=== PATIENT | male | born 1945 | race Hispanic/Latino ===

== ENCOUNTER 2017-10-30 14:45 | Inpatient (IN) | payer MEDICARE ==
[2017-10-30] MEDS ORDERED: MAGNESIUM SULFATE 2GM/50ML 2 GM/50 ML BAG IV ONE ×2 (14:48→14:51)
[2017-10-30] MEDS ORDERED: PROVENTIL IH ONE ×2 (14:48→14:53)
[2017-10-30] MEDS ORDERED: ADRENALIN SUB-Q ONE (14:48)
[2017-10-30] MEDS ORDERED: ATROVENT IH ONE ×2 (14:48→14:53)
--- NOTE | 2017-10-30 14:50 | Emergency Department Report ---
ED General Adult HPI - General Chief complaint: Dyspnea/Respdistress Stated complaint: DIFFICULTY BREATHING Time Seen by Provider: 10/30/17 14:47 Source: patient, EMS (ems notes not available at time of chart dictation) Limitations: Physical Limitation - History of Present Illness Initial comments: This is a 72-year-old male who was previously unknown to this provider, he endorses a past medical history of COPD, and his medical editor is Dr. Valdivia Patient presents to the ER with a complaint of sudden onset shortness of breath. Positive coughing, positive wheezing. He is given albuterol in the field by EMS, along with Solu-Medrol. Patient denies headache, neck pain, abdominal pain, nausea, vomiting, leg pain, leg swelling. Patient endorses this is somewhat to prior presentations of COPD. His symptoms are constant. They do not radiate anywhere. They worse with physical exertion. It decreased with rest. -: Sudden Consistency: constant Improves with: rest Worsens with: movement Associated Symptoms: cough, loss of appetite, shortness of breath, weakness. denies: confusion, chest pain - Related Data Home Medications Medication Instructions Recorded Confirmed Last Taken Hydrochlorothiazide [Hctz] 12.5 mg PO QDAY 10/30/17 10/30/17 10/30/17 Lisinopril [Zestril] 20 mg PO QDAY 10/30/17 10/30/17 10/30/17 Allergies Allergy/AdvReac Type Severity Reaction Status Date / Time No Known Allergies Allergy Unverified 10/30/17 14:52 ED Review of Systems ROS: Stated complaint: DIFFICULTY BREATHING Other details as noted in HPI Comment: Unobtainable due to pts medical conditions Constitutional: malaise Respiratory: shortness of breath, wheezing Cardiovascular: dyspnea on exertion Gastrointestinal: denies: vomiting Genitourinary: as per HPI Musculoskeletal: as per HPI Skin: as per HPI Neurological: as per HPI Psychiatric: as per HPI Hematological/Lymphatic: as per HPI ED Past Medical Hx - Medications Home Medications: Home Medications Medication Instructions Recorded Confirmed Last Taken Type Hydrochlorothiazide [Hctz] 12.5 mg PO QDAY 10/30/17 10/30/17 10/30/17 History Lisinopril [Zestril] 20 mg PO QDAY 12/22/17 12/22/17 12/22/17 History ED Physical Exam - General Limitations: Physical Limitation General appearance: alert, in distress, obese - Head Head exam: Present: atraumatic, normocephalic - Eye Eye exam: Present: normal appearance - ENT ENT exam: Present: normal exam, mucous membranes moist, normal external ear exam - Neck Neck exam: Present: normal inspection, full ROM - Respiratory Respiratory exam: Present: normal lung sounds bilaterally, respiratory distress , wheezes, rhonchi, accessory muscle use - Cardiovascular Cardiovascular Exam: Present: normal rhythm, tachycardia, normal heart sounds. Absent: systolic murmur, diastolic murmur, rubs, gallop - GI/Abdominal GI/Abdominal exam: Present: soft, normal bowel sounds. Absent: distended, tenderness, guarding, rebound, rigid, pulsatile mass - Rectal Rectal exam: Present: deferred - Extremities Exam Extremities exam: Present: normal inspection, full ROM, normal capillary refill. Absent: tenderness, calf tenderness - Back Exam Back exam: Present: normal inspection, full ROM. Absent: tenderness, CVA tenderness (R), paraspinal tenderness, vertebral tenderness - Neurological Exam Neurological exam: Present: alert, oriented X3, other (Extraocular movements intact. Tongue midline. No facial droop. Facial sensation intact to light touch in the V1, V2, V3 distribution bilaterally. 5 and 5 strength in 4 extremities.. Sensation is intact to light touch in 4 extremities.). Absent: motor sensory deficit - Psychiatric Psychiatric exam: Present: anxious - Skin Skin exam: Present: warm, dry, intact, normal color. Absent: rash ED Course Vital Signs 10/30/17 10/30/17 10/30/17 15:05 16:00 16:59 Temperature 97.5 F L Pulse Rate 126 H 123 H Respiratory 21 21 Rate Blood Pressure 144/77 Blood Pressure 118/74 [Right] O2 Sat by Pulse 100 97 Oximetry 10/30/17 17:00 Temperature Pulse Rate 120 H Respiratory 17 Rate Blood Pressure Blood Pressure 106/56 [Right] O2 Sat by Pulse 97 Oximetry - Reevaluation(s) Reevaluation #1: 10/30/17 15:09 Differential diagnosis, and clearly not limited to: COPD exacerbation, asthma exacerbation, pneumonia, pneumonitis Assessment and plan: 72-year-old male, appears to have a "pink puffer" phenotype , with wheezing, most likely with COPD exacerbation. He isn't markedly respiratory distress and speaking in partial sentences. He is awake and alert at this time, and is protecting his airway. He was ready given Solu-Medrol/ steroid by EMS in the field. He will be started on BiPAP therapy, he will be given albuterol, Atrovent, magnesium, and subcutaneous epinephrine. We will discuss with his primary medical editor, and he will be admitted to the hospital for COPD exacerbation. His initial EKG was uninterpretable secondary to motion artifact, we will repeat his EKG once his work of breathing has improved. Reevaluation #2: 10/30/17 15:46 Patient is feeling much improved. Arterial blood gases reviewed and appreciated. We will decrease the patient's FiO2 on BiPAP. Case presented to pulmonology, He indicates his colleague Dr. Carter can see the patient in consultation. Case presents to the Hospital physician, Dr. Zamorano who accepts the patient to the medical service. Chest x-ray reviewed, Levaquin ordered. Wheezing has much improved. Still tachycardic, I would expect that after the quantity of albuterol that the patient received. ED Medical Decision Making - Lab Data Result diagrams: 10/30/17 15:00 10/30/17 15:00 Vital Signs 10/30/17 15:05 Pulse Rate 126 H Respiratory 21 Rate Blood Pressure 144/77 O2 Sat by Pulse 100 Oximetry Lab Results 10/30/17 10/30/17 10/30/17 Range/Units 15:00 15:00 15:00 WBC 9.0 (4.5-11.0) K/mm3 RBC 4.68 (3.65-5.03) M/mm3 Hgb 14.4 (11.8-15.2) gm/dl Hct 43.3 (35.5-45.6) % MCV 93 (84-94) fl MCH 31 (28-32) pg MCHC 33 (32-34) % RDW 14.1 (13.2-15.2) % Plt Count 217 (140-440) K/mm3 Lymph % (Auto) 6.9 L (13.4-35.0) % [place] % (Auto) 7.9 H (0.0-7.3) % Eos % (Auto) 2.8 (0.0-4.3) % Baso % (Auto) 0.6 (0.0-1.8) % Lymph # 0.6 L (1.2-5.4) K/mm3 [place] # 0.7 (0.0-0.8) K/mm3 Eos # 0.3 (0.0-0.4) K/mm3 Baso # 0.1 (0.0-0.1) K/mm3 Seg Neutrophils % 81.8 H (40.0-70.0) % Seg Neutrophils # 7.4 (1.8-7.7) K/mm3 PT 13.3 (12.2-14.9) Sec. INR 0.96 (0.87-1.13) APTT 25.1 (24.2-36.6) Sec. POC ABG pH (7.35-7.45) POC ABG pCO2 (35-45) POC ABG pO2 (80-105) POC ABG HCO3 POC ABG Total CO2 POC ABG O2 Sat POC ABG Base Excess Sodium 141 (137-145) mmol/L Potassium 4.6 (3.6-5.0) mmol/L Chloride 100.8 (98-107) mmol/L Carbon Dioxide 25 (22-30) mmol/L Anion Gap 20 mmol/L BUN 18 (9-20) mg/dL Creatinine 1.3 (0.8-1.5) mg/dL Estimated GFR 54 ml/min BUN/Creatinine Ratio 14 % Glucose 178 H (75-100) mg/dL Lactic Acid (0.7-2.0) mmol/L Calcium 8.8 (8.4-10.2) mg/dL Magnesium 2.60 H (1.7-2.3) mg/dL Total Bilirubin 0.60 (0.1-1.2) mg/dL AST 19 (5-40) units/L ALT 23 (7-56) units/L Alkaline Phosphatase 59 (35-129) units/L Troponin T < 0.010 (0.00-0.029) ng/mL NT-Pro-B Natriuret Pep (0-900) pg/mL Total Protein 6.6 (6.3-8.2) g/dL Albumin 4.2 (3.9-5) g/dL Albumin/Globulin Ratio 1.8 % 10/30/17 10/30/1710/30/17 Range/Units 15:00 15:00 15:43 WBC (4.5-11.0) K/mm3 RBC (3.65-5.03) M/mm3 Hgb (11.8-15.2) gm/dl Hct (35.5-45.6) % MCV (84-94) fl MCH (28-32) pg MCHC (32-34) % RDW (13.2-15.2) % Plt Count (140-440) K/mm3 Lymph % (Auto) (13.4-35.0) % [place] % (Auto) (0.0-7.3) % Eos % (Auto) (0.0-4.3) % Baso % (Auto) (0.0-1.8) % Lymph # (1.2-5.4) K/mm3 [place] # (0.0-0.8) K/mm3 Eos # (0.0-0.4) K/mm3 Baso # (0.0-0.1) K/mm3 Seg Neutrophils % (40.0-70.0) % Seg Neutrophils # (1.8-7.7) K/mm3 PT (12.2-14.9) Sec. INR (0.87-1.13) APTT (24.2-36.6) Sec. POC ABG pH 7.395 (7.35-7.45) POC ABG pCO2 40.2 (35-45) POC ABG pO2 431 H (80-105) POC ABG HCO3 24.6 POC ABG Total CO2 26 POC ABG O2 Sat 100 POC ABG Base Excess 0 Sodium (137-145) mmol/L Potassium (3.6-5.0) mmol/L Chloride (98-107) mmol/L Carbon Dioxide (22-30) mmol/L Anion Gap mmol/L BUN (9-20) mg/dL Creatinine (0.8-1.5) mg/dL Estimated GFR ml/min BUN/Creatinine Ratio % Glucose (75-100) mg/dL Lactic Acid 2.70 H* (0.7-2.0) mmol/L Calcium (8.4-10.2) mg/dL Magnesium (1.7-2.3) mg/dL Total Bilirubin (0.1-1.2) mg/dL AST (5-40) units/L ALT (7-56) units/L Alkaline Phosphatase (35-129) units/L Troponin T (0.00-0.029) ng/mL NT-Pro-B Natriuret Pep 107.2 (0-900) pg/mL Total Protein (6.3-8.2) g/dL Albumin (3.9-5) g/dL Albumin/Globulin Ratio % - EKG Data -: EKG Interpreted by Or - EKG Data 10/30/17 16:48 Sinus tachycardia, 122 beats per minute, low voltage, right bundle branch block , abnormal EKG, not morphologically consistent C elevation myocardial infarction. - Radiology Data Radiology results: report reviewed, image reviewed Referring Physician: SURY HERBERT Patient Name: RAQUEL BACA Date of : 1945 Sex: Male Report Date: 2017-10-30 Report Status: Finalized Findings [facility] [address] [place] [address] XRay Report Signed Patient: RAQUEL BACA MR#: [id number] : 1945 Acct:[id number] Age/Sex: 72 / M ADM Date: 10/30/17 Loc: ED Attending Dr: Ordering Physician: SURY HERBERT MD Date of Service: 10/30/17 Procedure(s): XR chest 1V ap Accession Number(s): [id number] cc: SURY HERBERT MD Fluoro Time In Minutes: PORTABLE CHEST INDICATION: Dyspnea. COMPARISON: None similar at this institution. FINDINGS: Portable, frontal chest radiograph demonstrates normal cardiomediastinal silhouette. Aortic knob calcifications. Prominent/increased bronchovascular/interstitial markings centrally and more so in the left upper lobe/suprahilar. Subtle 3-4 mm reticulonodular densities in the lower lung zones may also be noted, more so on the right. No pleural effusions or CHF. EKG leads. Left AC joint degenerative changes. CONCLUSION: Prominent interstitial/bronchovascular markings with subtle reticulonodular prominence in the right lower lung zone, as described. Correlation with prior chest imaging would be helpful, if available or may be further assessed with nonemergent high resolution chest CT, if warranted. Thank you for the opportunity to participate in this patient's care. Transcribed By: RS Dictated By: ARMIDA REYNOSO MD Electronically Authenticated By: ARMIDA REYNOSO MD Signed Date/Time: 10/30/17 1525 DD/ 1519 Critical Care Time: Yes Critical care time in (mins) excluding proc time.: 35 Critical care attestation.: If time is entered above; I have spent that time in minutes in the direct care of this critically ill patient, excluding procedure time. ED Disposition Clinical Impression: Respiratory failure, COPD exacerbation Disposition: OP ADMIT IP TO THIS HOSP Is pt being admited?: Yes Condition: Critical
[2017-10-30 15:24] LABS: Basophils % (Auto) 0.6 % (0.0-1.8); Eosinophils % (Auto) 2.8 % (0.0-4.3); Hematocrit 43.3 % (35.5-45.6); Hemoglobin 14.4 gm/dl (11.8-15.2); Mean Corpuscular HGB Conc 33 % (32-34); Mean Corpuscular Hemoglobin 31 pg (28-32); Mean Corpuscular Volume 93 fl (84-94); Platelet Count 217 K/mm3 (140-440); Red Blood Count 4.68 M/mm3 (3.65-5.03); Red Cell Distribution Width 14.1 % (13.2-15.2)
--- NOTE | 2017-10-30 15:32 | XRay Report ---
PORTABLE CHEST INDICATION: Dyspnea. COMPARISON: None similar at this institution. FINDINGS: Portable, frontal chest radiograph demonstrates normal cardiomediastinal silhouette. Aortic knob calcifications. Prominent/increased bronchovascular/interstitial markings centrally and more so in the left upper lobe/suprahilar. Subtle 3-4 mm reticulonodular densities in the lower lung zones may also be noted, more so on the right. No pleural effusions or CHF. EKG leads. Left AC joint degenerative changes. CONCLUSION: Prominent interstitial/bronchovascular markings with subtle reticulonodular prominence in the right lower lung zone, as described. Correlation with prior chest imaging would be helpful, if available or may be further assessed with nonemergent high resolution chest CT, if warranted. Thank you for the opportunity to participate in this patient's care.
[2017-10-30 15:33] LABS: INR 0.96 (0.87-1.13)
[2017-10-30] MEDS ORDERED: NACL 0.9% 500 ML 500 ML ONE (15:33)
[2017-10-30] MEDS ORDERED: NACL 0.9% 500 ML 500 ML IV ONE (15:33)
[2017-10-30 15:34] LABS: Partial Thromboplastin Time 25.1 Sec. (24.2-36.6)
[2017-10-30 15:38] LABS: Alanine Aminotransferase 23 units/L (7-56); Albumin 4.2 g/dL (3.9-5); Albumin/Globulin Ratio 1.8 %; Alkaline Phosphatase 59 units/L (35-129); Anion Gap 20 mmol/L; BUN/Creatinine Ratio 14; Blood Urea Nitrogen 18 mg/dL (9-20); Calcium 8.8 mg/dL (8.4-10.2); Carbon Dioxide 25 mmol/L (22-30); Chloride 100.8 mmol/L (98-107); Glucose 178 mg/dL (75-100); Potassium 4.6 mmol/L (3.6-5.0); Sodium 141 mmol/L (137-145); Total Protein 6.6 g/dL (6.3-8.2)
[2017-10-30 15:45] LABS: ISTAT Base Excess 0; ISTAT HCO3 24.6; ISTAT PCO2 40.2 (35-45); ISTAT PH 7.395 (7.35-7.45); ISTAT PO2 431 (80-105); ISTAT SO2 100; ISTAT TCO2 26
[2017-10-30] MEDS ORDERED: LEVAQUIN 750MG/150ML 750 MG/150 ML BAG IV ONE (15:46)
--- NOTE | 2017-10-30 16:02 | History and Physical Report ---
History of Present Illness Chief complaint: I cant breathe, and i keep coughing History of present illness: 72 YO Male with COPD, Chronic Respiratory Failure on Home Oxygen presents to ED for evaluation. Pt unable to provide detailed history due to shortness of breath , but history taken from daughter, who is at bedside during exam and interview. Pt daughter states that pt has experienced shortness of breath for the past 5 days with worsening symptoms over the past 1 day. Pt daughter acknowledges increased coughing with increased sputum production, as well as wheezing. EMS notified, and upon arrival patient found to have hypoxemic respiratory failure. Pt was given albuterol in the field by EMS, along with Solu-Medrol and transported to [facility] for further care. Pt seen and evaluated in ED and found to be in respiratory failure and treated with NIPPV with mild improvement. Pt is able to protect his airway. Pt Patient denies fever, chills, CP, palpitataions , NVD, Syncope, headache, neck pain, abdominal pain, nausea, leg pain, leg swelling. Pulmonary consulted in ED. Past History Past Medical History: COPD, hypertension Past Surgical History: No surgical history, Other (reviewed) Social history: . denies: smoking, alcohol abuse, prescription drug abuse Family history: hypertension Medications and Allergies Allergies Allergy/AdvReac Type Severity Reaction Status Date / Time No Known Allergies Allergy Unverified 10/30/17 14:52 Home Medications Medication Instructions Recorded Confirmed Last Taken Type Hydrochlorothiazide [Hctz] 12.5 mg PO QDAY 10/30/17 10/30/17 10/30/17 History Lisinopril [Zestril] 20 mg PO QDAY 10/30/17 10/30/17 10/30/17 History Active Meds: Active Medications Levofloxacin/Dextrose (Levaquin 750mg/150ml) 750 mg in 150 mls @ 100 mls/hr IV ONCE ONE Stop: 10/30/17 17:15 Review of Systems Constitutional: no weight loss, no weight gain, no fever, no chills Ears, nose, mouth and throat: no ear pain, no ear discharge, no tinnitis, no decreased hearing Cardiovascular: no chest pain, no orthopnea, no palpitations, no rapid/ irregular heart beat Respiratory: cough with sputum, excessive sputum, shortness of breath, wheezing Gastrointestinal: no nausea, no vomiting, no diarrhea Genitourinary Male: no hematuria, no flank pain, no discharge, no urinary frequency, no urinary hesitancy Rectal: no pain, no incontinence, no bleeding Musculoskeletal: no neck stiffness, no neck pain, no shooting arm pain, no arm numbness/tingling, no low back pain Integumentary: no rash, no pruritis, no redness, no sores, no wounds Neurological: no transient paralysis, no paralysis, no weakness, no parathesias , no numbness, no tingling, no seizures Psychiatric: no anxiety, no memory loss, no change in sleep habits, no sleep disturbances, no insomnia, no hypersomnia, no change in appetite Endocrine: no cold intolerance, no heat intolerance, no polyphagia, no excessive thirst, no polydipsia Hematologic/Lymphatic: no easy bruising, no easy bleeding Allergic/Immunologic: no urticaria, no allergic rhinitis, no wheezing Exam - Constitutional Vitals: Temp Pulse Resp BP Pulse Ox 126 H 21 144/77 100 10/30/17 15:05 10/30/17 15:05 10/30/17 15:05 10/30/17 15:05 General appearance: Present: mild distress - EENT Eyes: Present: PERRL ENT: hearing intact, clear oral mucosa - Neck Neck: Present: supple, normal ROM - Respiratory Respiratory effort: labored Respiratory: bilateral: diminished, rhonchi - Cardiovascular Heart Sounds: Present: S1 & S2. Absent: rub, click - Extremities Extremities: pulses symmetrical, No edema Peripheral Pulses: within normal limits - Abdominal General gastrointestinal: Present: soft, non-tender, non-distended, normal bowel sounds Male genitourinary: Present: normal - Integumentary Integumentary: Present: clear, warm, dry - Musculoskeletal Musculoskeletal: gait normal, strength equal bilaterally - Psychiatric Psychiatric: appropriate mood/affect, intact judgment & insight - Neurologic Neurologic: CNII-XII intact, moves all extremities Results - Labs CBC & Chem 7: 10/30/17 15:00 10/30/17 15:00 Labs: Abnormal lab results 10/30/17 10/30/17 10/30/17 Range/Units 15:00 15:00 15:00 Lymph % (Auto) 6.9 L (13.4-35.0) % [place] % (Auto) 7.9 H (0.0-7.3) % Lymph # 0.6 L (1.2-5.4) K/mm3 Seg Neutrophils % 81.8 H (40.0-70.0) % POC ABG pO2 (80-105) Glucose 178 H (75-100) mg/dL Lactic Acid 2.70 H* (0.7-2.0) mmol/L Magnesium 2.60 H (1.7-2.3) mg/dL 10/30/ Range/Units 15:43 Lymph % (Auto) (13.4-35.0) % [place] % (Auto) (0.0-7.3) % Lymph # (1.2-5.4) K/mm3 Seg Neutrophils % (40.0-70.0) % POC ABG pO2 431 H (80-105) Glucose (75-100) mg/dL Lactic Acid (0.7-2.0) mmol/L Magnesium (1.7-2.3) mg/dL Assessment and Plan - Patient Problems (1) COPD exacerbation Current Visit: Yes Status: Acute Plan to address problem: Supplemental oxygen, nebs, aspiration precautions. NIPPV, IV steroid therapy, IV abx, aspiration precautions. pulmonary consulted, CTA chest (2) HTN (hypertension) Current Visit: Yes Status: Acute Plan to address problem: monitor bp q shift, continue medical management. (3) Respiratory failure Current Visit: Yes Status: Acute Plan to address problem: supplemental oxygen,nebs, NIPPV, pulmonary toilet, CTA chest, (4) DVT prophylaxis Current Visit: Yes Status: Acute
[2017-10-30] MEDS ORDERED: PROVENTIL IH PRN (16:08)
[2017-10-30] MEDS ORDERED: DULCOLAX PR PRN (16:08)
[2017-10-30] MEDS ORDERED: ZOFRAN IV PRN (16:08)
[2017-10-30] MEDS ORDERED: TYLENOL PO PRN (16:08)
[2017-10-30] MEDS ORDERED: MILK OF MAGNESIA PO PRN (16:08)
--- NOTE | 2017-10-30 18:10 | Cat Scan Report ---
FINAL REPORT EXAM: CT ANGIO CHEST HISTORY: Dyspnea TECHNIQUE: Enhanced CT of the chest at 1.25 mm axial intervals following a pulmonary embolism protocol. Coronal and sagittal imaging were also obtained. Coronal oblique MIP projections were obtained. Contrast: Intravenous contrast given. PRIORS: None. FINDINGS: There is no evidence for pulmonary embolism in the main pulmonary artery, right and left pulmonary arteries or their major distributions. However, CT does not exclude distal pulmonary emboli. There is a pleural-based uncalcified 5 mm nodule in the lateral left lower lobe (axial image 94). There is a stellate focus in the right apex medially measuring 3.0 x 1.0 cm (axial image 29, series 3). This extends from the hilum cranially. Linear atelectasis or scarring in the right base medially is present. Fissure lymph nodes are seen in the lateral right major fissure (axial image 78) and in the minor fissure (axial image 71). Diffuse interstitial changes are present throughout both lungs with small bulla in the upper lobe suggesting underlying emphysema. There is no evidence for mediastinal, hilar, or axillary adenopathy. Cardiovascular structures are within normal limits. No evidence for ventricular chamber enlargement is seen. Images through the lung bases include the upper abdomen which show no abnormalities of the visualized abdominal viscera. Bony structures demonstrate moderate compression deformity of T11. There also a subtle superior endplate compression of T3 and mild anterior wedging of T7. IMPRESSION: 1. no evidence for pulmonary embolism. 2. stellate focus in the right apex medially. Differential includes neoplasm versus fibrosis 3. Uncalcified 5 mm nodule in the left lateral lower lobe 4. Both changes and interstitial changes bilaterally suggesting underlying emphysema. 5. Compression deformities involving T3, T7, and T11.
[2017-10-30] MEDS: ZITHROMAX 500 MG in NACL 0.9% 250ML 250 ML IV SCH (18:34)
[2017-10-30] MEDS ORDERED: ATIVAN IV ONE (19:00)
[2017-10-30] MEDS: DUONEB *Not for PRN Use IH SCH (21:41)
[2017-10-30] MEDS: PEPCID PO SCH (23:00)
[2017-10-31] MEDS: DUONEB *Not for PRN Use IH SCH ×4 (02:23→19:33)
[2017-10-31] MEDS: PEPCID PO SCH ×2 (09:39→21:33)
[2017-10-31] MEDS: ZESTRIL PO SCH (10:00)
[2017-10-31] MEDS: HCTZ PO SCH (10:00)
[2017-10-31 14:22] LABS: ISTAT Base Excess -5; ISTAT HCO3 19.7; ISTAT PCO2 31.1 (35-45); ISTAT PH 7.409 (7.35-7.45); ISTAT PO2 112 (80-105); ISTAT SO2 98; ISTAT TCO2 21
--- NOTE | 2017-10-31 15:03 | Progress Note ---
Assessment and Plan Assessment and plan: 72 YO Male with COPD, Chronic Respiratory Failure on Home Oxygen presents with productive cough and sob COPD exacerbation Supplemental oxygen, nebs, aspiration precautions. NIPPV, IV steroid therapy, IV abx, aspiration precautions. pulmonary consulted, CTA chest continue BIPAP today HTN (hypertension) monitor bp q shift, continue medical management. Acute hypoxic Respiratory failure supplemental oxygen,nebs, NIPPV, pulmonary toilet, continue rescue BIPAP DVT prophylaxis Current Visit: Yes Status: Acute History Interval history: he is c.o sob, wheezing, sob and air hunger denies CP, nausea, dizzyness, focal weakness or fever Hospitalist Physical - Constitutional Vitals: Temp Pulse Resp BP Pulse Ox 98.0 F 102 H 22 132/82 98 10/31/17 14:29 10/31/17 14:29 10/31/17 14:29 10/31/17 14:29 10/31/17 14:29 General appearance: Present: mild distress - EENT Eyes: Present: PERRL, EOM intact ENT: hearing intact, clear oral mucosa - Neck Neck: Present: supple, normal ROM - Respiratory Respiratory effort: pursed lips Respiratory: bilateral: diminished, wheezing - Cardiovascular Rhythm: regular Heart Sounds: Present: S1 & S2 - Extremities Extremities: no ischemia Peripheral Pulses: within normal limits - Abdominal General gastrointestinal: soft, non-tender - Integumentary Integumentary: Present: clear, warm - Psychiatric Psychiatric: appropriate mood/affect, intact judgment & insight - Neurologic Neurologic: CNII-XII intact, moves all extremities Results - Labs CBC & Chem 7: 10/30/17 15:00 10/30/17 15:00 Labs: Laboratory Last Values WBC 9.0 K/mm3 (4.5-11.0) 10/30/17 15:00 RBC 4.68 M/mm3 (3.65-5.03) 10/30/17 15:00 Hgb 14.4 gm/dl (11.8-15.2) 10/30/17 15:00 Hct 43.3 % (35.5-45.6) 10/30/17 15:00 MCV 93 fl (84-94) 10/30/17 15:00 MCH 31 pg (28-32) 10/30/17 15:00 MCHC 33 % (32-34) 10/30/17 15:00 RDW 14.1 % (13.2-15.2) 10/30/17 15:00 Plt Count 217 K/mm3 (140-440) 10/30/17 15:00 Lymph % (Auto) 6.9 % (13.4-35.0) L 10/30/17 15:00 [place] % (Auto) 7.9 % (0.0-7.3) H 10/30/17 15:00 Eos % (Auto) 2.8 % (0.0-4.3) 10/30/17 15:00 Baso % (Auto) 0.6 % (0.0-1.8) 10/30/17 15:00 Lymph # 0.6 K/mm3 (1.2-5.4) L 10/30/17 15:00 [place] # 0.7 K/mm3 (0.0-0.8) 10/30/17 15:00 Eos # 0.3 K/mm3 (0.0-0.4) 10/30/17 15:00 Baso # 0.1 K/mm3 (0.0-0.1) 10/30/17 15:00 Seg Neutrophils % 81.8 % (40.0-70.0) H 10/30/17 15:00 Seg Neutrophils # 7.4 K/mm3 (1.8-7.7) 10/30/17 15:00 PT 13.3 Sec. (12.2-14.9) 10/30/17 15:00 INR 0.96 (0.87-1.13) 10/30/17 15:00 APTT 25.1 Sec. (24.2-36.6) 10/30/17 15:00 POC ABG pH 7.409 (7.35-7.45) 10/31/17 14:15 POC ABG pCO2 31.1 (35-45) L 10/31/17 14:15 POC ABG pO2 112 (80-105) H 10/31/17 14:15 POC ABG HCO3 19.7 10/31/17 14:15 POC ABG Total CO2 21 10/31/17 14:15 POC ABG O2 Sat 98 10/31/17 14:15 POC ABG Base Excess -5 10/31/17 14:15 FiO2 40 % 10/31/17 14:15 Sodium 141 mmol/L (137-145) 10/30/17 15:00 Potassium 4.6 mmol/L (3.6-5.0) 10/30/17 15:00 Chloride 100.8 mmol/L (98-107) 10/30/17 15:00 Carbon Dioxide 25 mmol/L (22-30) 10/30/17 15:00 Anion Gap 20 mmol/L 10/30/17 15:00 BUN 18 mg/dL (9-20) 10/30/17 15:00 Creatinine 1.3 mg/dL (0.8-1.5) 10/30/17 15:00 Estimated GFR 54 ml/min 10/30/17 15:00 BUN/Creatinine Ratio 14 % 10/30/17 15:00 Glucose 178 mg/dL (75-100) H 10/30/17 15:00 Lactic Acid 2.70 mmol/L (0.7-2.0) H* 10/30/17 15:00 Calcium 8.8 mg/dL (8.4-10.2) 10/30/17 15:00 Magnesium 2.60 mg/dL (1.7-2.3) H 10/30/17 15:00 Total Bilirubin 0.60 mg/dL (0.1-1.2) 10/30/17 15:00 AST 19 units/L (5-40) 10/30/17 15:00 ALT 23 units/L (7-56) 10/30/17 15:00 Alkaline Phosphatase 59 units/L (35-129) 10/30/17 15:00 Troponin T < 0.010 ng/mL (0.00-0.029) 10/30/17 15:00 NT-Pro-B Natriuret Pep 107.2 pg/mL (0-900) 10/30/17 15:00 Total Protein 6.6 g/dL (6.3-8.2) 10/30/17 15:00 Albumin 4.2 g/dL (3.9-5) 10/30/17 15:00 Albumin/Globulin Ratio 1.8 % 10/30/17 15:00
[2017-10-31] MEDS: ZITHROMAX 500 MG in NACL 0.9% 250ML 250 ML IV SCH (17:28)
--- NOTE | 2017-10-31 17:31 | Consultation ---
History of Present Illness Consult date: 10/31/17 Reason for consult: dyspnea, COPD History of present illness: 72 YO Male with COPD, Chronic Respiratory Failure on Home Oxygen presents to ED for evaluation. Pt unable to provide detailed history due to shortness of breath and being on BiPAP therapy, but history taken from daughter, who is at bedside during exam and interview. Pt daughter states that pt has experienced shortness of breath for the past 5 days with worsening symptoms over the past 1 day. Pt daughter acknowledges increased coughing with increased sputum production, as well as wheezing. EMS notified, and upon arrival patient found to have hypoxemic respiratory failure. Pt was given albuterol in the field by EMS, along with Solu-Medrol and transported to [facility] for further care. Pt seen and evaluated in ED and found to be in respiratory failure and treated with NIPPV with mild improvement. Pt is able to protect his airway. Pt Patient denies fever, chills, CP, palpitataions, NVD, Syncope, headache, neck pain, abdominal pain, nausea, leg pain, leg swelling. Pulmonary consulted in ED. In addition patient reports loud snoring. He has been on home oxygen therapy. He has not had a sleep study in the past. Patient was also found to have a spiculated lesion at right apex on recent CT scan. Past History Past Medical History: COPD, hypertension Past Surgical History: No surgical history, Other (reviewed) Social history: . denies: smoking, alcohol abuse, prescription drug abuse Family history: hypertension Medications and Allergies Allergies Allergy/AdvReac Type Severity Reaction Status Date / Time No Known Allergies Allergy Unverified 10/30/17 14:52 Home Medications Medication Instructions Recorded Confirmed Last Taken Type Hydrochlorothiazide [Hctz] 12.5 mg PO QDAY 10/30/17 10/30/17 10/30/17 History Lisinopril [Zestril] 20 mg PO QDAY 10/30/17 10/30/17 10/30/17 History Active Meds: Active Medications Acetaminophen (Tylenol) 650 mg PO Q4H PRN PRN Reason: Pain MILD(1-3)/Fever >100.5/TELLO Albuterol (Proventil) 2.5 mg IH Q4HRT PRN PRN Reason: Shortness Of Breath Albuterol/Ipratropium (Duoneb *Not For Prn Use*) 1 ampul IH Q6HRT [facility] Last Admin: 10/31/17 13:29 Dose: Not Given Bisacodyl (Dulcolax) 10 mg MT QDAY PRN PRN Reason: Constipation unrelieved by MOM Famotidine (Pepcid) 20 mg PO BID [facility] Last Admin: 10/31/17 09:39 Dose: 20 mg Hydrochlorothiazide (Hctz) 12.5 mg PO QDAY [facility] Last Admin: 10/31/17 10:00 Dose: Not Given Azithromycin 500 mg/ Sodium (Chloride) 250 mls @ 250 mls/hr IV Q24H [facility] Last Admin: 10/30/17 18:34 Dose: 250 mls/hr Lisinopril (Zestril) 20 mg PO QDAY [facility] Last Admin: 10/31/17 10:00 Dose: Not Given Magnesium Hydroxide (Milk Of Magnesia) 30 ml PO Q4H PRN PRN Reason: Constipation Methylprednisolone Sodium Succinate (Solu-Medrol) 40 mg IV Q12HR [facility] Last Admin: 10/31/17 09:39 Dose: 40 mg Methylprednisolone Sodium Succinate (Solu-Medrol) 40 mg IV Q8HR [facility] Ondansetron HCl (Zofran) 4 mg IV Q8H PRN PRN Reason: N/V unrelieved by Reglan Physical Examination Vital signs: Vital Signs Pulse Resp BP Pulse Ox 126 H 21 144/77 100 10/30/17 15:05 10/30/17 15:05 10/30/17 15:05 10/30/17 15:05 General appearance: no acute distress, alert, appears uncomfortable, other ( morbidly obese) Eyes: non-icteric ENT: oropharynx dry, other (on BiPAP mask examination was limited) Neck: supple, no JVD Effort: mildly labored Ascultation: Bilateral: diminished breath sounds, wheezes, rales Cardiovascular: regular rate and rhythm Gastrointestinal: normoactive bowel sounds, soft, non-tender, other (obese) Integumentary: rash (stasis dermatitis changes lower extremity.) Extremities: edema Results - Laboratory Findings CBC and BMP: 10/30/17 15:00 10/30/17 15:00 ABG POC ABG pH 7.409 (7.35-7.45) 10/31/17 14:15 POC ABG pCO2 31.1 (35-45) L 10/31/17 14:15 POC ABG pO2 112 (80-105) H 10/31/17 14:15 POC ABG HCO3 19.7 10/31/17 14:15 POC ABG Total CO2 21 10/31/17 14:15 POC ABG O2 Sat 98 10/31/17 14:15 PT/INR, D-dimer PT 13.3 Sec. (12.2-14.9) 10/30/17 15:00 INR 0.96 (0.87-1.13) 10/30/17 15:00 Abnormal lab findings: Abnormal Labs 10/30/17 10/30/17 10/30/17 15:00 15:00 15:00 Lymph % (Auto) 6.9 L [place] % (Auto) 7.9 H Lymph # 0.6 L Seg Neutrophils % 81.8 H POC ABG pCO2 POC ABG pO2 Glucose 178 H Lactic Acid 2.70 H* Magnesium 2.60 H 10/30/17 10/31/17 15:43 14:15 Lymph % (Auto) [place] % (Auto) Lymph # Seg Neutrophils % POC ABG pCO2 31.1 L POC ABG pO2 431 H 112 H Glucose Lactic Acid Magnesium - Diagnostic Findings Chest x-ray: report reviewed (COPD no acute finding) CT scan - chest: report reviewed (right upper lobe density scar versus neoplasm) Assessment and Plan Impression: COPD with acute exacerbation Acute respiratory failure Right upper lobe/apex lesion scar versus neoplasm Ordered obesity Suspect obstructive sleep apnea Overlap syndrome. Recommendation: Continue with nebulizer treatment and IV steroid. Will increase Solu-Medrol to 40 mg every 8 hour. Continue with BiPAP therapy as tolerated Consider PET scan as an outpatient Sleep study as outpatient
[2017-11-01] MEDS: DUONEB *Not for PRN Use IH SCH ×5 (01:35→20:06)
[2017-11-01] MEDS: ZESTRIL PO SCH (09:26)
[2017-11-01] MEDS: HCTZ PO SCH (09:27)
[2017-11-01] MEDS: PEPCID PO SCH ×2 (09:27→21:36)
--- NOTE | 2017-11-01 10:14 | Progress Note ---
Assessment and Plan Assessment and plan: 72 YO Male with COPD, Chronic Respiratory Failure on Home Oxygen presents with productive cough and sob COPD exacerbation Supplemental oxygen, nebs, aspiration precautions. NIPPV, IV steroid therapy, IV abx, aspiration precautions. pulmonary consulted, CTA chest switch from BIPAP to high flow oxygen today HTN (hypertension) monitor bp q shift, continue medical management. Acute hypoxic Respiratory failure supplemental oxygen,nebs, NIPPV, pulmonary toilet, now on high flow oxygen Anxiety disorder add oral ativan prn q8h DVT prophylaxis Current Visit: Yes Status: Acute History Interval history: he is c.o sob, wheezing, sob and air hunger denies CP, nausea, dizzyness, focal weakness or fever Hospitalist Physical - Physical exam Narrative exam: General appearance: Present: mild distress - EENT Eyes: Present: PERRL, EOM intact ENT: hearing intact, clear oral mucosa - Neck Neck: Present: supple, normal ROM - Respiratory Respiratory effort: pursed lips Respiratory: bilateral: diminished, wheezing - Cardiovascular Rhythm: regular Heart Sounds: Present: S1 & S2 - Extremities Extremities: no ischemia Peripheral Pulses: within normal limits - Abdominal General gastrointestinal: soft, non-tender - Integumentary Integumentary: Present: clear, warm - Psychiatric Psychiatric: appropriate mood/affect, intact judgment & insight - Neurologic Neurologic: CNII-XII intact, moves all extremities - Constitutional Vitals: Temp Pulse Resp BP Pulse Ox 98.3 F 91 H 23 142/86 96 11/01/17 07:38 11/01/17 09:26 11/01/17 08:24 11/01/17 09:26 11/01/17 09:14 General appearance: Present: mild distress Results - Labs CBC & Chem 7: 10/30/17 15:00 10/30/17 15:00 Labs: Laboratory Last Values WBC 9.0 K/mm3 (4.5-11.0) 10/30/17 15:00 RBC 4.68 M/mm3 (3.65-5.03) 10/30/17 15:00 Hgb 14.4 gm/dl (11.8-15.2) 10/30/17 15:00 Hct 43.3 % (35.5-45.6) 10/30/17 15:00 MCV 93 fl (84-94) 10/30/17 15:00 MCH 31 pg (28-32) 10/30/17 15:00 MCHC 33 % (32-34) 10/30/17 15:00 RDW 14.1 % (13.2-15.2) 10/30/17 15:00 Plt Count 217 K/mm3 (140-440) 10/30/17 15:00 Lymph % (Auto) 6.9 % (13.4-35.0) L 10/30/17 15:00 [place] % (Auto) 7.9 % (0.0-7.3) H 10/30/17 15:00 Eos % (Auto) 2.8 % (0.0-4.3) 10/30/17 15:00 Baso % (Auto) 0.6 % (0.0-1.8) 10/30/17 15:00 Lymph # 0.6 K/mm3 (1.2-5.4) L 10/30/17 15:00 [place] # 0.7 K/mm3 (0.0-0.8) 10/30/17 15:00 Eos # 0.3 K/mm3 (0.0-0.4) 10/30/17 15:00 Baso # 0.1 K/mm3 (0.0-0.1) 10/30/17 15:00 Seg Neutrophils % 81.8 % (40.0-70.0) H 10/30/17 15:00 Seg Neutrophils # 7.4 K/mm3 (1.8-7.7) 10/30/17 15:00 PT 13.3 Sec. (12.2-14.9) 10/30/17 15:00 INR 0.96 (0.87-1.13) 10/30/17 15:00 APTT 25.1 Sec. (24.2-36.6) 10/30/17 15:00 POC ABG pH 7.409 (7.35-7.45) 10/31/17 14:15 POC ABG pCO2 31.1 (35-45) L 10/31/17 14:15 POC ABG pO2 112 (80-105) H 10/31/17 14:15 POC ABG HCO3 19.7 10/31/17 14:15 POC ABG Total CO2 21 10/31/17 14:15 POC ABG O2 Sat 98 10/31/17 14:15 POC ABG Base Excess -5 10/31/17 14:15 FiO2 40 % 10/31/17 14:15 Sodium 141 mmol/L (137-145) 10/30/17 15:00 Potassium 4.6 mmol/L (3.6-5.0) 10/30/17 15:00 Chloride 100.8 mmol/L (98-107) 10/30/17 15:00 Carbon Dioxide 25 mmol/L (22-30) 10/30/17 15:00 Anion Gap 20 mmol/L 10/30/17 15:00 BUN 18 mg/dL (9-20) 10/30/17 15:00 Creatinine 1.3 mg/dL (0.8-1.5) 10/30/17 15:00 Estimated GFR 54 ml/min 10/30/17 15:00 BUN/Creatinine Ratio 14 % 10/30/17 15:00 Glucose 178 mg/dL (75-100) H 10/30/17 15:00 Lactic Acid 2.70 mmol/L (0.7-2.0) H* 10/30/17 15:00 Calcium 8.8 mg/dL (8.4-10.2) 10/30/17 15:00 Magnesium 2.60 mg/dL (1.7-2.3) H 10/30/17 15:00 Total Bilirubin 0.60 mg/dL (0.1-1.2) 10/30/17 15:00 AST 19 units/L (5-40) 10/30/17 15:00 ALT 23 units/L (7-56) 10/30/17 15:00 Alkaline Phosphatase 59 units/L (35-129) 10/30/17 15:00 Troponin T < 0.010 ng/mL (0.00-0.029) 10/30/17 15:00 NT-Pro-B Natriuret Pep 107.2 pg/mL (0-900) 10/30/17 15:00 Total Protein 6.6 g/dL (6.3-8.2) 10/30/17 15:00 Albumin 4.2 g/dL (3.9-5) 10/30/17 15:00 Albumin/Globulin Ratio 1.8 % 10/30/17 15:00
[2017-11-01] MEDS ORDERED: ATIVAN PO PRN (13:21)
--- NOTE | 2017-11-01 15:47 | Progress Note ---
Assessment and Plan Impression: COPD with acute exacerbation Acute respiratory failure Right upper lobe/apex lesion scar versus neoplasm Ordered obesity Suspect obstructive sleep apnea Overlap syndrome. Recommendation: Continue with nebulizer treatment and IV steroid. Will increase Solu-Medrol to 40 mg every 8 hour. Continue with BiPAP therapy as tolerated Consider PET scan as an outpatient Sleep study as outpatient Wean BIPAP as tolerated Subjective Date of service: 11/01/17 Interval history: pt still SOB, Minimally better. Still on BIPAP Objective Vital Signs - 12hr 11/01/17 11/01/17 11/01/17 04:24 04:30 04:46 Temperature 97.5 F L Pulse Rate Pulse Rate [ 92 H 95 H Anterior Bilateral Throughout] Respiratory 20 Rate Respiratory 18 18 Rate [Anterior Bilateral Throughout] Blood Pressure 139/89 O2 Sat by Pulse Oximetry 11/01/17 11/01/17 11/01/17 07:38 08:02 08:17 Temperature 98.3 F Pulse Rate 91 H Pulse Rate [ 96 H 94 H Anterior Bilateral Throughout] Respiratory 22 Rate Respiratory 21 20 Rate [Anterior Bilateral Throughout] Blood Pressure 142/86 O2 Sat by Pulse 97 Oximetry 11/01/17 11/01/17 11/01/17 08:24 09:14 09:26 Temperature Pulse Rate 94 H 91 H Pulse Rate [ Anterior Bilateral Throughout] Respiratory 23 Rate Respiratory Rate [Anterior Bilateral Throughout] Blood Pressure 142/86 O2 Sat by Pulse 98 96 Oximetry 11/01/17 11/01/17 11/01/17 10:00 13:00 13:10 Temperature Pulse Rate 81 Pulse Rate [ 95 H 98 H Anterior Bilateral Throughout] Respiratory 22 Rate Respiratory 18 18 Rate [Anterior Bilateral Throughout] Blood Pressure O2 Sat by Pulse 95 Oximetry 11/01/17 11/01/17 14:34 15:28 Temperature Pulse Rate Pulse Rate [ Anterior Bilateral Throughout] Respiratory Rate Respiratory Rate [Anterior Bilateral Throughout] Blood Pressure O2 Sat by Pulse 96 94 Oximetry Constitutional: no acute distress, alert, appears uncomfortable, other ( morbidly obese) Eyes: non-icteric ENT: oropharynx dry, other (on BiPAP mask examination was limited) Neck: supple, no JVD Effort: mildly labored Ascultation: Bilateral: diminished breath sounds, wheezes, rales Cardiovascular: regular rate and rhythm Gastrointestinal: normoactive bowel sounds, soft, non-tender, other (obese) Integumentary: rash (stasis dermatitis changes lower extremity.) Extremities: edema CBC and BMP: 10/30/17 15:00 10/30/17 15:00 ABG, PT/INR, D-dimer: ABG POC ABG pH 7.409 (7.35-7.45) 10/31/17 14:15 POC ABG pCO2 31.1 (35-45) L 10/31/17 14:15 POC ABG pO2 112 (80-105) H 10/31/17 14:15 POC ABG HCO3 19.7 10/31/17 14:15 POC ABG Total CO2 21 10/31/17 14:15 POC ABG O2 Sat 98 10/31/17 14:15 PT/INR, D-dimer PT 13.3 Sec. (12.2-14.9) 10/30/17 15:00 INR 0.96 (0.87-1.13) 10/30/17 15:00 Abnormal lab findings: Abnormal Labs 10/30/17 10/30/17 10/30/17 15:00 15:00 15:00 Lymph % (Auto) 6.9 L [place] % (Auto) 7.9 H Lymph # 0.6 L Seg Neutrophils % 81.8 H POC ABG pCO2 POC ABG pO2 Glucose 178 H Lactic Acid 2.70 H* Magnesium 2.60 H 10/30/17 10/31/17 15:43 14:15 Lymph % (Auto) [place] % (Auto) Lymph # Seg Neutrophils % POC ABG pCO2 31.1 L POC ABG pO2 431 H 112 H Glucose Lactic Acid Magnesium
[2017-11-01] MEDS: ZITHROMAX 500 MG in NACL 0.9% 250ML 250 ML IV SCH (18:45)
[2017-11-02] MEDS: DUONEB *Not for PRN Use IH SCH ×6 (00:41→19:24)
[2017-11-02] MEDS: HCTZ PO SCH (09:17)
[2017-11-02] MEDS: ZESTRIL PO SCH (09:17)
[2017-11-02] MEDS: ZITHROMAX PO SCH (09:18)
[2017-11-02] MEDS: PEPCID PO SCH ×2 (09:18→21:30)
--- NOTE | 2017-11-02 11:27 | Progress Note ---
Assessment and Plan 72 YO Male with COPD, Chronic Respiratory Failure on Home Oxygen presents with productive cough and sob /Acute COPD exacerbation Supplemental oxygen, nebs, aspiration precautions. NIPPV, IV steroid therapy, IV abx, aspiration precautions. pulmonary consulted, CTA chest switch from BIPAP to high flow oxygen today /HTN (hypertension) monitor bp q shift, continue medical management. /Acute on chronic hypoxic Respiratory failure supplemental oxygen,nebs, NIPPV, pulmonary toilet, now on high flow oxygen /Anxiety disorder added oral ativan prn q8h /DVT prophylaxis lovenox History Interval history: he is c.o sob and wheezing. but symptom improved since admission denies CP, nausea, dizzyness, focal weakness or fever Hospitalist Physical - Physical exam Narrative exam: General appearance: Present: no distress - EENT Eyes: Present: PERRL, EOM intact ENT: hearing intact, clear oral mucosa - Neck Neck: Present: supple, normal ROM - Respiratory Respiratory effort: pursed lips Respiratory: bilateral: diminished, few wheezing - Cardiovascular Rhythm: regular Heart Sounds: Present: S1 & S2 - Extremities Extremities: no ischemia Peripheral Pulses: within normal limits - Abdominal General gastrointestinal: soft, non-tender - Integumentary Integumentary: Present: clear, warm - Psychiatric Psychiatric: appropriate mood/affect, intact judgment & insight - Neurologic Neurologic: CNII-XII intact, moves all extremities Subjective Date of service: 11/02/17 Objective - Constitutional Vitals: Vital Signs - 12hr 11/02/17 11/02/17 11/02/17 00:41 00:56 01:34 Temperature Pulse Rate 96 H Pulse Rate [ 91 H 94 H Anterior Bilateral Throughout] Pulse Rate [ Posterior Bilateral] Respiratory Rate Respiratory 18 18 Rate [Anterior Bilateral Throughout] Respiratory Rate [Posterior Bilateral] Blood Pressure O2 Sat by Pulse Oximetry 11/02/17 11/02/17 11/02/17 02:00 04:00 04:20 Temperature Pulse Rate Pulse Rate [ Anterior Bilateral Throughout] Pulse Rate [ 89 89 Posterior Bilateral] Respiratory Rate Respiratory Rate [Anterior Bilateral Throughout] Respiratory 22 18 Rate [Posterior Bilateral] Blood Pressure O2 Sat by Pulse 94 Oximetry 11/02/17 11/02/17 11/02/17 07:52 08:15 08:20 Temperature 97.5 F L Pulse Rate 86 Pulse Rate [ 86 Anterior Bilateral Throughout] Pulse Rate [ Posterior Bilateral] Respiratory 20 Rate Respiratory 20 Rate [Anterior Bilateral Throughout] Respiratory Rate [Posterior Bilateral] Blood Pressure 119/73 O2 Sat by Pulse 95 96 Oximetry 11/02/17 11/02/17 11/02/17 08:23 09:17 11:00 Temperature Pulse Rate 86 Pulse Rate [ 86 Anterior Bilateral Throughout] Pulse Rate [ Posterior Bilateral] Respiratory Rate Respiratory 18 Rate [Anterior Bilateral Throughout] Respiratory Rate [Posterior Bilateral] Blood Pressure 119/73 O2 Sat by Pulse 95 Oximetry - Labs CBC & Chem 7: 10/30/17 15:00 10/30/17 15:00
--- NOTE | 2017-11-02 14:38 | Progress Note ---
Assessment and Plan Impression: COPD with acute exacerbation Acute respiratory failure Right upper lobe/apex lesion scar versus neoplasm Morbid obesity Suspect obstructive sleep apnea Overlap syndrome. Recommendation: Continue with nebulizer treatment and IV steroid. Will increase Solu-Medrol to 40 mg every 8 hour. Continue with BiPAP therapy as tolerated Consider PET scan as an outpatient Sleep study as outpatient Wean BIPAP as tolerated Possible discharge in the morning on prednisone taper starting at 60 mg and antibiotics Follow-up with Dr. Valdivia next week Subjective Date of service: 11/02/17 Interval history: pt is better, off BIPAP on NC Objective Vital Signs - 12hr 11/02/17 11/02/17 11/02/17 04:00 04:20 07:52 Temperature 97.5 F L Pulse Rate 86 Pulse Rate [ Anterior Bilateral Throughout] Pulse Rate [ 89 89 Posterior Bilateral] Respiratory 20 Rate Respiratory Rate [Anterior Bilateral Throughout] Respiratory 22 18 Rate [Posterior Bilateral] Blood Pressure 119/73 O2 Sat by Pulse 95 Oximetry 11/02/17 11/02/17 11/02/17 08:15 08:20 08:23 Temperature Pulse Rate Pulse Rate [ 86 86 Anterior Bilateral Throughout] Pulse Rate [ Posterior Bilateral] Respiratory Rate Respiratory 20 18 Rate [Anterior Bilateral Throughout] Respiratory Rate [Posterior Bilateral] Blood Pressure O2 Sat by Pulse 96 Oximetry 11/02/17 11/02/17 11/02/17 09:17 11:00 12:08 Temperature Pulse Rate 86 Pulse Rate [ 92 H Anterior Bilateral Throughout] Pulse Rate [ Posterior Bilateral] Respiratory Rate Respiratory 24 Rate [Anterior Bilateral Throughout] Respiratory Rate [Posterior Bilateral] Blood Pressure 119/73 O2 Sat by Pulse 95 Oximetry 11/02/17 11/02/17 12:17 13:22 Temperature 98.8 F Pulse Rate 104 H Pulse Rate [ 94 H Anterior Bilateral Throughout] Pulse Rate [ Posterior Bilateral] Respiratory 20 Rate Respiratory 24 Rate [Anterior Bilateral Throughout] Respiratory Rate [Posterior Bilateral] Blood Pressure 100/65 O2 Sat by Pulse 94 Oximetry Constitutional: no acute distress, alert, appears uncomfortable, other ( morbidly obese) Eyes: non-icteric ENT: oropharynx moist, oropharynx dry, other (on BiPAP mask examination was limited) Neck: supple, no JVD Effort: mildly labored Ascultation: Bilateral: clear, diminished breath sounds Cardiovascular: regular rate and rhythm Gastrointestinal: normoactive bowel sounds, soft, non-tender, other (obese) Integumentary: rash (stasis dermatitis changes lower extremity.) Extremities: edema CBC and BMP: 10/30/17 15:00 10/30/17 15:00 ABG, PT/INR, D-dimer: ABG POC ABG pH 7.409 (7.35-7.45) 10/31/17 14:15 POC ABG pCO2 31.1 (35-45) L 10/31/17 14:15 POC ABG pO2 112 (80-105) H 10/31/17 14:15 POC ABG HCO3 19.7 10/31/17 14:15 POC ABG Total CO2 21 10/31/17 14:15 POC ABG O2 Sat 98 10/31/17 14:15 PT/INR, D-dimer PT 13.3 Sec. (12.2-14.9) 10/30/17 15:00 INR 0.96 (0.87-1.13) 10/30/17 15:00 Abnormal lab findings: Abnormal Labs 10/30/17 10/30/17 10/30/17 15:00 15:00 15:00 Lymph % (Auto) 6.9 L [place] % (Auto) 7.9 H Lymph # 0.6 L Seg Neutrophils % 81.8 H POC ABG pCO2 POC ABG pO2 Glucose 178 H Lactic Acid 2.70 H* Magnesium 2.60 H 10/30/17 10/31/17 15:43 14:15 Lymph % (Auto) [place] % (Auto) Lymph # Seg Neutrophils % POC ABG pCO2 31.1 L POC ABG pO2 431 H 112 H Glucose Lactic Acid Magnesium
[2017-11-03] MEDS: DUONEB *Not for PRN Use IH SCH ×3 (00:41→08:22)
[2017-11-03 08:05] LABS: Hematocrit 45.7 % (35.5-45.6); Hemoglobin 14.8 gm/dl (11.8-15.2); Mean Corpuscular HGB Conc 33 % (32-34); Mean Corpuscular Hemoglobin 31 pg (28-32); Mean Corpuscular Volume 95 fl (84-94); Platelet Count 231 K/mm3 (140-440); Red Cell Distribution Width 14.4 % (13.2-15.2); White Blood Count 16.2 K/mm3 (4.5-11.0)
[2017-11-03 08:19] VITALS: BP 127/75
[2017-11-03 08:20] LABS: Calcium 8.8 mg/dL (8.4-10.2); Chloride 100.2 mmol/L (98-107); Potassium 4.2 mmol/L (3.6-5.0)
--- NOTE | 2017-11-03 09:04 | Discharge Summary ---
Providers - Providers Date of Admission: 10/30/17 16:09 Date of discharge: 11/03/17 Attending physician: ARACELIS CARRERA 10/30/17 15:06 Consult to Physician [CONS] Urgent Consulting Provider: VIKRAM DEAL Reason For Exam: copd exacerbation Notified:: awaiting call christiano Primary care physician: SURY ROLAND Hospitalization Condition: Stable Pertinent studies: Chest CTA Chest XRY Hospital course: 72 YO Male with COPD, Chronic Respiratory Failure on Home Oxygen presents with progressive worsening of productive cough and shortness of breath. Discharge diagnosis and management /Acute COPD exacerbation Managed with supplemental oxygen, scheduled nebs, NIPPV, IV steroid therapy, IV abx, aspiration precautions. pulmonary consulted, CTA chest ontained showed no pulmonary embolus. He was then switch from BIPAP to high flow oxygen and weaned off to 3L N/C which is his baseline He was discharged home with tapering dose of steroid, oral antibiotics to complete regimen and inhalers /HTN (hypertension) monitored bp q shift, continued medical management with home meds. /Acute on chronic hypoxic Respiratory failure Managed with supplemental oxygen,nebs, NIPPV, pulmonary toilet and aspiration precaution he was discharged home with 3L N/C /Anxiety disorder added oral ativan q8h as needed Disposition: DC-01 TO HOME OR SELFCARE Time spent for discharge: 32 minutes Core Measure Documentation - Palliative Care Palliative Care/ Comfort Measures: Not Applicable - Core Measures Any of the following diagnoses?: none Exam - Physical Exam Narrative exam: General appearance: Present: no distress - EENT Eyes: Present: PERRL, EOM intact ENT: hearing intact, clear oral mucosa - Neck Neck: Present: supple, normal ROM - Respiratory Respiratory effort: normal Respiratory: bilateral: diminished, no wheezing - Cardiovascular Rhythm: regular Heart Sounds: Present: S1 & S2 - Extremities Extremities: no ischemia Peripheral Pulses: within normal limits - Abdominal General gastrointestinal: soft, non-tender - Integumentary Integumentary: Present: clear, warm - Psychiatric Psychiatric: appropriate mood/affect, intact judgment & insight - Neurologic Neurologic: CNII-XII intact, moves all extremities - Constitutional Vitals: Temp Pulse Resp BP Pulse Ox 97.5 F L 103 H 18 127/75 96 11/03/17 07:35 11/03/17 08:22 11/03/17 08:22 11/03/17 07:35 11/03/17 08:24 Plan Activity: advance as tolerated Weight Bearing Status: Weight Bear as Tolerated Diet: low fat, low salt Follow up with: PRIMARY CARE, [Referring] - 3-5 Days Forms: Accompanied Note Prescriptions: ALBUTEROL Inhaler [ProAir HFA Inhaler] 2 puff IH QID PRN #1 inhalation PRN Reason: Shortness Of Breath Azithromycin [Zithromax TAB] 500 mg PO QDAY #4 tablet Budesoni/Formotero 160-4.5(Nf) [Symbicort 160-4.5 (Nf)] 2 puff IH BID #1 inha Prednisone 50 mg PO DAILY #5 tablet
[2017-11-03] MEDS: HCTZ PO SCH (09:40)
[2017-11-03] MEDS: ZESTRIL PO SCH (09:40)
[2017-11-03] MEDS: ZITHROMAX PO SCH (09:40)
[2017-11-03] MEDS: PEPCID PO SCH (10:29)
== END 2017-11-03 10:41 | disposition home or self-care (01) | DRG 189 ==
LOC: ED 14:45 → 2B-ACE 16:09
PROVIDERS: ADMIT Internal Medicine; ATTEND Internal Medicine
PROC: 4A033R1 Measurement of Arterial Saturation, Peripheral, Percutaneous Approach (ICD-10-PCS; principal; 2017-10-30)
PROC: 5A09457 Assistance with Respiratory Ventilation, 24-96 Consecutive Hours, Continuous Positive Airway Pressure (ICD-10-PCS; 2017-10-30)
DX: J96.21 Acute and chronic respiratory failure with hypoxia (principal); J44.1 Chronic obstructive pulmonary disease with (acute) exacerbation; M35.1 Other overlap syndromes; F41.9 Anxiety disorder, unspecified; E66.9 Obesity, unspecified; I10 Essential (primary) hypertension; Z99.81 Dependence on supplemental oxygen; Z79.899 Other long term (current) drug therapy; Z82.49 Family history of ischemic heart disease and other diseases of the circulatory system; Z68.30 Body mass index [BMI] 30.0-30.9, adult
CPT/HCPCS: 36415; 36600; 71010; 71275; 80048; 80053; 82140; 82803; 83735; 83880; 84484; 85025; 85027; 85610; 85730; 93005; 93010; 94640; 94660; 94760; 96361; 96365; 96372; 96375; J0171; J0456; J1956; J2060; J2920; J2930; J3475; J7040; J7050; Q9967

== ENCOUNTER 2018-04-26 11:02 | Inpatient (IN) | payer MEDICARE ==
[2018-04-26] MEDS ORDERED: NACL 0.9% 500 ML 500 ML IV ONE (11:20)
[2018-04-26 11:57] LABS: Hematocrit 45.8 % (35.5-45.6); Hemoglobin 14.9 gm/dl (11.8-15.2); Mean Corpuscular HGB Conc 33 % (32-34); Mean Corpuscular Hemoglobin 29 pg (28-32); Mean Corpuscular Volume 90 fl (84-94); Platelet Count 291 K/mm3 (140-440); Red Blood Count 5.07 M/mm3 (3.65-5.03); Red Cell Distribution Width 16.2 % (13.2-15.2)
[2018-04-26 12:23] LABS: INR 1.44 (0.87-1.13)
[2018-04-26 12:27] LABS: Albumin 3.2 g/dL (3.9-5); Calcium 10.2 mg/dL (8.4-10.2)
[2018-04-26] MEDS ORDERED: NACL 0.9% 1000 ML 1,000 ML IV ONE (12:28)
[2018-04-26 12:33] LABS: Band Neutrophils # (Manual) 0.4 K/mm3; Total Cells Counted 100
[2018-04-26 12:35] LABS: Platelet Estimate Cons; RBC Morphology Normal
[2018-04-26] MEDS ORDERED: VANCOMYCIN PHARMACY TO DOSE IV SCH (13:00)
[2018-04-26] MEDS ORDERED: VANCOMYCIN 2,000 MG in NACL 0.9% 500 ML 500 ML IV ONE (13:00)
[2018-04-26] MEDS ORDERED: ZOSYN/NS 3.375GM/50ML 3.375 GM/50 ML BAG IV SCH (13:00)
--- NOTE | 2018-04-26 13:31 | XRay Report ---
PORTABLE CHEST INDICATION: Possible sepsis, shortness of breath. COMPARISON: 10/30/2017 FINDINGS: Portable, frontal chest radiograph demonstrates stable cardiomediastinal silhouette. Diffuse bilateral interstitial prominence again noted, though overall less pronounced, possibly due to better inspiration. Slight left basilar scarring as well. Aortic knob calcifications. EKG leads. Stable demineralized bones. CONCLUSION: No acute chest process with chronic interstitial lung disease again suspected, as described. Thank you for the opportunity to participate in this patient's care.
[2018-04-26 13:33] LABS: Bilirubin,Urine NEG (Negative); Blood,Urine NEG (Negative); Color,Urine Amber (Yellow); Urobilinogen,Urine < 2.0 mg/dL (<2.0)
--- NOTE | 2018-04-26 13:57 | History and Physical Report ---
History of Present Illness Chief complaint: I feel sick History of present illness: 72 YO Male with COPD, Chronic Respiratory Failure on Home Oxygen, HTN presents to ED for evaluation. Pt unable to provide detailed history due to shortness of breath and confusion, but history taken from daughter, who is at bedside during exam and interview. Pt daughter states that pt has experienced confusion and blood in his urine over the past week. EMS notified, and upon arrival patient found to be confused, and weak. Pt transported to [facility] for further care and evaluation. Pt seen and evaluated in ED and found to have Encephalopathy, Sepsis, ARF, and Acidosis. Nephrology consulted in ED. No reports of fever, chills, CP, palpitataions, NVD, Syncope, headache, neck pain, abdominal pain, nausea, leg pain, leg swelling. Past History Past Medical History: COPD, hypertension Past Surgical History: No surgical history, Other (reviewed) Social history: . denies: smoking, alcohol abuse, prescription drug abuse Family history: hypertension Medications and Allergies Allergies Allergy/AdvReac Type Severity Reaction Status Date / Time No Known Allergies Allergy Unverified 10/30/17 14:52 Home Medications Medication Instructions Recorded Confirmed Last Taken Type Meloxicam [Mobic] 15 mg PO DAILY PRN 04/26/18 04/26/18 Unknown History predniSONE [Deltasone] 10 mg PO QDAY 04/26/18 04/26/18 Unknown History Active Meds: Active Medications Piperacillin Sod/Tazobactam Sod (Zosyn/Ns 3.375gm/50ml) 3.375 gm in 50 mls @ 100 mls/hr IV NOW JEREMY; Protocol Vancomycin HCl 2,000 mg/ (Sodium Chloride) 520 mls @ 250 mls/hr IV ONCE ONE Stop: 04/26/18 15:04 Vancomycin HCl (Vancomycin Pharmacy To Dose) 1 each IV PKCONSULT JEREMY; Protocol Review of Systems ROS unobtainable: due to mental status Exam - Constitutional Vitals: Temp Pulse Resp BP Pulse Ox 97.6 F 98 H 18 94/57 94 04/26/18 11:13 04/26/18 11:13 04/26/18 11:13 04/26/18 11:13 04/26/18 11:13 General appearance: Present: mild distress - EENT Eyes: Present: PERRL, miosis ENT: hearing intact, clear oral mucosa - Neck Neck: Present: supple, normal ROM - Respiratory Respiratory: bilateral: diminished, rhonchi - Cardiovascular Heart Sounds: Present: S1 & S2. Absent: rub, click - Extremities Extremities: pulses symmetrical, No edema Peripheral Pulses: within normal limits - Abdominal General gastrointestinal: Present: soft, non-tender, distended, normal bowel sounds, other Male genitourinary: Present: normal - Integumentary Integumentary: Present: clear, warm, dry - Musculoskeletal Musculoskeletal: generalized weakness - Psychiatric Psychiatric: no intact judgment & insight, no memory intact - Neurologic Neurologic: CNII-XII intact, moves all extremities, no gait normal Results - Labs CBC & Chem 7: 04/26/18 11:33 04/26/18 11:33 Labs: Abnormal lab results 04/26/18 04/26/18 04/26/18 Range/Units 11:33 11:33 11:33 WBC 14.7 H (4.5-11.0) K/mm3 RBC 5.07 H (3.65-5.03) M/mm3 Hct 45.8 H (35.5-45.6) % RDW 16.2 H (13.2-15.2) % Seg Neuts % (Manual) 75.0 H (40.0-70.0) % Lymphocytes % (Manual) 4.0 L (13.4-35.0) % Monocytes % (Manual) 8.0 H (0.0-7.3) % Eosinophils % (Manual) 8.0 H (0.0-4.3) % Seg Neutrophils # Man 11.0 H (1.8-7.7) K/mm3 Lymphocytes # (Manual) 0.6 L (1.2-5.4) K/mm3 Monocytes # (Manual) 1.2 H (0.0-0.8) K/mm3 Eosinophils # (Manual) 1.2 H (0.0-0.4) K/mm3 PT 18.4 H (12.2-14.9) Sec. INR 1.44 H (0.87-1.13) VBG pH (7.320-7.420) Sodium 135 L (137-145) mmol/L Potassium 5.3 H (3.6-5.0) mmol/L Chloride 97.7 L (98-107) mmol/L Carbon Dioxide 15 L (22-30) mmol/L BUN 76 H (9-20) mg/dL Creatinine 5.2 H (0.8-1.5) mg/dL Glucose 101 H (75-100) mg/dL Lactic Acid (0.7-2.0) mmol/L Total Bilirubin 1.60 H (0.1-1.2) mg/dL AST 285 H (5-40) units/L ALT 131 H (7-56) units/L Alkaline Phosphatase 856 H (35-129) units/L Albumin 3.2 L (3.9-5) g/dL 04/26/18 04/26/18 Range/Units 11:33 11:33 WBC (4.5-11.0) K/mm3 RBC (3.65-5.03) M/mm3 Hct (35.5-45.6) % RDW (13.2-15.2) % Seg Neuts % (Manual) (40.0-70.0) % Lymphocytes % (Manual) (13.4-35.0) % Monocytes % (Manual) (0.0-7.3) % Eosinophils % (Manual) (0.0-4.3) % Seg Neutrophils # Man (1.8-7.7) K/mm3 Lymphocytes # (Manual) (1.2-5.4) K/mm3 Monocytes # (Manual) (0.0-0.8) K/mm3 Eosinophils # (Manual) (0.0-0.4) K/mm3 PT (12.2-14.9) Sec. INR (0.87-1.13) VBG pH 7.268 L (7.320-7.420) Sodium (137-145) mmol/L Potassium (3.6-5.0) mmol/L Chloride (98-107) mmol/L Carbon Dioxide (22-30) mmol/L BUN (9-20) mg/dL Creatinine (0.8-1.5) mg/dL Glucose (75-100) mg/dL Lactic Acid 2.30 H* (0.7-2.0) mmol/L Total Bilirubin (0.1-1.2) mg/dL AST (5-40) units/L ALT (7-56) units/L Alkaline Phosphatase (35-129) units/L Albumin (3.9-5) g/dL Assessment and Plan - Patient Problems (1) Sepsis Current Visit: Yes Status: Acute Qualifiers: Sepsis type: sepsis due to unspecified organism Qualified Code(s): A41.9 - Sepsis, unspecified organism Plan to address problem: IV antibiotics, serial lactic acid, monitor uop q shift, blood cultures, urinalysis, chest x ray, IVF resuscitation therapy (2) Encephalopathy Current Visit: Yes Status: Acute Plan to address problem: CT Head, neuro checks, aspiration precautions, (3) Acidosis Current Visit: Yes Status: Acute Plan to address problem: Treat sepsis, monitor uop q shift, iv bicarbonate (4) Hepatitis Current Visit: Yes Status: Acute Plan to address problem: CT Abdomen and pelvis, LFT, Hepatitis panel, (5) Hematuria Current Visit: Yes Status: Acute Qualifiers: Hematuria type: unspecified type Qualified Code(s): R31.9 - Hematuria, unspecified Plan to address problem: resolved, outpatient urology F/U (6) DVT prophylaxis Current Visit: No Status: Acute Plan to address problem: SCD to BLE while in bed
[2018-04-26] MEDS ORDERED: TYLENOL PO PRN (14:00)
[2018-04-26] MEDS ORDERED: ZOSYN/NS 4.5GM/100ML 4.5 GM/100 ML VIAL IV SCH (14:00)
--- NOTE | 2018-04-26 14:35 | Cat Scan Report ---
CT HEAD WITHOUT CONTRAST INDICATION: Sepsis, altered mental status. COMPARISON: None similar. FINDINGS: Noncontrast head CT demonstrates symmetric, age-appropriate, mildly enlarged ventricles and sulci. Slight periventricular hypodensities. No acute infarct, hemorrhage, mass effect or midline shift. No abnormal extraaxial fluid collections. Normal posterior fossa with preserved basilar cisterns. Bilateral cataract surgery. Mild leftward nasal septal bowing. Mild right maxillary sinus mucosal thickening inferiorly. Slight left maxillary, left frontal and bilateral ethmoid sinusitis may also be noted. Clear remainder aerated paranasal sinuses and temporal bone air cells. Slight bilateral mastoid air cell opacification toward their tips, right more than left. Intact calvarium. Normal scalp. Edentulous jaw with possible maxillary denture. Cervical spondylosis. CONCLUSION: No acute intracranial CT abnormality with sinusitis and few other findings, as described. Thank you for the opportunity to participate in this patient's care.
--- NOTE | 2018-04-26 15:28 | Cat Scan Report ---
CT ABDOMEN AND PELVIS WITHOUT CONTRAST INDICATION: infection, [place], sepsis. COMPARISON: 11/04/2017 chest CTA images. FINDINGS: Noncontrast abdomen and pelvis CT performed. LUNG BASES: Motion artifact limits exam, though slight lower lobe bronchiectasis may again be present, right more than left. Few coronary and aortic atherosclerotic calcifications. Mild to moderate nonspecific distal esophageal wall prominence/thickening, not excluded for gastroesophageal reflux and/or hiatal hernia, amongst others. ABDOMEN: Please note that sensitivity to detect small visceral lesions is limited due to the absence of intravenous or oral contrast. New small perihepatic ascites with right hepatic heterogeneity/few hypodense lesions superiorly now suspected on axial series 2, images 22-50 with the largest approximately 3.4 cm on axial image 27, series 2 measuring 22HU. Slight hepatic surface waviness also not excluded. Right hepatic lobe approximately 21 cm in mid clavicular length. No definite biliary dilatation. Gall bladder suboptimally distended, though without definite gallstones. Subtle pericholecystic and peripancreatic fat stranding possible. Adrenals and IVC within normal limits. Nonaneurysmal abdominal aorta with atherosclerotic aortoiliac calcifications. No hydronephrosis or definite radiopaque renal calculi. Approximately 0.9 cm right renal cortical hypodensity posteriorly noted on axial image 63. Numerous small gastrohepatic, mesenteric and retroperitoneal lymph nodes noted, though predominantly subcentimeter. Largest nicolette hepatis/peripancreatic lymph node is approximately 2.6 x 0.9 cm on axial image 46, series 2. Nonopacified GI tract evaluation limited, though grossly nonobstructive. Normal appendix. Cecum/proximal ascending colon wall not well delineated secondary to surrounding density, possibly gravitated ascites rather than pathologic wall thickening. Descending colon decompressed. Small fat-containing umbilical hernia with a transverse neck of 1.9 cm. PELVIS: Enlarged prostate creating an impression at the bladder base may be correlated for clinically and with PSA. Small prostatic calcification. Grossly unremarkable seminal vesicles and rectosigmoid. Small pelvic free fluid measuring 17 HU as on axial image 156. No definite size significant adenopathy. Small, 1.4 cm fat-containing left inguinal hernia. Demineralized bones with moderate, approximately 70% compression deformity of T11 again noted. A 0.9 cm Schmorl's node along superior endplate of T10 is new while a smaller along its inferior endplate is unchanged. Mild, approximately 50% L2 compression deformity also noted with mild sclerosis along its inferior aspect. Bilateral SI joint degenerative spurring. CONCLUSION: 1. Peripheral right hepatic hypodense mass(es) now suspected with new small perihepatic ascites on this limited, unenhanced exam, as described. Subtle fat stranding may also be noted about the pancreas and the gallbladder. 2. Various other findings as distal esophageal thickening, hepatomegaly, cecum/proximal ascending colon CT appearance, enlarged prostate and small pelvic ascites, amongst others, as detailed above. Thank you for the opportunity to participate in this patient's care.
[2018-04-26] MEDS ORDERED: PROVENTIL IH ONE (15:35)
--- NOTE | 2018-04-26 15:36 | Consultation ---
History of Present Illness - Reason for Consult Consult date: 04/26/18 acute renal failure, hyperkalemia - History of Present Illness The patient is a 72 YO male with history significant for Obesity, HTN, COPD and Anxiety who was brought into the ER with complaints dark urine for past 1 week. Patient is a very poor historian and no family member at the bedside. He is not sure why he is in the hospital. He was found to have Acute kidney injury, Hyperkalemia, Metabolic acidosis and elevated liver enzymes. He was taking Meloxicam at home. Past History Past Medical History: COPD, hyperlipidemia, other (anxiety) Medications and Allergies Allergies Allergy/AdvReac Type Severity Reaction Status Date / Time No Known Allergies Allergy Unverified 10/30/17 14:52 Home Medications Medication Instructions Recorded Confirmed Last Taken Type Meloxicam [Mobic] 15 mg PO DAILY PRN 04/26/18 04/26/18 Unknown History predniSONE [Deltasone] 10 mg PO QDAY 04/26/18 04/26/18 Unknown History Active Meds: Active Medications Acetaminophen (Tylenol) 650 mg PO Q4H PRN PRN Reason: Pain MILD(1-3)/Fever >100.5/TELLO Albuterol (Proventil) 2.5 mg IH Q4HRT PRN PRN Reason: Shortness Of Breath Piperacillin Sod/Tazobactam Sod (Zosyn/Ns 3.375gm/50ml) 3.375 gm in 50 mls @ 100 mls/hr IV NOW JEREMY; Protocol Last Admin: 04/26/18 15:10 Dose: 100 mls/hr Piperacillin Sod/Tazobactam Sod (Zosyn/Ns 2.25 Gm/50ml) 2.25 gm in 50 mls @ 100 mls/hr IV Q8HR JEREMY Ondansetron HCl (Zofran) 4 mg IV Q8H PRN PRN Reason: Nausea And Vomiting Sodium Chloride (Sodium Chloride Flush Syringe 10 Ml) 10 ml IV BID JEREMY Sodium Chloride (Sodium Chloride Flush Syringe 10 Ml) 10 ml IV PRN PRN PRN Reason: LINE FLUSH Vancomycin HCl (Vancomycin Pharmacy To Dose) 1 each IV PKCONSULT JEREMY; Protocol Review of Systems ROS unobtainable: due to mental status Exam - Vital Signs Vital signs: Vital Signs Temp Pulse Resp BP Pulse Ox 97.6 F 98 H 18 94/57 94 06/18/18 11:13 04/26/18 11:13 04/26/18 11:13 04/26/18 11:13 04/26/18 11:13 - General Appearance General appearance: well-developed, well-nourished, appears stated age, obese, other (no distress) EENT: ATNC, PERRL, mucous membranes dry, vision intact, hearing diminished Neck: Present: neck supple, trachea midline Respiratory: Clear to Ascultation Heart: regular, S1S2, no murmurs Gastrointestinal: Present: normoactive bowel sounds, obese. Absent: tenderness Integumentary: no rash, warm and dry Neurologic: no focal deficit, no asterixis, confused, disoriented Musculoskeletal: Present: other (no edema) Psychiatric: cooperative Results - Lab Results 04/26/18 11:33 04/26/18 21:20 Most recent lab results Calcium 10.2 mg/dL (8.4-10.2) 04/26/18 11:33 Assessment and Plan 1. Acute kidney injury: RUFINA is likely Vasomotor / hemodynamically mediated in the setting of hypotension / sepsis. Continue IV fluids and monitor renal function. UA appears bland. CT abdomen was negative for urinary obstruction. 2. Hyperkalemia: Secondary to RUFINA. Kayexalate. Follow K level. 3. Metabolic acidosis: Lactic acidosis. Monitor. 4. Hypotension: Improving, monitor. 5. Abnormal LFTS.
[2018-04-26] MEDS ORDERED: KIONEX PO ONE ×2 (16:00→18:30)
[2018-04-26] MEDS ORDERED: SODIUM BICARBONATE IV ONE ×2 (17:38→18:00)
[2018-04-26] MEDS: SODIUM CHLORIDE FLUSH SYRINGE 10 ML IV PRN (18:11)
[2018-04-26] MEDS: ZOFRAN IV PRN (18:21)
--- NOTE | 2018-04-26 18:49 | Emergency Department Report ---
ED General Adult HPI - General Chief complaint: Altered Mental Status Stated complaint: CONFUSED/PEEING BLOOD Time Seen by Provider: 04/26/18 12:14 Source: patient, family Mode of arrival: Ambulatory Limitations: Altered Mental Status - History of Present Illness Initial comments: This is a 72-year-old man who is somewhat lethargic but can answer questions. He doesn't have any specific complaint. He is oriented by family members who state that he has not been taking by mouth well and becoming confused. They do not refer any specific complaint of abdominal pain nor nausea vomiting or diarrhea. They state that he has been having dark urine perhaps hematuria for the last 1 week. He has no prior history of renal failure but does have a history of kidney stones. Patient admits he has been having some sort of trouble urinating but does not refer edel dysuria. He is obviously volume depleted on arrival to the emergency department. According to the family he's never been hospitalized for any serious infection. Review of the patient's previous medical records here indicate that he was admitted for COPD exacerbation in 2017. He has CT angiogram of his chest which was negative for pulmonary embolism. -: week(s) Associated Symptoms: loss of appetite, other (poor by mouth intake) - Related Data Home Medications Medication Instructions Recorded Confirmed Last Taken Meloxicam [Mobic] 15 mg PO DAILY PRN 04/26/18 04/26/18 Unknown predniSONE [Deltasone] 10 mg PO QDAY 04/26/18 04/26/18 Unknown Allergies Allergy/AdvReac Type Severity Reaction Status Date / Time No Known Allergies Allergy Unverified 10/30/17 14:52 ED Review of Systems ROS: Stated complaint: CONFUSED/PEEING BLOOD Other details as noted in HPI Comment: Unobtainable due to pts medical conditions (patient reports no specific complaints but is somewhat lethargic) ED Past Medical Hx - Past Medical History Previous Medical History?: Yes Hx Hypertension: Yes Hx Arthritis: Yes (BACK) Hx COPD: Yes Hx Tuberculosis: No - Social History Smoking Status: Former Smoker - Medications Home Medications: Home Medications Medication Instructions Recorded Confirmed Last Taken Type Meloxicam [Mobic] 15 mg PO DAILY PRN 04/26/18 04/26/18 Unknown History predniSONE [Deltasone] 10 mg PO QDAY 04/26/18 04/26/18 Unknown History ED Physical Exam - General Limitations: Physical Limitation General appearance: lethargic - Head Head exam: Present: atraumatic, normocephalic - Eye Eye exam: Present: normal appearance, PERRL, EOMI. Absent: scleral icterus - ENT ENT exam: Present: mucous membranes dry - Neck Neck exam: Present: normal inspection. Absent: tenderness, meningismus - Respiratory Respiratory exam: Present: normal lung sounds bilaterally. Absent: respiratory distress - Cardiovascular Cardiovascular Exam: Present: regular rate, normal rhythm. Absent: systolic murmur, diastolic murmur, rubs, gallop - GI/Abdominal GI/Abdominal exam: Present: soft, normal bowel sounds. Absent: distended, tenderness, guarding, rebound, rigid - Rectal Rectal exam: Present: deferred - Extremities Exam Extremities exam: Present: normal inspection, normal capillary refill. Absent: tenderness, pedal edema, joint swelling, calf tenderness - Back Exam Back exam: Present: normal inspection - Neurological Exam Neurological exam: Present: alert, oriented X3, CN II-XII intact (as testable). Absent: motor sensory deficit - Psychiatric Psychiatric exam: Present: normal mood, flat affect - Skin Skin exam: Present: warm, dry, intact, normal color. Absent: rash ED Course Vital Signs 04/26/18 04/26/18 04/26/18 11:13 12:00 15:38 Temperature 97.6 F Pulse Rate 98 H 95 H Pulse Rate [ 102 H Anterior Bilateral Throughout] Respiratory 18 23 Rate Respiratory 20 Rate [Anterior Bilateral Throughout] Blood Pressure 94/57 111/72 O2 Sat by Pulse 94 94 Oximetry 04/26/18 04/26/18 04/26/18 15:39 15:41 15:51 Temperature Pulse Rate Pulse Rate [ 105 H Anterior Bilateral Throughout] Respiratory Rate Respiratory 20 Rate [Anterior Bilateral Throughout] Blood Pressure 141/96 141/96 O2 Sat by Pulse 93 93 Oximetry - Reevaluation(s) Reevaluation #1: The patient was seen by nephrology , took some time to get the patient' s CT of his abdomen interpretation. There are a number of abnormalities which are evident in the noncontrasted exam which was necessary due to the patient's acute renal failure. He has right hepatic hypodense masses with small perihepatic ascites and some stranding about the pancreas and the gallbladder. There is distal esophageal thickening and referred to the CT for other findings. A chest x-ray showed no acute process. The patient has been admitted by Dr. Zamorano for further care and evaluation. He was treated with antibiotics for possible sepsis. An ultrasound of the patient' s right upper quadrant was ordered. It appears to me that cholecystitis could be a possibility. Thus a consult to the surgeon was placed. 04/26/18 18:54 ED Medical Decision Making - Lab Data Result diagrams: 04/26/18 11:33 04/26/18 11:33 Laboratory Results - last 24 hr 04/26/18 04/26/18 04/26/18 11:33 11:33 11:33 WBC 14.7 H RBC 5.07 H Hgb 14.9 Hct 45.8 H MCV 90 MCH 29 MCHC 33 RDW 16.2 H Plt Count 291 Add Manual Diff Complete Total Counted 100 Seg Neuts % (Manual) 75.0 H Band Neutrophils % 3.0 Lymphocytes % (Manual) 4.0 L Reactive Lymphs % (Man) 0 Monocytes % (Manual) 8.0 H Eosinophils % (Manual) 8.0 H Basophils % (Manual) 1.0 Metamyelocytes % 1.0 Myelocytes % 0 Promyelocytes % 0 Blast Cells % 0 Nucleated RBC % Not Reportable Seg Neutrophils # Man 11.0 H Band Neutrophils # 0.4 Lymphocytes # (Manual) 0.6 L Abs React Lymphs (Man) 0.0 Monocytes # (Manual) 1.2 H Eosinophils # (Manual) 1.2 H Basophils # (Manual) 0.1 Metamyelocytes # 0.1 Myelocytes # 0.0 Promyelocytes # 0.0 Blast Cells # 0.0 WBC Morphology Not Reportable Hypersegmented Neuts Not Reportable Hyposegmented Neuts Not Reportable Hypogranular Neuts Not Reportable Smudge Cells Not Reportable Toxic Granulation Not Reportable Toxic Vacuolation Not Reportable Dohle Bodies Not Reportable Pelger-Huet Anomaly Not Reportable Aidan Rods Not Reportable Platelet Estimate Cons Clumped Platelets Not Reportable Plt Clumps, EDTA Not Reportable Large Platelets Not Reportable Giant Platelets Not Reportable Platelet Satelliting Not Reportable Plt Morphology Comment Not Reportable RBC Morphology Normal Dimorphic RBCs Not Reportable Polychromasia Not Reportable Hypochromasia Not Reportable Poikilocytosis Not Reportable Anisocytosis Not Reportable Microcytosis Not Reportable Macrocytosis Not Reportable Spherocytes Not Reportable Pappenheimer Bodies Not Reportable Sickle Cells Not Reportable Target Cells Not Reportable Tear Drop Cells Not Reportable Ovalocytes Not Reportable Helmet Cells Not Reportable [place] Bodies Not Reportable [place] Rings Not Reportable [place] Cells Not Reportable Bite Cells Not Reportable Crenated Cell Not Reportable Elliptocytes Not Reportable Acanthocytes (Spur) Not Reportable Rouleaux Not Reportable Hemoglobin C Crystals Not Reportable Schistocytes Not Reportable Malaria parasites Not Reportable Donaldo Bodies Not Reportable Hem Pathologist Commnt No PT 18.4 H INR 1.44 H VBG pH Sodium 135 L Potassium 5.3 H Chloride 97.7 L Carbon Dioxide 15 L Anion Gap 28 BUN 76 H Creatinine 5.2 H Estimated GFR 11 BUN/Creatinine Ratio 15 Glucose 101 H Lactic Acid Calcium 10.2 Total Bilirubin 1.60 H AST 285 H ALT 131 H Alkaline Phosphatase 856 H Total Protein 6.7 Albumin 3.2 L Albumin/Globulin Ratio 0.9 Urine Color Urine Turbidity Urine pH Ur Specific [place] Urine Protein Urine Glucose (UA) Urine Ketones Urine Blood Urine Nitrite Urine Bilirubin Urine Urobilinogen Ur Leukocyte Esterase Urine WBC (Auto) Urine RBC (Auto) U Epithel Cells (Auto) 04/26/18 04/26/18 04/26/18 11:33 11:33 12:58 WBC RBC Hgb Hct MCV MCH MCHC RDW Plt Count Add Manual Diff Total Counted Seg Neuts % (Manual) Band Neutrophils % Lymphocytes % (Manual) Reactive Lymphs % (Man) Monocytes % (Manual) Eosinophils % (Manual) Basophils % (Manual) Metamyelocytes % Myelocytes % Promyelocytes % Blast Cells % Nucleated RBC % Seg Neutrophils # Man Band Neutrophils # Lymphocytes # (Manual) Abs React Lymphs (Man) Monocytes # (Manual) Eosinophils # (Manual) Basophils # (Manual) Metamyelocytes # Myelocytes # Promyelocytes # Blast Cells # WBC Morphology Hypersegmented Neuts Hyposegmented Neuts Hypogranular Neuts Smudge Cells Toxic Granulation Toxic Vacuolation Dohle Bodies Pelger-Huet Anomaly Aidan Rods Platelet Estimate Clumped Platelets Plt Clumps, EDTA Large Platelets Giant Platelets Platelet Satelliting Plt Morphology Comment RBC Morphology Dimorphic RBCs Polychromasia Hypochromasia Poikilocytosis Anisocytosis Microcytosis Macrocytosis Spherocytes Pappenheimer Bodies Sickle Cells Target Cells Tear Drop Cells Ovalocytes Helmet Cells [place] Bodies [place] Rings [place] Cells Bite Cells Crenated Cell Elliptocytes Acanthocytes (Spur) Rouleaux Hemoglobin C Crystals Schistocytes Malaria parasites Donaldo Bodies Hem Pathologist Commnt PT INR VBG pH 7.268 L Sodium Potassium Chloride Carbon Dioxide Anion Gap BUN Creatinine Estimated GFR BUN/Creatinine Ratio Glucose Lactic Acid 2.30 H* Calcium Total Bilirubin AST ALT Alkaline Phosphatase Total Protein Albumin Albumin/Globulin Ratio Urine Color [place] Urine Turbidity Clear Urine pH 5.0 Ur Specific [place] 1.017 Urine Protein 30 mg/dl Urine Glucose (UA) Neg Urine Ketones Neg Urine Blood Neg Urine Nitrite Neg Urine Bilirubin Neg Urine Urobilinogen < 2.0 Ur Leukocyte Esterase Neg Urine WBC (Auto) 2.0 Urine RBC (Auto) 1.0 U Epithel Cells (Auto) < 1.0 - EKG Data -: EKG Interpreted by Me Rate: tachycardia - EKG Data Interpretation: other (right bundle-branch block sinus tachycardia. No acute ischemic changes) - Radiology Data Radiology results: report reviewed Critical Care Time: Yes Critical care time in (mins) excluding proc time.: 90 Critical care attestation.: If time is entered above; I have spent that time in minutes in the direct care of this critically ill patient, excluding procedure time. ED Disposition Clinical Impression: Hyperkalemia, Liver masses, Hepatic dysfunction, Coagulopathy, Right bundle branch block Acute renal failure Qualifiers: Acute renal failure type: unspecified Qualified Code(s): N17.9 - Acute kidney failure, unspecified Sepsis Qualifiers: Sepsis type: sepsis due to unspecified organism Qualified Code(s): A41.9 - Sepsis, unspecified organism Disposition: OP ADMIT IP TO THIS HOSP Is pt being admited?: Yes Does the pt Need Aspirin: No Condition: Stable Time of Disposition: 18:59
[2018-04-26] MEDS: NACL 0.9% 1000 ML IV ONE (18:50)
[2018-04-26] MEDS ORDERED: NACL 0.9% 1000 ML 1,000 ML IV SCH (19:00)
[2018-04-26 22:02] LABS: Calcium 9.4 mg/dL (8.4-10.2)
[2018-04-26 22:12] LABS: Hepatitis A Antibody IgM Non-Reactive (NonReactive); Hepatitis B Core IgM Non-Reactive (NonReactive); Hepatitis B Surface Antigen Non-Reactive (Negative); Hepatitis C Virus Antibody Non-Reactive (NonReactive)
[2018-04-27] MEDS: ZOSYN/NS 2.25 GM/50ML 2.25 GM/50 ML BAG IV SCH ×4 (00:51→23:59)
[2018-04-27] MEDS: SODIUM CHLORIDE FLUSH SYRINGE 10 ML IV SCH ×3 (00:51→23:59)
[2018-04-27] MEDS: ZOFRAN IV PRN (00:51)
[2018-04-27 06:33] LABS: Hematocrit 43.1 % (35.5-45.6); Hemoglobin 13.8 gm/dl (11.8-15.2); Mean Corpuscular HGB Conc 32 % (32-34); Mean Corpuscular Hemoglobin 28 pg (28-32); Mean Corpuscular Volume 89 fl (84-94); Platelet Count 305 K/mm3 (140-440); Red Blood Count 4.86 M/mm3 (3.65-5.03); Red Cell Distribution Width 15.7 % (13.2-15.2)
[2018-04-27] MEDS: PROTONIX IV SCH ×2 (06:34→21:11)
[2018-04-27 06:53] LABS: Albumin 3.4 g/dL (3.9-5)
[2018-04-27 07:30] LABS: Band Neutrophils # (Manual) 0.7 K/mm3; Basophils % (Manual) 0 % (0.0-1.8); Total Cells Counted 100
[2018-04-27 07:31] LABS: Anisocytosis 1+
--- NOTE | 2018-04-27 08:30 | Progress Note ---
Assessment and Plan 1. Acute kidney injury: RUFINA is likely Vasomotor / hemodynamically mediated in the setting of hypotension / sepsis. Continue IV fluids and monitor renal function. UA appears bland. CT abdomen was negative for urinary obstruction. 2. Hyperkalemia: Improved. Follow K level. 3. Metabolic acidosis: Lactic acidosis. Monitor. 4. Sepsis with hypotension: Continue IV fluids. 5. Abnormal LFTS. 6. ?Alcohol withdrawal: Banana bag IV. Librium PO JEREMY. Ativan PRN. D/w her daughter at the bedside. Subjective Date of service: 04/27/18 Interval history: Patient was seen and examined at the bedside. Objective - Vital Signs Vital signs: Vital Signs - 12hr 04/26/18 04/26/18 04/27/18 22:00 23:00 00:59 Temperature Pulse Rate 104 H 104 H Pulse Rate [ 103 H Apical] Respiratory 22 Rate Blood Pressure O2 Sat by Pulse Oximetry 04/27/18 04/27/18 04:20 07:30 Temperature 98.6 F 98.6 F Pulse Rate 98 H 100 H Pulse Rate [ Apical] Respiratory 18 18 Rate Blood Pressure 119/77 107/75 O2 Sat by Pulse 94 94 Oximetry - General Appearance General appearance: well-developed, appears stated age, obese, other (no distress) EENT: ATNC, PERRL, mucous membranes dry, hearing intact Neck: supple Respiratory: Present: Clear to Ascultation Cardiology: regular, S1S2, no murmurs Gastrointestinal: normoactive bowel sounds, no tenderness, obese Integumentary: no rash, warm and dry Neurologic: other (spontaneously moves all 4 extremities, stuporous) Musculoskeletal: other (no edema) - Lab 04/27/18 14:13 04/27/18 05:52 Most recent lab results Calcium 9.0 mg/dL (8.4-10.2) 04/27/18 05:52
--- NOTE | 2018-04-27 10:50 | Progress Note ---
Assessment and Plan Assessment and plan: Patient is a 72 yo man with a history of chronic hypoxic Respiratory Failure on Home Oxygen due to End Stage COPD and HTN who presented to ED shortness of breath, hematuria and confusion/drowsiness, * CT ABDOMEN AND PELVIS WITHOUT CONTRAST CONCLUSION: 1. Peripheral right hepatic hypodense mass(es) now suspected with new small perihepatic ascites on this limited, unenhanced exam, as described. Subtle fat stranding may also be noted about the pancreas and the gallbladder. 2. Various other findings as distal esophageal thickening, hepatomegaly, cecum/proximal ascending colon CT appearance, enlarged prostate and small pelvic ascites, amongst others, as detailed above. * CT HEAD WITHOUT CONTRAST CONCLUSION: No acute intracranial CT abnormality with sinusitis and few other findings, as described. * pCXR CONCLUSION: No acute chest process with chronic interstitial lung disease again suspected, as described. -SIRS with suspected early Sepsis without clear source, poa: consult ID: IV antibiotics, serial lactic acid, monitor uop q shift, blood cultures, urinalysis , chest x ray, IVF resuscitation therapy -Acute Encephalopathy: CT Head, neuro checks, aspiration precautions, -Acute renal failure, suspect ATN with hypotension + vasomotor nephropathy, poa: treat with ivf, consult Nephrology -Lactic Acidosis: Treat sepsis, monitor uop q shift, iv bicarbonate prn -Hepatitis: CT Abdomen and pelvis noted, LFT, Hepatitis panel, consulted GI -Hematuria: resolved, outpatient urology F/U recommended -DVT prophylaxis: SCD to BLE while in bed History Interval history: Patient was seen and examined. Follow-up on current diagnosis of AMS/ drowsiness. Overnight uneventful. Patient denies any chest pain, nausea/ vomiting or severe headaches. Imaging, nursing note, chart, labs and old chart reviewed. Discussed with patient with daughter Annemarie at bedside. He c/o sob and right sided abd pains. Hospitalist Physical - Physical exam Narrative exam: GEN: WDWN, ill appearing, NAD, lethargic but easily aroused HEENT: NCAT, EOMI, PERRL, OP Clear NECK: supple, no adenopathy, no thyromegaly, no JVD CVS/HEART: Regular tachycardia, normal S1S2, pulses present bilaterally CHEST/LUNGS: bilateral rhonchi and diminished bs bilateral, Symmetrical chest expansion, good air entry bilaterally GI/Abdomen: soft, protuberant, ruq tender with good bowel sounds, no guarding or rebound /Bladder: no suprapubic tenderness, no CVA or paraspinal tenderness EXT/Skin: no c/c/e, no obvious rash MSK: spontaneous ROM x 4 Neuro: CN 2-12 grossly intact, no new focal deficits Psych: calm - Constitutional Vitals: Temp Pulse Resp BP Pulse Ox 98.6 F 100 H 18 107/75 95 04/27/18 07:30 04/27/18 07:30 04/27/18 07:30 04/27/18 07:30 04/27/18 10:00 Results - Labs CBC & Chem 7: 04/27/18 05:52 04/27/18 05:52 Labs: Laboratory Last Values WBC 17.0 K/mm3 (4.5-11.0) H 04/27/18 05:52 RBC 4.86 M/mm3 (3.65-5.03) 04/27/18 05:52 Hgb 13.8 gm/dl (11.8-15.2) 04/27/18 05:52 Hct 43.1 % (35.5-45.6) 04/27/18 05:52 MCV 89 fl (84-94) 04/27/18 05:52 MCH 28 pg (28-32) 04/27/18 05:52 MCHC 32 % (32-34) 04/27/18 05:52 RDW 15.7 % (13.2-15.2) H 04/27/18 05:52 Plt Count 305 K/mm3 (140-440) 04/27/18 05:52 Add Manual Diff Complete 04/27/18 05:52 Total Counted 100 04/27/18 05:52 Seg Neuts % (Manual) 79.0 % (40.0-70.0) H 04/27/18 05:52 Band Neutrophils % 4.0 % 04/27/18 05:52 Lymphocytes % (Manual) 8.0 % (13.4-35.0) L 04/27/18 05:52 Reactive Lymphs % (Man) 0 % 04/27/18 05:52 Monocytes % (Manual) 5.0 % (0.0-7.3) 04/27/18 05:52 Eosinophils % (Manual) 1.0 % (0.0-4.3) 04/27/18 05:52 Basophils % (Manual) 0 % (0.0-1.8) 04/27/18 05:52 Metamyelocytes % 3.0 % 04/27/18 05:52 Myelocytes % 0 % 04/27/18 05:52 Promyelocytes % 0 % 04/27/18 05:52 Blast Cells % 0 % 04/27/18 05:52 Nucleated RBC % Not Reportable 04/27/18 05:52 Seg Neutrophils # Man 13.4 K/mm3 (1.8-7.7) H 04/27/18 05:52 Band Neutrophils # 0.7 K/mm3 04/27/18 05:52 Lymphocytes # (Manual) 1.4 K/mm3 (1.2-5.4) 04/27/18 05:52 Abs React Lymphs (Man) 0.0 K/mm3 04/27/18 05:52 Monocytes # (Manual) 0.9 K/mm3 (0.0-0.8) H 04/27/18 05:52 Eosinophils # (Manual) 0.2 K/mm3 (0.0-0.4) 04/27/18 05:52 Basophils # (Manual) 0.0 K/mm3 (0.0-0.1) 04/27/18 05:52 Metamyelocytes # 0.5 K/mm3 04/27/18 05:52 Myelocytes # 0.0 K/mm3 04/27/18 05:52 Promyelocytes # 0.0 K/mm3 04/27/18 05:52 Blast Cells # 0.0 K/mm3 04/27/18 05:52 WBC Morphology Not Reportable 04/27/18 05:52 Hypersegmented Neuts Not Reportable 04/27/18 05:52 Hyposegmented Neuts Not Reportable 04/27/18 05:52 Hypogranular Neuts Not Reportable 04/27/18 05:52 Smudge Cells Not Reportable 04/27/18 05:52 Toxic Granulation Not Reportable 04/27/18 05:52 Toxic Vacuolation Not Reportable 04/27/18 05:52 Dohle Bodies Not Reportable 04/27/18 05:52 Pelger-Huet Anomaly Not Reportable 04/27/18 05:52 Aidan Rods Not Reportable 04/27/18 05:52 Platelet Estimate Appears normal 04/27/18 05:52 Clumped Platelets Not Reportable 04/27/18 05:52 Plt Clumps, EDTA Not Reportable 04/27/18 05:52 Large Platelets Not Reportable 04/27/18 05:52 Giant Platelets Not Reportable 04/27/18 05:52 Platelet Satelliting Not Reportable 04/27/18 05:52 Plt Morphology Comment Not Reportable 04/27/18 05:52 RBC Morphology Not Reportable 04/27/18 05:52 Dimorphic RBCs Not Reportable 04/27/18 05:52 Polychromasia 1+ 04/27/18 05:52 Hypochromasia Not Reportable 04/27/18 05:52 Poikilocytosis Not Reportable 04/27/18 05:52 Anisocytosis 1+ 04/27/18 05:52 Microcytosis Not Reportable 04/27/18 05:52 Macrocytosis Not Reportable 04/27/18 05:52 Spherocytes Not Reportable 04/27/18 05:52 Pappenheimer Bodies Not Reportable 04/27/18 05:52 Sickle Cells Not Reportable 04/27/18 05:52 Target Cells Not Reportable 04/27/18 05:52 Tear Drop Cells Not Reportable 04/27/18 05:52 Ovalocytes Not Reportable 04/27/18 05:52 Helmet Cells Not Reportable 04/27/18 05:52 [place] Bodies Not Reportable 04/27/18 05:52 [place] Rings Not Reportable 04/27/18 05:52 [place] Cells Not Reportable 04/27/18 05:52 Bite Cells Not Reportable 04/27/18 05:52 Crenated Cell Not Reportable 04/27/18 05:52 Elliptocytes Not Reportable 04/27/18 05:52 Acanthocytes (Spur) Not Reportable 04/27/18 05:52 Rouleaux Not Reportable 04/27/18 05:52 Hemoglobin C Crystals Not Reportable 04/27/18 05:52 Schistocytes Not Reportable 04/27/18 05:52 Malaria parasites Not Reportable 04/27/18 05:52 Donaldo Bodies Not Reportable 04/27/18 05:52 Hem Pathologist Commnt No 04/27/18 05:52 PT 18.4 Sec. (12.2-14.9) H 04/26/18 11:33 INR 1.44 (0.87-1.13) H 04/26/18 11:33 VBG pH 7.268 (7.320-7.420) L 04/26/18 11:33 Sodium 143 mmol/L (137-145) 04/27/18 05:52 Potassium 4.7 mmol/L (3.6-5.0) 04/27/18 05:52 Chloride 103.0 mmol/L (98-107) 04/27/18 05:52 Carbon Dioxide 19 mmol/L (22-30) L 04/27/18 05:52 Anion Gap 26 mmol/L 04/27/18 05:52 BUN 75 mg/dL (9-20) H 04/27/18 05:52 Creatinine 4.2 mg/dL (0.8-1.5) H 04/27/18 05:52 Estimated GFR 14 ml/min 04/27/18 05:52 BUN/Creatinine Ratio 18 % 04/27/18 05:52 Glucose 110 mg/dL (75-100) H 04/27/18 05:52 Lactic Acid 1.90 mmol/L (0.7-2.0) 04/27/18 05:52 Calcium 9.0 mg/dL (8.4-10.2) 04/27/18 05:52 Total Bilirubin 1.90 mg/dL (0.1-1.2) H 04/27/18 05:52 AST 244 units/L (5-40) H 04/27/18 05:52 ALT 120 units/L (7-56) H 04/27/18 05:52 Alkaline Phosphatase 777 units/L (35-129) H 04/27/18 05:52 Ammonia 123.0 umol/L (25-60) H 04/26/18 21:20 Total Creatine Kinase 373 units/L (55-170) H 04/27/18 05:52 Total Protein 5.9 g/dL (6.3-8.2) L 04/27/18 05:52 Albumin 3.4 g/dL (3.9-5) L 04/27/18 05:52 Albumin/Globulin Ratio 1.4 % 04/27/18 05:52 Lipase 68 units/L (13-60) H 04/26/18 21:20 Urine Color Rosalia (Yellow) 04/26/18 12:58 Urine Turbidity Clear (Clear) 04/26/18 12:58 Urine pH 5.0 (5.0-7.0) 04/26/18 12:58 Ur Specific Branch 1.017 (1.003-1.030) 04/26/18 12:58 Urine Protein 30 mg/dl mg/dL (Negative) 04/26/18 12:58 Urine Glucose (UA) Neg mg/dL (Negative) 04/26/18 12:58 Urine Ketones Neg mg/dL (Negative) 04/26/18 12:58 Urine Blood Neg (Negative) 04/26/18 12:58 Urine Nitrite Neg (Negative) 04/26/18 12:58 Urine Bilirubin Neg (Negative) 04/26/18 12:58 Urine Urobilinogen < 2.0 mg/dL (<2.0) 04/26/18 12:58 Ur Leukocyte Esterase Neg (Negative) 04/26/18 12:58 Urine WBC (Auto) 2.0 /HPF (0.0-6.0) 04/26/18 12:58 Urine RBC (Auto) 1.0 /HPF (0.0-6.0) 04/26/18 12:58 U Epithel Cells (Auto) < 1.0 /HPF (0-13.0) 04/26/18 12:58 Hepatitis A IgM Ab Non-reactive (NonReactive) 04/26/18 21:20 Hep Bs Antigen Non-reactive (Negative) 04/26/18 21:20 Hep B Core IgM Ab Non-reactive (NonReactive) 04/26/18 21:20 Hepatitis C Antibody Non-reactive (NonReactive) 04/26/18 21:20
[2018-04-27] MEDS ORDERED: VITAMIN B-1 100 MG, FOLVITE 1 MG, INFUVITE 10 ML in NACL 0.9% 1000 ML 1,000 ML IV ONE (11:00)
[2018-04-27] MEDS: LIBRIUM PO SCH ×3 (11:00→20:33)
--- NOTE | 2018-04-27 11:11 | Consultation ---
History of Present Illness - Reason for Consult Consult date: 04/27/18 SIRS Requesting physician: COLE ROBLES - History of Present Illness 72 y/o male with history significant for Obesity, HTN, COPD and Anxiety; admitted on 04/26/18 due to a week history of heamturiaand progressive AMS/ confusion/sleepiness. Patient is a poor historian. Unable to provide a history. Sister at bedside unable to provide a history. In the ED, temp 97.6, HR 98, R 18, BP 94/57, WBC 14.7. hg 14.9, Plat 291. Sodium 135. K 5.3. Creat 5.2. Lactate 2.3. AST 285. ALT 131. Alkphos 856. UA neg. Viral hepatitis panel neg. Microbiology: Blood cultures: 04/26 ngtd Urine cultures: 04/26 neg Current Antimicrobials: Zosyn Vancomycin Previous Antimicrobials: Past History Past Medical History: COPD, hyperlipidemia, other (anxiety) Past Surgical History: No surgical history, Other (reviewed) Social history: . denies: smoking, alcohol abuse, prescription drug abuse Family history: hypertension Medications and Allergies Allergies Allergy/AdvReac Type Severity Reaction Status Date / Time No Known Allergies Allergy Unverified 10/30/17 14:52 Home Medications Medication Instructions Recorded Confirmed Last Taken Type Meloxicam [Mobic] 15 mg PO DAILY PRN 04/26/18 04/26/18 Unknown History predniSONE [Deltasone] 10 mg PO QDAY 04/26/18 04/26/18 Unknown History Hydrochlorothiazide 12.5 mg PO QDAY 04/27/18 04/27/18 2 Days Ago History ~04/25/18 Lisinopril [Zestril] 20 mg PO 04/27/18 2 Days Ago History ~04/25/18 Nitrofurantoin 100 mg PO 04/27/18 2 Days Ago History ~04/25/18 Active Meds: Active Medications Acetaminophen (Tylenol) 650 mg PO Q4H PRN PRN Reason: Pain MILD(1-3)/Fever >100.5/TELLO Albuterol (Proventil) 2.5 mg IH Q4HRT PRN PRN Reason: Shortness Of Breath Chlordiazepoxide HCl (Librium) 25 mg PO TID JEREMY Piperacillin Sod/Tazobactam Sod (Zosyn/Ns 2.25 Gm/50ml) 2.25 gm in 50 mls @ 100 mls/hr IV Q8HR JEREMY Last Admin: 04/27/18 06:34 Dose: 100 mls/hr Sodium Chloride (Nacl 0.9% 1000 Ml) 1,000 mls @ 125 mls/hr IV DIRECT JEREMY Last Admin: 04/26/18 18:52 Dose: 100 mls/hr Thiamine HCl 100 mg/ Folic Acid 1 mg/ Multivitamins/Minerals 10 ml/ Sodium Chloride 1,011.2 mls @ 200 mls/hr IV ONCE ONE Stop: 04/27/18 16:03 Lorazepam (Ativan) 1 mg PO Q4H PRN PRN Reason: Agitation Ondansetron HCl (Zofran) 4 mg IV Q8H PRN PRN Reason: Nausea And Vomiting Last Admin: 04/27/18 00:51 Dose: 4 mg Pantoprazole Sodium (Protonix) 40 mg PO DAILY [facility] Sodium Chloride (Sodium Chloride Flush Syringe 10 Ml) 10 ml IV BID [facility] Last Admin: 04/27/18 00:51 Dose: 10 ml Sodium Chloride (Sodium Chloride Flush Syringe 10 Ml) 10 ml IV PRN PRN PRN Reason: LINE FLUSH Last Admin: 04/26/18 18:11 Dose: 10 ml Vancomycin HCl (Vancomycin Pharmacy To Dose) 1 each IV PKCONSULT JEREMY; Protocol Review of Systems ROS unobtainable: due to mental status Physical Examination - Physical Exam Narrative exam: General appearance: somnolent n NAD, non-conversant on NC O2 Eyes: anicteric sclerae, moist conjunctivae; no lid-lag; PERRLA HENT: Atraumatic; oropharynx limited Neck: Trachea midline; supple, no thyromegaly or lymphadenopathy Lungs: CTA CV: RRR Abdomen: Soft, non-tender Extremities: No peripheral edema or extremity lymphadenopathy Skin: Normal temperature, turgor and texture; no rash, ulcers or subcutaneous nodules Psych: somnolent Neuro: somnolent non verbal Lines: No CVL / PICC - Constitutional Vitals: Vital Signs Temp Pulse Resp BP Pulse Ox 98.6 F 100 H 18 107/75 95 04/27/18 07:30 04/27/18 07:30 04/27/18 07:30 04/27/18 07:30 04/27/18 10:00 Temperature -Last 24 Hours Temperature 98.6 F Temperature 98.6 F Temperature 98.3 F Temperature 98.5 F Temperature 97.6 F Results - Labs CBC & Chem 7: 04/27/18 05:52 04/27/18 05:52 Labs: Abnormal lab results 04/26/18 04/26/18 04/26/18 Range/Units 11:33 11:33 11:33 WBC 14.7 H (4.5-11.0) K/mm3 RBC 5.07 H (3.65-5.03) M/mm3 Hct 45.8 H (35.5-45.6) % RDW 16.2 H (13.2-15.2) % Seg Neuts % (Manual) 75.0 H (40.0-70.0) % Lymphocytes % (Manual) 4.0 L (13.4-35.0) % Monocytes % (Manual) 8.0 H (0.0-7.3) % Eosinophils % (Manual) 8.0 H (0.0-4.3) % Seg Neutrophils # Man 11.0 H (1.8-7.7) K/mm3 Lymphocytes # (Manual) 0.6 L (1.2-5.4) K/mm3 Monocytes # (Manual) 1.2 H (0.0-0.8) K/mm3 Eosinophils # (Manual) 1.2 H (0.0-0.4) K/mm3 PT 18.4 H (12.2-14.9) Sec. INR 1.44 H (0.87-1.13) VBG pH (7.320-7.420) Sodium 135 L (137-145) mmol/L Potassium 5.3 H (3.6-5.0) mmol/L Chloride 97.7 L (98-107) mmol/L Carbon Dioxide 15 L (22-30) mmol/L BUN 76 H (9-20) mg/dL Creatinine 5.2 H (0.8-1.5) mg/dL Glucose 101 H (75-100) mg/dL Lactic Acid (0.7-2.0) mmol/L Total Bilirubin 1.60 H (0.1-1.2) mg/dL AST 285 H (5-40) units/L ALT 131 H (7-56) units/L Alkaline Phosphatase 856 H (35-129) units/L Ammonia (25-60) umol/L Total Creatine Kinase (55-170) units/L Total Protein (6.3-8.2) g/dL Albumin 3.2 L (3.9-5) g/dL Lipase (13-60) units/L 04/26/18 04/26/18 04/26/18 Range/Units 11:33 11:33 21:20 WBC (4.5-11.0) K/mm3 RBC (3.65-5.03) M/mm3 Hct (35.5-45.6) % RDW (13.2-15.2) % Seg Neuts % (Manual) (40.0-70.0) % Lymphocytes % (Manual) (13.4-35.0) % Monocytes % (Manual) (0.0-7.3) % Eosinophils % (Manual) (0.0-4.3) % Seg Neutrophils # Man (1.8-7.7) K/mm3 Lymphocytes # (Manual) (1.2-5.4) K/mm3 Monocytes # (Manual) (0.0-0.8) K/mm3 Eosinophils # (Manual) (0.0-0.4) K/mm3 PT (12.2-14.9) Sec. INR (0.87-1.13) VBG pH 7.268 L (7.320-7.420) Sodium (137-145) mmol/L Potassium (3.6-5.0) mmol/L Chloride (98-107) mmol/L Carbon Dioxide (22-30) mmol/L BUN (9-20) mg/dL Creatinine (0.8-1.5) mg/dL Glucose (75-100) mg/dL Lactic Acid 2.30 H* 3.00 H* (0.7-2.0) mmol/L Total Bilirubin (0.1-1.2) mg/dL AST (5-40) units/L ALT (7-56) units/L Alkaline Phosphatase (35-129) units/L Ammonia (25-60) umol/L Total Creatine Kinase (55-170) units/L Total Protein (6.3-8.2) g/dL Albumin (3.9-5) g/dL Lipase (13-60) units/L 04/26/18 04/26/18 04/27/18 Range/Units 21:20 21:20 05:52 WBC 17.0 H (4.5-11.0) K/mm3 RBC (3.65-5.03) M/mm3 Hct (35.5-45.6) % RDW 15.7 H (13.2-15.2) % Seg Neuts % (Manual) 79.0 H (40.0-70.0) % Lymphocytes % (Manual) 8.0 L (13.4-35.0) % Monocytes % (Manual) (0.0-7.3) % Eosinophils % (Manual) (0.0-4.3) % Seg Neutrophils # Man 13.4 H (1.8-7.7) K/mm3 Lymphocytes # (Manual) (1.2-5.4) K/mm3 Monocytes # (Manual) 0.9 H (0.0-0.8) K/mm3 Eosinophils # (Manual) (0.0-0.4) K/mm3 PT (12.2-14.9) Sec. INR (0.87-1.13) VBG pH (7.320-7.420) Sodium (137-145) mmol/L Potassium (3.6-5.0) mmol/L Chloride (98-107) mmol/L Carbon Dioxide 16 L (22-30) mmol/L BUN 75 H (9-20) mg/dL Creatinine 4.7 H (0.8-1.5) mg/dL Glucose 128 H (75-100) mg/dL Lactic Acid (0.7-2.0) mmol/L Total Bilirubin (0.1-1.2) mg/dL AST (5-40) units/L ALT (7-56) units/L Alkaline Phosphatase (35-129) units/L Ammonia 123.0 H (25-60) umol/L Total Creatine Kinase (55-170) units/L Total Protein (6.3-8.2) g/dL Albumin (3.9-5) g/dL Lipase 68 H (13-60) units/L 04/27/18 Range/Units 05:52 WBC (4.5-11.0) K/mm3 RBC (3.65-5.03) M/mm3 Hct (35.5-45.6) % RDW (13.2-15.2) % Seg Neuts % (Manual) (40.0-70.0) % Lymphocytes % (Manual) (13.4-35.0) % Monocytes % (Manual) (0.0-7.3) % Eosinophils % (Manual) (0.0-4.3) % Seg Neutrophils # Man (1.8-7.7) K/mm3 Lymphocytes # (Manual) (1.2-5.4) K/mm3 Monocytes # (Manual) (0.0-0.8) K/mm3 Eosinophils # (Manual) (0.0-0.4) K/mm3 PT (12.2-14.9) Sec. INR (0.87-1.13) VBG pH (7.320-7.420) Sodium (137-145) mmol/L Potassium (3.6-5.0) mmol/L Chloride (98-107) mmol/L Carbon Dioxide 19 L (22-30) mmol/L BUN 75 H (9-20) mg/dL Creatinine 4.2 H (0.8-1.5) mg/dL Glucose 110 H (75-100) mg/dL Lactic Acid (0.7-2.0) mmol/L Total Bilirubin 1.90 H (0.1-1.2) mg/dL AST 244 H (5-40) units/L ALT 120 H (7-56) units/L Alkaline Phosphatase 777 H (35-129) units/L Ammonia (25-60) umol/L Total Creatine Kinase 373 H (55-170) units/L Total Protein 5.9 L (6.3-8.2) g/dL Albumin 3.4 L (3.9-5) g/dL Lipase (13-60) units/L Assessment and Plan Assessment: 1) SIRS: Present on admission, manifested by tachycardia, hypotension, leukocytosis, increased lactate. Etiology unclear ? liver abscesses Vs. cholecystitis Vs. liver malignancy 2) Liver lesions -CT showed few lesions largest right hepatic hypodense mass 3.4 cm with hepatomegaly. -US abd showed cholelithiasis, choledocholithiasis ? CBP 8.2. mm -viral hepatitis panel neg 3) Elevated LFTs: from liver lesions 4) Acute enephalopathy: CT head neg. Etio. sepsis 5) RUFINA 6) Acute hypoxemic resp failure ? CXR neg Plan: -follow-up blood cx -check CRP, AFP -Abd MRI -IR eval for biopsy / drainage -obtain HIDA -monitor mentation Thank you for your consultation, will follow up with you. Deanna Lindquist MD Infectious Diseases Specialist [facility] ([facility] M [phone] O [phone]
--- NOTE | 2018-04-27 11:33 | Ultrasound Report ---
ULTRASOUND ABDOMEN COMPLETE: TECHNIQUE: Transabdominal ultrasound with color Doppler interrogation. HISTORY: Right upper quadrant pain, rule out acute cholecystitis. COMPARISON: CT abdomen pelvis without contrast performed 04/26/18. FINDINGS: LIVER: Within normal limits. BILIARY SYSTEM: The gallbladder is partially contracted and contains a mild degree of sludge and a few tiny gallstones. The CBD is mildly dilated measuring 8.2 mm. PANCREAS: Obscured by bowel gas. SPLEEN: 11.8 cm. Within normal limits. KIDNEYS: Both kidneys are mildly echogenic consistent with nonspecific renal parenchymal disease. No focal renal lesion or hydronephrosis. AORTA/IVC: Within normal limits. ASCITES: Trace perihepatic ascites. IMPRESSION: Cholelithiasis. No evidence for acute cholecystitis. The common bile duct is mildly dilated at 8.2 mm which could represent choledocholithiasis. Nonspecific renal parenchymal disease.
--- NOTE | 2018-04-27 13:45 | Consultation ---
History of Present Illness Consult date: 04/27/18 Chief complaint: confusion, AMS - History of present illness History of present illness: 72 yo M with hx of HTN presents to hospital with c/o weakness, inability to eat , and confusion. The patient is a poor historian and all of the history is obtained from family at the bedside. Apparently the patient is functional at baseline and works at a bank. Over the last several weeks the patient has began to decline. He has become increasingly confused and falls asleep at work. He started seeing an orthopedic surgeon for chronic back pain around the time these symptoms started and attributed the intermittent confusion to pain medications. However, now he has had a very poor appetite. He c/o abdominal pain near the umbilical region that radiates to the right side of the abdomen. He cannot describe the pain. He has not had nausea/emesis at home but does c/o burning in his chest when he tries to eat or drink anything. No f/c, cp, sob. He does have severe COPD, on home O2. Family members relay a history of etoh use daily consisting of hard liquor drinks. Past History Past Medical History: COPD, hypertension, hyperlipidemia, other (anxiety) Past Surgical History: cataract removal Social history: , alcohol abuse (1-2 drinks with hard liquor daily). denies: smoking, prescription drug abuse Family history: hypertension Medications and Allergies Allergies Allergy/AdvReac Type Severity Reaction Status Date / Time No Known Allergies Allergy Unverified 10/30/17 14:52 Home Medications Medication Instructions Recorded Confirmed Last Taken Type Meloxicam [Mobic] 15 mg PO DAILY PRN 04/26/18 04/26/18 Unknown History predniSONE [Deltasone] 10 mg PO QDAY 04/26/18 04/26/18 Unknown History Hydrochlorothiazide 12.5 mg PO QDAY 04/27/18 04/27/18 2 Days Ago History ~04/25/18 Lisinopril [Zestril] 20 mg PO 04/27/18 2 Days Ago History ~04/25/18 Nitrofurantoin 100 mg PO 04/27/18 2 Days Ago History ~04/25/18 Active Meds: Active Medications Acetaminophen (Tylenol) 650 mg PO Q4H PRN PRN Reason: Pain MILD(1-3)/Fever >100.5/TELLO Albuterol (Proventil) 2.5 mg IH Q4HRT PRN PRN Reason: Shortness Of Breath Chlordiazepoxide HCl (Librium) 25 mg PO TID [facility] Piperacillin Sod/Tazobactam Sod (Zosyn/Ns 2.25 Gm/50ml) 2.25 gm in 50 mls @ 100 mls/hr IV Q8HR JEREMY Last Admin: 04/27/18 06:34 Dose: 100 mls/hr Sodium Chloride (Nacl 0.9% 1000 Ml) 1,000 mls @ 125 mls/hr IV DIRECT JEREMY Last Admin: 04/26/18 18:52 Dose: 100 mls/hr Thiamine HCl 100 mg/ Folic Acid 1 mg/ Multivitamins/Minerals 10 ml/ Sodium Chloride 1,011.2 mls @ 200 mls/hr IV ONCE ONE Stop: 04/27/18 16:03 Lorazepam (Ativan) 1 mg PO Q4H PRN PRN Reason: Agitation Ondansetron HCl (Zofran) 4 mg IV Q8H PRN PRN Reason: Nausea And Vomiting Last Admin: 04/27/18 00:51 Dose: 4 mg Pantoprazole Sodium (Protonix) 40 mg PO DAILY [facility] Sodium Chloride (Sodium Chloride Flush Syringe 10 Ml) 10 ml IV BID [facility] Last Admin: 04/27/18 00:51 Dose: 10 ml Sodium Chloride (Sodium Chloride Flush Syringe 10 Ml) 10 ml IV PRN PRN PRN Reason: LINE FLUSH Last Admin: 04/26/18 18:11 Dose: 10 ml Vancomycin HCl (Vancomycin Pharmacy To Dose) 1 each IV PKCONSULT [facility]; Protocol Review of Systems ROS unobtainable: due to mental status Exam Vital Signs Temp Pulse Resp BP Pulse Ox 97.6 F 98 H 18 94/57 94 04/26/18 11:13 04/26/18 11:13 04/26/18 11:13 04/26/18 11:13 04/26/18 11:13 Narrative exam: Gen: awake and alert. Answers some questions. Seems confused. ENT; no scleral icterus CV: S1, S2+ Resp: even and unlabored Abd: soft, protuberant, ND. + TTP in RUQ and LUQ. no r/r/g Ext: no c/c/e Results - Labs 04/27/18 14:13 04/27/18 05:52 Abnormal lab results 04/26/18 04/26/18 04/26/18 Range/Units 21:20 21:20 21:20 WBC (4.5-11.0) K/mm3 RDW (13.2-15.2) % Seg Neuts % (Manual) (40.0-70.0) % Lymphocytes % (Manual) (13.4-35.0) % Seg Neutrophils # Man (1.8-7.7) K/mm3 Monocytes # (Manual) (0.0-0.8) K/mm3 Carbon Dioxide 16 L (22-30) mmol/L BUN 75 H (9-20) mg/dL Creatinine 4.7 H (0.8-1.5) mg/dL Glucose 128 H (75-100) mg/dL Lactic Acid 3.00 H* (0.7-2.0) mmol/L Total Bilirubin (0.1-1.2) mg/dL AST (5-40) units/L ALT (7-56) units/L Alkaline Phosphatase (35-129) units/L Ammonia 123.0 H (25-60) umol/L Total Creatine Kinase (55-170) units/L Total Protein (6.3-8.2) g/dL Albumin (3.9-5) g/dL Lipase 68 H (13-60) units/L 04/27/18 04/27/18 Range/Units 05:52 05:52 WBC 17.0 H (4.5-11.0) K/mm3 RDW 15.7 H (13.2-15.2) % Seg Neuts % (Manual) 79.0 H (40.0-70.0) % Lymphocytes % (Manual) 8.0 L (13.4-35.0) % Seg Neutrophils # Man 13.4 H (1.8-7.7) K/mm3 Monocytes # (Manual) 0.9 H (0.0-0.8) K/mm3 Carbon Dioxide 19 L (22-30) mmol/L BUN 75 H (9-20) mg/dL Creatinine 4.2 H (0.8-1.5) mg/dL Glucose 110 H (75-100) mg/dL Lactic Acid (0.7-2.0) mmol/L Total Bilirubin 1.90 H (0.1-1.2) mg/dL AST 244 H (5-40) units/L ALT 120 H (7-56) units/L Alkaline Phosphatase 777 H (35-129) units/L Ammonia (25-60) umol/L Total Creatine Kinase 373 H (55-170) units/L Total Protein 5.9 L (6.3-8.2) g/dL Albumin 3.4 L (3.9-5) g/dL Lipase (13-60) units/L Diabetes panel 04/26/18 04/27/18 Range/Units 21:20 05:52 Sodium 140 143 (137-145) mmol/L Potassium 5.0 4.7 (3.6-5.0) mmol/L Chloride 101.8 103.0 (98-107) mmol/L Carbon Dioxide 16 L 19 L (22-30) mmol/L BUN 75 H 75 H (9-20) mg/dL Creatinine 4.7 H 4.2 H (0.8-1.5) mg/dL Glucose 128 H 110 H (75-100) mg/dL Calcium 9.4 9.0 (8.4-10.2) mg/dL AST 244 H (5-40) units/L ALT 120 H (7-56) units/L Alkaline Phosphatase 777 H (35-129) units/L Total Protein 5.9 L (6.3-8.2) g/dL Albumin 3.4 L (3.9-5) g/dL Calcium panel 04/26/18 04/27/18 Range/Units 21:20 05:52 Calcium 9.4 9.0 (8.4-10.2) mg/dL Albumin 3.4 L (3.9-5) g/dL Pituitary panel 04/26/18 04/27/18 Range/Units 21:20 05:52 Sodium 140 143 (137-145) mmol/L Potassium 5.0 4.7 (3.6-5.0) mmol/L Chloride 101.8 103.0 (98-107) mmol/L Carbon Dioxide 16 L 19 L (22-30) mmol/L BUN 75 H 75 H (9-20) mg/dL Creatinine 4.7 H 4.2 H (0.8-1.5) mg/dL Glucose 128 H 110 H (75-100) mg/dL Calcium 9.4 9.0 (8.4-10.2) mg/dL Adrenal panel 04/26/18 04/27/18 Range/Units 21:20 05:52 Sodium 140 143 (137-145) mmol/L Potassium 5.0 4.7 (3.6-5.0) mmol/L Chloride 101.8 103.0 (98-107) mmol/L Carbon Dioxide 16 L 19 L (22-30) mmol/L BUN 75 H 75 H (9-20) mg/dL Creatinine 4.7 H 4.2 H (0.8-1.5) mg/dL Glucose 128 H 110 H (75-100) mg/dL Calcium 9.4 9.0 (8.4-10.2) mg/dL Total Bilirubin 1.90 H (0.1-1.2) mg/dL AST 244 H (5-40) units/L ALT 120 H (7-56) units/L Alkaline Phosphatase 777 H (35-129) units/L Total Protein 5.9 L (6.3-8.2) g/dL Albumin 3.4 L (3.9-5) g/dL - Imaging CT scan - abdomen: report reviewed, image reviewed CT scan - pelvis: report reviewed, image reviewed US - abdomen: report reviewed, image reviewed Assessment and Plan 72 yo M with 1. abdominal pain 2. sepsis, ?etiology 3. severe COPD on home O2 4. elevated LFTs r/o cholecystitis 5. dehydration Plan: 1. no evidence of cholecystitis on RUQ u/s. 2. trend LFTs, WBC. 3. clear liquid diet -> adv as tolerated, add protein supplements 4. IV abx 5. ID on board, HIDA ordered 6. OOB/ambulate 7. PPI 8. Patient will need pulm consult for preop risk assessment if he requires surgical intervention Will follow with you. Thank you for this consultation, please call with questions or concerns.
[2018-04-27] MEDS: PROVENTIL IH PRN ×2 (14:19→23:43)
[2018-04-27 14:31] LABS: Hemoglobin 13.1 gm/dl (11.8-15.2); Mean Corpuscular HGB Conc 32 % (32-34); Mean Corpuscular Hemoglobin 29 pg (28-32); Mean Corpuscular Volume 90 fl (84-94); Platelet Count 255 K/mm3 (140-440); Red Blood Count 4.58 M/mm3 (3.65-5.03); Red Cell Distribution Width 16.1 % (13.2-15.2)
[2018-04-27 14:58] LABS: Band Neutrophils # (Manual) 0.5 K/mm3; Basophils % (Manual) 0 % (0.0-1.8); Total Cells Counted 100
[2018-04-27 14:59] LABS: Helmet Cells Few; Large Platelets Few
[2018-04-27] MEDS: ATIVAN PO PRN ×2 (19:01→23:33)
[2018-04-27] MEDS: NACL 0.9% 1000 ML IV ONE (21:09)
[2018-04-28] MEDS: ZOSYN/NS 2.25 GM/50ML 2.25 GM/50 ML BAG IV SCH ×3 (06:20→23:31)
--- NOTE | 2018-04-28 07:19 | Progress Note ---
Assessment and Plan 1. Acute kidney injury: RUFINA is likely Vasomotor / hemodynamically mediated in the setting of hypotension / sepsis. Continue IV fluids. Renal function is improving. 2. Hyperkalemia: Improved. Follow K level. 3. Metabolic acidosis: Lactic acidosis. Monitor. 4. Sepsis with hypotension: Continue IV fluids. 5. Abnormal LFTS. 6. ?Alcohol withdrawal. D/w her daughter at the bedside. Subjective Date of service: 04/28/18 Interval history: Patient was seen and examined at the bedside. Objective - Vital Signs Vital signs: Vital Signs - 12hr 04/27/18 04/27/18 04/27/18 19:49 20:49 22:00 Temperature 99.4 F Pulse Rate 97 H 97 H Pulse Rate [ Anterior Bilateral Throughout] Pulse Rate [ 97 H Apical] Respiratory 22 24 Rate Respiratory Rate [Anterior Bilateral Throughout] Blood Pressure 95/60 O2 Sat by Pulse 85 96 Oximetry 04/27/18 04/28/18 23:45 02:34 Temperature 98.7 F Pulse Rate 100 H Pulse Rate [ 102 H Anterior Bilateral Throughout] Pulse Rate [ Apical] Respiratory 24 Rate Respiratory 20 Rate [Anterior Bilateral Throughout] Blood Pressure 94/59 O2 Sat by Pulse 91 Oximetry - General Appearance General appearance: well-developed, appears stated age, obese, other (on restrains) EENT: ATNC Neck: supple Respiratory: Present: Clear to Ascultation Cardiology: regular, S1S2, no murmurs Gastrointestinal: normoactive bowel sounds, no tenderness, obese Integumentary: no rash Neurologic: other (stuporous) Musculoskeletal: other (no edema) - Lab 04/27/18 14:13 04/28/18 15:41 Most recent lab results Calcium 9.0 mg/dL (8.4-10.2) 04/27/18 05:52
[2018-04-28] MEDS ORDERED: WATER FOR INJ (PF) IV ONE (09:31)
[2018-04-28] MEDS ORDERED: KINEVAC IV ONE (10:00)
[2018-04-28] MEDS ORDERED: ATIVAN IV PRN ×3 (10:45)
--- NOTE | 2018-04-28 10:49 | Progress Note ---
Assessment and Plan Assessment and plan: Patient is a 72 yo man with a history of chronic hypoxic Respiratory Failure on Home Oxygen due to End Stage COPD and HTN who presented to ED shortness of breath, hematuria and confusion/drowsiness, * CT ABDOMEN AND PELVIS WITHOUT CONTRAST CONCLUSION: 1. Peripheral right hepatic hypodense mass(es) now suspected with new small perihepatic ascites on this limited, unenhanced exam, as described. Subtle fat stranding may also be noted about the pancreas and the gallbladder. 2. Various other findings as distal esophageal thickening, hepatomegaly, cecum/proximal ascending colon CT appearance, enlarged prostate and small pelvic ascites, amongst others, as detailed above. * CT HEAD WITHOUT CONTRAST CONCLUSION: No acute intracranial CT abnormality with sinusitis and few other findings, as described. * pCXR CONCLUSION: No acute chest process with chronic interstitial lung disease again suspected, as described. -SIRS with suspected early Sepsis without clear source, poa: consult ID: IV antibiotics, serial lactic acid, monitor uop q shift, blood cultures, urinalysis , chest x ray, IVF resuscitation therapy -Acute Hepatic Encephalopathy: treat with Lactulose -Acute renal failure, suspect ATN with hypotension + vasomotor nephropathy, poa: treat with ivf, consult Nephrology -Lactic Acidosis: Treat sepsis, monitor uop q shift, iv bicarbonate prn -Hepatitis: CT Abdomen and pelvis noted, LFT, Hepatitis panel, consulted GI -Hematuria: resolved, outpatient urology F/U recommended -DVT prophylaxis: SCD to BLE while in bed -Evidence of Livedo Reticularis legs guarded prognosis full code ?ETOH withdrawal, history obtain by Human Relations Teacher, Dr. Masters after speaking with one of his daughters, Started librium, CIWA protocol, this was confirmed in speaking with Apryl at bedside. Found to have elevated ammonia levels, started lactulose and ordered serial ammonia levels daily, consulted GI HIDA scan pending, ID is investigating the Sepsis CCT 36 minutes History Interval history: Patient was seen and examined. Follow-up on current diagnosis of AMS/ drowsiness. Overnight uneventful. Patient denies any chest pain, nausea/ vomiting or severe headaches. Imaging, nursing note, chart, labs and old chart reviewed. Hospitalist Physical - Physical exam Narrative exam: GEN: WDWN, ill appearing, NAD, lethargic but easily aroused HEENT: NCAT, EOMI, PERRL, OP Clear NECK: supple, no adenopathy, no thyromegaly, no JVD CVS/HEART: Regular tachycardia, normal S1S2, pulses present bilaterally CHEST/LUNGS: bilateral rhonchi and diminished bs bilateral, Symmetrical chest expansion, good air entry bilaterally GI/Abdomen: soft, protuberant, ruq tender with good bowel sounds, no guarding or rebound /Bladder: no suprapubic tenderness, no CVA or paraspinal tenderness EXT/Skin: no c/c/e, no obvious rash MSK: spontaneous ROM x 4 Neuro: CN 2-12 grossly intact, no new focal deficits Psych: calm - Constitutional Vitals: Temp Pulse Resp BP Pulse Ox 98.7 F 100 H 24 94/59 91 04/28/18 02:34 04/28/18 02:34 04/28/18 02:34 04/28/18 02:34 04/28/18 02:34 General appearance: Absent: mild distress Results - Labs CBC & Chem 7: 04/27/18 14:13 04/27/18 05:52 Labs: Laboratory Last Values WBC 18.2 K/mm3 (4.5-11.0) H 04/27/18 14:13 RBC 4.58 M/mm3 (3.65-5.03) 04/27/18 14:13 Hgb 13.1 gm/dl (11.8-15.2) 04/27/18 14:13 Hct 41.0 % (35.5-45.6) 04/27/18 14:13 MCV 90 fl (84-94) 04/27/18 14:13 MCH 29 pg (28-32) 04/27/18 14:13 MCHC 32 % (32-34) 04/27/18 14:13 RDW 16.1 % (13.2-15.2) H 04/27/18 14:13 Plt Count 255 K/mm3 (140-440) 04/27/18 14:13 Add Manual Diff Complete 04/27/18 14:13 Total Counted 100 04/27/18 14:13 Seg Neuts % (Manual) 84.0 % (40.0-70.0) H 04/27/18 14:13 Band Neutrophils % 3.0 % 04/27/18 14:13 Lymphocytes % (Manual) 8.0 % (13.4-35.0) L 04/27/18 14:13 Reactive Lymphs % (Man) 0 % 04/27/18 14:13 Monocytes % (Manual) 1.0 % (0.0-7.3) 04/27/18 14:13 Eosinophils % (Manual) 3.0 % (0.0-4.3) 04/27/18 14:13 Basophils % (Manual) 0 % (0.0-1.8) 04/27/18 14:13 Metamyelocytes % 1.0 % 04/27/18 14:13 Myelocytes % 0 % 04/27/18 14:13 Promyelocytes % 0 % 04/27/18 14:13 Blast Cells % 0 % 04/27/18 14:13 Nucleated RBC % Not Reportable 04/27/18 14:13 Seg Neutrophils # Man 15.3 K/mm3 (1.8-7.7) H 04/27/18 14:13 Band Neutrophils # 0.5 K/mm3 04/27/18 14:13 Lymphocytes # (Manual) 1.5 K/mm3 (1.2-5.4) 04/27/18 14:13 Abs React Lymphs (Man) 0.0 K/mm3 04/27/18 14:13 Monocytes # (Manual) 0.2 K/mm3 (0.0-0.8) 04/27/18 14:13 Eosinophils # (Manual) 0.5 K/mm3 (0.0-0.4) H 04/27/18 14:13 Basophils # (Manual) 0.0 K/mm3 (0.0-0.1) 04/27/18 14:13 Metamyelocytes # 0.2 K/mm3 04/27/18 14:13 Myelocytes # 0.0 K/mm3 04/27/18 14:13 Promyelocytes # 0.0 K/mm3 04/27/18 14:13 Blast Cells # 0.0 K/mm3 04/27/18 14:13 WBC Morphology Not Reportable 04/27/18 14:13 Hypersegmented Neuts Not Reportable 04/27/18 14:13 Hyposegmented Neuts Not Reportable 04/27/18 14:13 Hypogranular Neuts Not Reportable 04/27/18 14:13 Smudge Cells Not Reportable 04/27/18 14:13 Toxic Granulation Not Reportable 04/27/18 14:13 Toxic Vacuolation Not Reportable 04/27/18 14:13 Dohle Bodies Not Reportable 04/27/18 14:13 Pelger-Huet Anomaly Not Reportable 04/27/18 14:13 Aidan Rods Not Reportable 04/27/18 14:13 Platelet Estimate Appears normal 04/27/18 14:13 Clumped Platelets Not Reportable 04/27/18 14:13 Plt Clumps, EDTA Not Reportable 04/27/18 14:13 Large Platelets Few 04/27/18 14:13 Giant Platelets Not Reportable 04/27/18 14:13 Platelet Satelliting Not Reportable 04/27/18 14:13 Plt Morphology Comment Not Reportable 04/27/18 14:13 RBC Morphology Not Reportable 04/27/18 14:13 Dimorphic RBCs Not Reportable 04/27/18 14:13 Polychromasia Not Reportable 04/27/18 14:13 Hypochromasia Not Reportable 04/27/18 14:13 Poikilocytosis Not Reportable 04/27/18 14:13 Anisocytosis Not Reportable 04/27/18 14:13 Microcytosis Not Reportable 04/27/18 14:13 Macrocytosis Not Reportable 04/27/18 14:13 Spherocytes Not Reportable 04/27/18 14:13 Pappenheimer Bodies Not Reportable 04/27/18 14:13 Sickle Cells Not Reportable 04/27/18 14:13 Target Cells Not Reportable 04/27/18 14:13 Tear Drop Cells Not Reportable 04/27/18 14:13 Ovalocytes Not Reportable 04/27/18 14:13 Helmet Cells Few 04/27/18 14:13 Gabriel-Sheffield Bodies Not Reportable 04/27/18 14:13 Quincy Rings Not Reportable 04/27/18 14:13 Glenroy Cells Not Reportable 04/27/18 14:13 Bite Cells Not Reportable 04/27/18 14:13 Crenated Cell Not Reportable 04/27/18 14:13 Elliptocytes Not Reportable 04/27/18 14:13 Acanthocytes (Spur) Not Reportable 04/27/18 14:13 Rouleaux Not Reportable 04/27/18 14:13 Hemoglobin C Crystals Not Reportable 04/27/18 14:13 Schistocytes Not Reportable 04/27/18 14:13 Malaria parasites Not Reportable 04/27/18 14:13 Donaldo Bodies Not Reportable 04/27/18 14:13 Hem Pathologist Commnt No 04/27/18 14:13 PT 18.4 Sec. (12.2-14.9) H 04/26/18 11:33 INR 1.44 (0.87-1.13) H 04/26/18 11:33 VBG pH 7.268 (7.320-7.420) L 04/26/18 11:33 Sodium 143 mmol/L (137-145) 04/27/18 05:52 Potassium 4.7 mmol/L (3.6-5.0) 04/27/18 05:52 Chloride 103.0 mmol/L (98-107) 04/27/18 05:52 Carbon Dioxide 19 mmol/L (22-30) L 04/27/18 05:52 Anion Gap 26 mmol/L 04/27/18 05:52 BUN 75 mg/dL (9-20) H 04/27/18 05:52 Creatinine 4.2 mg/dL (0.8-1.5) H 04/27/18 05:52 Estimated GFR 14 ml/min 04/27/18 05:52 BUN/Creatinine Ratio 18 % 04/27/18 05:52 Glucose 110 mg/dL (75-100) H 04/27/18 05:52 Lactic Acid 1.90 mmol/L (0.7-2.0) 04/27/18 05:52 Calcium 9.0 mg/dL (8.4-10.2) 04/27/18 05:52 Total Bilirubin 1.90 mg/dL (0.1-1.2) H 04/27/18 05:52 AST 244 units/L (5-40) H 04/27/18 05:52 ALT 120 units/L (7-56) H 04/27/18 05:52 Alkaline Phosphatase 777 units/L (35-129) H 04/27/18 05:52 Ammonia 123.0 umol/L (25-60) H 04/26/18 21:20 Total Creatine Kinase 373 units/L (55-170) H 04/27/18 05:52 C-Reactive Protein 16.50 mg/dL (0.00-1.30) H 04/27/18 16:28 Total Protein 5.9 g/dL (6.3-8.2) L 04/27/18 05:52 Albumin 3.4 g/dL (3.9-5) L 04/27/18 05:52 Albumin/Globulin Ratio 1.4 % 04/27/18 05:52 Lipase 68 units/L (13-60) H 04/26/18 21:20 Urine Color Rosalia (Yellow) 04/26/18 12:58 Urine Turbidity Clear (Clear) 04/26/18 12:58 Urine pH 5.0 (5.0-7.0) 04/26/18 12:58 Ur Specific [place] 1.017 (1.003-1.030) 04/26/18 12:58 Urine Protein 30 mg/dl mg/dL (Negative) 04/26/18 12:58 Urine Glucose (UA) Neg mg/dL (Negative) 04/26/18 12:58 Urine Ketones Neg mg/dL (Negative) 04/26/18 12:58 Urine Blood Neg (Negative) 04/26/18 12:58 Urine Nitrite Neg (Negative) 04/26/18 12:58 Urine Bilirubin Neg (Negative) 04/26/18 12:58 Urine Urobilinogen < 2.0 mg/dL (<2.0) 04/26/18 12:58 Ur Leukocyte Esterase Neg (Negative) 04/26/18 12:58 Urine WBC (Auto) 2.0 /HPF (0.0-6.0) 04/26/18 12:58 Urine RBC (Auto) 1.0 /HPF (0.0-6.0) 04/26/18 12:58 U Epithel Cells (Auto) < 1.0 /HPF (0-13.0) 04/26/18 12:58 Hepatitis A IgM Ab Non-reactive (NonReactive) 04/26/18 21:20 Hep Bs Antigen Non-reactive (Negative) 04/26/18 21:20 Hep B Core IgM Ab Non-reactive (NonReactive) 04/26/18 21:20 Hepatitis C Antibody Non-reactive (NonReactive) 04/26/18 21:20 HIV 1&2 Antibody Rapid Non react (Non React) 04/27/18 16:28 HIV P24 Antigen Non react (Non React) 04/27/18 16:28
--- NOTE | 2018-04-28 11:59 | Nuclear Medicine Report ---
HEPATOBILIARY SCAN: History: Sepsis with elevated LFTs. Findings: Following the injection of the radionuclide, serial scanning was obtained over the right upper quadrant. Initial imaging of the liver demonstrates a relatively normal activity pattern. Progressive concentration of the radionuclide in the bile ducts, with filling of both the gallbladder and small bowel, is identified within a normal time period. IMPRESSION: No cystic or common bile duct obstruction. Post Kinevac ejection fraction 35%.
[2018-04-28] MEDS: PROTONIX PO SCH (13:06)
[2018-04-28] MEDS: LIBRIUM PO SCH ×2 (13:06→15:19)
[2018-04-28] MEDS: CEPHULAC PO SCH ×2 (13:07→18:12)
[2018-04-28] MEDS: SODIUM CHLORIDE FLUSH SYRINGE 10 ML IV SCH (13:07)
[2018-04-28] MEDS ORDERED: CEPHULAC PR STA (13:21)
[2018-04-28 16:33] LABS: Calcium 8.1 mg/dL (8.4-10.2)
[2018-04-28] MEDS ORDERED: D50W (25GM) Vial IV PRN (16:57)
--- NOTE | 2018-04-28 17:17 | Progress Note ---
Assessment and Plan Assessment: 1) SIRS: still tachycardia, leukocytosis. Etiology unclear ? liver abscesses Vs. cholecystitis Vs. liver malignancy 2) Liver lesions -CT showed few lesions largest right hepatic hypodense mass 3.4 cm with hepatomegaly. -US abd showed cholelithiasis, choledocholithiasis ? CBP 8.2. mm -viral hepatitis panel neg -CRP 16 3) Elevated LFTs: from liver lesions +/- ETOH - worsening 4) Acute enephalopathy: CT head neg. Etio. sepsis +/- hepatic encephalopahy +/- ETOH withdrawal 5) RUFINA - better 6) Acute hypoxemic resp failure ? CXR neg Plan: -follow-up blood cx -repeat blood cx -HIDA was canceled? -check AFP -Abd MRI when stable -IR eval for biopsy / drainage -monitor mentation Thank you for your consultation, will follow up with you. Deanna Lindquist MD Infectious Diseases Specialist [facility] ([facility]) M [phone] O [phone] Subjective Date of service: 04/28/18 Principal diagnosis: SIRS Interval history: Remains somnolent but slightly more alert. No fever. Still tachy on monitor. Microbiology: Blood cultures: 04/26 RELIEF CAPTAIN 1 of 4 bottles Urine cultures: 04/26 neg Current Antimicrobials: Zosyn Vancomycin Objective - Exam Narrative Exam: General appearance: somnolent but agitated at time NAD, non-conversant on NC O2 Eyes: anicteric sclerae, moist conjunctivae; no lid-lag; PERRLA HENT: Atraumatic; oropharynx limited Neck: Trachea midline; supple, no thyromegaly or lymphadenopathy Lungs: CTA CV: RRR Abdomen: Soft, non-tender Extremities: No peripheral edema or extremity lymphadenopathy Skin: Normal temperature, turgor and texture; no rash, ulcers or subcutaneous nodules Psych: somnolent Neuro: somnolent non verbal Lines: No CVL / PICC - Constitutional Vitals: Vital Signs Temp Pulse Resp BP Pulse Ox 99.1 F 102 H 20 120/72 90 04/28/18 13:52 04/28/18 13:52 04/28/18 13:52 04/28/18 13:52 04/28/18 13:52 Temperature -Last 24 Hours Temperature 99.1 F Temperature 98.7 F Temperature 98.7 F Temperature 99.4 F - Labs CBC & Chem 7: 04/27/18 14:13 04/28/18 15:41 Labs: Abnormal lab results 04/27/18 04/28/18 04/28/18 Range/Units 16:28 15:41 15:41 Chloride 108.6 H (98-107) mmol/L Carbon Dioxide 14 L (22-30) mmol/L BUN 76 H (9-20) mg/dL Creatinine 3.0 H (0.8-1.5) mg/dL Glucose 60 L (75-100) mg/dL Calcium 8.1 L (8.4-10.2) mg/dL Total Bilirubin 2.20 H (0.1-1.2) mg/dL AST 416 H (5-40) units/L ALT 136 H (7-56) units/L Alkaline Phosphatase 674 H (35-129) units/L Ammonia 76.0 H (25-60) umol/L Total Creatine Kinase 497 H (55-170) units/L C-Reactive Protein 16.50 H (0.00-1.30) mg/dL Total Protein 5.2 L (6.3-8.2) g/dL Albumin 3.0 L (3.9-5) g/dL
--- NOTE | 2018-04-28 18:03 | Progress Note ---
Assessment and Plan 72 yo M with 1. abdominal pain 2. sepsis, ?etiology 3. severe COPD on home O2 4. elevated LFTs, liver disease? 5. dehydration 6. hepatic encephalopathy Plan: 1. no evidence of cholecystitis on RUQ u/s and HIDA scan negative 2. trend LFTs, WBC. 3. monitor mentation, start diet when more alert 4. IV abx per ID 5. PPI 6. treatment of encephalopathy per 1' 7. GI c/s requested No acute surgical intervention at this time, will s/o. Thank you for this consultation, please call with questions or concerns. Subjective Date of service: 04/28/18 Narrative: Pt seen and examined. He is confused requiring mitts for restraints. No f/c, n/ v. Per daughter at bedside, patient frequently takes 2-3 times the recommended dose of OTC tylenol and tylenol PM at one time. Objective Vital Signs - 12hr 04/28/18 04/28/18 10:37 13:52 Temperature 98.7 F 99.1 F Pulse Rate 101 H 102 H Respiratory 20 20 Rate Blood Pressure 114/74 120/72 O2 Sat by Pulse 90 90 Oximetry - General physical appearance Narrative Exam: Gen: Eyes closed, confused. Not talkative. CV: S1, S2+ resp: even and unlabored Abd: soft, ND, NT, +palpable liver at least 5-6 cm below costal margin. Reducible umbilical hernia, NT. Ext: no c/c/e - Labs 04/27/18 14:13 04/28/18 15:41 Diabetes panel 04/28/18 Range/Units 15:41 Sodium 144 (137-145) mmol/L Potassium 5.0 (3.6-5.0) mmol/L Chloride 108.6 H (98-107) mmol/L Carbon Dioxide 14 L (22-30) mmol/L BUN 76 H (9-20) mg/dL Creatinine 3.0 H (0.8-1.5) mg/dL Glucose 60 L (75-100) mg/dL Calcium 8.1 L (8.4-10.2) mg/dL AST 416 H (5-40) units/L ALT 136 H (7-56) units/L Alkaline Phosphatase 674 H (35-129) units/L Total Protein 5.2 L (6.3-8.2) g/dL Albumin 3.0 L (3.9-5) g/dL Calcium panel 04/28/18 Range/Units 15:41 Calcium 8.1 L (8.4-10.2) mg/dL Albumin 3.0 L (3.9-5) g/dL Pituitary panel 04/28/18 Range/Units 15:41 Sodium 144 (137-145) mmol/L Potassium 5.0 (3.6-5.0) mmol/L Chloride 108.6 H (98-107) mmol/L Carbon Dioxide 14 L (22-30) mmol/L BUN 76 H (9-20) mg/dL Creatinine 3.0 H (0.8-1.5) mg/dL Glucose 60 L (75-100) mg/dL Calcium 8.1 L (8.4-10.2) mg/dL Adrenal panel 04/28/18 Range/Units 15:41 Sodium 144 (137-145) mmol/L Potassium 5.0 (3.6-5.0) mmol/L Chloride 108.6 H (98-107) mmol/L Carbon Dioxide 14 L (22-30) mmol/L BUN 76 H (9-20) mg/dL Creatinine 3.0 H (0.8-1.5) mg/dL Glucose 60 L (75-100) mg/dL Calcium 8.1 L (8.4-10.2) mg/dL Total Bilirubin 2.20 H (0.1-1.2) mg/dL AST 416 H (5-40) units/L ALT 136 H (7-56) units/L Alkaline Phosphatase 674 H (35-129) units/L Total Protein 5.2 L (6.3-8.2) g/dL Albumin 3.0 L (3.9-5) g/dL
[2018-04-28] MEDS: SERAX FEEDTUBE SCH (20:28)
--- NOTE | 2018-04-28 23:09 | XRay Report ---
FINAL REPORT PROCEDURE: XR ABDOMEN 1V AP TECHNIQUE: Abdominal radiograph, single supine AP view. HISTORY: ngt placement COMPARISON: No prior studies are available for comparison. FINDINGS: Bowel gas pattern:Nonobstructive. Masses or calcifications:None. Bony structures:No significant abnormality. Other:Nasogastric tube is terminating in the stomach. IMPRESSION: Nasogastric tube is terminating in the stomach.
[2018-04-29] MEDS: PROVENTIL IH PRN ×2 (00:20→11:17)
[2018-04-29] MEDS: HALDOL IV PRN (00:29)
[2018-04-29] MEDS: CEPHULAC PO SCH ×5 (00:31→18:47)
[2018-04-29] MEDS: SODIUM CHLORIDE FLUSH SYRINGE 10 ML IV SCH ×2 (00:31→12:42)
[2018-04-29] MEDS ORDERED: TYLENOL PR PRN (02:46)
[2018-04-29] MEDS ORDERED: TYLENOL PO PRN (02:46)
[2018-04-29] MEDS: ZOSYN/NS 2.25 GM/50ML 2.25 GM/50 ML BAG IV SCH ×3 (06:28→22:23)
[2018-04-29 08:37] LABS: Hematocrit 41.4 % (35.5-45.6); Hemoglobin 13.1 gm/dl (11.8-15.2); Mean Corpuscular HGB Conc 32 % (32-34); Mean Corpuscular Hemoglobin 29 pg (28-32); Mean Corpuscular Volume 91 fl (84-94); Platelet Count 241 K/mm3 (140-440); Red Blood Count 4.57 M/mm3 (3.65-5.03); Red Cell Distribution Width 16.2 % (13.2-15.2)
[2018-04-29 08:50] LABS: Albumin 2.6 g/dL (3.9-5); Calcium 8.6 mg/dL (8.4-10.2)
--- NOTE | 2018-04-29 09:13 | Progress Note ---
Assessment and Plan 1. Acute kidney injury: RUFINA is likely Vasomotor / hemodynamically mediated in the setting of hypotension / sepsis. Restarted IV fluids. Renal function is improving. 2. Electrolytes: Hyperkalemia, improved. Hypernatremia, start on water flushes through NG tube. Metabolic acidosis, continue IV fluids. Lactic acidosis has improved. Monitor. 3. Sepsis with hypotension: Continue IV fluids. 4. Abnormal LFTS. 5. Encephalopathy. D/w his daughter at the bedside. Subjective Date of service: 04/29/18 Principal diagnosis: SIRS Interval history: Patient was seen and examined at the bedside. Objective - Vital Signs Vital signs: Vital Signs - 12hr 04/29/18 04/29/18 04/29/18 00:12 00:23 00:46 Temperature Pulse Rate Pulse Rate [ 99 H 103 H Anterior Bilateral Throughout] Respiratory Rate Respiratory 18 20 Rate [Anterior Bilateral Throughout] Blood Pressure Blood Pressure [Right] O2 Sat by Pulse 90 Oximetry 04/29/18 04/29/18 04/29/18 02:00 02:15 04:05 Temperature 101.2 F H Pulse Rate 113 H 111 H Pulse Rate [ Anterior Bilateral Throughout] Respiratory 18 Rate Respiratory Rate [Anterior Bilateral Throughout] Blood Pressure 113/71 Blood Pressure [Right] O2 Sat by Pulse Oximetry 04/29/18 04/29/18 04/29/18 06:34 08:00 08:02 Temperature 102.3 F H 99.6 F Pulse Rate 109 H 110 H Pulse Rate [ Anterior Bilateral Throughout] Respiratory 18 Rate Respiratory Rate [Anterior Bilateral Throughout] Blood Pressure 99/65 Blood Pressure 118/74 [Right] O2 Sat by Pulse 89 90 Oximetry - General Appearance General appearance: well-developed, appears stated age, obese, other (stuporous , on restrains) EENT: ATNC, PERRL, mucous membranes dry, other (mouth breathing) Respiratory: Present: Clear to Ascultation Cardiology: regular, S1S2, no murmurs Gastrointestinal: normoactive bowel sounds, no tenderness, obese Integumentary: no rash Neurologic: other (not following any command, spontaneously moving the extremities) Musculoskeletal: other (no edema) - Lab 04/29/18 08:12 04/29/18 08:12 Most recent lab results Calcium 8.6 mg/dL (8.4-10.2) 04/29/18 08:12
--- NOTE | 2018-04-29 09:38 | Gastroenterology Consultation ---
History of Present Illness - Reason for Consult Consult date: 04/29/18 hepatic encephalopathy Requesting physician: COLE ROBLES - History of Present Illness Patient is a 72 y/o male with PMH of HTN, chronic back pain, and severe COPD ( on home O2) who was presented to ED with c/o weakness, inability to eat, and confusion. GI has been consulted for hepatic encephalopathy. This morning patient was resting in bed, noted to be lethargic in restraints, and unable to provide history. History was obtained via chart review and from daughter at bedside. She reports patient having chronic intermittent right sided abdominal pain that would radiate to his back and left side of the abdomen since last year. She states his health has progressively declined over the past few weeks with him becoming increasingly confused along with a decrease in appetite but no significant wt loss. No evidence of N/V or signs of bleeding. No known previous liver disease or Fhx of liver disease but admits to patient having a hx of ETOH abuse. No IV drug use. Past History Past Medical History: COPD, hypertension, hyperlipidemia, other (anxiety) Past Surgical History: cataract removal Social history: , alcohol abuse (1-2 drinks with hard liquor daily). denies: smoking, prescription drug abuse Family history: hypertension Medications and Allergies Allergies Allergy/AdvReac Type Severity Reaction Status Date / Time No Known Allergies Allergy Unverified 10/30/17 14:52 Home Medications Medication Instructions Recorded Confirmed Last Taken Type Meloxicam [Mobic] 15 mg PO DAILY PRN 04/26/18 04/26/18 Unknown History predniSONE [Deltasone] 10 mg PO QDAY 04/26/18 04/26/18 Unknown History Hydrochlorothiazide 12.5 mg PO QDAY 04/27/18 04/27/18 2 Days Ago History ~04/25/18 Lisinopril [Zestril] 20 mg PO 04/27/18 2 Days Ago History ~04/25/18 Nitrofurantoin 100 mg PO 04/27/18 2 Days Ago History ~04/25/18 Active Meds: Active Medications Acetaminophen (Tylenol) 650 mg PO Q4H PRN PRN Reason: Non Cardiac Pain or Temp>100.5 Last Admin: 04/29/18 06:38 Dose: 650 mg Acetaminophen (Tylenol) 650 mg MS Q4H PRN PRN Reason: Pain, Mild (1-3) Last Admin: 04/29/18 03:15 Dose: 650 mg Albuterol (Proventil) 2.5 mg IH Q4HRT PRN PRN Reason: Shortness Of Breath Last Admin: 04/29/18 00:20 Dose: 2.5 mg Dextrose (D50w (25gm) Vial) 25 gm IV PRN PRN PRN Reason: Hypoglycemia Haloperidol Lactate (Haldol) 5 mg IV Q1H PRN PRN Reason: Unrespon. to mult. doses BZD's Last Admin: 04/29/18 00:29 Dose: 5 mg Piperacillin Sod/Tazobactam Sod (Zosyn/Ns 2.25 Gm/50ml) 2.25 gm in 50 mls @ 100 mls/hr IV Q8HR [facility] Last Admin: 04/29/18 06:28 Dose: 100 mls/hr Vancomycin HCl 1,250 mg/ (Sodium Chloride) 262.5 mls @ 166.667 mls/hr IV ONCE ONE Stop: 04/29/18 11:34 Dextrose (D5w) 1,000 mls @ 75 mls/hr IV DIRECT JEREMY Sodium Chloride (Nacl 0.45% 1000 Ml) 1,000 mls @ 100 mls/hr IV DIRECT JEREMY Lactulose (Cephulac) 20 gm PO Q6HR [facility] Last Admin: 04/29/18 06:28 Dose: 20 gm Ondansetron HCl (Zofran) 4 mg IV Q8H PRN PRN Reason: Nausea And Vomiting Last Admin: 04/27/18 00:51 Dose: 4 mg Oxazepam (Serax) 15 mg FEEDTUBE TID [facility] Last Admin: 04/28/18 20:28 Dose: Not Given Pantoprazole Sodium (Protonix) 40 mg PO DAILY [facility] Last Admin: 04/28/18 13:06 Dose: Not Given Sodium Chloride (Sodium Chloride Flush Syringe 10 Ml) 10 ml IV BID [facility] Last Admin: 04/29/18 00:31 Dose: 10 ml Sodium Chloride (Sodium Chloride Flush Syringe 10 Ml) 10 ml IV PRN PRN PRN Reason: LINE FLUSH Last Admin: 04/26/18 18:11 Dose: 10 ml Vancomycin HCl (Vancomycin Pharmacy To Dose) 1 each IV PKCONSULT JEREMY; Protocol Review of Systems - Review of Systems ROS unobtainable: due to mental status Exam - Constitutional Vital Signs: Temp Pulse Resp BP Pulse Ox 99.6 F 110 H 18 99/65 90 04/29/18 08:00 04/29/18 08:02 04/29/18 06:34 04/29/18 08:02 04/29/18 08:02 General appearance: mild distress, other (lethargic) - Respiratory Respiratory effort: other (slightly labored) Respiratory: bilateral: diminished (anterior) - Cardiovascular Rhythm: other (tachycardia) Heart Sounds: Present: S1 & S2 - Gastrointestinal General gastrointestinal: Present: soft, distended (slightly), normal bowel sounds - Neurologic Neurological: other (unable to assess) - Labs CBC & Chem 7: 04/29/18 08:12 04/29/18 08:12 Lab Results: Laboratory Results - last 24 hr 04/28/18 04/28/18 04/28/18 15:41 15:41 15:41 WBC RBC Hgb Hct MCV MCH MCHC RDW Plt Count Sodium 144 Potassium 5.0 Chloride 108.6 H Carbon Dioxide 14 L Anion Gap 26 BUN 76 H Creatinine 3.0 H Estimated GFR 21 BUN/Creatinine Ratio 25 Glucose 60 L Calcium 8.1 L Total Bilirubin 2.20 H AST 416 H ALT 136 H Alkaline Phosphatase 674 H Ammonia 76.0 H Total Creatine Kinase 497 H Total Protein 5.2 L Albumin 3.0 L Albumin/Globulin Ratio 1.4 Random Vancomycin 9.6 04/29/18 04/29/18 04/29/18 08:12 08:12 08:12 WBC 13.8 H RBC 4.57 Hgb 13.1 Hct 41.4 MCV 91 MCH 29 MCHC 32 RDW 16.2 H Plt Count 241 Sodium 149 H Potassium 4.3 Chloride 113.3 H Carbon Dioxide 16 L Anion Gap 24 BUN 79 H Creatinine 2.8 H Estimated GFR 22 BUN/Creatinine Ratio 28 Glucose 69 L Calcium 8.6 Total Bilirubin 2.40 H AST 423 H ALT 128 H Alkaline Phosphatase 657 H Ammonia 134.0 H Total Creatine Kinase 435 H Total Protein 5.4 L Albumin 2.6 L Albumin/Globulin Ratio 0.9 Random Vancomycin Assessment and Plan 1.hepatic encephalopathy 2.elevated LFTs 3.COPD 4.acute renal failure 5.SIRS 5.h/o ETOH abuse -Temp 99.6 -WBC 13.8-trending down -INR 1.44, Plt 241 -ammonia-134 -T.iraida 2.40, AST 423, ALT 128, alk phos 657 -hepatic panel negative -Abd CT w/o contrast- showed peripheral right hepatic hypodense mass(es) now suspected with new small perihepatic ascites and subtle fat stranding may also be noted about the pancreas and gallbladder -Abd U/S- showed gallstones, CBD mildly dilated (8.2mm) but no acute cholecystitis and liver normal -HIDA- no CBD obstruction and EF 35% -etiology unclear -will order MRI with MRCP for further evaluation -continue lactulose -start on Xifaxan -continue to trend labs and supportive care -further recommendations to follow
[2018-04-29] MEDS ORDERED: NACL 0.45% 1000 ML 1,000 ML IV SCH (10:00)
[2018-04-29] MEDS ORDERED: VANCOMYCIN 1,250 MG in NACL 0.9% 250ML 250 ML IV ONE (10:00)
[2018-04-29] MEDS ORDERED: D5W 1,000 ML IV SCH (10:00)
[2018-04-29] MEDS: SERAX FEEDTUBE SCH ×2 (12:40→14:47)
[2018-04-29] MEDS: PROTONIX PO SCH ×2 (12:41→12:58)
[2018-04-29] MEDS ORDERED: CEPHULAC PR STA (12:54)
[2018-04-29] MEDS ORDERED: ATIVAN IV ONE (15:44)
--- NOTE | 2018-04-29 15:54 | Progress Note ---
Assessment and Plan Assessment and plan: Patient is a 72 yo man with a history of chronic hypoxic Respiratory Failure on Home Oxygen due to End Stage COPD and HTN who presented to ED shortness of breath, hematuria and confusion/drowsiness, * CT ABDOMEN AND PELVIS WITHOUT CONTRAST CONCLUSION: 1. Peripheral right hepatic hypodense mass(es) now suspected with new small perihepatic ascites on this limited, unenhanced exam, as described. Subtle fat stranding may also be noted about the pancreas and the gallbladder. 2. Various other findings as distal esophageal thickening, hepatomegaly, cecum/proximal ascending colon CT appearance, enlarged prostate and small pelvic ascites, amongst others, as detailed above. * CT HEAD WITHOUT CONTRAST CONCLUSION: No acute intracranial CT abnormality with sinusitis and few other findings, as described. * pCXR CONCLUSION: No acute chest process with chronic interstitial lung disease again suspected. * * HIDA IMPRESSION: No cystic or common bile duct obstruction. Post Kinevac ejection fraction 35%. * * Abd U/S IMPRESSION: Cholelithiasis. No evidence for acute cholecystitis. The common bile duct is mildly dilated at 8.2 mm which could represent choledocholithiasis. Nonspecific renal parenchymal disease and liver normal -SIRS with suspected early Sepsis without clear source, poa: consult ID: IV antibiotics, serial lactic acid, monitor uop q shift, blood cultures, urinalysis , chest x ray, IVF resuscitation therapy -Acute Hepatic Encephalopathy: treat with Lactulose -Acute renal failure, suspect ATN with hypotension + vasomotor nephropathy, poa: treat with ivf, consult Nephrology -Lactic Acidosis: Treat sepsis, monitor uop q shift, iv bicarbonate prn -Alcohol withdrawal syndrome: limit iv ativan due to liver dysfunction, Serax/ Oxazepam not available, possible tomorrow per Pharmacist. Restart IV Ativan -Hypoglycemia: started D5W but IVF changed by insulation manager, Dr. Masters -Hepatitis with ascities: CT Abdomen and pelvis noted, LFT, Hepatitis panel, consulted GI -Hematuria: resolved, outpatient urology F/U recommended -DVT prophylaxis: SCD to BLE while in bed -Evidence of Livedo Reticularis legs guarded prognosis full code MRCP/MRI pending Patient pulled out ngt, will re-insert dobhuff for tube feedings. CCT 38 minutes History Interval history: Patient was seen and examined. Follow-up on current diagnosis of AMS/ drowsiness. He is still confused in restraints, eyes closed but moving and groaning. Imaging, nursing note, chart, labs and old chart reviewed. Daughter Apryl and ex Jenifer at bedside. Long sit down discussion, reviewed code status, hospice wishes and entire medical update. Hospitalist Physical - Physical exam Narrative exam: GEN: WDWN, ill appearing, NAD, lethargic but easily aroused HEENT: NCAT, EOMI, PERRL, OP mm dry NECK: supple, no adenopathy, no thyromegaly, no JVD CVS/HEART: Regular tachycardia, normal S1S2, pulses present bilaterally CHEST/LUNGS: bilateral rhonchi and diminished bs bilateral, Symmetrical chest expansion, good air entry bilaterally GI/Abdomen: soft, protuberant, ruq tender with good bowel sounds, no guarding or rebound /Bladder: no suprapubic tenderness, no CVA or paraspinal tenderness EXT/Skin: no c/c/e, no obvious rash MSK: spontaneous ROM x 4 Neuro: CN 2-12 grossly intact, no new focal deficits . Psych: confused - Constitutional Vitals: Temp Pulse Resp BP Pulse Ox 98.2 F 108 H 20 123/70 92 04/29/18 14:18 04/29/18 14:18 04/29/18 14:18 04/29/18 14:18 04/29/18 14:18 General appearance: Absent: mild distress Results - Labs CBC & Chem 7: 04/29/18 08:12 04/29/18 08:12 Labs: Laboratory Last Values WBC 13.8 K/mm3 (4.5-11.0) H 04/29/18 08:12 RBC 4.57 M/mm3 (3.65-5.03) 04/29/18 08:12 Hgb 13.1 gm/dl (11.8-15.2) 04/29/18 08:12 Hct 41.4 % (35.5-45.6) 04/29/18 08:12 MCV 91 fl (84-94) 04/29/18 08:12 MCH 29 pg (28-32) 04/29/18 08:12 MCHC 32 % (32-34) 04/29/18 08:12 RDW 16.2 % (13.2-15.2) H 04/29/18 08:12 Plt Count 241 K/mm3 (140-440) 04/29/18 08:12 Add Manual Diff Complete 04/27/18 14:13 Total Counted 100 04/27/18 14:13 Seg Neuts % (Manual) 84.0 % (40.0-70.0) H 04/27/18 14:13 Band Neutrophils % 3.0 % 04/27/18 14:13 Lymphocytes % (Manual) 8.0 % (13.4-35.0) L 04/27/18 14:13 Reactive Lymphs % (Man) 0 % 04/27/18 14:13 Monocytes % (Manual) 1.0 % (0.0-7.3) 04/27/18 14:13 Eosinophils % (Manual) 3.0 % (0.0-4.3) 04/27/18 14:13 Basophils % (Manual) 0 % (0.0-1.8) 04/27/18 14:13 Metamyelocytes % 1.0 % 04/27/18 14:13 Myelocytes % 0 % 04/27/18 14:13 Promyelocytes % 0 % 04/27/18 14:13 Blast Cells % 0 % 04/27/18 14:13 Nucleated RBC % Not Reportable 04/27/18 14:13 Seg Neutrophils # Man 15.3 K/mm3 (1.8-7.7) H 04/27/18 14:13 Band Neutrophils # 0.5 K/mm3 04/27/18 14:13 Lymphocytes # (Manual) 1.5 K/mm3 (1.2-5.4) 04/27/18 14:13 Abs React Lymphs (Man) 0.0 K/mm3 04/27/18 14:13 Monocytes # (Manual) 0.2 K/mm3 (0.0-0.8) 04/27/18 14:13 Eosinophils # (Manual) 0.5 K/mm3 (0.0-0.4) H 04/27/18 14:13 Basophils # (Manual) 0.0 K/mm3 (0.0-0.1) 04/27/18 14:13 Metamyelocytes # 0.2 K/mm3 04/27/18 14:13 Myelocytes # 0.0 K/mm3 04/27/18 14:13 Promyelocytes # 0.0 K/mm3 04/27/18 14:13 Blast Cells # 0.0 K/mm3 04/27/18 14:13 WBC Morphology Not Reportable 04/27/18 14:13 Hypersegmented Neuts Not Reportable 04/27/18 14:13 Hyposegmented Neuts Not Reportable 04/27/18 14:13 Hypogranular Neuts Not Reportable 04/27/18 14:13 Smudge Cells Not Reportable 04/27/18 14:13 Toxic Granulation Not Reportable 04/27/18 14:13 Toxic Vacuolation Not Reportable 04/27/18 14:13 Dohle Bodies Not Reportable 04/27/18 14:13 Pelger-Huet Anomaly Not Reportable 04/27/18 14:13 Aidan Rods Not Reportable 04/27/18 14:13 Platelet Estimate Appears normal 04/27/18 14:13 Clumped Platelets Not Reportable 04/27/18 14:13 Plt Clumps, EDTA Not Reportable 04/27/18 14:13 Large Platelets Few 04/27/18 14:13 Giant Platelets Not Reportable 04/27/18 14:13 Platelet Satelliting Not Reportable 04/27/18 14:13 Plt Morphology Comment Not Reportable 04/27/18 14:13 RBC Morphology Not Reportable 04/27/18 14:13 Dimorphic RBCs Not Reportable 04/27/18 14:13 Polychromasia Not Reportable 04/27/18 14:13 Hypochromasia Not Reportable 04/27/18 14:13 Poikilocytosis Not Reportable 04/27/18 14:13 Anisocytosis Not Reportable 04/27/18 14:13 Microcytosis Not Reportable 04/27/18 14:13 Macrocytosis Not Reportable 04/27/18 14:13 Spherocytes Not Reportable 04/27/18 14:13 Pappenheimer Bodies Not Reportable 04/27/18 14:13 Sickle Cells Not Reportable 04/27/18 14:13 Target Cells Not Reportable 04/27/18 14:13 Tear Drop Cells Not Reportable 04/27/18 14:13 Ovalocytes Not Reportable 04/27/18 14:13 Helmet Cells Few 04/27/18 14:13 Gabriel-Newman Bodies Not Reportable 04/27/18 14:13 [place] Rings Not Reportable 04/27/18 14:13 Glenroy Cells Not Reportable 04/27/18 14:13 Bite Cells Not Reportable 04/27/18 14:13 Crenated Cell Not Reportable 04/27/18 14:13 Elliptocytes Not Reportable 04/27/18 14:13 Acanthocytes (Spur) Not Reportable 04/27/18 14:13 Rouleaux Not Reportable 04/27/18 14:13 Hemoglobin C Crystals Not Reportable 04/27/18 14:13 Schistocytes Not Reportable 04/27/18 14:13 Malaria parasites Not Reportable 04/27/18 14:13 Donaldo Bodies Not Reportable 04/27/18 14:13 Hem Pathologist Commnt No 04/27/18 14:13 PT 18.4 Sec. (12.2-14.9) H 04/26/18 11:33 INR 1.44 (0.87-1.13) H 04/26/18 11:33 VBG pH 7.268 (7.320-7.420) L 04/26/18 11:33 Sodium 149 mmol/L (137-145) H 04/29/18 08:12 Potassium 4.3 mmol/L (3.6-5.0) 04/29/18 08:12 Chloride 113.3 mmol/L (98-107) H 04/29/18 08:12 Carbon Dioxide 16 mmol/L (22-30) L 04/29/18 08:12 Anion Gap 24 mmol/L 04/29/18 08:12 BUN 79 mg/dL (9-20) H 04/29/18 08:12 Creatinine 2.8 mg/dL (0.8-1.5) H 04/29/18 08:12 Estimated GFR 22 ml/min 04/29/18 08:12 BUN/Creatinine Ratio 28 % 04/29/18 08:12 Glucose 69 mg/dL (75-100) L 04/29/18 08:12 Lactic Acid 1.90 mmol/L (0.7-2.0) 04/27/18 05:52 Calcium 8.6 mg/dL (8.4-10.2) 04/29/18 08:12 Total Bilirubin 2.40 mg/dL (0.1-1.2) H 04/29/18 08:12 AST 423 units/L (5-40) H 04/29/18 08:12 ALT 128 units/L (7-56) H 04/29/18 08:12 Alkaline Phosphatase 657 units/L (35-129) H 04/29/18 08:12 Ammonia 134.0 umol/L (25-60) H 04/29/18 08:12 Total Creatine Kinase 435 units/L (55-170) H 04/29/18 08:12 C-Reactive Protein 16.50 mg/dL (0.00-1.30) H 04/27/18 16:28 Total Protein 5.4 g/dL (6.3-8.2) L 04/29/18 08:12 Albumin 2.6 g/dL (3.9-5) L 04/29/18 08:12 Albumin/Globulin Ratio 0.9 % 04/29/18 08:12 Lipase 68 units/L (13-60) H 04/26/18 21:20 Urine Color Rosalia (Yellow) 04/26/18 12:58 Urine Turbidity Clear (Clear) 04/26/18 12:58 Urine pH 5.0 (5.0-7.0) 04/26/18 12:58 Ur Specific Epes 1.017 (1.003-1.030) 04/26/18 12:58 Urine Protein 30 mg/dl mg/dL (Negative) 04/26/18 12:58 Urine Glucose (UA) Neg mg/dL (Negative) 04/26/18 12:58 Urine Ketones Neg mg/dL (Negative) 04/26/18 12:58 Urine Blood Neg (Negative) 04/26/18 12:58 Urine Nitrite Neg (Negative) 04/26/18 12:58 Urine Bilirubin Neg (Negative) 04/26/18 12:58 Urine Urobilinogen < 2.0 mg/dL (<2.0) 04/26/18 12:58 Ur Leukocyte Esterase Neg (Negative) 04/26/18 12:58 Urine WBC (Auto) 2.0 /HPF (0.0-6.0) 04/26/18 12:58 Urine RBC (Auto) 1.0 /HPF (0.0-6.0) 04/26/18 12:58 U Epithel Cells (Auto) < 1.0 /HPF (0-13.0) 04/26/18 12:58 Random Vancomycin 9.6 ug/mL (0-40.0) 04/28/18 15:41 Hepatitis A IgM Ab Non-reactive (NonReactive) 04/26/18 21:20 Hep Bs Antigen Non-reactive (Negative) 04/26/18 21:20 Hep B Core IgM Ab Non-reactive (NonReactive) 04/26/18 21:20 Hepatitis C Antibody Non-reactive (NonReactive) 04/26/18 21:20 HIV 1&2 Antibody Rapid Non react (Non React) 04/27/18 16:28 HIV P24 Antigen Non react (Non React) 04/27/18 16:28
[2018-04-29] MEDS ORDERED: ATIVAN IV PRN ×3 (16:02)
[2018-04-29] MEDS ORDERED: MORPHINE IV PRN (16:03)
[2018-04-29] MEDS ORDERED: LASIX IV NR (19:11)
[2018-04-29] MEDS: D5/0.45NS 1,000 ML IV SCH (19:40)
[2018-04-29] MEDS ORDERED: ROMAZICON IV ONE (20:01)
--- NOTE | 2018-04-29 20:32 | XRay Report ---
FINAL REPORT PROCEDURE: XR CHEST 1V AP TECHNIQUE: Chest radiograph anteroposterior view. CPT 13809 HISTORY: elevated hr.... resp distress COMPARISON: No prior studies are available for comparison. FINDINGS: This study is limited due to suboptimal positioning. There is mild degree right pleural effusion obscuring the underlying right lower lung. Left lung and left pleural space are clear. Cardiac outlines are not well visualized due to suboptimal positioning. There is mild degree diffuse prominence of interstitial markings.. IMPRESSION: Limited study Mild degree right pleural effusion. Any underlying right lower lung infiltrates cannot be excluded. A two view chest study is recommended whenever the patient's condition permits. Mild degree diffuse prominence of interstitial markings most likely represent interstitial fibrosis versus interstitial edema..
--- NOTE | 2018-04-29 20:55 | Magnetic Resonance Report ---
FINAL REPORT PROCEDURE: MR ABDOMEN MRCP TECHNIQUE: Magnetic resonance cholangiopancreatography of the biliary system was performed without paramagnetic contrast. The original data was reconstructed in 3-dimensions. HISTORY: elevated LFTs COMPARISON: No prior studies are available for comparison. FINDINGS: Grossly limited study due to motion artifacts. Liver demonstrates diffusely inhomogeneous signal. There is mild degree ascites. Also mild degree bilateral pleural effusions are noted. Spleen and pancreas are unremarkable. Right kidney demonstrates an exophytic well-defined cystic lesion measuring about 11 millimeters in the midpole. 10 millimeter x 8 millimeter cystic lesion is noted in the lower pole of right kidney. Gallbladder is minimally distended and the clayton appear mildly thickened. There are no pericholecystic fluid collections.. There is no intrahepatic or extrahepatic biliary dilatation. However the biliary tree cannot be evaluated for any filling defects due to the motion artifacts. Small hiatal hernia is noted. IMPRESSION: Grossly limited study due to motion artifacts and the MRCP is nondiagnostic. Inhomogeneous signal is noted in the liver. Any underlying mass lesions cannot be excluded. Mild degree bilateral pleural effusions and mild degree ascites. Gallbladder is minimally distended with mild degree wall thickening. This may be secondary to chronic cholecystitis versus postprandial status. Other etiologies of gallbladder wall thickening include hepatitis, ascites etc. Small hiatal hernia Small cystic lesions of right kidney are most likely of simple nature.
[2018-04-30] MEDS: CEPHULAC PR SCH ×4 (00:18→20:00)
[2018-04-30] MEDS ORDERED: VERSED IV ONE (00:24)
[2018-04-30] MEDS ORDERED: AMIDATE IV ONE ×2 (00:24→11:36)
[2018-04-30 05:07] LABS: INR 2.19 (0.87-1.13)
[2018-04-30 05:11] LABS: Albumin 2.7 g/dL (3.9-5); Calcium 8.1 mg/dL (8.4-10.2)
--- NOTE | 2018-04-30 07:32 | Progress Note ---
Assessment and Plan Assessment and plan: Patient is a 72 yo man with a history of chronic hypoxic Respiratory Failure on Home Oxygen due to End Stage COPD and HTN who presented to ED shortness of breath, hematuria and confusion/drowsiness, * CT ABDOMEN AND PELVIS WITHOUT CONTRAST CONCLUSION: 1. Peripheral right hepatic hypodense mass(es) now suspected with new small perihepatic ascites on this limited, unenhanced exam, as described. Subtle fat stranding may also be noted about the pancreas and the gallbladder. 2. Various other findings as distal esophageal thickening, hepatomegaly, cecum/proximal ascending colon CT appearance, enlarged prostate and small pelvic ascites, amongst others, as detailed above. * CT HEAD WITHOUT CONTRAST CONCLUSION: No acute intracranial CT abnormality with sinusitis and few other findings, as described. * pCXR CONCLUSION: No acute chest process with chronic interstitial lung disease again suspected. * * HIDA IMPRESSION: No cystic or common bile duct obstruction. Post Kinevac ejection fraction 35%. * * Abd U/S IMPRESSION: Cholelithiasis. No evidence for acute cholecystitis. The common bile duct is mildly dilated at 8.2 mm which could represent choledocholithiasis. Nonspecific renal parenchymal disease and liver normal -SIRS with suspected early Sepsis without clear source, poa: consult ID: IV antibiotics, serial lactic acid, monitor uop q shift, blood cultures, urinalysis , chest x ray, IVF resuscitation therapy -Acute Hepatic Encephalopathy: treat with Lactulose -Acute renal failure, suspect ATN with hypotension + vasomotor nephropathy, poa: treat with ivf, consult Nephrology -Lactic Acidosis: Treat sepsis, monitor uop q shift, iv bicarbonate prn -Alcohol withdrawal syndrome: limit iv ativan due to liver dysfunction, Serax/ Oxazepam was not available, Restarted IV Ativan -Hypoglycemia: started D5W but IVF changed by truck bracer, Dr. Masters -Hepatitis with ascities: CT Abdomen and pelvis noted, LFT, Hepatitis panel, consulted GI -Hematuria: resolved, outpatient urology F/U recommended -DVT prophylaxis: SCD to BLE while in bed -Evidence of [place] Reticularis legs guarded prognosis full code MRCP==>IMPRESSION: Grossly limited study due to motion artifacts and the MRCP is nondiagnostic. Inhomogeneous signal is noted in the liver. Any underlying mass lesions cannot be excluded. Mild degree bilateral pleural effusions and mild degree ascites. Gallbladder is minimally distended with mild degree wall thickening. This may be secondary to chronic cholecystitis versus postprandial status. Other etiologies of gallbladder wall thickening include hepatitis, ascites etc. Small hiatal hernia Small cystic lesions of right kidney are most likely of simple nature. MRI unable to be done. Last evening, patient's breathing became labored and was given IV lasix by Dr. Harrington (covering Hospitalist) who also gave Flumazenil x 2. Patient also became hypotensive. He was transferred to the to ICU. Added Iv solu-cortef for sepsis shock and on prednisone at home On Bipap 50% with 100% fio2, I actually believe his mental is the same. Consult Intensvist. CCT 34 minutes History Interval history: Patient was seen and examined. Follow-up on current diagnosis of AMS/ drowsiness. He is still confused in restraints, eyes closed but moving and groaning, now on Bipap 50%. Imaging, nursing note, chart, labs and old chart reviewed. Moved ICU to [facility]. D/w daughters, Apryl and Annemarie at bedside. Also spoke with ID, Dr. Castle at nursing station. Hospitalist Physical - Physical exam Narrative exam: GEN: WDWN, ill appearing, NAD, lethargic but will groan with stimuli HEENT: NCAT, EOMI, PERRL, OP mm dry NECK: supple, no adenopathy, CVS/HEART: Regular tachycardia, normal S1S2, pulses present bilaterally CHEST/LUNGS: bilateral rhonchi and diminished bs bilateral, Symmetrical chest expansion, good air entry bilaterally GI/Abdomen: soft, protuberant, ruq tender with good bowel sounds, no guarding or rebound /Bladder: no suprapubic tenderness, no CVA or paraspinal tenderness EXT/Skin: no c/c/e, no obvious rash MSK: spontaneous ROM x 4 Neuro: CN 2-12 grossly intact, no new focal deficits . Psych: confused - Constitutional Vitals: Temp Pulse Resp BP Pulse Ox 98.4 F 104 H 22 78/60 98 04/30/18 02:55 04/30/18 04:05 04/30/18 04:05 04/29/18 22:44 04/29/18 22:44 General appearance: Absent: mild distress Results - Labs CBC & Chem 7: 04/29/18 08:12 04/30/18 04:01 Labs: Laboratory Last Values WBC 13.8 K/mm3 (4.5-11.0) H 04/29/18 08:12 RBC 4.57 M/mm3 (3.65-5.03) 04/29/18 08:12 Hgb 13.1 gm/dl (11.8-15.2) 04/29/18 08:12 Hct 41.4 % (35.5-45.6) 04/29/18 08:12 MCV 91 fl (84-94) 04/29/18 08:12 MCH 29 pg (28-32) 04/29/18 08:12 MCHC 32 % (32-34) 04/29/18 08:12 RDW 16.2 % (13.2-15.2) H 04/29/18 08:12 Plt Count 241 K/mm3 (140-440) 04/29/18 08:12 Add Manual Diff Complete 04/27/18 14:13 Total Counted 100 04/27/18 14:13 Seg Neuts % (Manual) 84.0 % (40.0-70.0) H 04/27/18 14:13 Band Neutrophils % 3.0 % 04/27/18 14:13 Lymphocytes % (Manual) 8.0 % (13.4-35.0) L 04/27/18 14:13 Reactive Lymphs % (Man) 0 % 04/27/18 14:13 Monocytes % (Manual) 1.0 % (0.0-7.3) 04/27/18 14:13 Eosinophils % (Manual) 3.0 % (0.0-4.3) 04/27/18 14:13 Basophils % (Manual) 0 % (0.0-1.8) 04/27/18 14:13 Metamyelocytes % 1.0 % 04/27/18 14:13 Myelocytes % 0 % 04/27/18 14:13 Promyelocytes % 0 % 04/27/18 14:13 Blast Cells % 0 % 04/27/18 14:13 Nucleated RBC % Not Reportable 04/27/18 14:13 Seg Neutrophils # Man 15.3 K/mm3 (1.8-7.7) H 04/27/18 14:13 Band Neutrophils # 0.5 K/mm3 04/27/18 14:13 Lymphocytes # (Manual) 1.5 K/mm3 (1.2-5.4) 04/27/18 14:13 Abs React Lymphs (Man) 0.0 K/mm3 04/27/18 14:13 Monocytes # (Manual) 0.2 K/mm3 (0.0-0.8) 04/27/18 14:13 Eosinophils # (Manual) 0.5 K/mm3 (0.0-0.4) H 04/27/18 14:13 Basophils # (Manual) 0.0 K/mm3 (0.0-0.1) 04/27/18 14:13 Metamyelocytes # 0.2 K/mm3 04/27/18 14:13 Myelocytes # 0.0 K/mm3 04/27/18 14:13 Promyelocytes # 0.0 K/mm3 04/27/18 14:13 Blast Cells # 0.0 K/mm3 04/27/18 14:13 WBC Morphology Not Reportable 04/27/18 14:13 Hypersegmented Neuts Not Reportable 04/27/18 14:13 Hyposegmented Neuts Not Reportable 04/27/18 14:13 Hypogranular Neuts Not Reportable 04/27/18 14:13 Smudge Cells Not Reportable 04/27/18 14:13 Toxic Granulation Not Reportable 04/27/18 14:13 Toxic Vacuolation Not Reportable 04/27/18 14:13 Dohle Bodies Not Reportable 04/27/18 14:13 Pelger-Huet Anomaly Not Reportable 04/27/18 14:13 Aidan Rods Not Reportable 04/27/18 14:13 Platelet Estimate Appears normal 04/27/18 14:13 Clumped Platelets Not Reportable 04/27/18 14:13 Plt Clumps, EDTA Not Reportable 04/27/18 14:13 Large Platelets Few 04/27/18 14:13 Giant Platelets Not Reportable 04/27/18 14:13 Platelet Satelliting Not Reportable 04/27/18 14:13 Plt Morphology Comment Not Reportable 04/27/18 14:13 RBC Morphology Not Reportable 04/27/18 14:13 Dimorphic RBCs Not Reportable 04/27/18 14:13 Polychromasia Not Reportable 04/27/18 14:13 Hypochromasia Not Reportable 04/27/18 14:13 Poikilocytosis Not Reportable 04/27/18 14:13 Anisocytosis Not Reportable 04/27/18 14:13 Microcytosis Not Reportable 04/27/18 14:13 Macrocytosis Not Reportable 04/27/18 14:13 Spherocytes Not Reportable 04/27/18 14:13 Pappenheimer Bodies Not Reportable 04/27/18 14:13 Sickle Cells Not Reportable 04/27/18 14:13 Target Cells Not Reportable 04/27/18 14:13 Tear Drop Cells Not Reportable 04/27/18 14:13 Ovalocytes Not Reportable 04/27/18 14:13 Helmet Cells Few 04/27/18 14:13 [place] Bodies Not Reportable 04/27/18 14:13 [place] Rings Not Reportable 04/27/18 14:13 [place] Cells Not Reportable 04/27/18 14:13 Bite Cells Not Reportable 04/27/18 14:13 Crenated Cell Not Reportable 04/27/18 14:13 Elliptocytes Not Reportable 04/27/18 14:13 Acanthocytes (Spur) Not Reportable 04/27/18 14:13 Rouleaux Not Reportable 04/27/18 14:13 Hemoglobin C Crystals Not Reportable 04/27/18 14:13 Schistocytes Not Reportable 04/27/18 14:13 Malaria parasites Not Reportable 04/27/18 14:13 Donaldo Bodies Not Reportable 04/27/18 14:13 Hem Pathologist Commnt No 04/27/18 14:13 PT 25.8 Sec. (12.2-14.9) H 04/30/18 04:11 INR 2.19 (0.87-1.13) H 04/30/18 04:11 POC ABG pH 7.244 (7.35-7.45) L 04/29/18 19:24 POC ABG pCO2 43.7 (35-45) 04/29/18 19:24 POC ABG pO2 172 (80-105) H 04/29/18 19:24 POC ABG HCO3 18.9 04/29/18 19:24 POC ABG Total CO2 20 04/29/18 19:24 POC ABG O2 Sat 99 04/29/18 19:24 POC ABG Base Excess -8 04/29/18 19:24 VBG pH 7.268 (7.320-7.420) L 04/26/18 11:33 FiO2 100 % 04/29/18 19:24 Sodium 146 mmol/L (137-145) H 04/30/18 04:01 Potassium 4.4 mmol/L (3.6-5.0) 04/30/18 04:01 Chloride 111.9 mmol/L (98-107) H 04/30/18 04:01 Carbon Dioxide 19 mmol/L (22-30) L 04/30/18 04:01 Anion Gap 20 mmol/L 04/30/18 04:01 BUN 85 mg/dL (9-20) H 04/30/18 04:01 Creatinine 3.5 mg/dL (0.8-1.5) H 04/30/18 04:01 Estimated GFR 17 ml/min 04/30/18 04:01 BUN/Creatinine Ratio 24 % 04/30/18 04:01 Glucose 261 mg/dL (75-100) H 04/30/18 04:01 POC Glucose 71 (70-105) 04/29/18 19:45 Lactic Acid 1.90 mmol/L (0.7-2.0) 04/27/18 05:52 Calcium 8.1 mg/dL (8.4-10.2) L 04/30/18 04:01 Phosphorus 3.90 mg/dL (2.5-4.5) 04/30/18 04:01 Magnesium 2.40 mg/dL (1.7-2.3) H 04/30/18 04:01 Total Bilirubin 2.60 mg/dL (0.1-1.2) H 04/30/18 04:01 AST 1008 units/L (5-40) H 04/30/18 04:01 ALT 217 units/L (7-56) H 04/30/18 04:01 Alkaline Phosphatase 620 units/L (35-129) H 04/30/18 04:01 Ammonia 80.0 umol/L (25-60) H 04/30/18 04:01 Total Creatine Kinase 435 units/L (55-170) H 04/29/18 08:12 C-Reactive Protein 16.50 mg/dL (0.00-1.30) H 04/27/18 16:28 Total Protein 4.9 g/dL (6.3-8.2) L 04/30/18 04:01 Albumin 2.7 g/dL (3.9-5) L 04/30/18 04:01 Albumin/Globulin Ratio 1.2 % 04/30/18 04:01 Lipase 68 units/L (13-60) H 04/26/18 21:20 Urine Color Rosalia (Yellow) 04/26/18 12:58 Urine Turbidity Clear (Clear) 04/26/18 12:58 Urine pH 5.0 (5.0-7.0) 04/26/18 12:58 Ur Specific [place] 1.017 (1.003-1.030) 04/26/18 12:58 Urine Protein 30 mg/dl mg/dL (Negative) 04/26/18 12:58 Urine Glucose (UA) Neg mg/dL (Negative) 04/26/18 12:58 Urine Ketones Neg mg/dL (Negative) 04/26/18 12:58 Urine Blood Neg (Negative) 04/26/18 12:58 Urine Nitrite Neg (Negative) 04/26/18 12:58 Urine Bilirubin Neg (Negative) 04/26/18 12:58 Urine Urobilinogen < 2.0 mg/dL (<2.0) 04/26/18 12:58 Ur Leukocyte Esterase Neg (Negative) 04/26/18 12:58 Urine WBC (Auto) 2.0 /HPF (0.0-6.0) 04/26/18 12:58 Urine RBC (Auto) 1.0 /HPF (0.0-6.0) 04/26/18 12:58 U Epithel Cells (Auto) < 1.0 /HPF (0-13.0) 04/26/18 12:58 Random Vancomycin 9.6 ug/mL (0-40.0) 04/28/18 15:41 Hepatitis A IgM Ab Non-reactive (NonReactive) 04/26/18 21:20 Hep Bs Antigen Non-reactive (Negative) 04/26/18 21:20 Hep B Core IgM Ab Non-reactive (NonReactive) 04/26/18 21:20 Hepatitis C Antibody Non-reactive (NonReactive) 04/26/18 21:20 HIV 1&2 Antibody Rapid Non react (Non React) 04/27/18 16:28 HIV P24 Antigen Non react (Non React) 04/27/18 16:28
[2018-04-30] MEDS ORDERED: NACL 0.9% 500 ML 500 ML ONE ×2 (08:15→12:52)
[2018-04-30] MEDS ORDERED: TYLENOL PR PRN (08:38)
--- NOTE | 2018-04-30 08:43 | Progress Note ---
Assessment and Plan 1. Acute kidney injury: Multifactroial RUFINA is in the setting of hypotension / sepsis, volume depletion and Hepatitis. Continue IV fluids. Start on Midodrine. Renal prognosis is guarded to slim. 2. Electrolytes: Hyperkalemia, improved. Hypernatremia, continue water flushes. Metabolic acidosis, continue IV fluids. Lactic acidosis has improved. Monitor. 3. Sepsis with hypotension: Continue IV fluids. 4. Abnormal LFTs. 5. Hepatic Encephalopathy. 6. Respiratory failure. D/w his daughters at the bedside. Subjective Date of service: 04/30/18 Principal diagnosis: SIRS Interval history: Patient was seen and examined at the bedside. Objective - Vital Signs Vital signs: Vital Signs - 12hr 04/29/18 04/29/18 04/29/18 21:38 22:00 22:44 Temperature Pulse Rate 115 H 106 H 110 H Pulse Rate [ Apical] Respiratory 22 Rate Blood Pressure Blood Pressure 87/54 91/57 78/60 [Right] O2 Sat by Pulse 95 97 98 Oximetry 04/30/18 04/30/18 04/30/18 00:00 00:05 00:10 Temperature 98.9 F Pulse Rate 106 H Pulse Rate [ 104 H Apical] Respiratory 22 Rate Blood Pressure Blood Pressure [Right] O2 Sat by Pulse Oximetry 04/30/18 04/30/18 04/30/18 02:00 02:55 04:05 Temperature 98.4 F Pulse Rate Pulse Rate [ 106 H 104 H Apical] Respiratory 22 22 Rate Blood Pressure Blood Pressure [Right] O2 Sat by Pulse Oximetry 04/30/18 04/30/18 07:43 08:00 Temperature 102.0 F H Pulse Rate 101 H Pulse Rate [ Apical] Respiratory 30 H Rate Blood Pressure 90/58 Blood Pressure [Right] O2 Sat by Pulse 100 Oximetry - General Appearance General appearance: well-developed, appears stated age, obese, other (on BIPAP) EENT: ATNC Neck: supple Respiratory: Present: Other (coarse breath sounds) Cardiology: regular, S1S2, no murmurs Gastrointestinal: normoactive bowel sounds, no tenderness, obese Neurologic: obtunded Musculoskeletal: other (no edema) - Lab 04/29/18 08:12 04/30/18 04:01 Most recent lab results Calcium 8.1 mg/dL (8.4-10.2) L 04/30/18 04:01 Phosphorus 3.90 mg/dL (2.5-4.5) 04/30/18 04:01 Magnesium 2.40 mg/dL (1.7-2.3) H 04/30/18 04:01
[2018-04-30] MEDS ORDERED: SERAX FEEDTUBE SCH (09:00)
[2018-04-30] MEDS ORDERED: PANCREAZE DR 10,500 UNIT FEEDTUBE PRN (09:05)
[2018-04-30] MEDS ORDERED: SODIUM BICARBONATE FEEDTUBE PRN (09:05)
[2018-04-30] MEDS ORDERED: SIMPLE SYRUP FEEDTUBE PRN ×2 (09:05)
[2018-04-30] MEDS: ZOSYN/NS 2.25 GM/50ML 2.25 GM/50 ML BAG IV SCH ×3 (09:47→22:57)
--- NOTE | 2018-04-30 10:01 | Progress Note ---
Assessment and Plan Assessment: 1) Sepsis: still high fever 102, tachycardia, leukocytosis better. Etiology Strep anginosus bactermeia +/- liver abscesses Vs. SBP Vs. liver malignancy 2) Strep anginosus bacteremia: ? source ? liver lesions. REEXAMINER in same blood cx likely a contaminant 3) Liver lesions -CT showed few lesions largest right hepatic hypodense mass 3.4 cm with hepatomegaly. -US abd showed cholelithiasis, choledocholithiasis ? CBP 8.2. mm -viral hepatitis panel neg -CRP 16 -HIV neg -HIDA neg -MRCP is nondiagnostic. Any underlying mass lesions cannot be excluded. Mild degree bilateral pleural effusions and mild degree ascites. Gallbladder is minimally distended with mild degree wall thickening. This may be secondary to chronic cholecystitis versus postprandial status. 3) Elevated LFTs: from liver lesions +/- ETOH - worsening 4) Acute enephalopathy: worsening. CT head neg. Etio. sepsis +/- hepatic encephalopahy +/- ETOH withdrawal 5) RUFINA - better 6) Acute on chronic hypoxemic resp failure ? CXR neg. worsening on BIPAP 7) ? SBP Plan: -continue zosyn -stop vanco -f/u repeat blood cx -f/u AFP -consider IR eval for biopsy / drainage - will discuss with surgery -consider paracenthesis to r/o SBP -monitor mentation I am rounding tomorrow Overall prognosis poor Thank you for your consultation, will follow up with you. Deanna Lindquist MD Infectious Diseases Specialist [facility] [phone] O [phone] Subjective Date of service: 04/30/18 Principal diagnosis: SIRS Interval history: Remains somnolent transferred to the ICU due to hypoxemia and hypotensive now on BIPAP. Per IMS note-Last evening, patient's breathing became labored and was given IV lasix by Dr. Harrington (covering Hospitalist) who also gave Flumazenil x 2. Patient also became hypotensive. He was transferred to the to ICU. Microbiology: Blood cultures: 04/26 REEXAMINER 1 of 4 bottles and Strep anginosus 1 of 4 bottles 04/29 ngtd Urine cultures: 04/26 neg Current Antimicrobials: Zosyn Vancomycin Objective - Exam Narrative Exam: General appearance: somnolent on BIPAP Eyes: anicteric sclerae, moist conjunctivae; no lid-lag; PERRLA HENT: Atraumatic; oropharynx +BIPAP mask Neck: Trachea midline; supple, no thyromegaly or lymphadenopathy Lungs: decreased BS iraida CV: tachy Abdomen: Soft, distended Extremities: mild iraida leg edema Skin: Normal temperature, turgor and texture; no rash, ulcers or subcutaneous nodules Psych: somnolent Neuro: somnolent non verbal Lines: - Constitutional Vitals: Vital Signs Temp Pulse Resp BP Pulse Ox 102.0 F H 101 H 30 H 90/58 100 04/30/18 08:00 04/30/18 07:43 04/30/18 07:43 04/30/18 07:43 04/30/18 07:43 Temperature -Last 24 Hours Temperature 102.0 F Temperature 98.4 F Temperature 98.9 F Temperature 99.2 F Temperature 100.2 F Temperature 98.2 F - Labs CBC & Chem 7: 04/29/18 08:12 04/30/18 04:01 Labs: Abnormal lab results 04/29/18 04/30/18 04/30/18 Range/Units 19:24 04:01 04:01 PT (12.2-14.9) Sec. INR (0.87-1.13) POC ABG pH 7.244 L (7.35-7.45) POC ABG pO2 172 H (80-105) Sodium 146 H (137-145) mmol/L Chloride 111.9 H (98-107) mmol/L Carbon Dioxide 19 L (22-30) mmol/L BUN 85 H (9-20) mg/dL Creatinine 3.5 H (0.8-1.5) mg/dL Glucose 261 H (75-100) mg/dL Calcium 8.1 L (8.4-10.2) mg/dL Magnesium 2.40 H (1.7-2.3) mg/dL Total Bilirubin 2.60 H (0.1-1.2) mg/dL AST 1008 H (5-40) units/L ALT 217 H (7-56) units/L Alkaline Phosphatase 620 H (35-129) units/L Ammonia 80.0 H (25-60) umol/L Total Protein 4.9 L (6.3-8.2) g/dL Albumin 2.7 L (3.9-5) g/dL 04/30/18 Range/Units 04:11 PT 25.8 H (12.2-14.9) Sec. INR 2.19 H (0.87-1.13) POC ABG pH (7.35-7.45) POC ABG pO2 (80-105) Sodium (137-145) mmol/L Chloride (98-107) mmol/L Carbon Dioxide (22-30) mmol/L BUN (9-20) mg/dL Creatinine (0.8-1.5) mg/dL Glucose (75-100) mg/dL Calcium (8.4-10.2) mg/dL Magnesium (1.7-2.3) mg/dL Total Bilirubin (0.1-1.2) mg/dL AST (5-40) units/L ALT (7-56) units/L Alkaline Phosphatase (35-129) units/L Ammonia (25-60) umol/L Total Protein (6.3-8.2) g/dL Albumin (3.9-5) g/dL
[2018-04-30] MEDS: SODIUM CHLORIDE FLUSH SYRINGE 10 ML IV SCH ×2 (10:15→22:58)
[2018-04-30] MEDS ORDERED: SUBLIMAZE ONE (11:35)
[2018-04-30] MEDS ORDERED: VERSED IV NR (12:00)
[2018-04-30] MEDS ORDERED: SUBLIMAZE IV ONE (12:00)
[2018-04-30] MEDS ORDERED: NACL 0.9% 1000 ML 1,000 ML ONE (12:30)
--- NOTE | 2018-04-30 12:42 | Procedure Note ---
Date of procedure: 04/30/18 Pre-op diagnosis: Encephalopathy with hypoxemia Post-op diagnosis: same Procedure: Intubation using Fiberoptic scope After speaking with family about severity of situation and patient's like of ability to protect airway on bipap, decision made for elective intubation. Patient premedicated with Fentanyl 50, Etomidate 18mg (weight based dosing), and versed 2. Achieved adequate sedation. Airway visualized with fiberoptic scope. 8.0 Anesthesia: other (RSI) Surgeon: ROLANDA POWELL Estimated blood loss: none Condition: critical Disposition: ICU
--- NOTE | 2018-04-30 12:48 | Consultation ---
History of Present Illness Consult date: 04/30/18 Requesting physician: COLE ROBLES Reason for consult: hypoxemia, other History of present illness: 72 y/o male, admitted several days ago with confusion and urinating blood. Patient has been on the floor and was being evaluated by GI and ID. Transferred to ICU last night secondary to worsening shortness of breath, and hypotension. Patient found this am on bipap, only responsive to pain. No family currently at bedside. Sat's 100%. Dried material within airway and nares. Past History Past Medical History: COPD, hypertension, hyperlipidemia, other (anxiety) Past Surgical History: cataract removal Social history: , alcohol abuse (1-2 drinks with hard liquor daily). denies: smoking, prescription drug abuse Family history: hypertension Medications and Allergies Allergies Allergy/AdvReac Type Severity Reaction Status Date / Time No Known Allergies Allergy Unverified 10/30/17 14:52 Home Medications Medication Instructions Recorded Confirmed Last Taken Type Meloxicam [Mobic] 15 mg PO DAILY PRN 04/26/18 04/26/18 Unknown History predniSONE [Deltasone] 10 mg PO QDAY 04/26/18 04/26/18 Unknown History Hydrochlorothiazide 12.5 mg PO QDAY 04/27/18 04/27/18 2 Days Ago History ~04/25/18 Lisinopril [Zestril] 20 mg PO 04/27/18 2 Days Ago History ~04/25/18 Nitrofurantoin 100 mg PO 04/27/18 2 Days Ago History ~04/25/18 Active Meds: Active Medications Acetaminophen (Tylenol) 650 mg GA Q4H PRN PRN Reason: Fever >101 Last Admin: 04/30/18 10:09 Dose: 650 mg Albuterol (Proventil) 2.5 mg IH Q4HRT PRN PRN Reason: Shortness Of Breath Last Admin: 04/29/18 11:17 Dose: 2.5 mg Lipase/Protease/Amylase (Pancreaze Dr 10,500 Unit) 1 each FEEDTUBE PRN PRN PRN Reason: For Clogged Feeding Tube Dextrose (D50w (25gm) Vial) 25 gm IV PRN PRN PRN Reason: Hypoglycemia Haloperidol Lactate (Haldol) 5 mg IV Q1H PRN PRN Reason: Unrespon. to mult. doses BZD's Last Admin: 04/29/18 00:29 Dose: 5 mg Hydrocortisone Sodium Succinate (Solu-Cortef) 100 mg IV Q8H [facility] Last Admin: 04/30/18 08:29 Dose: 100 mg Piperacillin Sod/Tazobactam Sod (Zosyn/Ns 2.25 Gm/50ml) 2.25 gm in 50 mls @ 100 mls/hr IV Q8HR [facility] Last Admin: 04/30/18 09:47 Dose: Not Given Dextrose/Sodium Chloride (D5/0.45ns) 1,000 mls @ 75 mls/hr IV DIRECT JEREMY Last Admin: 04/29/18 19:40 Dose: 75 mls/hr Lactulose (Cephulac) 200 gm GA TID [facility] Last Admin: 04/30/18 00:18 Dose: 200 gm Lorazepam (Ativan) 1 mg IV Q1H PRN PRN Reason: CIWA-Ar 8-15 Lorazepam (Ativan) 4 mg IV Q15MIN PRN PRN Reason: CIWA-Ar >25 Lorazepam (Ativan) 4 mg IV Q1H PRN PRN Reason: CIWA-Ar 16-25 Morphine Sulfate (Morphine) 0.5 mg IV Q6H PRN PRN Reason: Pain , Severe (7-10) Ondansetron HCl (Zofran) 4 mg IV Q8H PRN PRN Reason: Nausea And Vomiting Last Admin: 04/27/18 00:51 Dose: 4 mg Simple Syrup (Simple Syrup) 15 ml FEEDTUBE PRN PRN PRN Reason: Hypoglycemia Simple Syrup (Simple Syrup) 30 ml FEEDTUBE PRN PRN PRN Reason: Hypoglycemia Sodium Bicarbonate (Sodium Bicarbonate) 325 mg FEEDTUBE PRN PRN PRN Reason: For Clogged Feeding Tube Sodium Chloride (Sodium Chloride Flush Syringe 10 Ml) 10 ml IV BID [facility] Last Admin: 04/29/18 12:42 Dose: 10 ml Sodium Chloride (Sodium Chloride Flush Syringe 10 Ml) 10 ml IV PRN PRN PRN Reason: LINE FLUSH Last Admin: 04/26/18 18:11 Dose: 10 ml Vancomycin HCl (Vancomycin Pharmacy To Dose) 1 each IV PKCONSULT [facility]; Protocol Review of Systems ROS unobtainable: due to mental status Physical Examination Vital signs: Vital Signs Temp Pulse Resp BP Pulse Ox 97.6 F 98 H 18 94/57 94 04/26/18 11:13 04/26/18 11:13 04/26/18 11:13 04/26/18 11:13 04/26/18 11:13 General appearance: no acute distress, other (Stuporous) Eyes: other (will not open on request, but once open clear) ENT: other (full face mask bipap on) Neck: supple, other (large in circumference) Effort: normal Ascultation: Bilateral: diminished breath sounds Percussion: Bilateral: not dull Cardiovascular: regular rate and rhythm Gastrointestinal: soft, other (obese) Extremities: no edema unable to assess Results - Laboratory Findings CBC and BMP: 04/29/18 08:12 04/30/18 04:01 ABG POC ABG pH 7.244 (7.35-7.45) L 04/29/18 19:24 POC ABG pCO2 43.7 (35-45) 04/29/18 19:24 POC ABG pO2 172 (80-105) H 04/29/18 19:24 POC ABG HCO3 18.9 04/29/18 19:24 POC ABG Total CO2 20 04/29/18 19:24 POC ABG O2 Sat 99 04/29/18 19:24 PT/INR, D-dimer PT 25.8 Sec. (12.2-14.9) H 04/30/18 04:11 INR 2.19 (0.87-1.13) H 04/30/18 04:11 Abnormal lab findings: Abnormal Labs 04/26/18 04/26/18 04/26/18 11:33 11:33 11:33 WBC 14.7 H RBC 5.07 H Hct 45.8 H RDW 16.2 H Seg Neuts % (Manual) 75.0 H Lymphocytes % (Manual) 4.0 L Monocytes % (Manual) 8.0 H Eosinophils % (Manual) 8.0 H Seg Neutrophils # Man 11.0 H Lymphocytes # (Manual) 0.6 L Monocytes # (Manual) 1.2 H Eosinophils # (Manual) 1.2 H PT 18.4 H INR 1.44 H POC ABG pH POC ABG pO2 VBG pH Sodium 135 L Potassium 5.3 H Chloride 97.7 L Carbon Dioxide 15 L BUN 76 H Creatinine 5.2 H Glucose 101 H Lactic Acid Calcium Magnesium Total Bilirubin 1.60 H AST 285 H ALT 131 H Alkaline Phosphatase 856 H Ammonia Total Creatine Kinase C-Reactive Protein Total Protein Albumin 3.2 L Lipase 04/26/18 04/26/18 04/26/18 11:33 11:33 21:20 WBC RBC Hct RDW Seg Neuts % (Manual) Lymphocytes % (Manual) Monocytes % (Manual) Eosinophils % (Manual) Seg Neutrophils # Man Lymphocytes # (Manual) Monocytes # (Manual) Eosinophils # (Manual) PT INR POC ABG pH POC ABG pO2 VBG pH 7.268 L Sodium Potassium Chloride Carbon Dioxide BUN Creatinine Glucose Lactic Acid 2.30 H* 3.00 H* Calcium Magnesium Total Bilirubin AST ALT Alkaline Phosphatase Ammonia Total Creatine Kinase C-Reactive Protein Total Protein Albumin Lipase 04/26/18 04/26/18 04/27/18 21:20 21:20 05:52 WBC 17.0 H RBC Hct RDW 15.7 H Seg Neuts % (Manual) 79.0 H Lymphocytes % (Manual) 8.0 L Monocytes % (Manual) Eosinophils % (Manual) Seg Neutrophils # Man 13.4 H Lymphocytes # (Manual) Monocytes # (Manual) 0.9 H Eosinophils # (Manual) PT INR POC ABG pH POC ABG pO2 VBG pH Sodium Potassium Chloride Carbon Dioxide 16 L BUN 75 H Creatinine 4.7 H Glucose 128 H Lactic Acid Calcium Magnesium Total Bilirubin AST ALT Alkaline Phosphatase Ammonia 123.0 H Total Creatine Kinase C-Reactive Protein Total Protein Albumin Lipase 68 H 04/27/18 04/27/18 04/27/18 05:52 14:13 16:28 WBC 18.2 H RBC Hct RDW 16.1 H Seg Neuts % (Manual) 84.0 H Lymphocytes % (Manual) 8.0 L Monocytes % (Manual) Eosinophils % (Manual) Seg Neutrophils # Man 15.3 H Lymphocytes # (Manual) Monocytes # (Manual) Eosinophils # (Manual) 0.5 H PT INR POC ABG pH POC ABG pO2 VBG pH Sodium Potassium Chloride Carbon Dioxide 19 L BUN 75 H Creatinine 4.2 H Glucose 110 H Lactic Acid Calcium Magnesium Total Bilirubin 1.90 H AST 244 H ALT 120 H Alkaline Phosphatase 777 H Ammonia Total Creatine Kinase 373 H C-Reactive Protein 16.50 H Total Protein 5.9 L Albumin 3.4 L Lipase 06/04/28/18 04/29/18 15:41 15:41 08:12 WBC RBC Hct RDW Seg Neuts % (Manual) Lymphocytes % (Manual) Monocytes % (Manual) Eosinophils % (Manual) Seg Neutrophils # Man Lymphocytes # (Manual) Monocytes # (Manual) Eosinophils # (Manual) PT INR POC ABG pH POC ABG pO2 VBG pH Sodium Potassium Chloride 108.6 H Carbon Dioxide 14 L BUN 76 H Creatinine 3.0 H Glucose 60 L Lactic Acid Calcium 8.1 L Magnesium Total Bilirubin 2.20 H AST 416 H ALT 136 H Alkaline Phosphatase 674 H Ammonia 76.0 H 134.0 H Total Creatine Kinase 497 H C-Reactive Protein Total Protein 5.2 L Albumin 3.0 L Lipase 04/29/18 04/29/18 04/29/18 08:12 08:12 19:24 WBC 13.8 H RBC Hct RDW 16.2 H Seg Neuts % (Manual) Lymphocytes % (Manual) Monocytes % (Manual) Eosinophils % (Manual) Seg Neutrophils # Man Lymphocytes # (Manual) Monocytes # (Manual) Eosinophils # (Manual) PT INR POC ABG pH 7.244 L POC ABG pO2 172 H VBG pH Sodium 149 H Potassium Chloride 113.3 H Carbon Dioxide 16 L BUN 79 H Creatinine 2.8 H Glucose 69 L Lactic Acid Calcium Magnesium Total Bilirubin 2.40 H AST 423 H ALT 128 H Alkaline Phosphatase 657 H Ammonia Total Creatine Kinase 435 H C-Reactive Protein Total Protein 5.4 L Albumin 2.6 L Lipase 04/30/18 04/30/18 04/30/18 04:01 04:01 04:11 WBC RBC Hct RDW Seg Neuts % (Manual) Lymphocytes % (Manual) Monocytes % (Manual) Eosinophils % (Manual) Seg Neutrophils # Man Lymphocytes # (Manual) Monocytes # (Manual) Eosinophils # (Manual) PT 25.8 H INR 2.19 H POC ABG pH POC ABG pO2 VBG pH Sodium 146 H Potassium Chloride 111.9 H Carbon Dioxide 19 L BUN 85 H Creatinine 3.5 H Glucose 261 H Lactic Acid Calcium 8.1 L Magnesium 2.40 H Total Bilirubin 2.60 H AST 1008 H ALT 217 H Alkaline Phosphatase 620 H Ammonia 80.0 H Total Creatine Kinase C-Reactive Protein Total Protein 4.9 L Albumin 2.7 L Lipase - Diagnostic Findings Chest x-ray: image reviewed Assessment and Plan 72 y/o male with encephalopathy, elevated LFT's of unknown origin and acute respiratory failure on bipap not awake enough to protect airway. 1. On my evaluation, patient fails criteria for bipap and should be electively intubated. Spoke with 2 daughters and brother and explained that this would be better if done electively as opposed to waiting for an emergent situation. The family voices understanding and agrees. I explained to them that his bp could or could not be related to this and that his bp may even get worse with intubation. They, also voiced understanding with this. We will intubate. 2. ABG 30 minutes post intubation 3. Will need Arterial line 4. Follow up any GI recs for today, all LFT's are worse today. Unsure if this is related to blood pressure or worsening underlying undiagnosed disease 5. Need free water and if OK to use the gut will give through the dobb-matt tube 6. Overall prognosis is guarded to poor. CCT 31 minutes.
--- NOTE | 2018-04-30 15:12 | XRay Report ---
Portable chest: The nasogastric tube tip is below the hemidiaphragm with the tip itself was not visualized. An endotracheal tube is well positioned with the tip approximately 4 cm above the zander. The patient is rotated to the right. The lung visualization is compromised but no significant infiltrate identified. There is some question concerning the small right effusion. The heart is normal in size. No vascular congestion. Impressions: 1. Well-positioned life support tubes. 2. Right effusion.
--- NOTE | 2018-04-30 15:55 | XRay Report ---
KUB: Line placement. A Dobbhoff catheter tip is located in the mid stomach region. Unremarkable bowel gas pattern. No free air. Impression: Adequate Dobbhoff catheter placement.
[2018-04-30] MEDS: HALDOL IV PRN ×2 (18:03→19:46)
--- NOTE | 2018-04-30 19:11 | Gastroenterology Progress Note ---
Assessment and Plan Liver: pt h/o etoh use now with initial decrease mental status and increase ammonia - pt became increasingly agitated and intubated - possible liver related encephalopathy given noted increase ammonia now improving - continue lactulose enema, follow ammonia level - follow labs ETOH: probable withdrawal - management per team - will follow closely Subjective Date of service: 04/30/18 Principal diagnosis: SIRS Interval history: - event today noted, pt intubated. Per staff no other GI symptoms Objective - Exam Narrative Exam: intubated, sedated - Constitutional Vitals: Temp Pulse Resp BP Pulse Ox 98.4 F 91 H 24 65/37 94 04/30/18 16:00 04/30/18 18:45 04/30/18 18:45 04/30/18 18:45 04/30/18 18:45 General appearance: no acute distress - EENT Eyes: PERRL - Respiratory Respiratory: bilateral: rhonchi - Cardiovascular Rhythm: regular Heart Sounds: Present: S1 & S2 - Gastrointestinal General gastrointestinal: Present: soft, distended - Labs CBC & Chem 7: 04/29/18 08:12 04/30/18 04:01 Labs: Laboratory Results - last 24 hr 04/29/18 04/29/18 04/30/18 19:24 19:45 04:01 PT INR POC ABG pH 7.244 L POC ABG pCO2 43.7 POC ABG pO2 172 H POC ABG HCO3 18.9 POC ABG Total CO2 20 POC ABG O2 Sat 99 POC ABG Base Excess -8 FiO2 100 Sodium Potassium Chloride Carbon Dioxide Anion Gap BUN Creatinine Estimated GFR BUN/Creatinine Ratio Glucose POC Glucose 71 Calcium Phosphorus Magnesium Total Bilirubin AST ALT Alkaline Phosphatase Ammonia 80.0 H Total Protein Albumin Albumin/Globulin Ratio 04/30/18 04/30/18 04/30/18 04:01 04:11 11:59 PT 25.8 H INR 2.19 H POC ABG pH 7.252 L POC ABG pCO2 41.2 POC ABG pO2 115 H POC ABG HCO3 18.1 POC ABG Total CO2 19 POC ABG O2 Sat 98 POC ABG Base Excess -9 FiO2 50 Sodium 146 H Potassium 4.4 Chloride 111.9 H Carbon Dioxide 19 L Anion Gap 20 BUN 85 H Creatinine 3.5 H Estimated GFR 17 BUN/Creatinine Ratio 24 Glucose 261 H POC Glucose Calcium 8.1 L Phosphorus 3.90 Magnesium 2.40 H Total Bilirubin 2.60 H AST 1008 H ALT 217 H Alkaline Phosphatase 620 H Ammonia Total Protein 4.9 L Albumin 2.7 L Albumin/Globulin Ratio 1.2
[2018-04-30] MEDS ORDERED: NACL 0.9% 500 ML 500 ML IV ONE (19:38)
[2018-04-30] MEDS: D5/0.45NS 1,000 ML IV SCH (19:46)
[2018-04-30] MEDS ORDERED: HALDOL IM PRN (20:21)
--- NOTE | 2018-05-01 02:50 | XRay Report ---
FINAL REPORT EXAM: XR CHEST 1V AP HISTORY: follow up respiratory failure TECHNIQUE: A portable semi-erect view the chest was obtained and compared to the study of 04/29/2018. FINDINGS: The patient is now intubated with the tip of the ET tube 1.5 cm above the zander. There is an NG tube coursing into the stomach. The heart size is normal. The lungs reveal interstitial changes bilaterally. A small right-sided effusion cannot be excluded. The skeletal structures reveal generalized osteoporosis. IMPRESSION: Interstitial prominence of both lungs. How much of this is on a chronic basis versus secondary to interstitial edema is uncertain. Small right-sided effusion. Satisfactory intubation and placement of NG tube.
[2018-05-01 05:50] LABS: Hematocrit 38.8 % (35.5-45.6); Hemoglobin 12.3 gm/dl (11.8-15.2); Mean Corpuscular HGB Conc 32 % (32-34); Mean Corpuscular Hemoglobin 29 pg (28-32); Mean Corpuscular Volume 92 fl (84-94); Platelet Count 173 K/mm3 (140-440); Red Blood Count 4.22 M/mm3 (3.65-5.03); Red Cell Distribution Width 17.1 % (13.2-15.2)
[2018-05-01 06:04] LABS: INR 2.47 (0.87-1.13)
[2018-05-01 06:05] LABS: Partial Thromboplastin Time 37.7 Sec. (24.2-36.6)
[2018-05-01 06:19] LABS: Albumin 2.3 g/dL (3.9-5); Calcium 7.9 mg/dL (8.4-10.2)
[2018-05-01] MEDS: ZOSYN/NS 2.25 GM/50ML 2.25 GM/50 ML BAG IV SCH ×3 (07:00→21:48)
--- NOTE | 2018-05-01 07:09 | Progress Note ---
Assessment and Plan 1. Acute kidney injury: Multifactroial RUFINA is in the setting of hypotension / sepsis, volume depletion and Hepatitis. Continue IV fluids. Midodrine. Renal prognosis is guarded to slim. 2. Electrolytes: Hyperkalemia, improved. Hypernatremia, continue water flushes. Metabolic acidosis, continue IV fluids. Monitor. 3. Sepsis with hypotension: Continue IV fluids. 4. Abnormal LFTs. 5. Hepatic Encephalopathy. 6. Respiratory failure: On vent. D/w his daughters at the bedside. Subjective Date of service: 05/01/18 Principal diagnosis: SIRS Interval history: Patient was seen and examined at the bedside. Objective - Vital Signs Vital signs: Vital Signs - 12hr 04/30/18 04/30/18 04/30/18 19:15 19:30 19:45 Temperature Pulse Rate 89 90 90 Pulse Rate [ Apical] Respiratory 23 22 22 Rate Blood Pressure 71/45 80/53 80/53 O2 Sat by Pulse 96 94 96 Oximetry 04/30/18 04/30/18 04/30/18 20:00 20:07 20:15 Temperature 98.7 F Pulse Rate 90 89 90 Pulse Rate [ Apical] Respiratory 21 20 Rate Blood Pressure 79/49 79/49 79/49 O2 Sat by Pulse 94 96 96 Oximetry 04/30/18 04/30/18 04/30/18 20:30 20:45 21:00 Temperature Pulse Rate 87 87 87 Pulse Rate [ Apical] Respiratory 20 20 19 Rate Blood Pressure 87/51 87/51 84/51 O2 Sat by Pulse 96 96 95 Oximetry 04/30/18 04/30/18 04/30/18 21:15 21:30 21:45 Temperature Pulse Rate 87 86 86 Pulse Rate [ Apical] Respiratory 18 18 18 Rate Blood Pressure 84/51 91/52 91/52 O2 Sat by Pulse 97 95 96 Oximetry 04/30/18 04/30/18 04/30/18 22:00 22:03 22:15 Temperature Pulse Rate 89 87 86 Pulse Rate [ 88 Apical] Respiratory 18 16 15 Rate Blood Pressure 93/57 93/57 93/57 O2 Sat by Pulse 95 98 98 Oximetry 04/30/18 04/30/18 04/30/18 22:30 22:45 23:00 Temperature Pulse Rate 88 87 86 Pulse Rate [ Apical] Respiratory 17 17 16 Rate Blood Pressure 92/51 92/51 87/57 O2 Sat by Pulse 97 96 98 Oximetry 04/30/18 04/30/18 04/30/18 23:15 23:30 23:45 Temperature Pulse Rate 86 85 86 Pulse Rate [ Apical] Respiratory 16 16 23 Rate Blood Pressure 87/57 83/54 83/54 O2 Sat by Pulse 98 96 98 Oximetry 05/01/18 05/01/18 05/01/18 00:00 00:01 00:15 Temperature 98.6 F Pulse Rate 92 H 95 H Pulse Rate [ Apical] Respiratory 15 20 Rate Blood Pressure 83/54 107/56 O2 Sat by Pulse 97 98 Oximetry 05/01/18 05/01/18 05/01/18 00:22 00:30 00:45 Temperature Pulse Rate 90 92 H 92 H Pulse Rate [ Apical] Respiratory 17 21 Rate Blood Pressure 107/56 91/49 91/49 O2 Sat by Pulse 96 95 96 Oximetry 05/01/18 05/01/18 05/01/18 01:00 01:15 01:31 Temperature Pulse Rate 91 H 88 95 H Pulse Rate [ Apical] Respiratory 15 17 18 Rate Blood Pressure 91/49 91/49 96/62 O2 Sat by Pulse 95 95 96 Oximetry 05/01/18 05/01/18 05/01/18 01:45 02:00 02:16 Temperature Pulse Rate 97 H 95 H 97 H Pulse Rate [ Apical] Respiratory 18 20 17 Rate Blood Pressure 96/62 107/62 107/62 O2 Sat by Pulse 96 94 97 Oximetry 05/01/18 05/01/18 05/01/18 02:31 02:45 03:00 Temperature Pulse Rate 89 87 85 Pulse Rate [ Apical] Respiratory 28 H 16 15 Rate Blood Pressure 77/17 73/48 81/48 O2 Sat by Pulse 97 95 95 Oximetry 05/01/18 05/01/18 05/01/18 03:07 03:15 03:30 Temperature 97.6 F Pulse Rate 83 82 Pulse Rate [ Apical] Respiratory 16 16 Rate Blood Pressure 84/48 88/49 O2 Sat by Pulse 94 96 Oximetry 05/01/18 05/01/18 05/01/18 03:45 04:01 04:15 Temperature Pulse Rate 81 85 88 Pulse Rate [ Apical] Respiratory 18 19 19 Rate Blood Pressure 88/49 100/60 76/56 O2 Sat by Pulse 97 97 Oximetry 05/01/18 05/01/18 05/01/18 04:30 04:45 05:01 Temperature Pulse Rate 86 82 81 Pulse Rate [ Apical] Respiratory 16 16 15 Rate Blood Pressure 71/50 74/48 74/48 O2 Sat by Pulse 96 96 95 Oximetry 05/01/18 05/01/18 05/01/18 05:05 05:15 05:31 Temperature Pulse Rate 79 82 Pulse Rate [ Apical] Respiratory 16 16 Rate Blood Pressure 74/48 106/60 O2 Sat by Pulse 96 96 95 Oximetry 05/01/18 05/01/18 05:45 06:01 Temperature Pulse Rate 82 79 Pulse Rate [ Apical] Respiratory 16 16 Rate Blood Pressure 106/60 106/60 O2 Sat by Pulse 96 Oximetry - General Appearance General appearance: well-developed, appears stated age, obese, intubated, other (on vent, FiO2 50%) EENT: ATNC, PERRL Neck: supple Respiratory: Present: Other (coarse breath sounds) Cardiology: regular, S1S2 Gastrointestinal: normoactive bowel sounds, no tenderness, obese Integumentary: no rash Neurologic: obtunded Musculoskeletal: other (no edema) - Lab 05/01/18 05:04 05/01/18 05:04 Most recent lab results Calcium 7.9 mg/dL (8.4-10.2) L 05/01/18 05:04 Phosphorus 3.90 mg/dL (2.5-4.5) 04/30/18 04:01 Magnesium 2.40 mg/dL (1.7-2.3) H 04/30/18 04:01
[2018-05-01] MEDS ORDERED: NACL 0.9% 1000 ML 2,000 ML IV ONE ×2 (09:41→17:51)
--- NOTE | 2018-05-01 09:45 | Progress Note ---
Assessment and Plan 72 y/o male with encephalopathy, elevated LFT's of unknown origin and acute respiratory failure on bipap not awake enough to protect airway. 1. continue supportive care with vent 2. Will bolus 2 more liters of normal saline given poor urine output and worsening renal failure 3. Patient is not behaving like withdrawal (BP no elevated, no fever). I have stopped benzo therapy and would like to only do scheduled haldol. 4. follow up any new GI recs 5. Feed patient if ok with gI and give free water through [facility] 6. Overall prognosis is guarded to poor. CCT 31 minutes. Subjective Date of service: 05/01/18 Principal diagnosis: SIRS Interval history: No acute events. overnight. elective intubation on yesterday. PaO2 adequate. still with metabolic acidosis and worsening renal failure. LFT's improved. still hypotensive but MAP is above 60. remainder is negative. Objective Vital Signs - 12hr 04/30/18 04/30/18 04/30/18 21:45 22:00 22:03 Temperature Pulse Rate 86 89 87 Pulse Rate [ 88 Apical] Respiratory 18 18 16 Rate Blood Pressure 91/52 93/57 93/57 O2 Sat by Pulse 96 95 98 Oximetry 04/30/18 04/30/18 04/30/18 22:15 22:30 22:45 Temperature Pulse Rate 86 88 87 Pulse Rate [ Apical] Respiratory 15 17 17 Rate Blood Pressure 93/57 92/51 92/51 O2 Sat by Pulse 98 97 96 Oximetry 04/30/18 04/30/18 04/30/18 23:00 23:15 23:30 Temperature Pulse Rate 86 86 85 Pulse Rate [ Apical] Respiratory 16 16 16 Rate Blood Pressure 87/57 87/57 83/54 O2 Sat by Pulse 98 98 96 Oximetry 04/30/18 05/01/18 05/01/18 23:45 00:00 00:01 Temperature 98.6 F Pulse Rate 86 92 H Pulse Rate [ Apical] Respiratory 23 15 Rate Blood Pressure 83/54 83/54 O2 Sat by Pulse 98 97 Oximetry 05/01/1818 05/01/18 00:15 00:22 00:30 Temperature Pulse Rate 95 H 90 92 H Pulse Rate [ Apical] Respiratory 20 17 Rate Blood Pressure 107/56 107/56 91/49 O2 Sat by Pulse 98 96 95 Oximetry 05/01/18 05/01/18 05/01/18 00:45 01:00 01:15 Temperature Pulse Rate 92 H 91 H 88 Pulse Rate [ Apical] Respiratory 21 15 17 Rate Blood Pressure 91/49 91/49 91/49 O2 Sat by Pulse 96 95 95 Oximetry 05/01/18 05/01/18 05/01/18 01:31 01:45 02:00 Temperature Pulse Rate 95 H 97 H 95 H Pulse Rate [ Apical] Respiratory 18 18 20 Rate Blood Pressure 96/62 96/62 107/62 O2 Sat by Pulse 96 96 94 Oximetry 05/01/18 05/01/18 05/01/18 02:16 02:31 02:45 Temperature Pulse Rate 97 H 89 87 Pulse Rate [ Apical] Respiratory 17 28 H 16 Rate Blood Pressure 107/62 77/17 73/48 O2 Sat by Pulse 97 97 95 Oximetry 05/01/18 05/01/18 05/01/18 03:00 03:07 03:15 Temperature 97.6 F Pulse Rate 85 83 Pulse Rate [ Apical] Respiratory 15 16 Rate Blood Pressure 81/48 84/48 O2 Sat by Pulse 95 94 Oximetry 05/01/18 05/01/18 05/01/18 03:30 03:45 04:01 Temperature Pulse Rate 82 81 85 Pulse Rate [ Apical] Respiratory 16 18 19 Rate Blood Pressure 88/49 88/49 100/60 O2 Sat by Pulse 96 97 Oximetry 05/01/18 05/01/18 05/01/18 04:15 04:30 04:45 Temperature Pulse Rate 88 86 82 Pulse Rate [ Apical] Respiratory 19 16 16 Rate Blood Pressure 76/56 71/50 74/48 O2 Sat by Pulse 97 96 96 Oximetry 05/01/18 05/01/18 05/01/18 05:01 05:05 05:15 Temperature Pulse Rate 81 79 Pulse Rate [ Apical] Respiratory 15 16 Rate Blood Pressure 74/48 74/48 O2 Sat by Pulse 95 96 96 Oximetry 05/01/18 05/01/18 05/01/18 05:31 05:45 06:01 Temperature Pulse Rate 82 82 79 Pulse Rate [ Apical] Respiratory 16 16 16 Rate Blood Pressure 106/60 106/60 106/60 O2 Sat by Pulse 95 96 Oximetry 05/01/18 08:56 Temperature Pulse Rate 79 Pulse Rate [ Apical] Respiratory Rate Blood Pressure 76/43 O2 Sat by Pulse 98 Oximetry Constitutional: no acute distress, other (Stuporous) Eyes: other (will not open on request, but once open clear) ENT: other (full face mask bipap on) Neck: supple, other (large in circumference) Effort: normal Ascultation: Bilateral: diminished breath sounds Percussion: Bilateral: not dull Cardiovascular: regular rate and rhythm Gastrointestinal: soft, other (obese) Extremities: no edema Neurologic: unable to assess CBC and BMP: 05/01/18 05:04 05/01/18 05:04 ABG, PT/INR, D-dimer: ABG POC ABG pH 7.194 (7.35-7.45) L 05/01/18 05:08 POC ABG pCO2 44.2 (35-45) 05/01/18 05:08 POC ABG pO2 99 (80-105) 05/01/18 05:08 POC ABG HCO3 17.1 05/01/18 05:08 POC ABG Total CO2 18 05/01/18 05:08 POC ABG O2 Sat 96 05/01/18 05:08 PT/INR, D-dimer PT 28.4 Sec. (12.2-14.9) H 05/01/18 05:04 INR 2.47 (0.87-1.13) H 05/01/18 05:04 Abnormal lab findings: Abnormal Labs 04/26/18 04/26/18 04/26/18 11:33 11:33 11:33 WBC 14.7 H RBC 5.07 H Hct 45.8 H RDW 16.2 H Seg Neuts % (Manual) 75.0 H Lymphocytes % (Manual) 4.0 L Monocytes % (Manual) 8.0 H Eosinophils % (Manual) 8.0 H Seg Neutrophils # Man 11.0 H Lymphocytes # (Manual) 0.6 L Monocytes # (Manual) 1.2 H Eosinophils # (Manual) 1.2 H PT 18.4 H INR 1.44 H APTT POC ABG pH POC ABG pCO2 POC ABG pO2 VBG pH Sodium 135 L Potassium 5.3 H Chloride 97.7 L Carbon Dioxide 15 L BUN 76 H Creatinine 5.2 H Glucose 101 H Lactic Acid Calcium Magnesium Total Bilirubin 1.60 H AST 285 H ALT 131 H Alkaline Phosphatase 856 H Ammonia Total Creatine Kinase C-Reactive Protein Total Protein Albumin 3.2 L Lipase 04/26/18 04/26/18 04/26/18 11:33 11:33 21:20 WBC RBC Hct RDW Seg Neuts % (Manual) Lymphocytes % (Manual) Monocytes % (Manual) Eosinophils % (Manual) Seg Neutrophils # Man Lymphocytes # (Manual) Monocytes # (Manual) Eosinophils # (Manual) PT INR APTT POC ABG pH POC ABG pCO2 POC ABG pO2 VBG pH 7.268 L Sodium Potassium Chloride Carbon Dioxide BUN Creatinine Glucose Lactic Acid 2.30 H* 3.00 H* Calcium Magnesium Total Bilirubin AST ALT Alkaline Phosphatase Ammonia Total Creatine Kinase C-Reactive Protein Total Protein Albumin Lipase 04/26/18 04/26/18 04/27/18 21:20 21:20 05:52 WBC 17.0 H RBC Hct RDW 15.7 H Seg Neuts % (Manual) 79.0 H Lymphocytes % (Manual) 8.0 L Monocytes % (Manual) Eosinophils % (Manual) Seg Neutrophils # Man 13.4 H Lymphocytes # (Manual) Monocytes # (Manual) 0.9 H Eosinophils # (Manual) PT INR APTT POC ABG pH POC ABG pCO2 POC ABG pO2 VBG pH Sodium Potassium Chloride Carbon Dioxide 16 L BUN 75 H Creatinine 4.7 H Glucose 128 H Lactic Acid Calcium Magnesium Total Bilirubin AST ALT Alkaline Phosphatase Ammonia 123.0 H Total Creatine Kinase C-Reactive Protein Total Protein Albumin Lipase 68 H 04/27/18 04/27/18 04/27/18 05:52 14:13 16:28 WBC 18.2 H RBC Hct RDW 16.1 H Seg Neuts % (Manual) 84.0 H Lymphocytes % (Manual) 8.0 L Monocytes % (Manual) Eosinophils % (Manual) Seg Neutrophils # Man 15.3 H Lymphocytes # (Manual) Monocytes # (Manual) Eosinophils # (Manual) 0.5 H PT INR APTT POC ABG pH POC ABG pCO2 POC ABG pO2 VBG pH Sodium Potassium Chloride Carbon Dioxide 19 L BUN 75 H Creatinine 4.2 H Glucose 110 H Lactic Acid Calcium Magnesium Total Bilirubin 1.90 H AST 244 H ALT 120 H Alkaline Phosphatase 777 H Ammonia Total Creatine Kinase 373 H C-Reactive Protein 16.50 H Total Protein 5.9 L Albumin 3.4 L Lipase 04/28/18 04/28/18 04/29/18 15:41 15:41 08:12 WBC RBC Hct RDW Seg Neuts % (Manual) Lymphocytes % (Manual) Monocytes % (Manual) Eosinophils % (Manual) Seg Neutrophils # Man Lymphocytes # (Manual) Monocytes # (Manual) Eosinophils # (Manual) PT INR APTT POC ABG pH POC ABG pCO2 POC ABG pO2 VBG pH Sodium Potassium Chloride 108.6 H Carbon Dioxide 14 L BUN 76 H Creatinine 3.0 H Glucose 60 L Lactic Acid Calcium 8.1 L Magnesium Total Bilirubin 2.20 H AST 416 H ALT 136 H Alkaline Phosphatase 674 H Ammonia 76.0 H 134.0 H Total Creatine Kinase 497 H C-Reactive Protein Total Protein 5.2 L Albumin 3.0 L Lipase 04/29/18 04/29/18 04/29/18 08:12 08:12 19:24 WBC 13.8 H RBC Hct RDW 16.2 H Seg Neuts % (Manual) Lymphocytes % (Manual) Monocytes % (Manual) Eosinophils % (Manual) Seg Neutrophils # Man Lymphocytes # (Manual) Monocytes # (Manual) Eosinophils # (Manual) PT INR APTT POC ABG pH 7.244 L POC ABG pCO2 POC ABG pO2 172 H VBG pH Sodium 149 H Potassium Chloride 113.3 H Carbon Dioxide 16 L BUN 79 H Creatinine 2.8 H Glucose 69 L Lactic Acid Calcium Magnesium Total Bilirubin 2.40 H AST 423 H ALT 128 H Alkaline Phosphatase 657 H Ammonia Total Creatine Kinase 435 H C-Reactive Protein Total Protein 5.4 L Albumin 2.6 L Lipase 04/30/18 04/30/18 04/30/18 04:01 04:01 04:11 WBC RBC Hct RDW Seg Neuts % (Manual) Lymphocytes % (Manual) Monocytes % (Manual) Eosinophils % (Manual) Seg Neutrophils # Man Lymphocytes # (Manual) Monocytes # (Manual) Eosinophils # (Manual) PT 25.8 H INR 2.19 H APTT POC ABG pH POC ABG pCO2 POC ABG pO2 VBG pH Sodium 146 H Potassium Chloride 111.9 H Carbon Dioxide 19 L BUN 85 H Creatinine 3.5 H Glucose 261 H Lactic Acid Calcium 8.1 L Magnesium 2.40 H Total Bilirubin 2.60 H AST 1008 H ALT 217 H Alkaline Phosphatase 620 H Ammonia 80.0 H Total Creatine Kinase C-Reactive Protein Total Protein 4.9 L Albumin 2.7 L Lipase 04/30/18 04/30/18 05/01/18 11:59 16:23 05:04 WBC RBC Hct RDW Seg Neuts % (Manual) Lymphocytes % (Manual) Monocytes % (Manual) Eosinophils % (Manual) Seg Neutrophils # Man Lymphocytes # (Manual) Monocytes # (Manual) Eosinophils # (Manual) PT INR APTT POC ABG pH 7.252 L 7.179 L POC ABG pCO2 49.1 H POC ABG pO2 115 H VBG pH Sodium Potassium Chloride Carbon Dioxide BUN Creatinine Glucose Lactic Acid Calcium Magnesium Total Bilirubin AST ALT Alkaline Phosphatase Ammonia 81.0 H Total Creatine Kinase C-Reactive Protein Total Protein Albumin Lipase 05/01/18 05/01/18 05/01/18 05:04 05:04 05:04 WBC 11.2 H RBC Hct RDW 17.1 H Seg Neuts % (Manual) Lymphocytes % (Manual) Monocytes % (Manual) Eosinophils % (Manual) Seg Neutrophils # Man Lymphocytes # (Manual) Monocytes # (Manual) Eosinophils # (Manual) PT 28.4 H INR 2.47 H APTT 37.7 H POC ABG pH POC ABG pCO2 POC ABG pO2 VBG pH Sodium 150 H Potassium Chloride 115.5 H Carbon Dioxide 18 L BUN 106 H Creatinine 4.2 H Glucose 233 H Lactic Acid Calcium 7.9 L Magnesium Total Bilirubin 2.00 H AST 565 H ALT 200 H Alkaline Phosphatase 546 H Ammonia Total Creatine Kinase C-Reactive Protein Total Protein 4.9 L Albumin 2.3 L Lipase 05/01/18 05:08 WBC RBC Hct RDW Seg Neuts % (Manual) Lymphocytes % (Manual) Monocytes % (Manual) Eosinophils % (Manual) Seg Neutrophils # Man Lymphocytes # (Manual) Monocytes # (Manual) Eosinophils # (Manual) PT INR APTT POC ABG pH 7.194 L POC ABG pCO2 POC ABG pO2 VBG pH Sodium Potassium Chloride Carbon Dioxide BUN Creatinine Glucose Lactic Acid Calcium Magnesium Total Bilirubin AST ALT Alkaline Phosphatase Ammonia Total Creatine Kinase C-Reactive Protein Total Protein Albumin Lipase
[2018-05-01] MEDS: CEPHULAC PR SCH ×3 (10:00→21:48)
[2018-05-01] MEDS: HALDOL IM SCH ×2 (10:05→16:45)
[2018-05-01] MEDS: SODIUM CHLORIDE FLUSH SYRINGE 10 ML IV SCH ×2 (10:06→21:49)
--- NOTE | 2018-05-01 12:24 | Gastroenterology Progress Note ---
Assessment and Plan Liver: pt h/o etoh use now with initial decrease mental status and increase ammonia - pt became increasingly agitated and intubated - possible liver related encephalopathy given noted increase ammonia now improving - continue lactulose enema, follow ammonia level - follow labs ETOH: probable withdrawal - management per team - will follow closely Subjective Date of service: 05/01/18 Principal diagnosis: SIRS Interval history: - changes overnight per staff Objective - Exam Narrative Exam: intubated, sedated - Constitutional Vitals: Temp Pulse Resp BP Pulse Ox 97.6 F 85 17 101/62 100 05/01/18 03:07 05/01/18 11:15 05/01/18 11:15 05/01/18 11:15 05/01/18 11:15 General appearance: no acute distress - EENT Eyes: PERRL - Neck Neck: supple - Respiratory Respiratory: bilateral: rhonchi - Cardiovascular Rhythm: regular Heart Sounds: Present: S1 & S2 - Gastrointestinal General gastrointestinal: Present: soft, non-tender, distended - Labs CBC & Chem 7: 05/01/18 05:04 05/01/18 05:04 Labs: Laboratory Results - last 24 hr 04/30/18 04/30/18 05/01/18 11:59 16:23 05:04 WBC RBC Hgb Hct MCV MCH MCHC RDW Plt Count PT INR APTT POC ABG pH 7.252 L 7.179 L POC ABG pCO2 41.2 49.1 H POC ABG pO2 115 H 100 POC ABG HCO3 18.1 18.3 POC ABG Total CO2 19 20 POC ABG O2 Sat 98 96 POC ABG Base Excess -9 -10 FiO2 50 50 Sodium Potassium Chloride Carbon Dioxide Anion Gap BUN Creatinine Estimated GFR BUN/Creatinine Ratio Glucose Calcium Total Bilirubin AST ALT Alkaline Phosphatase Ammonia 81.0 H Total Protein Albumin Albumin/Globulin Ratio 05/01/18 05/01/18 05/01/18 05:04 05:04 05:04 WBC 11.2 H RBC 4.22 Hgb 12.3 Hct 38.8 MCV 92 MCH 29 MCHC 32 RDW 17.1 H Plt Count 173 PT 28.4 H INR 2.47 H APTT 37.7 H POC ABG pH POC ABG pCO2 POC ABG pO2 POC ABG HCO3 POC ABG Total CO2 POC ABG O2 Sat POC ABG Base Excess FiO2 Sodium 150 H Potassium 4.6 Chloride 115.5 H Carbon Dioxide 18 L Anion Gap 21 BUN 106 H Creatinine 4.2 H Estimated GFR 14 BUN/Creatinine Ratio 25 Glucose 233 H Calcium 7.9 L Total Bilirubin 2.00 H AST 565 H ALT 200 H Alkaline Phosphatase 546 H Ammonia Total Protein 4.9 L Albumin 2.3 L Albumin/Globulin Ratio 0.9 05/01/18 05:08 WBC RBC Hgb Hct MCV MCH MCHC RDW Plt Count PT INR APTT POC ABG pH 7.194 L POC ABG pCO2 44.2 POC ABG pO2 99 POC ABG HCO3 17.1 POC ABG Total CO2 18 POC ABG O2 Sat 96 POC ABG Base Excess -11 FiO2 50 Sodium Potassium Chloride Carbon Dioxide Anion Gap BUN Creatinine Estimated GFR BUN/Creatinine Ratio Glucose Calcium Total Bilirubin AST ALT Alkaline Phosphatase Ammonia Total Protein Albumin Albumin/Globulin Ratio
--- NOTE | 2018-05-01 13:18 | XRay Report ---
AP ABDOMEN: HISTORY: Confirm feeding tube. The GI tube terminates in the fundus of the stomach. The abdominal gas pattern is unremarkable. No masses or organomegaly is identified and there is no gross evidence of free air or fluid. No significant soft tissue calcifications are noted. IMPRESSION: Unremarkable abdomen.
[2018-05-01] MEDS: PROAMATINE FEEDTUBE SCH ×2 (14:11→21:47)
[2018-05-01] MEDS: D5/0.45NS 1,000 ML IV SCH (15:56)
--- NOTE | 2018-05-01 16:05 | Progress Note ---
Assessment and Plan Assessment and plan: Patient is a 72 yo man with a history of chronic hypoxic Respiratory Failure on Home Oxygen due to End Stage COPD and HTN who presented to ED shortness of breath, hematuria and confusion/drowsiness, * CT ABDOMEN AND PELVIS WITHOUT CONTRAST CONCLUSION: 1. Peripheral right hepatic hypodense mass(es) now suspected with new small perihepatic ascites on this limited, unenhanced exam, as described. Subtle fat stranding may also be noted about the pancreas and the gallbladder. 2. Various other findings as distal esophageal thickening, hepatomegaly, cecum/proximal ascending colon CT appearance, enlarged prostate and small pelvic ascites, amongst others, as detailed above. * CT HEAD WITHOUT CONTRAST CONCLUSION: No acute intracranial CT abnormality with sinusitis and few other findings, as described. * pCXR CONCLUSION: No acute chest process with chronic interstitial lung disease again suspected. * * HIDA IMPRESSION: No cystic or common bile duct obstruction. Post Kinevac ejection fraction 35%. * * Abd U/S IMPRESSION: Cholelithiasis. No evidence for acute cholecystitis. The common bile duct is mildly dilated at 8.2 mm which could represent choledocholithiasis. Nonspecific renal parenchymal disease and liver normal -SIRS with suspected early Sepsis without clear source, poa: consult ID: IV antibiotics, serial lactic acid, monitor uop q shift, blood cultures, urinalysis , chest x ray, IVF resuscitation therapy -Acute Hepatic Encephalopathy: treat with Lactulose -Acute renal failure, suspect ATN with hypotension + vasomotor nephropathy, poa: treat with ivf, consult Nephrology -Lactic Acidosis: Treat sepsis, monitor uop q shift, iv bicarbonate prn -Alcohol withdrawal syndrome (patient did have a fever and you can be either hypertensive or hypotensive with Etoh withdrawal): limit iv ativan due to liver dysfunction, Serax/Oxazepam was not available, Restarted IV Ativan -Hypoglycemia: started D5W but IVF changed by rehab director, Dr. Masters -Hepatitis with ascities: CT Abdomen and pelvis noted, LFT, Hepatitis panel, consulted GI -Hematuria: resolved, outpatient urology F/U recommended -DVT prophylaxis: SCD to BLE while in bed -Evidence of Livedo Reticularis legs guarded prognosis full code MRCP==>IMPRESSION: Grossly limited study due to motion artifacts and the MRCP is nondiagnostic. Inhomogeneous signal is noted in the liver. Any underlying mass lesions cannot be excluded. Mild degree bilateral pleural effusions and mild degree ascites. Gallbladder is minimally distended with mild degree wall thickening. This may be secondary to chronic cholecystitis versus postprandial status. Other etiologies of gallbladder wall thickening include hepatitis, ascites etc. Small hiatal hernia Small cystic lesions of right kidney are most likely of simple nature. MRI unable to be done. He was transferred to the to ICU 04/29/18 and Intubated 04/30/18 Added Iv solu-cortef on 04/30/18 for sepsis shock and on prednisone at home, Bp slightly improved on re-check Intubated, Day 2 Consult Intensvist===> Intubated yesterday for airway protection. +Streptococcus bacteremia, ID is following. Get 2D Echo CCT 31 minutes History Interval history: Patient was seen and examined. Follow-up on current diagnosis of AMS, now intubated, day 2. Imaging, nursing note, chart, labs and old chart reviewed. Moved ICU to . D/w gianfrancoApryl at bedside Hospitalist Physical - Physical exam Narrative exam: GEN: ill appearing, intubated HEENT: NCAT, EOMI, PERRL, OP mm dry, ETT and Ngt in place NECK: supple, no adenopathy, CVS/HEART: Regular tachycardia, normal S1S2, pulses present bilaterally CHEST/LUNGS: bilateral rhonchi and diminished bs bilateral, Symmetrical chest expansion, good air entry bilaterally GI/Abdomen: soft, protuberant, ruq tender with good bowel sounds, no guarding or rebound /Bladder: no suprapubic tenderness, no CVA or paraspinal tenderness EXT/Skin: no c/c/e, no obvious rash MSK: spontaneous ROM x 4 Neuro: CN 2-12 grossly intact, no new focal deficits . Psych: confused - Constitutional Vitals: Temp Pulse Resp BP Pulse Ox 97.6 F 88 15 80/47 97 05/01/18 03:07 05/01/18 13:30 05/01/18 13:30 05/01/18 13:30 05/01/18 13:30 General appearance: Absent: mild distress Results - Labs CBC & Chem 7: 05/01/18 05:04 05/01/18 05:04 Labs: Laboratory Last Values WBC 11.2 K/mm3 (4.5-11.0) H 05/01/18 05:04 RBC 4.22 M/mm3 (3.65-5.03) 05/01/18 05:04 Hgb 12.3 gm/dl (11.8-15.2) 05/01/18 05:04 Hct 38.8 % (35.5-45.6) 05/01/18 05:04 MCV 92 fl (84-94) 05/01/18 05:04 MCH 29 pg (28-32) 05/01/18 05:04 MCHC 32 % (32-34) 05/01/18 05:04 RDW 17.1 % (13.2-15.2) H 05/01/18 05:04 Plt Count 173 K/mm3 (140-440) 05/01/18 05:04 Add Manual Diff Complete 04/27/18 14:13 Total Counted 100 04/27/18 14:13 Seg Neuts % (Manual) 84.0 % (40.0-70.0) H 04/27/18 14:13 Band Neutrophils % 3.0 % 04/27/18 14:13 Lymphocytes % (Manual) 8.0 % (13.4-35.0) L 04/27/18 14:13 Reactive Lymphs % (Man) 0 % 04/27/18 14:13 Monocytes % (Manual) 1.0 % (0.0-7.3) 04/27/18 14:13 Eosinophils % (Manual) 3.0 % (0.0-4.3) 04/27/18 14:13 Basophils % (Manual) 0 % (0.0-1.8) 04/27/18 14:13 Metamyelocytes % 1.0 % 04/27/18 14:13 Myelocytes % 0 % 04/27/18 14:13 Promyelocytes % 0 % 04/27/18 14:13 Blast Cells % 0 % 04/27/18 14:13 Nucleated RBC % Not Reportable 04/27/18 14:13 Seg Neutrophils # Man 15.3 K/mm3 (1.8-7.7) H 04/27/18 14:13 Band Neutrophils # 0.5 K/mm3 04/27/18 14:13 Lymphocytes # (Manual) 1.5 K/mm3 (1.2-5.4) 04/27/18 14:13 Abs React Lymphs (Man) 0.0 K/mm3 04/27/18 14:13 Monocytes # (Manual) 0.2 K/mm3 (0.0-0.8) 04/27/18 14:13 Eosinophils # (Manual) 0.5 K/mm3 (0.0-0.4) H 04/27/18 14:13 Basophils # (Manual) 0.0 K/mm3 (0.0-0.1) 04/27/18 14:13 Metamyelocytes # 0.2 K/mm3 04/27/18 14:13 Myelocytes # 0.0 K/mm3 04/27/18 14:13 Promyelocytes # 0.0 K/mm3 04/27/18 14:13 Blast Cells # 0.0 K/mm3 04/27/18 14:13 WBC Morphology Not Reportable 04/27/18 14:13 Hypersegmented Neuts Not Reportable 04/27/18 14:13 Hyposegmented Neuts Not Reportable 04/27/18 14:13 Hypogranular Neuts Not Reportable 04/27/18 14:13 Smudge Cells Not Reportable 04/27/18 14:13 Toxic Granulation Not Reportable 04/27/18 14:13 Toxic Vacuolation Not Reportable 04/27/18 14:13 Dohle Bodies Not Reportable 04/27/18 14:13 Pelger-Huet Anomaly Not Reportable 04/27/18 14:13 Aidan Rods Not Reportable 04/27/18 14:13 Platelet Estimate Appears normal 04/27/18 14:13 Clumped Platelets Not Reportable 04/27/18 14:13 Plt Clumps, EDTA Not Reportable 04/27/18 14:13 Large Platelets Few 04/27/18 14:13 Giant Platelets Not Reportable 04/27/18 14:13 Platelet Satelliting Not Reportable 04/27/18 14:13 Plt Morphology Comment Not Reportable 04/27/18 14:13 RBC Morphology Not Reportable 04/27/18 14:13 Dimorphic RBCs Not Reportable 04/27/18 14:13 Polychromasia Not Reportable 04/27/18 14:13 Hypochromasia Not Reportable 04/27/18 14:13 Poikilocytosis Not Reportable 04/27/18 14:13 Anisocytosis Not Reportable 04/27/18 14:13 Microcytosis Not Reportable 04/27/18 14:13 Macrocytosis Not Reportable 04/27/18 14:13 Spherocytes Not Reportable 04/27/18 14:13 Pappenheimer Bodies Not Reportable 04/27/18 14:13 Sickle Cells Not Reportable 04/27/18 14:13 Target Cells Not Reportable 04/27/18 14:13 Tear Drop Cells Not Reportable 04/27/18 14:13 Ovalocytes Not Reportable 04/27/18 14:13 Helmet Cells Few 04/27/18 14:13 Gabriel-Clarion Bodies Not Reportable 04/27/18 14:13 Palmer Rings Not Reportable 04/27/18 14:13 [place]roy Cells Not Reportable 04/27/18 14:13 Bite Cells Not Reportable 04/27/18 14:13 Crenated Cell Not Reportable 04/27/18 14:13 Elliptocytes Not Reportable 04/27/18 14:13 Acanthocytes (Spur) Not Reportable 04/27/18 14:13 Rouleaux Not Reportable 04/27/18 14:13 Hemoglobin C Crystals Not Reportable 04/27/18 14:13 Schistocytes Not Reportable 04/27/18 14:13 Malaria parasites Not Reportable 04/27/18 14:13 Donaldo Bodies Not Reportable 04/27/18 14:13 Hem Pathologist Commnt No 04/27/18 14:13 PT 28.4 Sec. (12.2-14.9) H 05/01/18 05:04 INR 2.47 (0.87-1.13) H 05/01/18 05:04 APTT 37.7 Sec. (24.2-36.6) H 05/01/18 05:04 POC ABG pH 7.194 (7.35-7.45) L 05/01/18 05:08 POC ABG pCO2 44.2 (35-45) 05/01/18 05:08 POC ABG pO2 99 (80-105) 05/01/18 05:08 POC ABG HCO3 17.1 05/01/18 05:08 POC ABG Total CO2 18 05/01/18 05:08 POC ABG O2 Sat 96 05/01/18 05:08 POC ABG Base Excess -11 05/01/18 05:08 VBG pH 7.268 (7.320-7.420) L 04/26/18 11:33 FiO2 50 % 05/01/18 05:08 Sodium 150 mmol/L (137-145) H 05/01/18 05:04 Potassium 4.6 mmol/L (3.6-5.0) 05/01/18 05:04 Chloride 115.5 mmol/L (98-107) H 05/01/18 05:04 Carbon Dioxide 18 mmol/L (22-30) L 05/01/18 05:04 Anion Gap 21 mmol/L 05/01/18 05:04 BUN 106 mg/dL (9-20) H 05/01/18 05:04 Creatinine 4.2 mg/dL (0.8-1.5) H 05/01/18 05:04 Estimated GFR 14 ml/min 05/01/18 05:04 BUN/Creatinine Ratio 25 % 05/01/18 05:04 Glucose 233 mg/dL (75-100) H 05/01/18 05:04 POC Glucose 224 (70-105) H 05/01/18 12:57 Lactic Acid 1.90 mmol/L (0.7-2.0) 04/27/18 05:52 Calcium 7.9 mg/dL (8.4-10.2) L 05/01/18 05:04 Phosphorus 3.90 mg/dL (2.5-4.5) 04/30/18 04:01 Magnesium 2.40 mg/dL (1.7-2.3) H 04/30/18 04:01 Total Bilirubin 2.00 mg/dL (0.1-1.2) H 05/01/18 05:04 AST 565 units/L (5-40) H 05/01/18 05:04 ALT 200 units/L (7-56) H 05/01/18 05:04 Alkaline Phosphatase 546 units/L (35-129) H 05/01/18 05:04 Ammonia 81.0 umol/L (25-60) H 05/01/18 05:04 Total Creatine Kinase 435 units/L (55-170) H 04/29/18 08:12 C-Reactive Protein 16.50 mg/dL (0.00-1.30) H 04/27/18 16:28 Total Protein 4.9 g/dL (6.3-8.2) L 05/01/18 05:04 Albumin 2.3 g/dL (3.9-5) L 05/01/18 05:04 Albumin/Globulin Ratio 0.9 % 05/01/18 05:04 Lipase 68 units/L (13-60) H 04/26/18 21:20 Urine Color Rosalia (Yellow) 04/26/18 12:58 Urine Turbidity Clear (Clear) 04/26/18 12:58 Urine pH 5.0 (5.0-7.0) 04/26/18 12:58 Ur Specific [place] 1.017 (1.003-1.030) 04/26/18 12:58 Urine Protein 30 mg/dl mg/dL (Negative) 04/26/18 12:58 Urine Glucose (UA) Neg mg/dL (Negative) 04/26/18 12:58 Urine Ketones Neg mg/dL (Negative) 04/26/18 12:58 Urine Blood Neg (Negative) 04/26/18 12:58 Urine Nitrite Neg (Negative) 04/26/18 12:58 Urine Bilirubin Neg (Negative) 04/26/18 12:58 Urine Urobilinogen < 2.0 mg/dL (<2.0) 04/26/18 12:58 Ur Leukocyte Esterase Neg (Negative) 04/26/18 12:58 Urine WBC (Auto) 2.0 /HPF (0.0-6.0) 04/26/18 12:58 Urine RBC (Auto) 1.0 /HPF (0.0-6.0) 04/26/18 12:58 U Epithel Cells (Auto) < 1.0 /HPF (0-13.0) 04/26/18 12:58 Random Vancomycin 9.6 ug/mL (0-40.0) 04/28/18 15:41 Hepatitis A IgM Ab Non-reactive (NonReactive) 04/26/18 21:20 Hep Bs Antigen Non-reactive (Negative) 04/26/18 21:20 Hep B Core IgM Ab Non-reactive (NonReactive) 04/26/18 21:20 Hepatitis C Antibody Non-reactive (NonReactive) 04/26/18 21:20 HIV 1&2 Antibody Rapid Non react (Non React) 04/27/18 16:28 HIV P24 Antigen Non react (Non React) 04/27/18 16:28
--- NOTE | 2018-05-01 17:11 | Progress Note ---
Assessment and Plan Assessment: 1) Sepsis: better. Etiology Strep anginosus bacteremia +/- liver abscesses Vs. SBP Vs. liver malignancy 2) Strep anginosus bacteremia: ? source ? liver lesions. WINDER HAND in same blood cx likely a contaminant 3) Liver lesions -CT showed few lesions largest right hepatic hypodense mass 3.4 cm with hepatomegaly. -US abd showed cholelithiasis, choledocholithiasis ? CBP 8.2. mm -viral hepatitis panel neg -CRP 16 -HIV neg -HIDA neg -MRCP is nondiagnostic. Any underlying mass lesions cannot be excluded. Mild degree bilateral pleural effusions and mild degree ascites. Gallbladder is minimally distended with mild degree wall thickening. This may be secondary to chronic cholecystitis versus postprandial status. 3) Elevated LFTs: from liver lesions +/- ETOH - better 4) Acute encephalopathy: worsening. CT head neg. Etio. sepsis +/- hepatic encephalopahy +/- ETOH withdrawal 5) RUFINA - better 6) Acute on chronic hypoxemic resp failure ? CXR neg. worsening intubated 7) ? SBP Plan: -continue zosyn -f/u repeat blood cx -f/u AFP -IR eval for biopsy / drainage - pending -consider paracenthesis to r/o SBP Overall prognosis poor Thank you for your consultation, will follow up with you. Deanna Lindquist MD Infectious Diseases Specialist [facility] ([facility] M [phone] O [phone] Subjective Date of service: 05/01/18 Principal diagnosis: SIRS Interval history: Now intubated sedated on the vent AC FiO2 50% p10. Afebrile for 24h. Had urinary retention and montgomery was placed overnight. Microbiology: Blood cultures: 04/26 WINDER HAND 1 of 4 bottles and Strep anginosus 1 of 4 bottles 04/29 ngtd Urine cultures: 04/26 neg Sputum: 04/30 ngtd Current Antimicrobials: Zosyn Vancomycin Objective - Constitutional Vitals: Vital Signs Temp Pulse Resp BP Pulse Ox 97.3 F L 73 18 83/54 98 05/01/18 16:00 05/01/18 16:45 05/01/18 16:45 05/01/18 16:45 05/01/18 16:45 Temperature -Last 24 Hours Temperature 97.3 F Temperature 97.6 F Temperature 97.6 F Temperature 97.6 F Temperature 98.6 F Temperature 98.7 F - Labs CBC & Chem 7: 05/01/18 05:04 05/01/18 05:04 Labs: Abnormal lab results 04/30/18 05/01/18 05/01/18 Range/Units 16:23 05:04 05:04 WBC 11.2 H (4.5-11.0) K/mm3 RDW 17.1 H (13.2-15.2) % PT (12.2-14.9) Sec. INR (0.87-1.13) APTT (24.2-36.6) Sec. POC ABG pH 7.179 L (7.35-7.45) POC ABG pCO2 49.1 H (35-45) Sodium (137-145) mmol/L Chloride (98-107) mmol/L Carbon Dioxide (22-30) mmol/L BUN (9-20) mg/dL Creatinine (0.8-1.5) mg/dL Glucose (75-100) mg/dL POC Glucose (70-105) Calcium (8.4-10.2) mg/dL Total Bilirubin (0.1-1.2) mg/dL AST (5-40) units/L ALT (7-56) units/L Alkaline Phosphatase (35-129) units/L Ammonia 81.0 H (25-60) umol/L Total Protein (6.3-8.2) g/dL Albumin (3.9-5) g/dL 05/01/18 05/01/18 05/01/18 Range/Units 05:04 05:04 05:08 WBC (4.5-11.0) K/mm3 RDW (13.2-15.2) % PT 28.4 H (12.2-14.9) Sec. INR 2.47 H (0.87-1.13) APTT 37.7 H (24.2-36.6) Sec. POC ABG pH 7.194 L (7.35-7.45) POC ABG pCO2 (35-45) Sodium 150 H (137-145) mmol/L Chloride 115.5 H (98-107) mmol/L Carbon Dioxide 18 L (22-30) mmol/L BUN 106 H (9-20) mg/dL Creatinine 4.2 H (0.8-1.5) mg/dL Glucose 233 H (75-100) mg/dL POC Glucose (70-105) Calcium 7.9 L (8.4-10.2) mg/dL Total Bilirubin 2.00 H (0.1-1.2) mg/dL AST 565 H (5-40) units/L ALT 200 H (7-56) units/L Alkaline Phosphatase 546 H (35-129) units/L Ammonia (25-60) umol/L Total Protein 4.9 L (6.3-8.2) g/dL Albumin 2.3 L (3.9-5) g/dL 05/01/18 Range/Units 12:57 WBC (4.5-11.0) K/mm3 RDW (13.2-15.2) % PT (12.2-14.9) Sec. INR (0.87-1.13) APTT (24.2-36.6) Sec. POC ABG pH (7.35-7.45) POC ABG pCO2 (35-45) Sodium (137-145) mmol/L Chloride (98-107) mmol/L Carbon Dioxide (22-30) mmol/L BUN (9-20) mg/dL Creatinine (0.8-1.5) mg/dL Glucose (75-100) mg/dL POC Glucose 224 H (70-105) Calcium (8.4-10.2) mg/dL Total Bilirubin (0.1-1.2) mg/dL AST (5-40) units/L ALT (7-56) units/L Alkaline Phosphatase (35-129) units/L Ammonia (25-60) umol/L Total Protein (6.3-8.2) g/dL Albumin (3.9-5) g/dL
[2018-05-01] MEDS: PROVENTIL IH PRN (21:28)
[2018-05-01] MEDS: SODIUM CHLORIDE FLUSH SYRINGE 10 ML IV PRN (21:49)
--- NOTE | 2018-05-02 02:48 | XRay Report ---
FINAL REPORT EXAM: XR CHEST 1V AP HISTORY: follow up respiratory failure TECHNIQUE: A portable semi-upright view the chest was obtained and compared to the study of 05/01/2018. FINDINGS: The tip of the ET tube is 2 cm above the zander. The NG tube is directed well into the stomach. The heart size is normal. The lungs remain diffusely congested with bilateral effusions. There are EKG leads overlying the chest wall. The skeletal structures reveal generalized osteoporosis. IMPRESSION: Stable pulmonary vascular congestion with bilateral effusions.
[2018-05-02 05:30] LABS: Hematocrit 41.3 % (35.5-45.6); Hemoglobin 12.9 gm/dl (11.8-15.2); Mean Corpuscular HGB Conc 31 % (32-34); Mean Corpuscular Hemoglobin 29 pg (28-32); Mean Corpuscular Volume 91 fl (84-94); Platelet Count 174 K/mm3 (140-440); Red Blood Count 4.52 M/mm3 (3.65-5.03); Red Cell Distribution Width 17.1 % (13.2-15.2)
[2018-05-02 05:32] LABS: Albumin 2.5 g/dL (3.9-5); Calcium 7.7 mg/dL (8.4-10.2)
[2018-05-02] MEDS: ZOSYN/NS 2.25 GM/50ML 2.25 GM/50 ML BAG IV SCH ×3 (06:00→22:39)
[2018-05-02] MEDS: HALDOL IM SCH ×4 (06:10→22:38)
--- NOTE | 2018-05-02 08:21 | Progress Note ---
Assessment and Plan 1. Acute kidney injury: Multifactroial RUFINA is in the setting of hypotension / sepsis, volume depletion and Abnormal Liver function. Continue IV fluids and Midodrine. Will also order order LETA, ANCA and Anti GBM Ab. Very low value in checking Complements in this situation. Explained to both daughters at the bedside that the Renal prognosis is guarded to slim. Patient would require hemodialysis if the renal function decline. 2. Electrolytes: Hyperkalemia, improved. Hypernatremia, continue water flushes. Metabolic acidosis, continue IV fluids. Monitor. 3. Sepsis with hypotension: Continue IV fluids. 4. Abnormal LFTs. 5. ?Hepatic Encephalopathy. 6. Respiratory failure: On vent. Subjective Date of service: 05/02/18 Principal diagnosis: SIRS Interval history: Patient was seen and examined at the bedside. Remain on the vent. Objective - Vital Signs Vital signs: Vital Signs - 12hr 05/01/18 05/01/18 05/01/18 20:30 20:45 21:01 Temperature Pulse Rate 78 81 79 Pulse Rate [ Anterior Bilateral Throughout] Pulse Rate [ Apical] Respiratory 14 16 14 Rate Respiratory Rate [Anterior Bilateral Throughout] Blood Pressure 102/68 102/68 101/66 O2 Sat by Pulse 99 99 98 Oximetry 05/01/18 05/01/18 05/01/18 21:15 21:18 21:30 Temperature Pulse Rate 82 81 Pulse Rate [ 80 Anterior Bilateral Throughout] Pulse Rate [ Apical] Respiratory 17 Rate Respiratory 15 Rate [Anterior Bilateral Throughout] Blood Pressure 108/72 108/72 O2 Sat by Pulse 97 95 Oximetry 05/01/18 05/01/18 05/01/18 21:31 21:35 21:45 Temperature Pulse Rate 82 81 Pulse Rate [ 82 Anterior Bilateral Throughout] Pulse Rate [ Apical] Respiratory 16 16 Rate Respiratory 16 Rate [Anterior Bilateral Throughout] Blood Pressure 105/66 89/71 O2 Sat by Pulse 99 Oximetry 05/01/18 05/01/18 05/01/18 22:00 22:01 22:15 Temperature Pulse Rate 78 84 84 Pulse Rate [ Anterior Bilateral Throughout] Pulse Rate [ Apical] Respiratory 18 18 Rate Respiratory Rate [Anterior Bilateral Throughout] Blood Pressure 114/76 114/76 O2 Sat by Pulse 97 98 Oximetry 05/01/18 05/01/18 05/01/18 22:31 22:45 23:00 Temperature Pulse Rate 91 H 91 H 95 H Pulse Rate [ Anterior Bilateral Throughout] Pulse Rate [ Apical] Respiratory 20 19 22 Rate Respiratory Rate [Anterior Bilateral Throughout] Blood Pressure 111/79 113/69 120/69 O2 Sat by Pulse 94 93 95 Oximetry 05/01/18 05/01/18 05/01/18 23:15 23:30 23:46 Temperature Pulse Rate 91 H 92 H 95 H Pulse Rate [ Anterior Bilateral Throughout] Pulse Rate [ Apical] Respiratory 17 20 21 Rate Respiratory Rate [Anterior Bilateral Throughout] Blood Pressure 109/77 112/67 112/67 O2 Sat by Pulse 94 93 97 Oximetry 05/02/18 05/02/18 05/02/18 00:00 00:01 00:15 Temperature 98.8 F Pulse Rate 95 H 95 H 98 H Pulse Rate [ Anterior Bilateral Throughout] Pulse Rate [ 98 H Apical] Respiratory 20 19 24 Rate Respiratory Rate [Anterior Bilateral Throughout] Blood Pressure 118/72 117/72 118/72 O2 Sat by Pulse 94 95 93 Oximetry 05/02/18 05/02/18 05/02/18 00:30 00:45 01:01 Temperature Pulse Rate 94 H 96 H 94 H Pulse Rate [ Anterior Bilateral Throughout] Pulse Rate [ Apical] Respiratory 17 20 20 Rate Respiratory Rate [Anterior Bilateral Throughout] Blood Pressure 108/63 117/63 103/67 O2 Sat by Pulse 96 96 96 Oximetry 05/02/18 05/02/18 05/02/18 01:15 01:30 01:45 Temperature Pulse Rate 94 H 93 H 97 H Pulse Rate [ Anterior Bilateral Throughout] Pulse Rate [ Apical] Respiratory 20 22 25 H Rate Respiratory Rate [Anterior Bilateral Throughout] Blood Pressure 102/69 90/72 117/63 O2 Sat by Pulse 95 94 95 Oximetry 05/02/18 05/02/18 05/02/18 02:01 02:15 02:30 Temperature Pulse Rate 95 H 93 H 93 H Pulse Rate [ Anterior Bilateral Throughout] Pulse Rate [ Apical] Respiratory 22 23 24 Rate Respiratory Rate [Anterior Bilateral Throughout] Blood Pressure 98/65 98/65 117/68 O2 Sat by Pulse 96 94 Oximetry 05/02/18 05/02/18 05/02/18 02:45 03:01 03:15 Temperature Pulse Rate 97 H 98 H 99 H Pulse Rate [ Anterior Bilateral Throughout] Pulse Rate [ Apical] Respiratory 20 34 H 18 Rate Respiratory Rate [Anterior Bilateral Throughout] Blood Pressure 117/68 112/71 117/68 O2 Sat by Pulse 97 97 97 Oximetry 05/02/18 05/02/18 05/02/18 03:30 03:45 03:47 Temperature 98.7 F Pulse Rate 95 H 97 H Pulse Rate [ Anterior Bilateral Throughout] Pulse Rate [ Apical] Respiratory 22 15 Rate Respiratory Rate [Anterior Bilateral Throughout] Blood Pressure 112/67 104/66 O2 Sat by Pulse 97 Oximetry 05/02/18 05/02/18 05/02/18 04:00 04:15 04:31 Temperature Pulse Rate 97 H 93 H 96 H Pulse Rate [ Anterior Bilateral Throughout] Pulse Rate [ 95 H Apical] Respiratory 17 17 21 Rate Respiratory Rate [Anterior Bilateral Throughout] Blood Pressure 134/89 104/66 104/66 O2 Sat by Pulse 96 97 97 Oximetry 05/02/18 05/02/18 05/02/18 04:45 05:01 05:15 Temperature Pulse Rate 93 H 95 H 95 H Pulse Rate [ Anterior Bilateral Throughout] Pulse Rate [ Apical] Respiratory 16 20 21 Rate Respiratory Rate [Anterior Bilateral Throughout] Blood Pressure 100/51 108/60 114/64 O2 Sat by Pulse 95 96 98 Oximetry 05/02/18 05/02/18 05/02/18 05:31 05:45 06:01 Temperature Pulse Rate 96 H 95 H 98 H Pulse Rate [ Anterior Bilateral Throughout] Pulse Rate [ Apical] Respiratory 23 17 25 H Rate Respiratory Rate [Anterior Bilateral Throughout] Blood Pressure 124/68 124/68 134/89 O2 Sat by Pulse 95 96 97 Oximetry 05/02/18 06:15 Temperature Pulse Rate 97 H Pulse Rate [ Anterior Bilateral Throughout] Pulse Rate [ Apical] Respiratory 22 Rate Respiratory Rate [Anterior Bilateral Throughout] Blood Pressure 116/60 O2 Sat by Pulse 97 Oximetry - General Appearance General appearance: well-developed, appears stated age, obese, intubated, other (on vent, FiO2 45%) EENT: ATNC Neck: supple Respiratory: Present: Other (coarse breath sounds) Cardiology: S1S2, no murmurs Gastrointestinal: normoactive bowel sounds, no tenderness, obese Integumentary: no rash Neurologic: obtunded Musculoskeletal: other (trace UE edema) - Lab 05/02/18 04:45 05/02/18 04:45 Most recent lab results Calcium 7.7 mg/dL (8.4-10.2) L 05/02/18 04:45 Phosphorus 3.90 mg/dL (2.5-4.5) 04/30/18 04:01 Magnesium 2.40 mg/dL (1.7-2.3) H 04/30/18 04:01
[2018-05-02] MEDS: PROVENTIL IH PRN ×2 (08:58→16:44)
[2018-05-02] MEDS: PROAMATINE FEEDTUBE SCH ×3 (09:30→19:51)
[2018-05-02] MEDS: CEPHULAC PR SCH ×3 (09:30→19:51)
[2018-05-02] MEDS: D5/0.45NS 1,000 ML IV SCH ×2 (09:31→21:11)
[2018-05-02] MEDS: SODIUM CHLORIDE FLUSH SYRINGE 10 ML IV SCH (10:00)
--- NOTE | 2018-05-02 11:54 | Progress Note ---
Assessment and Plan 72 y/o male with encephalopathy, elevated LFT's of unknown origin and acute respiratory failure on bipap not awake enough to protect airway. 1. continue supportive care with vent. Dropped FiO2 down to 45% today. 2. hypernatremia, likely from insensible losses and saline boluses for resuscitation. Needs more free water. Renal following but would suggest changing D51/2 to just plain D5 3. Family told that patient's mental status is secondary to haldol. I explained throughly to them that the pt's mental state was like this prior to intubation, which was why we electively intubated the patient in the first place. he was a contraindication to bipap. I explained that the haldol helps with agiation so that he doesn't pull at the tube but the lack of responsiveness is secondary to underlying metabolic disorders, (liver failure, renal failure). The family also states that he will make a full recovery or that they have been told he will make a full recovery. when they said this to me 3 days ago I said to them that I cannot guarantee something like that. I explained that to them again today. 4. ID requesting biopsy, abx therapy per them 5. continue free water per dobb-matt tube 6. Overall prognosis is guarded to poor. CCT 31 minutes. Subjective Date of service: 05/02/18 Principal diagnosis: SIRS Interval history: remains intubated. Not on sedation. has been getting scheduled haldol but really no improvement in mental state. LFT's improving with better BP but BUN and CR remain elevated. Did not get free water flushes last night secondary to emesis but restarted this am. Family (Daughters) at bedside. Objective Vital Signs - 12hr 05/02/18 05/02/18 05/02/18 00:00 00:01 00:15 Temperature 98.8 F Pulse Rate 95 H 95 H 98 H Pulse Rate [ Anterior Bilateral Throughout] Pulse Rate [ 98 H Apical] Respiratory 20 19 24 Rate Respiratory Rate [Anterior Bilateral Throughout] Blood Pressure 118/72 117/72 118/72 O2 Sat by Pulse 94 95 93 Oximetry 05/02/18 05/02/18 05/02/18 00:30 00:45 01:01 Temperature Pulse Rate 94 H 96 H 94 H Pulse Rate [ Anterior Bilateral Throughout] Pulse Rate [ Apical] Respiratory 17 20 20 Rate Respiratory Rate [Anterior Bilateral Throughout] Blood Pressure 108/63 117/63 103/67 O2 Sat by Pulse 96 96 96 Oximetry 05/02/18 05/02/18 05/02/18 01:15 01:30 01:45 Temperature Pulse Rate 94 H 93 H 97 H Pulse Rate [ Anterior Bilateral Throughout] Pulse Rate [ Apical] Respiratory 20 22 25 H Rate Respiratory Rate [Anterior Bilateral Throughout] Blood Pressure 102/69 90/72 117/63 O2 Sat by Pulse 95 94 95 Oximetry 05/02/18 05/02/18 05/02/18 02:01 02:15 02:30 Temperature Pulse Rate 95 H 93 H 93 H Pulse Rate [ Anterior Bilateral Throughout] Pulse Rate [ Apical] Respiratory 22 23 24 Rate Respiratory Rate [Anterior Bilateral Throughout] Blood Pressure 98/65 98/65 117/68 O2 Sat by Pulse 96 94 Oximetry 05/02/18 05/02/18 05/02/18 02:45 03:01 03:15 Temperature Pulse Rate 97 H 98 H 99 H Pulse Rate [ Anterior Bilateral Throughout] Pulse Rate [ Apical] Respiratory 20 34 H 18 Rate Respiratory Rate [Anterior Bilateral Throughout] Blood Pressure 117/68 112/71 117/68 O2 Sat by Pulse 97 97 97 Oximetry 05/02/18 05/02/18 05/02/18 03:30 03:45 03:47 Temperature 98.7 F Pulse Rate 95 H 97 H Pulse Rate [ Anterior Bilateral Throughout] Pulse Rate [ Apical] Respiratory 22 15 Rate Respiratory Rate [Anterior Bilateral Throughout] Blood Pressure 112/67 104/66 O2 Sat by Pulse 97 Oximetry 05/02/18 05/02/18 05/02/18 04:00 04:15 04:31 Temperature Pulse Rate 97 H 93 H 96 H Pulse Rate [ Anterior Bilateral Throughout] Pulse Rate [ 95 H Apical] Respiratory 17 17 21 Rate Respiratory Rate [Anterior Bilateral Throughout] Blood Pressure 134/89 104/66 104/66 O2 Sat by Pulse 96 97 97 Oximetry 05/02/18 05/02/18 05/02/18 04:45 05:01 05:15 Temperature Pulse Rate 93 H 95 H 95 H Pulse Rate [ Anterior Bilateral Throughout] Pulse Rate [ Apical] Respiratory 16 20 21 Rate Respiratory Rate [Anterior Bilateral Throughout] Blood Pressure 100/51 108/60 114/64 O2 Sat by Pulse 95 96 98 Oximetry 05/02/18 05/02/18 05/02/18 05:31 05:45 06:01 Temperature Pulse Rate 96 H 95 H 98 H Pulse Rate [ Anterior Bilateral Throughout] Pulse Rate [ Apical] Respiratory 23 17 25 H Rate Respiratory Rate [Anterior Bilateral Throughout] Blood Pressure 124/68 124/68 134/89 O2 Sat by Pulse 95 96 97 Oximetry 05/02/18 05/02/18 05/02/18 06:15 06:31 06:45 Temperature Pulse Rate 97 H 92 H 99 H Pulse Rate [ Anterior Bilateral Throughout] Pulse Rate [ Apical] Respiratory 22 19 25 H Rate Respiratory Rate [Anterior Bilateral Throughout] Blood Pressure 116/60 116/60 116/60 O2 Sat by Pulse 97 98 99 Oximetry 05/02/18 05/02/18 05/02/18 07:01 07:15 07:30 Temperature Pulse Rate 101 H 100 H 101 H Pulse Rate [ Anterior Bilateral Throughout] Pulse Rate [ Apical] Respiratory 27 H 27 H 26 H Rate Respiratory Rate [Anterior Bilateral Throughout] Blood Pressure 108/56 122/44 104/66 O2 Sat by Pulse 98 99 Oximetry 05/02/18 05/02/18 05/02/18 07:45 08:01 08:10 Temperature Pulse Rate 100 H 100 H Pulse Rate [ Anterior Bilateral Throughout] Pulse Rate [ Apical] Respiratory 22 24 Rate Respiratory Rate [Anterior Bilateral Throughout] Blood Pressure 122/69 115/65 O2 Sat by Pulse 96 Oximetry 05/02/18 05/02/18 05/02/18 08:15 08:31 08:45 Temperature Pulse Rate 97 H 101 H 100 H Pulse Rate [ Anterior Bilateral Throughout] Pulse Rate [ Apical] Respiratory 21 21 27 H Rate Respiratory Rate [Anterior Bilateral Throughout] Blood Pressure 115/65 119/62 119/62 O2 Sat by Pulse Oximetry 05/02/18 05/02/18 05/02/18 08:58 08:59 09:01 Temperature Pulse Rate 99 H 98 H Pulse Rate [ 93 H Anterior Bilateral Throughout] Pulse Rate [ Apical] Respiratory 22 Rate Respiratory 20 Rate [Anterior Bilateral Throughout] Blood Pressure 119/56 119/56 O2 Sat by Pulse 95 Oximetry 05/02/18 05/02/18 05/02/18 09:15 09:31 09:45 Temperature Pulse Rate 96 H 92 H 95 H Pulse Rate [ Anterior Bilateral Throughout] Pulse Rate [ Apical] Respiratory 21 18 12 Rate Respiratory Rate [Anterior Bilateral Throughout] Blood Pressure 119/62 102/70 102/70 O2 Sat by Pulse Oximetry 05/02/18 05/02/18 05/02/18 10:01 10:15 10:30 Temperature Pulse Rate 95 H 96 H 92 H Pulse Rate [ Anterior Bilateral Throughout] Pulse Rate [ Apical] Respiratory 21 22 18 Rate Respiratory Rate [Anterior Bilateral Throughout] Blood Pressure 119/56 101/62 101/62 O2 Sat by Pulse Oximetry 05/02/18 05/02/18 10:45 11:01 Temperature Pulse Rate 94 H 96 H Pulse Rate [ Anterior Bilateral Throughout] Pulse Rate [ Apical] Respiratory 23 23 Rate Respiratory Rate [Anterior Bilateral Throughout] Blood Pressure 102/70 122/71 O2 Sat by Pulse 95 Oximetry Constitutional: no acute distress, other (Stuporous) Eyes: other (will not open on request, but once open clear) ENT: other (full face mask bipap on) Neck: supple, other (large in circumference) Effort: normal Ascultation: Bilateral: diminished breath sounds Percussion: Bilateral: not dull Cardiovascular: regular rate and rhythm Gastrointestinal: soft, other (obese) Extremities: no edema Neurologic: unable to assess CBC and BMP: 05/02/18 04:45 05/02/18 04:45 ABG, PT/INR, D-dimer: ABG POC ABG pH 7.194 (7.35-7.45) L 05/02/18 03:27 POC ABG pCO2 41.4 (35-45) 05/02/18 03:27 POC ABG pO2 60 (80-105) L 05/02/18 03:27 POC ABG HCO3 15.9 05/02/18 03:27 POC ABG Total CO2 17 05/02/18 03:27 POC ABG O2 Sat 84 05/02/18 03:27 PT/INR, D-dimer PT 28.4 Sec. (12.2-14.9) H 05/01/18 05:04 INR 2.47 (0.87-1.13) H 05/01/18 05:04 Abnormal lab findings: Abnormal Labs 04/26/18 04/26/18 04/26/18 11:33 11:33 11:33 WBC 14.7 H RBC 5.07 H Hct 45.8 H MCHC RDW 16.2 H Seg Neuts % (Manual) 75.0 H Lymphocytes % (Manual) 4.0 L Monocytes % (Manual) 8.0 H Eosinophils % (Manual) 8.0 H Seg Neutrophils # Man 11.0 H Lymphocytes # (Manual) 0.6 L Monocytes # (Manual) 1.2 H Eosinophils # (Manual) 1.2 H PT 18.4 H INR 1.44 H APTT POC ABG pH POC ABG pCO2 POC ABG pO2 VBG pH Sodium 135 L Potassium 5.3 H Chloride 97.7 L Carbon Dioxide 15 L BUN 76 H Creatinine 5.2 H Glucose 101 H POC Glucose Lactic Acid Calcium Magnesium Total Bilirubin 1.60 H AST 285 H ALT 131 H Alkaline Phosphatase 856 H Ammonia Total Creatine Kinase C-Reactive Protein Total Protein Albumin 3.2 L Lipase 04/26/18 04/26/18 04/26/18 11:33 11:33 21:20 WBC RBC Hct MCHC RDW Seg Neuts % (Manual) Lymphocytes % (Manual) Monocytes % (Manual) Eosinophils % (Manual) Seg Neutrophils # Man Lymphocytes # (Manual) Monocytes # (Manual) Eosinophils # (Manual) PT INR APTT POC ABG pH POC ABG pCO2 POC ABG pO2 VBG pH 7.268 L Sodium Potassium Chloride Carbon Dioxide BUN Creatinine Glucose POC Glucose Lactic Acid 2.30 H* 3.00 H* Calcium Magnesium Total Bilirubin AST ALT Alkaline Phosphatase Ammonia Total Creatine Kinase C-Reactive Protein Total Protein Albumin Lipase 04/26/18 04/26/18 04/27/18 21:20 21:20 05:52 WBC 17.0 H RBC Hct MCHC RDW 15.7 H Seg Neuts % (Manual) 79.0 H Lymphocytes % (Manual) 8.0 L Monocytes % (Manual) Eosinophils % (Manual) Seg Neutrophils # Man 13.4 H Lymphocytes # (Manual) Monocytes # (Manual) 0.9 H Eosinophils # (Manual) PT INR APTT POC ABG pH POC ABG pCO2 POC ABG pO2 VBG pH Sodium Potassium Chloride Carbon Dioxide 16 L BUN 75 H Creatinine 4.7 H Glucose 128 H POC Glucose Lactic Acid Calcium Magnesium Total Bilirubin AST ALT Alkaline Phosphatase Ammonia 123.0 H Total Creatine Kinase C-Reactive Protein Total Protein Albumin Lipase 68 H 04/27/18 04/27/18 04/27/18 05:52 14:13 16:28 WBC 18.2 H RBC Hct MCHC RDW 16.1 H Seg Neuts % (Manual) 84.0 H Lymphocytes % (Manual) 8.0 L Monocytes % (Manual) Eosinophils % (Manual) Seg Neutrophils # Man 15.3 H Lymphocytes # (Manual) Monocytes # (Manual) Eosinophils # (Manual) 0.5 H PT INR APTT POC ABG pH POC ABG pCO2 POC ABG pO2 VBG pH Sodium Potassium Chloride Carbon Dioxide 19 L BUN 75 H Creatinine 4.2 H Glucose 110 H POC Glucose Lactic Acid Calcium Magnesium Total Bilirubin 1.90 H AST 244 H ALT 120 H Alkaline Phosphatase 777 H Ammonia Total Creatine Kinase 373 H C-Reactive Protein 16.50 H Total Protein 5.9 L Albumin 3.4 L Lipase 04/28/18 04/28/18 04/29/18 15:41 15:41 08:12 WBC RBC Hct MCHC RDW Seg Neuts % (Manual) Lymphocytes % (Manual) Monocytes % (Manual) Eosinophils % (Manual) Seg Neutrophils # Man Lymphocytes # (Manual) Monocytes # (Manual) Eosinophils # (Manual) PT INR APTT POC ABG pH POC ABG pCO2 POC ABG pO2 VBG pH Sodium Potassium Chloride 108.6 H Carbon Dioxide 14 L BUN 76 H Creatinine 3.0 H Glucose 60 L POC Glucose Lactic Acid Calcium 8.1 L Magnesium Total Bilirubin 2.20 H AST 416 H ALT 136 H Alkaline Phosphatase 674 H Ammonia 76.0 H 134.0 H Total Creatine Kinase 497 H C-Reactive Protein Total Protein 5.2 L Albumin 3.0 L Lipase 04/29/18 04/29/18 04/29/18 08:12 08:12 19:24 WBC 13.8 H RBC Hct MCHC RDW 16.2 H Seg Neuts % (Manual) Lymphocytes % (Manual) Monocytes % (Manual) Eosinophils % (Manual) Seg Neutrophils # Man Lymphocytes # (Manual) Monocytes # (Manual) Eosinophils # (Manual) PT INR APTT POC ABG pH 7.244 L POC ABG pCO2 POC ABG pO2 172 H VBG pH Sodium 149 H Potassium Chloride 113.3 H Carbon Dioxide 16 L BUN 79 H Creatinine 2.8 H Glucose 69 L POC Glucose Lactic Acid Calcium Magnesium Total Bilirubin 2.40 H AST 423 H ALT 128 H Alkaline Phosphatase 657 H Ammonia Total Creatine Kinase 435 H C-Reactive Protein Total Protein 5.4 L Albumin 2.6 L Lipase 04/30/18 04/30/18 04/30/18 04:01 04:01 04:11 WBC RBC Hct MCHC RDW Seg Neuts % (Manual) Lymphocytes % (Manual) Monocytes % (Manual) Eosinophils % (Manual) Seg Neutrophils # Man Lymphocytes # (Manual) Monocytes # (Manual) Eosinophils # (Manual) PT 25.8 H INR 2.19 H APTT POC ABG pH POC ABG pCO2 POC ABG pO2 VBG pH Sodium 146 H Potassium Chloride 111.9 H Carbon Dioxide 19 L BUN 85 H Creatinine 3.5 H Glucose 261 H POC Glucose Lactic Acid Calcium 8.1 L Magnesium 2.40 H Total Bilirubin 2.60 H AST 1008 H ALT 217 H Alkaline Phosphatase 620 H Ammonia 80.0 H Total Creatine Kinase C-Reactive Protein Total Protein 4.9 L Albumin 2.7 L Lipase 04/30/18 04/30/18 05/01/18 11:59 16:23 05:04 WBC RBC Hct MCHC RDW Seg Neuts % (Manual) Lymphocytes % (Manual) Monocytes % (Manual) Eosinophils % (Manual) Seg Neutrophils # Man Lymphocytes # (Manual) Monocytes # (Manual) Eosinophils # (Manual) PT INR APTT POC ABG pH 7.252 L 7.179 L POC ABG pCO2 49.1 H POC ABG pO2 115 H VBG pH Sodium Potassium Chloride Carbon Dioxide BUN Creatinine Glucose POC Glucose Lactic Acid Calcium Magnesium Total Bilirubin AST ALT Alkaline Phosphatase Ammonia 81.0 H Total Creatine Kinase C-Reactive Protein Total Protein Albumin Lipase 05/01/18 05/01/18 05/01/18 05:04 05:04 05:04 WBC 11.2 H RBC Hct MCHC RDW 17.1 H Seg Neuts % (Manual) Lymphocytes % (Manual) Monocytes % (Manual) Eosinophils % (Manual) Seg Neutrophils # Man Lymphocytes # (Manual) Monocytes # (Manual) Eosinophils # (Manual) PT 28.4 H INR 2.47 H APTT 37.7 H POC ABG pH POC ABG pCO2 POC ABG pO2 VBG pH Sodium 150 H Potassium Chloride 115.5 H Carbon Dioxide 18 L BUN 106 H Creatinine 4.2 H Glucose 233 H POC Glucose Lactic Acid Calcium 7.9 L Magnesium Total Bilirubin 2.00 H AST 565 H ALT 200 H Alkaline Phosphatase 546 H Ammonia Total Creatine Kinase C-Reactive Protein Total Protein 4.9 L Albumin 2.3 L Lipase 05/01/18 05/01/18 05/01/18 05:08 12:57 18:31 WBC RBC Hct MCHC RDW Seg Neuts % (Manual) Lymphocytes % (Manual) Monocytes % (Manual) Eosinophils % (Manual) Seg Neutrophils # Man Lymphocytes # (Manual) Monocytes # (Manual) Eosinophils # (Manual) PT INR APTT POC ABG pH 7.194 L POC ABG pCO2 POC ABG pO2 VBG pH Sodium Potassium Chloride Carbon Dioxide BUN Creatinine Glucose POC Glucose 224 H 250 H Lactic Acid Calcium Magnesium Total Bilirubin AST ALT Alkaline Phosphatase Ammonia Total Creatine Kinase C-Reactive Protein Total Protein Albumin Lipase 05/02/18 05/02/18 05/02/18 03:27 04:45 04:45 WBC 19.9 H RBC Hct MCHC 31 L RDW 17.1 H Seg Neuts % (Manual) Lymphocytes % (Manual) Monocytes % (Manual) Eosinophils % (Manual) Seg Neutrophils # Man Lymphocytes # (Manual) Monocytes # (Manual) Eosinophils # (Manual) PT INR APTT POC ABG pH 7.194 L POC ABG pCO2 POC ABG pO2 60 L VBG pH Sodium 150 H Potassium Chloride 117.6 H Carbon Dioxide 15 L BUN 104 H Creatinine 3.7 H Glucose 190 H POC Glucose Lactic Acid Calcium 7.7 L Magnesium Total Bilirubin 2.00 H AST 349 H ALT 185 H Alkaline Phosphatase 561 H Ammonia Total Creatine Kinase C-Reactive Protein Total Protein 4.8 L Albumin 2.5 L Lipase 05/02/18 05:18 WBC RBC Hct MCHC RDW Seg Neuts % (Manual) Lymphocytes % (Manual) Monocytes % (Manual) Eosinophils % (Manual) Seg Neutrophils # Man Lymphocytes # (Manual) Monocytes # (Manual) Eosinophils # (Manual) PT INR APTT POC ABG pH POC ABG pCO2 POC ABG pO2 VBG pH Sodium Potassium Chloride Carbon Dioxide BUN Creatinine Glucose POC Glucose 186 H Lactic Acid Calcium Magnesium Total Bilirubin AST ALT Alkaline Phosphatase Ammonia Total Creatine Kinase C-Reactive Protein Total Protein Albumin Lipase
--- NOTE | 2018-05-02 13:26 | Gastroenterology Progress Note ---
Assessment and Plan Liver: pt h/o etoh use now with initial decrease mental status and increase ammonia - pt became increasingly agitated and intubated - possible liver related encephalopathy given noted increase ammonia now improving - continue lactulose enema, follow ammonia level - follow labs ETOH: probable withdrawal - management per team - other issues per primary tea, - will follow closely Subjective Date of service: 05/02/18 Principal diagnosis: SIRS Interval history: - no changes overnight per staff Objective - Exam Narrative Exam: intubated, NAD - Constitutional Vitals: Temp Pulse Resp BP Pulse Ox 98.7 F 99 H 26 H 122/74 95 05/02/18 03:47 05/02/18 12:45 05/02/18 12:45 05/02/18 12:45 05/02/18 12:45 General appearance: no acute distress - EENT Eyes: PERRL - Respiratory Respiratory: bilateral: rhonchi - Cardiovascular Rhythm: regular Heart Sounds: Present: S1 & S2 - Gastrointestinal General gastrointestinal: Present: soft, non-tender, distended - Labs CBC & Chem 7: 05/02/18 04:45 05/02/18 04:45 Labs: Laboratory Results - last 24 hr 05/01/18 05/02/18 05/02/18 18:31 03:27 04:45 WBC 19.9 H RBC 4.52 Hgb 12.9 Hct 41.3 MCV 91 MCH 29 MCHC 31 L RDW 17.1 H Plt Count 174 POC ABG pH 7.194 L POC ABG pCO2 41.4 POC ABG pO2 60 L POC ABG HCO3 15.9 POC ABG Total CO2 17 POC ABG O2 Sat 84 POC ABG Base Excess -12 FiO2 50 Sodium Potassium Chloride Carbon Dioxide Anion Gap BUN Creatinine Estimated GFR BUN/Creatinine Ratio Glucose POC Glucose 250 H Calcium Total Bilirubin AST ALT Alkaline Phosphatase Ammonia Total Protein Albumin Albumin/Globulin Ratio 05/02/18 05/02/18 05/02/18 04:45 05:18 11:19 WBC RBC Hgb Hct MCV MCH MCHC RDW Plt Count POC ABG pH POC ABG pCO2 POC ABG pO2 POC ABG HCO3 POC ABG Total CO2 POC ABG O2 Sat POC ABG Base Excess FiO2 Sodium 150 H Potassium 4.6 Chloride 117.6 H Carbon Dioxide 15 L Anion Gap 22 BUN 104 H Creatinine 3.7 H Estimated GFR 16 BUN/Creatinine Ratio 28 Glucose 190 H POC Glucose 186 H Calcium 7.7 L Total Bilirubin 2.00 H AST 349 H ALT 185 H Alkaline Phosphatase 561 H Ammonia 83.0 H Total Protein 4.8 L Albumin 2.5 L Albumin/Globulin Ratio 1.1 05/02/18 12:11 WBC RBC Hgb Hct MCV MCH MCHC RDW Plt Count POC ABG pH POC ABG pCO2 POC ABG pO2 POC ABG HCO3 POC ABG Total CO2 POC ABG O2 Sat POC ABG Base Excess FiO2 Sodium Potassium Chloride Carbon Dioxide Anion Gap BUN Creatinine Estimated GFR BUN/Creatinine Ratio Glucose POC Glucose 175 H Calcium Total Bilirubin AST ALT Alkaline Phosphatase Ammonia Total Protein Albumin Albumin/Globulin Ratio
--- NOTE | 2018-05-02 13:38 | Progress Note ---
Assessment and Plan Assessment and plan: Patient is a 72 yo man with a history of chronic hypoxic Respiratory Failure on Home Oxygen due to End Stage COPD and HTN who presented to ED shortness of breath, hematuria and confusion/drowsiness, * CT ABDOMEN AND PELVIS WITHOUT CONTRAST CONCLUSION: 1. Peripheral right hepatic hypodense mass(es) now suspected with new small perihepatic ascites on this limited, unenhanced exam, as described. Subtle fat stranding may also be noted about the pancreas and the gallbladder. 2. Various other findings as distal esophageal thickening, hepatomegaly, cecum/proximal ascending colon CT appearance, enlarged prostate and small pelvic ascites, amongst others, as detailed above. * CT HEAD WITHOUT CONTRAST CONCLUSION: No acute intracranial CT abnormality with sinusitis and few other findings, as described. * pCXR CONCLUSION: No acute chest process with chronic interstitial lung disease again suspected. * * HIDA IMPRESSION: No cystic or common bile duct obstruction. Post Kinevac ejection fraction 35%. * * Abd U/S IMPRESSION: Cholelithiasis. No evidence for acute cholecystitis. The common bile duct is mildly dilated at 8.2 mm which could represent choledocholithiasis. Nonspecific renal parenchymal disease and liver normal -SIRS with suspected early Sepsis without clear source, poa: consult ID: IV antibiotics, serial lactic acid, monitor uop q shift, blood cultures, urinalysis , chest x ray, IVF resuscitation therapy -Acute Hepatic Encephalopathy: treat with Lactulose -Acute renal failure, suspect ATN with hypotension + vasomotor nephropathy, poa: treat with ivf, consult Nephrology -Lactic Acidosis: Treat sepsis, monitor uop q shift, iv bicarbonate prn -Alcohol withdrawal syndrome (patient did have a fever and you can be either hypertensive or hypotensive with Etoh withdrawal): limit iv ativan due to liver dysfunction, Serax/Oxazepam was not available, Restarted IV Ativan -Hypoglycemia: started D5W but IVF changed by rn research, Dr. Masters -Hepatitis with ascities: CT Abdomen and pelvis noted, LFT, Hepatitis panel, consulted GI -Hematuria: resolved, outpatient urology F/U recommended -DVT prophylaxis: SCD to BLE while in bed -Evidence of L[place]o Reticularis legs guarded prognosis full code MRCP==>IMPRESSION: Grossly limited study due to motion artifacts and the MRCP is nondiagnostic. Inhomogeneous signal is noted in the liver. Any underlying mass lesions cannot be excluded. Mild degree bilateral pleural effusions and mild degree ascites. Gallbladder is minimally distended with mild degree wall thickening. This may be secondary to chronic cholecystitis versus postprandial status. Other etiologies of gallbladder wall thickening include hepatitis, ascites etc. Small hiatal hernia Small cystic lesions of right kidney are most likely of simple nature. MRI unable to be done. He was transferred to the to ICU 04/29/18 and Intubated 04/30/18 Added Iv solu-cortef on 04/30/18 for sepsis shock and on prednisone at home, Bp slightly improved on re-check Intubated, Day 3 Consult Intensvist===> Intubated yesterday for airway protection. +Streptococcus bacteremia, ID is following. Get 2D Echo pending History Interval history: Patient was seen and examined. Follow-up on current diagnosis of AMS, now intubated, day 2. Imaging, nursing note, chart, labs and old chart reviewed. Moved ICU to . D/w gianfranco Apryl at bedside Hospitalist Physical - Physical exam Narrative exam: GEN: ill appearing, intubated HEENT: NCAT, EOMI, PERRL, OP mm dry, ETT and Ngt in place NECK: supple, no adenopathy, CVS/HEART: Regular tachycardia, normal S1S2, pulses present bilaterally CHEST/LUNGS: bilateral rhonchi and diminished bs bilateral, Symmetrical chest expansion, good air entry bilaterally GI/Abdomen: soft, protuberant, ruq tender with good bowel sounds, no guarding or rebound /Bladder: no suprapubic tenderness, no CVA or paraspinal tenderness EXT/Skin: no c/c/e, no obvious rash MSK: spontaneous ROM x 4 Neuro: CN 2-12 grossly intact, no new focal deficits . Psych: confused - Constitutional Vitals: Temp Pulse Resp BP Pulse Ox 98.7 F 99 H 26 H 122/74 95 05/02/18 03:47 05/02/18 12:45 05/02/18 12:45 05/02/18 12:45 05/02/18 12:45 General appearance: Absent: mild distress Results - Labs CBC & Chem 7: 05/02/18 04:45 05/02/18 04:45 Labs: Laboratory Last Values WBC 19.9 K/mm3 (4.5-11.0) H 05/02/18 04:45 RBC 4.52 M/mm3 (3.65-5.03) 05/02/18 04:45 Hgb 12.9 gm/dl (11.8-15.2) 05/02/18 04:45 Hct 41.3 % (35.5-45.6) 05/02/18 04:45 MCV 91 fl (84-94) 05/02/18 04:45 MCH 29 pg (28-32) 05/02/18 04:45 MCHC 31 % (32-34) L 05/02/18 04:45 RDW 17.1 % (13.2-15.2) H 05/02/18 04:45 Plt Count 174 K/mm3 (140-440) 05/02/18 04:45 Add Manual Diff Complete 04/27/18 14:13 Total Counted 100 04/27/18 14:13 Seg Neuts % (Manual) 84.0 % (40.0-70.0) H 04/27/18 14:13 Band Neutrophils % 3.0 % 04/27/18 14:13 Lymphocytes % (Manual) 8.0 % (13.4-35.0) L 04/27/18 14:13 Reactive Lymphs % (Man) 0 % 04/27/18 14:13 Monocytes % (Manual) 1.0 % (0.0-7.3) 04/27/18 14:13 Eosinophils % (Manual) 3.0 % (0.0-4.3) 04/27/18 14:13 Basophils % (Manual) 0 % (0.0-1.8) 04/27/18 14:13 Metamyelocytes % 1.0 % 04/27/18 14:13 Myelocytes % 0 % 04/27/18 14:13 Promyelocytes % 0 % 04/27/18 14:13 Blast Cells % 0 % 04/27/18 14:13 Nucleated RBC % Not Reportable 04/27/18 14:13 Seg Neutrophils # Man 15.3 K/mm3 (1.8-7.7) H 04/27/18 14:13 Band Neutrophils # 0.5 K/mm3 04/27/18 14:13 Lymphocytes # (Manual) 1.5 K/mm3 (1.2-5.4) 04/27/18 14:13 Abs React Lymphs (Man) 0.0 K/mm3 04/27/18 14:13 Monocytes # (Manual) 0.2 K/mm3 (0.0-0.8) 04/27/18 14:13 Eosinophils # (Manual) 0.5 K/mm3 (0.0-0.4) H 04/27/18 14:13 Basophils # (Manual) 0.0 K/mm3 (0.0-0.1) 04/27/18 14:13 Metamyelocytes # 0.2 K/mm3 04/27/18 14:13 Myelocytes # 0.0 K/mm3 04/27/18 14:13 Promyelocytes # 0.0 K/mm3 04/27/18 14:13 Blast Cells # 0.0 K/mm3 04/27/18 14:13 WBC Morphology Not Reportable 04/27/18 14:13 Hypersegmented Neuts Not Reportable 04/27/18 14:13 Hyposegmented Neuts Not Reportable 04/27/18 14:13 Hypogranular Neuts Not Reportable 04/27/18 14:13 Smudge Cells Not Reportable 04/27/18 14:13 Toxic Granulation Not Reportable 04/27/18 14:13 Toxic Vacuolation Not Reportable 04/27/18 14:13 Dohle Bodies Not Reportable 04/27/18 14:13 Pelger-Huet Anomaly Not Reportable 04/27/18 14:13 Aidan Rods Not Reportable 04/27/18 14:13 Platelet Estimate Appears normal 04/27/18 14:13 Clumped Platelets Not Reportable 04/27/18 14:13 Plt Clumps, EDTA Not Reportable 04/27/18 14:13 Large Platelets Few 04/27/18 14:13 Giant Platelets Not Reportable 04/27/18 14:13 Platelet Satelliting Not Reportable 04/27/18 14:13 Plt Morphology Comment Not Reportable 04/27/18 14:13 RBC Morphology Not Reportable 04/27/18 14:13 Dimorphic RBCs Not Reportable 04/27/18 14:13 Polychromasia Not Reportable 04/27/18 14:13 Hypochromasia Not Reportable 04/27/18 14:13 Poikilocytosis Not Reportable 04/27/18 14:13 Anisocytosis Not Reportable 04/27/18 14:13 Microcytosis Not Reportable 04/27/18 14:13 Macrocytosis Not Reportable 04/27/18 14:13 Spherocytes Not Reportable 04/27/18 14:13 Pappenheimer Bodies Not Reportable 04/27/18 14:13 Sickle Cells Not Reportable 04/27/18 14:13 Target Cells Not Reportable 04/27/18 14:13 Tear Drop Cells Not Reportable 04/27/18 14:13 Ovalocytes Not Reportable 04/27/18 14:13 Helmet Cells Few 04/27/18 14:13 Gabriel-Shelby Bodies Not Reportable 04/27/18 14:13 [place] Rings Not Reportable 04/27/18 14:13 [place] Cells Not Reportable 04/27/18 14:13 Bite Cells Not Reportable 04/27/18 14:13 Crenated Cell Not Reportable 04/27/18 14:13 Elliptocytes Not Reportable 04/27/18 14:13 Acanthocytes (Spur) Not Reportable 04/27/18 14:13 Rouleaux Not Reportable 04/27/18 14:13 Hemoglobin C Crystals Not Reportable 04/27/18 14:13 Schistocytes Not Reportable 04/27/18 14:13 Malaria parasites Not Reportable 04/27/18 14:13 Donaldo Bodies Not Reportable 04/27/18 14:13 Hem Pathologist Commnt No 04/27/18 14:13 PT 28.4 Sec. (12.2-14.9) H 05/01/18 05:04 INR 2.47 (0.87-1.13) H 05/01/18 05:04 APTT 37.7 Sec. (24.2-36.6) H 05/01/18 05:04 POC ABG pH 7.194 (7.35-7.45) L 05/02/18 03:27 POC ABG pCO2 41.4 (35-45) 05/02/18 03:27 POC ABG pO2 60 (80-105) L 05/02/18 03:27 POC ABG HCO3 15.9 05/02/18 03:27 POC ABG Total CO2 17 05/02/18 03:27 POC ABG O2 Sat 84 05/02/18 03:27 POC ABG Base Excess -12 05/02/18 03:27 VBG pH 7.268 (7.320-7.420) L 04/26/18 11:33 FiO2 50 % 05/02/18 03:27 Sodium 150 mmol/L (137-145) H 05/02/18 04:45 Potassium 4.6 mmol/L (3.6-5.0) 05/02/18 04:45 Chloride 117.6 mmol/L (98-107) H 05/02/18 04:45 Carbon Dioxide 15 mmol/L (22-30) L 05/02/18 04:45 Anion Gap 22 mmol/L 05/02/18 04:45 BUN 104 mg/dL (9-20) H 05/02/18 04:45 Creatinine 3.7 mg/dL (0.8-1.5) H 05/02/18 04:45 Estimated GFR 16 ml/min 05/02/18 04:45 BUN/Creatinine Ratio 28 % 05/02/18 04:45 Glucose 190 mg/dL (75-100) H 05/02/18 04:45 POC Glucose 175 (70-105) H 05/02/18 12:11 Lactic Acid 1.90 mmol/L (0.7-2.0) 04/27/18 05:52 Calcium 7.7 mg/dL (8.4-10.2) L 05/02/18 04:45 Phosphorus 3.90 mg/dL (2.5-4.5) 04/30/18 04:01 Magnesium 2.40 mg/dL (1.7-2.3) H 04/30/18 04:01 Total Bilirubin 2.00 mg/dL (0.1-1.2) H 05/02/18 04:45 AST 349 units/L (5-40) H 05/02/18 04:45 ALT 185 units/L (7-56) H 05/02/18 04:45 Alkaline Phosphatase 561 units/L (35-129) H 05/02/18 04:45 Ammonia 83.0 umol/L (25-60) H 05/02/18 11:19 Total Creatine Kinase 435 units/L (55-170) H 04/29/18 08:12 C-Reactive Protein 16.50 mg/dL (0.00-1.30) H 06/19/18 16:28 Total Protein 4.8 g/dL (6.3-8.2) L 05/02/18 04:45 Albumin 2.5 g/dL (3.9-5) L 05/02/18 04:45 Albumin/Globulin Ratio 1.1 % 05/02/18 04:45 Lipase 68 units/L (13-60) H 04/26/18 21:20 Urine Color Rosalia (Yellow) 04/26/18 12:58 Urine Turbidity Clear (Clear) 04/26/18 12:58 Urine pH 5.0 (5.0-7.0) 04/26/18 12:58 Ur Specific [place] 1.017 (1.003-1.030) 04/26/18 12:58 Urine Protein 30 mg/dl mg/dL (Negative) 04/26/18 12:58 Urine Glucose (UA) Neg mg/dL (Negative) 04/26/18 12:58 Urine Ketones Neg mg/dL (Negative) 04/26/18 12:58 Urine Blood Neg (Negative) 04/26/18 12:58 Urine Nitrite Neg (Negative) 04/26/18 12:58 Urine Bilirubin Neg (Negative) 04/26/18 12:58 Urine Urobilinogen < 2.0 mg/dL (<2.0) 04/26/18 12:58 Ur Leukocyte Esterase Neg (Negative) 04/26/18 12:58 Urine WBC (Auto) 2.0 /HPF (0.0-6.0) 04/26/18 12:58 Urine RBC (Auto) 1.0 /HPF (0.0-6.0) 04/26/18 12:58 U Epithel Cells (Auto) < 1.0 /HPF (0-13.0) 04/26/18 12:58 Random Vancomycin 9.6 ug/mL (0-40.0) 04/28/18 15:41 Hepatitis A IgM Ab Non-reactive (NonReactive) 04/26/18 21:20 Hep Bs Antigen Non-reactive (Negative) 04/26/18 21:20 Hep B Core IgM Ab Non-reactive (NonReactive) 04/26/18 21:20 Hepatitis C Antibody Non-reactive (NonReactive) 04/26/18 21:20 HIV 1&2 Antibody Rapid Non react (Non React) 04/27/18 16:28 HIV P24 Antigen Non react (Non React) 04/27/18 16:28
[2018-05-02 15:43] LABS: Creatinine,Urine 141.6 mg/dL (0.1-20.0)
[2018-05-03] MEDS: HALDOL IM SCH ×5 (02:50→22:11)
--- NOTE | 2018-05-03 03:29 | XRay Report ---
FINAL REPORT EXAM: XR CHEST 1V AP HISTORY: follow up respiratory failure TECHNIQUE: A portable semi-upright view the chest was obtained and compared to the study 05/02/2018. FINDINGS: The lungs remain diffusely congested with bilateral effusions. There is patchy airspace disease in the right lung base unchanged. The heart is mildly enlarged. The tip of the ET tube remains 1 cm above the zander. There is an NG tube coursing into the stomach. The skeletal structures otherwise are unchanged. IMPRESSION: Stable pulmonary vascular congestion with bilateral effusions. Stable airspace disease in the right lung base.
[2018-05-03 04:47] LABS: Hemoglobin 12.8 gm/dl (11.8-15.2); Mean Corpuscular HGB Conc 31 % (32-34); Mean Corpuscular Hemoglobin 28 pg (28-32); Mean Corpuscular Volume 90 fl (84-94); Platelet Count 175 K/mm3 (140-440); Red Blood Count 4.57 M/mm3 (3.65-5.03); Red Cell Distribution Width 17.2 % (13.2-15.2)
[2018-05-03] MEDS: SODIUM CHLORIDE FLUSH SYRINGE 10 ML IV SCH ×3 (05:09→22:13)
[2018-05-03] MEDS: ZOSYN/NS 2.25 GM/50ML 2.25 GM/50 ML BAG IV SCH ×3 (05:11→21:40)
[2018-05-03 05:14] LABS: Albumin 2.5 g/dL (3.9-5); Calcium 7.9 mg/dL (8.4-10.2)
--- NOTE | 2018-05-03 08:51 | Progress Note ---
Assessment and Plan ARF/MV support. Adequate ABGs on oxygen but still with mixed acidosis pattern Hepatic failure. See GI comments. Supportive care CLD Sepsis. Completing antibiotics. Hepatic encephalopathy. On lactulose Acdosis,metabolic/respiratory ETOH abuse. Hypoalbuminemia Recommendations Increase respiratory rate to 22 Updated arterial blood gases in 1 hour and evaluate for additional changes Continue lactulose Continue antibiotics Follow-up on GI and ID recommendations Albumin replacement if and her 2.5 g Asked nephrology for additional diuretic interventions, right pleural effusion. Patient's status discussed with his daughter at the bedside in detail. All questions answered Critical care time was 31 minutes of [id number] evaluation and coordination of care Subjective Date of service: 05/03/18 Principal diagnosis: SIRS,Hepatic encephalopathy,ARF/MV support Interval history: Intubated, nonresponsive Objective Vital Signs - 12hr 05/02/18 05/02/18 05/02/18 21:01 21:15 21:30 Temperature Pulse Rate 108 H 125 H 109 H Respiratory 31 H 32 H 34 H Rate Blood Pressure 131/74 131/74 O2 Sat by Pulse 94 93 Oximetry 05/02/18 05/02/18 05/02/18 21:46 22:00 22:16 Temperature Pulse Rate 108 H 106 H 105 H Respiratory 31 H 29 H 32 H Rate Blood Pressure 131/80 131/80 O2 Sat by Pulse 93 93 93 Oximetry 05/02/18 05/02/18 05/02/18 22:30 22:46 23:00 Temperature Pulse Rate 107 H 108 H 105 H Respiratory 29 H 30 H 29 H Rate Blood Pressure 122/69 122/69 127/73 O2 Sat by Pulse 94 94 92 Oximetry 05/02/18 05/02/18 05/02/18 23:16 23:30 23:38 Temperature Pulse Rate 108 H 109 H 109 H Respiratory 25 H 31 H 29 H Rate Blood Pressure 127/73 127/73 135/83 O2 Sat by Pulse 94 93 94 Oximetry 05/02/18 05/03/18 05/03/18 23:46 00:00 00:16 Temperature 98.6 F Pulse Rate 105 H 109 H 109 H Respiratory 30 H 22 32 H Rate Blood Pressure 135/83 148/82 148/82 O2 Sat by Pulse 94 93 94 Oximetry 05/03/18 05/03/18 05/03/18 00:30 00:46 01:00 Temperature Pulse Rate 108 H 109 H 112 H Respiratory 29 H 33 H 35 H Rate Blood Pressure 148/82 148/82 148/82 O2 Sat by Pulse 94 94 94 Oximetry 05/03/18 05/03/18 05/03/18 01:16 01:30 01:46 Temperature Pulse Rate 113 H 114 H 111 H Respiratory 35 H 35 H 32 H Rate Blood Pressure 125/77 125/77 114/78 O2 Sat by Pulse 94 92 92 Oximetry 05/03/18 05/03/18 05/03/18 02:00 02:16 02:30 Temperature Pulse Rate 113 H 113 H 112 H Respiratory 34 H 33 H 36 H Rate Blood Pressure 133/82 133/82 121/79 O2 Sat by Pulse 92 93 94 Oximetry 05/03/18 05/03/18 05/03/18 02:46 03:00 03:16 Temperature Pulse Rate 110 H 109 H 109 H Respiratory 33 H 34 H 32 H Rate Blood Pressure 121/79 121/75 121/79 O2 Sat by Pulse 95 94 94 Oximetry 05/03/18 05/03/18 05/03/18 03:30 03:46 04:00 Temperature 98.8 F Pulse Rate 107 H 107 H 108 H Respiratory 28 H 32 H 33 H Rate Blood Pressure 131/76 131/76 119/73 O2 Sat by Pulse 92 93 93 Oximetry 05/03/18 05/03/18 05/03/18 04:16 04:22 04:30 Temperature Pulse Rate 105 H 104 H 103 H Respiratory 30 H 30 H Rate Blood Pressure 119/73 119/74 119/73 O2 Sat by Pulse 94 95 94 Oximetry 05/03/18 05/03/18 05/03/18 04:46 05:00 05:16 Temperature Pulse Rate 102 H 106 H 108 H Respiratory 29 H 34 H 31 H Rate Blood Pressure 96/61 96/61 116/73 O2 Sat by Pulse 95 95 96 Oximetry 05/03/18 05/03/18 05/03/18 05:30 05:46 06:00 Temperature Pulse Rate 103 H 102 H 104 H Respiratory 34 H 30 H 21 Rate Blood Pressure 119/71 119/71 113/58 O2 Sat by Pulse 93 95 Oximetry 05/03/18 05/03/18 05/03/18 06:16 06:30 06:46 Temperature Pulse Rate 110 H 102 H 101 H Respiratory 34 H 30 H 29 H Rate Blood Pressure 113/58 107/62 107/62 O2 Sat by Pulse 95 93 95 Oximetry 05/03/18 05/03/18 05/03/18 07:00 07:16 07:30 Temperature Pulse Rate 98 H 99 H 96 H Respiratory 29 H 29 H 29 H Rate Blood Pressure 102/54 102/54 98/56 O2 Sat by Pulse 96 93 Oximetry 05/03/18 05/03/18 05/03/18 07:46 08:00 08:10 Temperature 98.7 F Pulse Rate 95 H Respiratory 29 H Rate Blood Pressure 98/56 O2 Sat by Pulse 95 97 Oximetry Constitutional: no acute distress, other (Stuporous and intubated) Eyes: other (tries to open only on stimulation) Neck: supple, other (large in circumference) Effort: normal Ascultation: Bilateral: diminished breath sounds Cardiovascular: regular rate and rhythm Gastrointestinal: soft, other (obese) Integumentary: normal Extremities: no edema Neurologic: unable to assess (~RASS scale -2 but not sedated at this time) CBC and BMP: 05/03/18 04:04 05/03/18 04:04 ABG, PT/INR, D-dimer: ABG POC ABG pH 7.254 (7.35-7.45) L 05/03/18 04:35 POC ABG pCO2 36.5 (35-45) 05/03/18 04:35 POC ABG pO2 78 (80-105) L 05/03/18 04:35 POC ABG HCO3 16.2 05/03/18 04:35 POC ABG Total CO2 17 05/03/18 04:35 POC ABG O2 Sat 93 05/03/18 04:35 PT/INR, D-dimer PT 28.4 Sec. (12.2-14.9) H 05/01/18 05:04 INR 2.47 (0.87-1.13) H 05/01/18 05:04 Abnormal lab findings: Abnormal Labs 04/26/18 04/26/18 04/26/18 11:33 11:33 11:33 WBC 14.7 H RBC 5.07 H Hct 45.8 H MCHC RDW 16.2 H Seg Neuts % (Manual) 75.0 H Lymphocytes % (Manual) 4.0 L Monocytes % (Manual) 8.0 H Eosinophils % (Manual) 8.0 H Seg Neutrophils # Man 11.0 H Lymphocytes # (Manual) 0.6 L Monocytes # (Manual) 1.2 H Eosinophils # (Manual) 1.2 H PT 18.4 H INR 1.44 H APTT POC ABG pH POC ABG pCO2 POC ABG pO2 VBG pH Sodium 135 L Potassium 5.3 H Chloride 97.7 L Carbon Dioxide 15 L BUN 76 H Creatinine 5.2 H Glucose 101 H POC Glucose Lactic Acid Calcium Magnesium Total Bilirubin 1.60 H AST 285 H ALT 131 H Alkaline Phosphatase 856 H Ammonia Total Creatine Kinase C-Reactive Protein Total Protein Albumin 3.2 L Lipase Urine Creatinine 04/26/18 04/26/18 04/26/18 11:33 11:33 21:20 WBC RBC Hct MCHC RDW Seg Neuts % (Manual) Lymphocytes % (Manual) Monocytes % (Manual) Eosinophils % (Manual) Seg Neutrophils # Man Lymphocytes # (Manual) Monocytes # (Manual) Eosinophils # (Manual) PT INR APTT POC ABG pH POC ABG pCO2 POC ABG pO2 VBG pH 7.268 L Sodium Potassium Chloride Carbon Dioxide BUN Creatinine Glucose POC Glucose Lactic Acid 2.30 H* 3.00 H* Calcium Magnesium Total Bilirubin AST ALT Alkaline Phosphatase Ammonia Total Creatine Kinase C-Reactive Protein Total Protein Albumin Lipase Urine Creatinine 04/26/18 04/26/18 04/27/18 21:20 21:20 05:52 WBC 17.0 H RBC Hct MCHC RDW 15.7 H Seg Neuts % (Manual) 79.0 H Lymphocytes % (Manual) 8.0 L Monocytes % (Manual) Eosinophils % (Manual) Seg Neutrophils # Man 13.4 H Lymphocytes # (Manual) Monocytes # (Manual) 0.9 H Eosinophils # (Manual) PT INR APTT POC ABG pH POC ABG pCO2 POC ABG pO2 VBG pH Sodium Potassium Chloride Carbon Dioxide 16 L BUN 75 H Creatinine 4.7 H Glucose 128 H POC Glucose Lactic Acid Calcium Magnesium Total Bilirubin AST ALT Alkaline Phosphatase Ammonia 123.0 H Total Creatine Kinase C-Reactive Protein Total Protein Albumin Lipase 68 H Urine Creatinine 04/27/18 04/27/18 04/27/18 05:52 14:13 16:28 WBC 18.2 H RBC Hct MCHC RDW 16.1 H Seg Neuts % (Manual) 84.0 H Lymphocytes % (Manual) 8.0 L Monocytes % (Manual) Eosinophils % (Manual) Seg Neutrophils # Man 15.3 H Lymphocytes # (Manual) Monocytes # (Manual) Eosinophils # (Manual) 0.5 H PT INR APTT POC ABG pH POC ABG pCO2 POC ABG pO2 VBG pH Sodium Potassium Chloride Carbon Dioxide 19 L BUN 75 H Creatinine 4.2 H Glucose 110 H POC Glucose Lactic Acid Calcium Magnesium Total Bilirubin 1.90 H AST 244 H ALT 120 H Alkaline Phosphatase 777 H Ammonia Total Creatine Kinase 373 H C-Reactive Protein 16.50 H Total Protein 5.9 L Albumin 3.4 L Lipase Urine Creatinine 04/28/18 04/28/18 04/29/18 15:41 15:41 08:12 WBC RBC Hct MCHC RDW Seg Neuts % (Manual) Lymphocytes % (Manual) Monocytes % (Manual) Eosinophils % (Manual) Seg Neutrophils # Man Lymphocytes # (Manual) Monocytes # (Manual) Eosinophils # (Manual) PT INR APTT POC ABG pH POC ABG pCO2 POC ABG pO2 VBG pH Sodium Potassium Chloride 108.6 H Carbon Dioxide 14 L BUN 76 H Creatinine 3.0 H Glucose 60 L POC Glucose Lactic Acid Calcium 8.1 L Magnesium Total Bilirubin 2.20 H AST 416 H ALT 136 H Alkaline Phosphatase 674 H Ammonia 76.0 H 134.0 H Total Creatine Kinase 497 H C-Reactive Protein Total Protein 5.2 L Albumin 3.0 L Lipase Urine Creatinine 04/29/18 04/29/18 04/29/18 08:12 08:12 19:24 WBC 13.8 H RBC Hct MCHC RDW 16.2 H Seg Neuts % (Manual) Lymphocytes % (Manual) Monocytes % (Manual) Eosinophils % (Manual) Seg Neutrophils # Man Lymphocytes # (Manual) Monocytes # (Manual) Eosinophils # (Manual) PT INR APTT POC ABG pH 7.244 L POC ABG pCO2 POC ABG pO2 172 H VBG pH Sodium 149 H Potassium Chloride 113.3 H Carbon Dioxide 16 L BUN 79 H Creatinine 2.8 H Glucose 69 L POC Glucose Lactic Acid Calcium Magnesium Total Bilirubin 2.40 H AST 423 H ALT 128 H Alkaline Phosphatase 657 H Ammonia Total Creatine Kinase 435 H C-Reactive Protein Total Protein 5.4 L Albumin 2.6 L Lipase Urine Creatinine 04/30/18 04/30/18 04/30/18 04:01 04:01 04:11 WBC RBC Hct MCHC RDW Seg Neuts % (Manual) Lymphocytes % (Manual) Monocytes % (Manual) Eosinophils % (Manual) Seg Neutrophils # Man Lymphocytes # (Manual) Monocytes # (Manual) Eosinophils # (Manual) PT 25.8 H INR 2.19 H APTT POC ABG pH POC ABG pCO2 POC ABG pO2 VBG pH Sodium 146 H Potassium Chloride 111.9 H Carbon Dioxide 19 L BUN 85 H Creatinine 3.5 H Glucose 261 H POC Glucose Lactic Acid Calcium 8.1 L Magnesium 2.40 H Total Bilirubin 2.60 H AST 1008 H ALT 217 H Alkaline Phosphatase 620 H Ammonia 80.0 H Total Creatine Kinase C-Reactive Protein Total Protein 4.9 L Albumin 2.7 L Lipase Urine Creatinine 04/30/18 04/30/18 05/01/18 11:59 16:23 05:04 WBC RBC Hct MCHC RDW Seg Neuts % (Manual) Lymphocytes % (Manual) Monocytes % (Manual) Eosinophils % (Manual) Seg Neutrophils # Man Lymphocytes # (Manual) Monocytes # (Manual) Eosinophils # (Manual) PT INR APTT POC ABG pH 7.252 L 7.179 L POC ABG pCO2 49.1 H POC ABG pO2 115 H VBG pH Sodium Potassium Chloride Carbon Dioxide BUN Creatinine Glucose POC Glucose Lactic Acid Calcium Magnesium Total Bilirubin AST ALT Alkaline Phosphatase Ammonia 81.0 H Total Creatine Kinase C-Reactive Protein Total Protein Albumin Lipase Urine Creatinine 05/01/18 05/01/18 05/01/18 05:04 05:04 05:04 WBC 11.2 H RBC Hct MCHC RDW 17.1 H Seg Neuts % (Manual) Lymphocytes % (Manual) Monocytes % (Manual) Eosinophils % (Manual) Seg Neutrophils # Man Lymphocytes # (Manual) Monocytes # (Manual) Eosinophils # (Manual) PT 28.4 H INR 2.47 H APTT 37.7 H POC ABG pH POC ABG pCO2 POC ABG pO2 VBG pH Sodium 150 H Potassium Chloride 115.5 H Carbon Dioxide 18 L BUN 106 H Creatinine 4.2 H Glucose 233 H POC Glucose Lactic Acid Calcium 7.9 L Magnesium Total Bilirubin 2.00 H AST 565 H ALT 200 H Alkaline Phosphatase 546 H Ammonia Total Creatine Kinase C-Reactive Protein Total Protein 4.9 L Albumin 2.3 L Lipase Urine Creatinine 05/01/18 05/01/18 05/01/18 05:08 12:57 18:31 WBC RBC Hct MCHC RDW Seg Neuts % (Manual) Lymphocytes % (Manual) Monocytes % (Manual) Eosinophils % (Manual) Seg Neutrophils # Man Lymphocytes # (Manual) Monocytes # (Manual) Eosinophils # (Manual) PT INR APTT POC ABG pH 7.194 L POC ABG pCO2 POC ABG pO2 VBG pH Sodium Potassium Chloride Carbon Dioxide BUN Creatinine Glucose POC Glucose 224 H 250 H Lactic Acid Calcium Magnesium Total Bilirubin AST ALT Alkaline Phosphatase Ammonia Total Creatine Kinase C-Reactive Protein Total Protein Albumin Lipase Urine Creatinine 05/02/18 05/02/18 05/02/18 03:00 03:27 04:45 WBC 19.9 H RBC Hct MCHC 31 L RDW 17.1 H Seg Neuts % (Manual) Lymphocytes % (Manual) Monocytes % (Manual) Eosinophils % (Manual) Seg Neutrophils # Man Lymphocytes # (Manual) Monocytes # (Manual) Eosinophils # (Manual) PT INR APTT POC ABG pH 7.194 L POC ABG pCO2 POC ABG pO2 60 L VBG pH Sodium Potassium Chloride Carbon Dioxide BUN Creatinine Glucose POC Glucose Lactic Acid Calcium Magnesium Total Bilirubin AST ALT Alkaline Phosphatase Ammonia Total Creatine Kinase C-Reactive Protein Total Protein Albumin Lipase Urine Creatinine 141.6 H 05/02/18 05/02/18 05/02/18 04:45 05:18 11:19 WBC RBC Hct MCHC RDW Seg Neuts % (Manual) Lymphocytes % (Manual) Monocytes % (Manual) Eosinophils % (Manual) Seg Neutrophils # Man Lymphocytes # (Manual) Monocytes # (Manual) Eosinophils # (Manual) PT INR APTT POC ABG pH POC ABG pCO2 POC ABG pO2 VBG pH Sodium 150 H Potassium Chloride 117.6 H Carbon Dioxide 15 L BUN 104 H Creatinine 3.7 H Glucose 190 H POC Glucose 186 H Lactic Acid Calcium 7.7 L Magnesium Total Bilirubin 2.00 H AST 349 H ALT 185 H Alkaline Phosphatase 561 H Ammonia 83.0 H Total Creatine Kinase C-Reactive Protein Total Protein 4.8 L Albumin 2.5 L Lipase Urine Creatinine 05/02/18 05/02/18 05/03/18 12:11 16:17 04:04 WBC 22.4 H RBC Hct MCHC 31 L RDW 17.2 H Seg Neuts % (Manual) Lymphocytes % (Manual) Monocytes % (Manual) Eosinophils % (Manual) Seg Neutrophils # Man Lymphocytes # (Manual) Monocytes # (Manual) Eosinophils # (Manual) PT INR APTT POC ABG pH POC ABG pCO2 POC ABG pO2 VBG pH Sodium Potassium Chloride Carbon Dioxide BUN Creatinine Glucose POC Glucose 175 H 192 H Lactic Acid Calcium Magnesium Total Bilirubin AST ALT Alkaline Phosphatase Ammonia Total Creatine Kinase C-Reactive Protein Total Protein Albumin Lipase Urine Creatinine 05/03/18 05/03/18 04:04 04:35 WBC RBC Hct MCHC RDW Seg Neuts % (Manual) Lymphocytes % (Manual) Monocytes % (Manual) Eosinophils % (Manual) Seg Neutrophils # Man Lymphocytes # (Manual) Monocytes # (Manual) Eosinophils # (Manual) PT INR APTT POC ABG pH 7.254 L POC ABG pCO2 POC ABG pO2 78 L VBG pH Sodium 150 H Potassium Chloride 117.2 H Carbon Dioxide 16 L BUN 112 H Creatinine 3.7 H Glucose 181 H POC Glucose Lactic Acid Calcium 7.9 L Magnesium Total Bilirubin 2.50 H AST 239 H ALT 162 H Alkaline Phosphatase 609 H Ammonia Total Creatine Kinase C-Reactive Protein Total Protein 5.0 L Albumin 2.5 L Lipase Urine Creatinine
--- NOTE | 2018-05-03 11:03 | Progress Note ---
Assessment and Plan 1. Acute kidney injury: Multifactroial RUFINA is in the setting of hypotension / sepsis, volume depletion and Abnormal Liver function. Continue IV fluids and Midodrine. LETA, ANCA and Anti GBM Ab are pending. Renal prognosis is guarded to poor. 2. Electrolytes: Hyperkalemia, improved. Hypernatremia, continue water flushes. Metabolic acidosis, continue IV fluids. Monitor. 3. Sepsis with hypotension: Continue IV fluids. 4. Urinary retention: Crane catheter. 5. Abnormal LFTs. 6. ?Hepatic Encephalopathy. 7. Respiratory failure: On vent. Subjective Date of service: 05/03/18 Principal diagnosis: SIRS,Hepatic encephalopathy,ARF/MV support Interval history: Patient was seen and examined at the bedside. Remain on the vent. Objective - Vital Signs Vital signs: Vital Signs - 12hr 05/02/18 05/02/18 05/02/18 23:16 23:30 23:38 Temperature Pulse Rate 108 H 109 H 109 H Respiratory 25 H 31 H 29 H Rate Blood Pressure 127/73 127/73 135/83 O2 Sat by Pulse 94 93 94 Oximetry 05/02/18 05/03/18 05/03/18 23:46 00:00 00:16 Temperature 98.6 F Pulse Rate 105 H 109 H 109 H Respiratory 30 H 22 32 H Rate Blood Pressure 135/83 148/82 148/82 O2 Sat by Pulse 94 93 94 Oximetry 05/03/18 05/03/18 05/03/18 00:30 00:46 01:00 Temperature Pulse Rate 108 H 109 H 112 H Respiratory 29 H 33 H 35 H Rate Blood Pressure 148/82 148/82 148/82 O2 Sat by Pulse 94 94 94 Oximetry 05/03/18 05/03/18 05/03/18 01:16 01:30 01:46 Temperature Pulse Rate 113 H 114 H 111 H Respiratory 35 H 35 H 32 H Rate Blood Pressure 125/77 125/77 114/78 O2 Sat by Pulse 94 92 92 Oximetry 05/03/18 05/03/18 05/03/18 02:00 02:16 02:30 Temperature Pulse Rate 113 H 113 H 112 H Respiratory 34 H 33 H 36 H Rate Blood Pressure 133/82 133/82 121/79 O2 Sat by Pulse 92 93 94 Oximetry 06/25/18 06/25/18 06/25/18 02:46 03:00 03:16 Temperature Pulse Rate 110 H 109 H 109 H Respiratory 33 H 34 H 32 H Rate Blood Pressure 121/79 121/75 121/79 O2 Sat by Pulse 95 94 94 Oximetry 05/03/18 05/03/18 05/03/18 03:30 03:46 04:00 Temperature 98.8 F Pulse Rate 107 H 107 H 108 H Respiratory 28 H 32 H 33 H Rate Blood Pressure 131/76 131/76 119/73 O2 Sat by Pulse 92 93 93 Oximetry 05/03/18 05/03/18 05/03/18 04:16 04:22 04:30 Temperature Pulse Rate 105 H 104 H 103 H Respiratory 30 H 30 H Rate Blood Pressure 119/73 119/74 119/73 O2 Sat by Pulse 94 95 94 Oximetry 05/03/18 05/03/18 05/03/18 04:46 05:00 05:16 Temperature Pulse Rate 102 H 106 H 108 H Respiratory 29 H 34 H 31 H Rate Blood Pressure 96/61 96/61 116/73 O2 Sat by Pulse 95 95 96 Oximetry 05/03/18 05/03/18 05/03/18 05:30 05:46 06:00 Temperature Pulse Rate 103 H 102 H 104 H Respiratory 34 H 30 H 21 Rate Blood Pressure 119/71 119/71 113/58 O2 Sat by Pulse 93 95 Oximetry 05/03/18 05/03/18 05/03/18 06:16 06:30 06:46 Temperature Pulse Rate 110 H 102 H 101 H Respiratory 34 H 30 H 29 H Rate Blood Pressure 113/58 107/62 107/62 O2 Sat by Pulse 95 93 95 Oximetry 05/03/18 05/03/18 05/03/18 07:00 07:16 07:30 Temperature Pulse Rate 98 H 99 H 96 H Respiratory 29 H 29 H 29 H Rate Blood Pressure 102/54 102/54 98/56 O2 Sat by Pulse 96 93 Oximetry 05/03/18 05/03/18 05/03/18 07:46 08:00 08:10 Temperature 98.7 F Pulse Rate 95 H Respiratory 29 H Rate Blood Pressure 98/56 O2 Sat by Pulse 95 97 Oximetry 05/03/18 08:45 Temperature Pulse Rate 103 H Respiratory Rate Blood Pressure 114/68 O2 Sat by Pulse 95 Oximetry - General Appearance General appearance: well-developed, appears stated age, obese, intubated, other (on the vent, FiO2 50%) Neck: supple Respiratory: Present: Other (coarse breath sounds) Cardiology: regular, S1S2, no murmurs Gastrointestinal: normoactive bowel sounds, no tenderness, obese Integumentary: no rash, warm and dry Neurologic: obtunded Musculoskeletal: other (trace edema) - Lab 05/03/18 04:04 05/03/18 04:04 Most recent lab results Calcium 7.9 mg/dL (8.4-10.2) L 05/03/18 04:04 Phosphorus 3.90 mg/dL (2.5-4.5) 04/30/18 04:01 Magnesium 2.40 mg/dL (1.7-2.3) H 04/30/18 04:01 Urine Creatinine 141.6 mg/dL (0.1-20.0) H 05/02/18 03:00 Urine Sodium 10 mmol/L 05/02/18 03:00
--- NOTE | 2018-05-03 11:05 | Progress Note ---
Assessment and Plan Assessment: 1) Sepsis: increasing leukocytosis (was on solumedrol). Etiology Strep anginosus bacteremia +/- liver abscesses Vs. SBP Vs. liver malignancy 2) Strep anginosus bacteremia: ? source ? liver lesions. [employer] in same blood cx likely a contaminant 3) Liver lesions -CT showed few lesions largest right hepatic hypodense mass 3.4 cm with hepatomegaly. -US abd showed cholelithiasis, choledocholithiasis ? CBP 8.2. mm -viral hepatitis panel neg -CRP 16 -HIV neg -HIDA neg -MRCP is nondiagnostic. Any underlying mass lesions cannot be excluded. Mild degree bilateral pleural effusions and mild degree ascites. Gallbladder is minimally distended with mild degree wall thickening. This may be secondary to chronic cholecystitis versus postprandial status. 3) Elevated LFTs: from liver lesions +/- ETOH - better 4) Acute encephalopathy: worsening. CT head neg. Etio. sepsis +/- hepatic encephalopahy +/- ETOH withdrawal 5) RUFINA - better 6) Acute on chronic hypoxemic resp failure ? CXR neg. worsening intubated 7) ? SBP Plan: -continue zosyn D8/14 -f/u AFP -IR eval for biopsy / drainage - pending Overall prognosis poor Thank you for your consultation, will follow up with you. Deanna Lindquist MD Infectious Diseases Specialist [facility] M [phone] O [phone] Subjective Date of service: 05/03/18 Principal diagnosis: SIRS,Hepatic encephalopathy,ARF/MV support Interval history: remains intubated on the vent AC FiO2 50% p10. Afebrile for 48h. Noted low blood pressure. Microbiology: Blood cultures: 04/26 [employer] 1 of 4 bottles and Strep anginosus 1 of 4 bottles 04/29 ngtd Urine cultures: 04/26 neg Sputum: 04/30 ngtd Current Antimicrobials: Zosyn 04/26 Previous Antimicrobials: Vancomycin Objective - Exam Narrative Exam: General appearance: somnolent on vent Eyes: anicteric sclerae, moist conjunctivae; no lid-lag; PERRLA HENT: Atraumatic; oropharynx ETT Neck: Trachea midline; supple, no thyromegaly or lymphadenopathy Lungs: decreased BS iraida CV: tachy Abdomen: Soft, distended Extremities: iraida leg edema Skin: Normal temperature, turgor and texture; no rash, ulcers or subcutaneous nodules Psych: sedated Neuro: sedated non verbal Lines: - Constitutional Vitals: Vital Signs Temp Pulse Resp BP Pulse Ox 98.7 F 103 H 29 H 114/68 95 05/03/18 08:00 05/03/18 08:45 05/03/18 07:46 05/03/18 08:45 05/03/18 08:45 Temperature -Last 24 Hours Temperature 98.7 F Temperature 98.8 F Temperature 98.6 F Temperature 99.2 F - Labs CBC & Chem 7: 05/03/18 04:04 05/03/18 04:04 Labs: Abnormal lab results 05/02/18 05/02/18 05/02/18 Range/Units 03:00 11:19 12:11 WBC (4.5-11.0) K/mm3 MCHC (32-34) % RDW (13.2-15.2) % POC ABG pH (7.35-7.45) POC ABG pO2 (80-105) Sodium (137-145) mmol/L Chloride (98-107) mmol/L Carbon Dioxide (22-30) mmol/L BUN (9-20) mg/dL Creatinine (0.8-1.5) mg/dL Glucose (75-100) mg/dL POC Glucose 175 H (70-105) Calcium (8.4-10.2) mg/dL Total Bilirubin (0.1-1.2) mg/dL AST (5-40) units/L ALT (7-56) units/L Alkaline Phosphatase (35-129) units/L Ammonia 83.0 H (25-60) umol/L Total Protein (6.3-8.2) g/dL Albumin (3.9-5) g/dL Urine Creatinine 141.6 H (0.1-20.0) mg/dL 05/02/18 05/03/18 05/03/18 Range/Units 16:17 04:04 04:04 WBC 22.4 H (4.5-11.0) K/mm3 MCHC 31 L (32-34) % RDW 17.2 H (13.2-15.2) % POC ABG pH (7.35-7.45) POC ABG pO2 (80-105) Sodium 150 H (137-145) mmol/L Chloride 117.2 H (98-107) mmol/L Carbon Dioxide 16 L (22-30) mmol/L BUN 112 H (9-20) mg/dL Creatinine 3.7 H (0.8-1.5) mg/dL Glucose 181 H (75-100) mg/dL POC Glucose 192 H (70-105) Calcium 7.9 L (8.4-10.2) mg/dL Total Bilirubin 2.50 H (0.1-1.2) mg/dL AST 239 H (5-40) units/L ALT 162 H (7-56) units/L Alkaline Phosphatase 609 H (35-129) units/L Ammonia (25-60) umol/L Total Protein 5.0 L (6.3-8.2) g/dL Albumin 2.5 L (3.9-5) g/dL Urine Creatinine (0.1-20.0) mg/dL 05/03/18 Range/Units 04:35 WBC (4.5-11.0) K/mm3 MCHC (32-34) % RDW (13.2-15.2) % POC ABG pH 7.254 L (7.35-7.45) POC ABG pO2 78 L (80-105) Sodium (137-145) mmol/L Chloride (98-107) mmol/L Carbon Dioxide (22-30) mmol/L BUN (9-20) mg/dL Creatinine (0.8-1.5) mg/dL Glucose (75-100) mg/dL POC Glucose (70-105) Calcium (8.4-10.2) mg/dL Total Bilirubin (0.1-1.2) mg/dL AST (5-40) units/L ALT (7-56) units/L Alkaline Phosphatase (35-129) units/L Ammonia (25-60) umol/L Total Protein (6.3-8.2) g/dL Albumin (3.9-5) g/dL Urine Creatinine (0.1-20.0) mg/dL
[2018-05-03] MEDS: PROAMATINE FEEDTUBE SCH (11:06)
[2018-05-03] MEDS: PEPCID PO SCH (11:06)
[2018-05-03] MEDS: CEPHULAC PR SCH ×3 (11:07→22:13)
[2018-05-03] MEDS: D5/0.45NS 1,000 ML IV SCH (11:07)
[2018-05-03] MEDS ORDERED: PROAMATINE FEEDTUBE SCH (13:36)
--- NOTE | 2018-05-03 15:10 | Progress Note ---
Assessment and Plan Assessment and plan: Patient is a 72 yo man with a history of chronic hypoxic Respiratory Failure on Home Oxygen due to End Stage COPD and HTN who presented to ED shortness of breath, hematuria and confusion/drowsiness, * CT ABDOMEN AND PELVIS WITHOUT CONTRAST CONCLUSION: 1. Peripheral right hepatic hypodense mass(es) now suspected with new small perihepatic ascites on this limited, unenhanced exam, as described. Subtle fat stranding may also be noted about the pancreas and the gallbladder. 2. Various other findings as distal esophageal thickening, hepatomegaly, cecum/proximal ascending colon CT appearance, enlarged prostate and small pelvic ascites, amongst others, as detailed above. * CT HEAD WITHOUT CONTRAST CONCLUSION: No acute intracranial CT abnormality with sinusitis and few other findings, as described. * pCXR CONCLUSION: No acute chest process with chronic interstitial lung disease again suspected. * * HIDA IMPRESSION: No cystic or common bile duct obstruction. Post Kinevac ejection fraction 35%. * * Abd U/S IMPRESSION: Cholelithiasis. No evidence for acute cholecystitis. The common bile duct is mildly dilated at 8.2 mm which could represent choledocholithiasis. Nonspecific renal parenchymal disease and liver normal -SIRS with suspected early Sepsis without clear source, poa: consult ID: IV antibiotics, serial lactic acid, monitor uop q shift, blood cultures, urinalysis , chest x ray, IVF resuscitation therapy -Acute Hepatic Encephalopathy: treat with Lactulose -Acute renal failure, suspect ATN with hypotension + vasomotor nephropathy, poa: treat with ivf, consult Nephrology -Lactic Acidosis: Treat sepsis, monitor uop q shift, iv bicarbonate prn -Alcohol withdrawal syndrome (patient did have a fever and you can be either hypertensive or hypotensive with Etoh withdrawal): limit iv ativan due to liver dysfunction, Serax/Oxazepam was not available, Restarted IV Ativan -Hypoglycemia: started D5W but IVF changed by branch associate teller, Dr. Masters -Hepatitis with ascities: CT Abdomen and pelvis noted, LFT, Hepatitis panel, consulted GI -Hematuria: resolved, outpatient urology F/U recommended -DVT prophylaxis: SCD to BLE while in bed -Evidence of [place] Reticularis legs guarded prognosis full code MRCP==>IMPRESSION: Grossly limited study due to motion artifacts and the MRCP is nondiagnostic. Inhomogeneous signal is noted in the liver. Any underlying mass lesions cannot be excluded. Mild degree bilateral pleural effusions and mild degree ascites. Gallbladder is minimally distended with mild degree wall thickening. This may be secondary to chronic cholecystitis versus postprandial status. Other etiologies of gallbladder wall thickening include hepatitis, ascites etc. Small hiatal hernia Small cystic lesions of right kidney are most likely of simple nature. MRI unable to be done. He was transferred to the to ICU 04/29/18 and Intubated 04/30/18 Added Iv solu-cortef on 04/30/18 for sepsis shock and on prednisone at home, Bp slightly improved on re-check Consult Intensvist===> Intubated yesterday for airway protection. +Streptococcus bacteremia, ID is following. Get 2D Echo pending Consulted IR for liver biopsy per ID note History Interval history: Patient was seen and examined. Follow-up on current diagnosis of AMS, now intubated, day 2. Imaging, nursing note, chart, labs and old chart reviewed. Moved ICU to . D/w gianfrancoApryl at bedside Hospitalist Physical - Physical exam Narrative exam: GEN: ill appearing, intubated HEENT: NCAT, EOMI, PERRL, OP mm dry, ETT and Ngt in place NECK: supple, no adenopathy, CVS/HEART: Regular tachycardia, normal S1S2, pulses present bilaterally CHEST/LUNGS: bilateral rhonchi and diminished bs bilateral, Symmetrical chest expansion, good air entry bilaterally GI/Abdomen: soft, protuberant, ruq tender with good bowel sounds, no guarding or rebound /Bladder: no suprapubic tenderness, no CVA or paraspinal tenderness EXT/Skin: no c/c/e, no obvious rash MSK: spontaneous ROM x 4 Neuro: CN 2-12 grossly intact, no new focal deficits . Psych: confused - Constitutional Vitals: Temp Pulse Resp BP Pulse Ox 99.3 F 94 H 32 H 126/77 96 05/03/18 12:00 05/03/18 14:46 05/03/18 14:46 05/03/18 14:46 05/03/18 14:46 General appearance: Absent: mild distress Results - Labs CBC & Chem 7: 05/03/18 04:04 05/03/18 04:04 Labs: Laboratory Last Values WBC 22.4 K/mm3 (4.5-11.0) H 05/03/18 04:04 RBC 4.57 M/mm3 (3.65-5.03) 05/03/18 04:04 Hgb 12.8 gm/dl (11.8-15.2) 05/03/18 04:04 Hct 41.0 % (35.5-45.6) 05/03/18 04:04 MCV 90 fl (84-94) 05/03/18 04:04 MCH 28 pg (28-32) 05/03/18 04:04 MCHC 31 % (32-34) L 05/03/18 04:04 RDW 17.2 % (13.2-15.2) H 05/03/18 04:04 Plt Count 175 K/mm3 (140-440) 05/03/18 04:04 Add Manual Diff Complete 04/27/18 14:13 Total Counted 100 04/27/18 14:13 Seg Neuts % (Manual) 84.0 % (40.0-70.0) H 04/27/18 14:13 Band Neutrophils % 3.0 % 04/27/18 14:13 Lymphocytes % (Manual) 8.0 % (13.4-35.0) L 04/27/18 14:13 Reactive Lymphs % (Man) 0 % 04/27/18 14:13 Monocytes % (Manual) 1.0 % (0.0-7.3) 04/27/18 14:13 Eosinophils % (Manual) 3.0 % (0.0-4.3) 04/27/18 14:13 Basophils % (Manual) 0 % (0.0-1.8) 04/27/18 14:13 Metamyelocytes % 1.0 % 04/27/18 14:13 Myelocytes % 0 % 04/27/18 14:13 Promyelocytes % 0 % 04/27/18 14:13 Blast Cells % 0 % 04/27/18 14:13 Nucleated RBC % Not Reportable 04/27/18 14:13 Seg Neutrophils # Man 15.3 K/mm3 (1.8-7.7) H 04/27/18 14:13 Band Neutrophils # 0.5 K/mm3 04/27/18 14:13 Lymphocytes # (Manual) 1.5 K/mm3 (1.2-5.4) 04/27/18 14:13 Abs React Lymphs (Man) 0.0 K/mm3 04/27/18 14:13 Monocytes # (Manual) 0.2 K/mm3 (0.0-0.8) 04/27/18 14:13 Eosinophils # (Manual) 0.5 K/mm3 (0.0-0.4) H 04/27/18 14:13 Basophils # (Manual) 0.0 K/mm3 (0.0-0.1) 04/27/18 14:13 Metamyelocytes # 0.2 K/mm3 04/27/18 14:13 Myelocytes # 0.0 K/mm3 04/27/18 14:13 Promyelocytes # 0.0 K/mm3 04/27/18 14:13 Blast Cells # 0.0 K/mm3 04/27/18 14:13 WBC Morphology Not Reportable 04/27/18 14:13 Hypersegmented Neuts Not Reportable 04/27/18 14:13 Hyposegmented Neuts Not Reportable 04/27/18 14:13 Hypogranular Neuts Not Reportable 04/27/18 14:13 Smudge Cells Not Reportable 04/27/18 14:13 Toxic Granulation Not Reportable 04/27/18 14:13 Toxic Vacuolation Not Reportable 04/27/18 14:13 Dohle Bodies Not Reportable 04/27/18 14:13 Pelger-Huet Anomaly Not Reportable 04/27/18 14:13 Aidan Rods Not Reportable 04/27/18 14:13 Platelet Estimate Appears normal 04/27/18 14:13 Clumped Platelets Not Reportable 04/27/18 14:13 Plt Clumps, EDTA Not Reportable 04/27/18 14:13 Large Platelets Few 04/27/18 14:13 Giant Platelets Not Reportable 04/27/18 14:13 Platelet Satelliting Not Reportable 04/27/18 14:13 Plt Morphology Comment Not Reportable 04/27/18 14:13 RBC Morphology Not Reportable 04/27/18 14:13 Dimorphic RBCs Not Reportable 04/27/18 14:13 Polychromasia Not Reportable 04/27/18 14:13 Hypochromasia Not Reportable 04/27/18 14:13 Poikilocytosis Not Reportable 04/27/18 14:13 Anisocytosis Not Reportable 04/27/18 14:13 Microcytosis Not Reportable 04/27/18 14:13 Macrocytosis Not Reportable 04/27/18 14:13 Spherocytes Not Reportable 04/27/18 14:13 Pappenheimer Bodies Not Reportable 04/27/18 14:13 Sickle Cells Not Reportable 04/27/18 14:13 Target Cells Not Reportable 04/27/18 14:13 Tear Drop Cells Not Reportable 04/27/18 14:13 Ovalocytes Not Reportable 04/27/18 14:13 Helmet Cells Few 04/27/18 14:13 [place] Bodies Not Reportable 04/27/18 14:13 [place] Rings Not Reportable 04/27/18 14:13 [place] Cells Not Reportable 04/27/18 14:13 Bite Cells Not Reportable 04/27/18 14:13 Crenated Cell Not Reportable 04/27/18 14:13 Elliptocytes Not Reportable 04/27/18 14:13 Acanthocytes (Spur) Not Reportable 04/27/18 14:13 Rouleaux Not Reportable 04/27/18 14:13 Hemoglobin C Crystals Not Reportable 04/27/18 14:13 Schistocytes Not Reportable 04/27/18 14:13 Malaria parasites Not Reportable 04/27/18 14:13 Donaldo Bodies Not Reportable 04/27/18 14:13 Hem Pathologist Commnt No 04/27/18 14:13 PT 28.4 Sec. (12.2-14.9) H 05/01/18 05:04 INR 2.47 (0.87-1.13) H 05/01/18 05:04 APTT 37.7 Sec. (24.2-36.6) H 05/01/18 05:04 POC ABG pH 7.269 (7.35-7.45) L 05/03/18 11:27 POC ABG pCO2 34.5 (35-45) L 05/03/18 11:27 POC ABG pO2 94 (80-105) 05/03/18 11:27 POC ABG HCO3 15.8 05/03/18 11:27 POC ABG Total CO2 17 05/03/18 11:27 POC ABG O2 Sat 96 05/03/18 11:27 POC ABG Base Excess -11 05/03/18 11:27 VBG pH 7.268 (7.320-7.420) L 04/26/18 11:33 FiO2 50 % 05/03/18 11:27 Sodium 150 mmol/L (137-145) H 05/03/18 04:04 Potassium 4.3 mmol/L (3.6-5.0) 05/03/18 04:04 Chloride 117.2 mmol/L (98-107) H 05/03/18 04:04 Carbon Dioxide 16 mmol/L (22-30) L 05/03/18 04:04 Anion Gap 21 mmol/L 05/03/18 04:04 BUN 112 mg/dL (9-20) H 05/03/18 04:04 Creatinine 3.7 mg/dL (0.8-1.5) H 05/03/18 04:04 Estimated GFR 16 ml/min 05/03/18 04:04 BUN/Creatinine Ratio 30 % 05/03/18 04:04 Glucose 181 mg/dL (75-100) H 05/03/18 04:04 POC Glucose 192 (70-105) H 05/02/18 16:17 Lactic Acid 1.90 mmol/L (0.7-2.0) 04/27/18 05:52 Calcium 7.9 mg/dL (8.4-10.2) L 05/03/18 04:04 Phosphorus 3.90 mg/dL (2.5-4.5) 04/30/18 04:01 Magnesium 2.40 mg/dL (1.7-2.3) H 04/30/18 04:01 Total Bilirubin 2.50 mg/dL (0.1-1.2) H 05/03/18 04:04 AST 239 units/L (5-40) H 05/03/18 04:04 ALT 162 units/L (7-56) H 05/03/18 04:04 Alkaline Phosphatase 609 units/L (35-129) H 05/03/18 04:04 Ammonia 83.0 umol/L (25-60) H 05/02/18 11:19 Total Creatine Kinase 435 units/L (55-170) H 04/29/18 08:12 C-Reactive Protein 16.50 mg/dL (0.00-1.30) H 04/27/18 16:28 Total Protein 5.0 g/dL (6.3-8.2) L 05/03/18 04:04 Albumin 2.5 g/dL (3.9-5) L 05/03/18 04:04 Albumin/Globulin Ratio 1.0 % 05/03/18 04:04 Lipase 68 units/L (13-60) H 04/26/18 21:20 Urine Color [place] (Yellow) 04/26/18 12:58 Urine Turbidity Clear (Clear) 04/26/18 12:58 Urine pH 5.0 (5.0-7.0) 04/26/18 12:58 Ur Specific [place] 1.017 (1.003-1.030) 04/26/18 12:58 Urine Protein 30 mg/dl mg/dL (Negative) 04/26/18 12:58 Urine Glucose (UA) Neg mg/dL (Negative) 04/26/18 12:58 Urine Ketones Neg mg/dL (Negative) 04/26/18 12:58 Urine Blood Neg (Negative) 04/26/18 12:58 Urine Nitrite Neg (Negative) 04/26/18 12:58 Urine Bilirubin Neg (Negative) 04/26/18 12:58 Urine Urobilinogen < 2.0 mg/dL (<2.0) 04/26/18 12:58 Ur Leukocyte Esterase Neg (Negative) 04/26/18 12:58 Urine WBC (Auto) 2.0 /HPF (0.0-6.0) 04/26/18 12:58 Urine RBC (Auto) 1.0 /HPF (0.0-6.0) 04/26/18 12:58 U Epithel Cells (Auto) < 1.0 /HPF (0-13.0) 04/26/18 12:58 Urine Creatinine 141.6 mg/dL (0.1-20.0) H 05/02/18 03:00 Urine Sodium 10 mmol/L 05/02/18 03:00 Random Vancomycin 9.6 ug/mL (0-40.0) 04/28/18 15:41 Hepatitis A IgM Ab Non-reactive (NonReactive) 04/26/18 21:20 Hep Bs Antigen Non-reactive (Negative) 04/26/18 21:20 Hep B Core IgM Ab Non-reactive (NonReactive) 04/26/18 21:20 Hepatitis C Antibody Non-reactive (NonReactive) 04/26/18 21:20 HIV 1&2 Antibody Rapid Non react (Non React) 04/27/18 16:28 HIV P24 Antigen Non react (Non React) 04/27/18 16:28
--- NOTE | 2018-05-03 17:55 | Progress Note ---
Assessment and Plan 1. Altered mental status - most likely multifactorial, with hepatic encephalopathy. Elevated INR worrisome for significant liver failure. Will give vit K to see if it reverses. - meantime, continue supportive care and lactulose Subjective Date of service: 05/03/18 Principal diagnosis: SIRS,Hepatic encephalopathy,ARF/MV support Interval history: Pt intubated. Daughter in room. No change. Objective - Constitutional Vitals: Vital Signs - 12hr 05/03/18 05/03/18 05/03/18 06:00 06:16 06:30 Temperature Pulse Rate 104 H 110 H 102 H Respiratory 21 34 H 30 H Rate Blood Pressure 113/58 113/58 107/62 O2 Sat by Pulse 95 93 Oximetry 05/03/18 05/03/18 05/03/18 06:46 07:00 07:16 Temperature Pulse Rate 101 H 98 H 99 H Respiratory 29 H 29 H 29 H Rate Blood Pressure 107/62 102/54 102/54 O2 Sat by Pulse 95 96 Oximetry 05/03/18 05/03/18 05/03/18 07:30 07:46 08:00 Temperature 98.7 F Pulse Rate 96 H 95 H 96 H Respiratory 29 H 29 H 29 H Rate Blood Pressure 98/56 98/56 103/54 O2 Sat by Pulse 93 95 94 Oximetry 05/03/18 05/03/18 05/03/18 08:10 08:16 08:30 Temperature Pulse Rate 98 H 99 H Respiratory 28 H 32 H Rate Blood Pressure 103/54 114/68 O2 Sat by Pulse 97 95 94 Oximetry 05/03/18 05/03/18 05/03/18 08:45 08:46 09:00 Temperature Pulse Rate 103 H 101 H 96 H Respiratory 32 H 28 H Rate Blood Pressure 114/68 114/68 114/68 O2 Sat by Pulse 95 95 Oximetry 05/03/18 05/03/18 05/03/18 09:16 09:30 09:46 Temperature Pulse Rate 99 H 100 H 102 H Respiratory 33 H 31 H 35 H Rate Blood Pressure 110/70 120/64 120/64 O2 Sat by Pulse 94 93 94 Oximetry 05/03/18 05/03/18 05/03/18 10:00 10:05 10:16 Temperature Pulse Rate 97 H 99 H Respiratory 29 H 33 H Rate Blood Pressure 103/63 103/63 O2 Sat by Pulse 97 95 Oximetry 05/03/18 05/03/18 05/03/18 10:30 10:46 11:00 Temperature Pulse Rate 99 H 100 H 103 H Respiratory 31 H 30 H 34 H Rate Blood Pressure 98/56 98/56 98/56 O2 Sat by Pulse 95 Oximetry 05/03/18 05/03/18 05/03/18 11:16 11:30 11:46 Temperature Pulse Rate 103 H 105 H 105 H Respiratory 33 H 35 H 36 H Rate Blood Pressure 93/71 93/71 110/76 O2 Sat by Pulse 95 94 96 Oximetry 05/03/18 05/03/18 05/03/18 12:00 12:06 12:16 Temperature 99.3 F Pulse Rate 105 H 105 H 105 H Respiratory 35 H 35 H Rate Blood Pressure 110/76 124/70 124/70 O2 Sat by Pulse 96 97 97 Oximetry 05/03/18 05/03/18 05/03/18 12:30 12:46 13:00 Temperature Pulse Rate 100 H 96 H 97 H Respiratory 29 H 17 30 H Rate Blood Pressure 124/70 124/70 105/60 O2 Sat by Pulse 97 95 Oximetry 05/03/18 05/03/18 05/03/18 13:16 13:30 13:46 Temperature Pulse Rate 97 H 97 H 97 H Respiratory 35 H 33 H 29 H Rate Blood Pressure 105/60 112/68 112/68 O2 Sat by Pulse 96 95 96 Oximetry 05/03/18 05/03/18 05/03/18 14:00 14:16 14:30 Temperature Pulse Rate 99 H 97 H 94 H Respiratory 29 H 29 H 31 H Rate Blood Pressure 112/68 117/63 126/77 O2 Sat by Pulse 96 96 96 Oximetry 05/03/18 05/03/18 05/03/18 14:46 16:00 16:26 Temperature 99.7 F H Pulse Rate 94 H 99 H Respiratory 32 H Rate Blood Pressure 126/77 123/72 O2 Sat by Pulse 96 95 Oximetry General appearance: Present: other (Intubated, unresponsive) - Gastrointestinal General gastrointestinal: Present: soft, non-tender - Labs CBC & Chem 7: 05/03/18 04:04 05/03/18 04:04 Labs: Abnormal lab results 05/03/18 05/03/18 05/03/18 Range/Units 04:04 04:04 04:35 WBC 22.4 H (4.5-11.0) K/mm3 MCHC 31 L (32-34) % RDW 17.2 H (13.2-15.2) % POC ABG pH 7.254 L (7.35-7.45) POC ABG pCO2 (35-45) POC ABG pO2 78 L (80-105) Sodium 150 H (137-145) mmol/L Chloride 117.2 H (98-107) mmol/L Carbon Dioxide 16 L (22-30) mmol/L BUN 112 H (9-20) mg/dL Creatinine 3.7 H (0.8-1.5) mg/dL Glucose 181 H (75-100) mg/dL Calcium 7.9 L (8.4-10.2) mg/dL Total Bilirubin 2.50 H (0.1-1.2) mg/dL AST 239 H (5-40) units/L ALT 162 H (7-56) units/L Alkaline Phosphatase 609 H (35-129) units/L Total Protein 5.0 L (6.3-8.2) g/dL Albumin 2.5 L (3.9-5) g/dL 05/03/ Range/Units 11:27 WBC (4.5-11.0) K/mm3 MCHC (32-34) % RDW (13.2-15.2) % POC ABG pH 7.269 L (7.35-7.45) POC ABG pCO2 34.5 L (35-45) POC ABG pO2 (80-105) Sodium (137-145) mmol/L Chloride (98-107) mmol/L Carbon Dioxide (22-30) mmol/L BUN (9-20) mg/dL Creatinine (0.8-1.5) mg/dL Glucose (75-100) mg/dL Calcium (8.4-10.2) mg/dL Total Bilirubin (0.1-1.2) mg/dL AST (5-40) units/L ALT (7-56) units/L Alkaline Phosphatase (35-129) units/L Total Protein (6.3-8.2) g/dL Albumin (3.9-5) g/dL
[2018-05-03] MEDS ORDERED: VITAMIN K (ADULT ONLY) 10 MG in NACL 0.9% 50 ML IV ONE (20:00)
[2018-05-03] MEDS: PROAMATINE PO SCH (22:20)
[2018-05-04] MEDS: D5/0.45NS 1,000 ML IV SCH ×2 (01:10→13:32)
[2018-05-04 01:52] LABS: INR 9.67 (0.87-1.13)
--- NOTE | 2018-05-04 02:18 | XRay Report ---
FINAL REPORT EXAM: XR CHEST 1V AP HISTORY: follow up respiratory failure TECHNIQUE: A portable view of the chest was obtained and compared to the study of 05/03/2018. FINDINGS: The ET tube and nasogastric tube appear in good position. The heart size is normal. The lungs reveal interstitial prominence bilaterally which has resolved somewhat since the previous study. There are no localized infiltrates. There is a small left-sided effusion. The skeletal structures otherwise are unchanged IMPRESSION: Resolving pulmonary edema pattern with residual small left-sided effusion. No acute infiltrates
[2018-05-04] MEDS: HALDOL IM SCH ×2 (04:00→11:06)
[2018-05-04] MEDS: ZOSYN/NS 2.25 GM/50ML 2.25 GM/50 ML BAG IV SCH ×2 (06:07→13:32)
[2018-05-04 06:14] LABS: Albumin 2.3 g/dL (3.9-5)
--- NOTE | 2018-05-04 07:05 | Progress Note ---
Assessment and Plan 1. Acute kidney injury: Multifactroial RUFINA is in the setting of hypotension / sepsis, volume depletion and Abnormal Liver function. Continue IV fluids and Midodrine. LETA, ANCA and Anti GBM Ab are pending. Renal function continue to decline and associated with Hypernatremia and Metabolic acidosis. Due to significantly low renal function and MA patient require renal replacement therapy. D/w his daughter at the bedside and explained the indications, benefits and risks involved in hemodialysis. She verbalizes understanding and gave consent to proceed with hemodialysis. Informed Vascular for Placement of dialysis catheter. Renal prognosis is guarded to poor. 2. Electrolytes: Hyperkalemia, improved. Hypernatremia, continue water flushes. Metabolic acidosis, continue IV fluids. Monitor. 3. Sepsis with hypotension: Continue IV fluids. 4. Urinary retention: Crane catheter. 5. Abnormal LFTs. 6. ?Hepatic Encephalopathy. 7. Respiratory failure: On vent. Subjective Date of service: 05/04/18 Principal diagnosis: SIRS,Hepatic encephalopathy,ARF/MV support Interval history: Patient was seen and examined at the bedside. Remain on the vent. Objective - Vital Signs Vital signs: Vital Signs - 12hr 05/03/18 05/03/18 05/03/18 19:13 19:16 19:20 Temperature Pulse Rate 99 H 98 H 98 H Respiratory 30 H 33 H Rate Blood Pressure 118/72 118/72 O2 Sat by Pulse 95 94 94 Oximetry 05/03/18 05/03/18 05/03/18 19:30 19:46 20:00 Temperature 99.8 F H Pulse Rate 97 H 97 H 98 H Respiratory 32 H 32 H 30 H Rate Blood Pressure 114/72 114/72 114/72 O2 Sat by Pulse 94 Oximetry 05/03/18 05/03/18 05/03/18 20:16 20:30 20:46 Temperature Pulse Rate 99 H 100 H 98 H Respiratory 34 H 31 H 31 H Rate Blood Pressure 144/32 144/32 144/32 O2 Sat by Pulse 96 95 Oximetry 05/03/18 05/03/18 05/03/18 21:00 21:05 21:16 Temperature Pulse Rate 97 H 97 H 96 H Respiratory 30 H 31 H Rate Blood Pressure 144/32 144/32 O2 Sat by Pulse 95 96 Oximetry 05/03/18 05/03/18 05/03/18 21:30 21:46 22:00 Temperature Pulse Rate 97 H 96 H 95 H Respiratory 31 H 30 H 20 Rate Blood Pressure 144/32 108/69 108/69 O2 Sat by Pulse 95 97 96 Oximetry 05/03/18 05/03/18 05/03/18 22:16 22:30 22:42 Temperature Pulse Rate 97 H 96 H 97 H Respiratory 27 H 24 29 H Rate Blood Pressure 123/106 123/106 137/76 O2 Sat by Pulse 96 95 97 Oximetry 05/03/18 05/03/18 05/03/18 22:46 23:00 23:16 Temperature Pulse Rate 98 H 97 H 100 H Respiratory 26 H 30 H 31 H Rate Blood Pressure 137/76 137/76 140/87 O2 Sat by Pulse 97 97 97 Oximetry 05/03/18 05/03/18 05/03/18 23:20 23:30 23:34 Temperature Pulse Rate 95 H 100 H 102 H Respiratory 28 H 31 H Rate Blood Pressure 140/87 140/87 O2 Sat by Pulse 94 96 95 Oximetry 05/03/18 05/04/18 05/04/18 23:46 00:00 00:16 Temperature Pulse Rate 99 H 98 H 97 H Respiratory 32 H 33 H 27 H Rate Blood Pressure 136/88 136/88 109/58 O2 Sat by Pulse 97 96 97 Oximetry 05/04/18 05/04/18 05/04/18 00:30 00:46 01:00 Temperature Pulse Rate 95 H 95 H 92 H Respiratory 28 H 28 H 24 Rate Blood Pressure 109/58 105/60 105/60 O2 Sat by Pulse 95 96 96 Oximetry 05/04/18 05/04/18 05/04/18 01:16 01:30 01:46 Temperature Pulse Rate 95 H 97 H 96 H Respiratory 28 H 34 H 31 H Rate Blood Pressure 95/68 93/72 93/72 O2 Sat by Pulse 96 95 98 Oximetry 05/04/18 05/04/18 05/04/18 01:54 02:00 02:16 Temperature Pulse Rate 96 H 96 H 96 H Respiratory 28 H 25 H 25 H Rate Blood Pressure 111/75 111/75 O2 Sat by Pulse 94 96 96 Oximetry 05/04/18 05/04/18 05/04/18 02:30 02:46 02:50 Temperature Pulse Rate 99 H 98 H Respiratory 33 H 30 H 30 H Rate Blood Pressure 126/78 126/78 O2 Sat by Pulse 91 97 94 Oximetry 05/04/18 05/04/18 05/04/18 03:00 03:16 03:30 Temperature Pulse Rate 98 H 100 H 98 H Respiratory 28 H 30 H 31 H Rate Blood Pressure 126/78 119/73 133/71 O2 Sat by Pulse 94 96 95 Oximetry 05/04/18 05/04/18 05/04/18 03:46 03:48 04:00 Temperature 100.3 F H Pulse Rate 100 H 98 H 100 H Respiratory 34 H 31 H Rate Blood Pressure 133/71 133/71 133/71 O2 Sat by Pulse 96 96 Oximetry 05/04/18 05/04/18 05/04/18 04:16 04:30 04:46 Temperature Pulse Rate 96 H 98 H 99 H Respiratory 29 H 25 H 27 H Rate Blood Pressure 115/70 122/77 115/70 O2 Sat by Pulse 95 97 96 Oximetry 05/04/18 05/04/18 05/04/18 05:00 05:13 05:16 Temperature Pulse Rate 102 H 100 H 101 H Respiratory 32 H 30 H 30 H Rate Blood Pressure 110/74 110/74 O2 Sat by Pulse 94 94 96 Oximetry 05/04/18 05/04/18 05/04/18 05:30 05:46 06:00 Temperature Pulse Rate 100 H 103 H 102 H Respiratory 28 H 32 H 32 H Rate Blood Pressure 106/82 106/82 115/70 O2 Sat by Pulse 95 96 94 Oximetry 05/04/18 05/04/18 06:16 06:30 Temperature Pulse Rate 101 H 103 H Respiratory 30 H 30 H Rate Blood Pressure 115/70 94/67 O2 Sat by Pulse 97 Oximetry - General Appearance General appearance: well-developed, appears stated age, obese, intubated, other (on the vent, FiO2 50%) EENT: ATNC, PERRL Neck: supple Respiratory: Present: Ronchi Cardiology: regular, S1S2, no murmurs Gastrointestinal: obese, other (BS heard) Integumentary: no rash, warm and dry Neurologic: obtunded Musculoskeletal: other (trace LE edema noted) - Lab 05/03/18 04:04 05/04/18 04:37 Most recent lab results Calcium 8.0 mg/dL (8.4-10.2) L 05/04/18 04:37 Phosphorus 3.90 mg/dL (2.5-4.5) 04/30/18 04:01 Magnesium 2.40 mg/dL (1.7-2.3) H 04/30/18 04:01 Urine Creatinine 141.6 mg/dL (0.1-20.0) H 05/02/18 03:00 Urine Sodium 10 mmol/L 05/02/18 03:00
--- NOTE | 2018-05-04 08:29 | Progress Note ---
Assessment and Plan Patient is a 72 yo man with a history of chronic hypoxic Respiratory Failure on Home Oxygen due to End Stage COPD and HTN who presented to ED shortness of breath, hematuria and confusion/drowsiness, Consulted IR for liver biopsy per ID note He was transferred to the to ICU 04/29/18 and Intubated 04/30/18 Added Iv solu-cortef on 04/30/18 for sepsis shock and on prednisone at home, Bp slightly improved on re-check * CT ABDOMEN AND PELVIS WITHOUT CONTRAST CONCLUSION: 1. Peripheral right hepatic hypodense mass(es) now suspected with new small perihepatic ascites on this limited, unenhanced exam, as described. Subtle fat stranding may also be noted about the pancreas and the gallbladder. 2. Various other findings as distal esophageal thickening, hepatomegaly, cecum/proximal ascending colon CT appearance, enlarged prostate and small pelvic ascites, amongst others, as detailed above. * CT HEAD WITHOUT CONTRAST CONCLUSION: No acute intracranial CT abnormality with sinusitis and few other findings, as described. * pCXR CONCLUSION: No acute chest process with chronic interstitial lung disease again suspected. * * HIDA IMPRESSION: No cystic or common bile duct obstruction. Post Kinevac ejection fraction 35%. * * Abd U/S IMPRESSION: Cholelithiasis. No evidence for acute cholecystitis. The common bile duct is mildly dilated at 8.2 mm which could represent choledocholithiasis. Nonspecific renal parenchymal disease and liver normal * - Acute on chronic hypoxemic respiratory failure- continue bronchodilators and mechanical ventilation support -SIRS with suspected early Sepsis without clear source, poa: consult ID: IV antibiotics, serial lactic acid, monitor uop q shift, blood cultures, urinalysis , chest x ray, IVF resuscitation therapy +Streptococcus bacteremia, ID is following. 2D Echo showed no vegetation -Acute Hepatic Encephalopathy: treat with Lactulose -Acute renal failure, suspect ATN with hypotension + vasomotor nephropathy, poa: treat with ivf, Nephrology following -Lactic Acidosis: Treat sepsis, monitor uop q shift, iv bicarbonate prn - Coagulopathy secondary to chronic liver disease. Patient had a hematuria. INR was 9.6 Administer FFP -Alcohol withdrawal syndrome (patient did have a fever and you can be either hypertensive or hypotensive with Etoh withdrawal): limit iv ativan due to liver dysfunction, Serax/Oxazepam was not available, Restarted IV Ativan -Hypoglycemia:on D5W but IVF changed by lehr attendant, Dr. Masters -Hepatitis with ascities: CT Abdomen and pelvis noted, LFT, Hepatitis panel, consulted GI -Hematuria: resolved, outpatient urology F/U recommended -DVT prophylaxis: SCD to BLE while in bed.No anticoagulation because of coagulopathy guarded prognosis full code MRCP==>IMPRESSION: Grossly limited study due to motion artifacts and the MRCP is nondiagnostic. Inhomogeneous signal is noted in the liver. Any underlying mass lesions cannot be excluded. Mild degree bilateral pleural effusions and mild degree ascites. Gallbladder is minimally distended with mild degree wall thickening. This may be secondary to chronic cholecystitis versus postprandial status. Other etiologies of gallbladder wall thickening include hepatitis, ascites etc. Small hiatal hernia Small cystic lesions of right kidney are most likely of simple nature. MRI unable to be done. Patient is stable Subjective Date of service: 05/04/18 Principal diagnosis: SIRS,Hepatic encephalopathy,ARF/MV support Interval history: Pt seen and examined. Remains intubated and on mechanical ventilation. Pt's dauaghter in the room. No overnight event reported to me by nursing staff. Objective - Exam Narrative Exam: Constitutional: Well-nourished well-developed. Intubated and on mechanical ventilation support Head: Normocephalic atraumatic Eyes: Pupils are equal round and reactive to light Nose: No enlarged turbinates, no septal deviation. Mouth: Moist mucous membranes. Neck: Supple no thyromegaly. No bruit. No JVD Heart: Regular rate and rhythm, S1-S2 abnormal. No rubs murmurs or gallop Lungs: Clear to auscultation bilaterally no rales or rhonchi Abdomen: Soft, nontender. Bowel sound are present. Extremities: No edema no cyanosis and no clubbing. Neuro: Alert oriented Oriented x3. No focal sensory or motor deficit. Skin: No rashes no hyperemic spots Psychiatry: Euthymic. Calm. - Constitutional Vitals: Vital Signs - 12hr 05/03/18 05/03/18 05/03/18 20:30 20:46 21:00 Temperature Pulse Rate 100 H 98 H 97 H Respiratory 31 H 31 H 30 H Rate Blood Pressure 144/32 144/32 144/32 O2 Sat by Pulse 95 95 Oximetry 06/25/18 06/25/18 06/25/18 21:05 21:16 21:30 Temperature Pulse Rate 97 H 96 H 97 H Respiratory 31 H 31 H Rate Blood Pressure 144/32 144/32 O2 Sat by Pulse 96 95 Oximetry 05/03/18 05/03/18 05/03/18 21:46 22:00 22:16 Temperature Pulse Rate 96 H 95 H 97 H Respiratory 30 H 20 27 H Rate Blood Pressure 108/69 108/69 123/106 O2 Sat by Pulse 97 96 96 Oximetry 05/03/18 05/03/18 05/03/18 22:30 22:42 22:46 Temperature Pulse Rate 96 H 97 H 98 H Respiratory 24 29 H 26 H Rate Blood Pressure 123/106 137/76 137/76 O2 Sat by Pulse 95 97 97 Oximetry 05/03/18 05/03/18 05/03/18 23:00 23:16 23:20 Temperature Pulse Rate 97 H 100 H 95 H Respiratory 30 H 31 H 28 H Rate Blood Pressure 137/76 140/87 O2 Sat by Pulse 97 97 94 Oximetry 05/03/18 05/03/18 05/03/18 23:30 23:34 23:46 Temperature Pulse Rate 100 H 102 H 99 H Respiratory 31 H 32 H Rate Blood Pressure 140/87 140/87 136/88 O2 Sat by Pulse 96 95 97 Oximetry 05/04/18 05/04/18 05/04/18 00:00 00:16 00:30 Temperature Pulse Rate 98 H 97 H 95 H Respiratory 33 H 27 H 28 H Rate Blood Pressure 136/88 109/58 109/58 O2 Sat by Pulse 96 97 95 Oximetry 05/04/18 05/04/18 05/04/18 00:46 01:00 01:16 Temperature Pulse Rate 95 H 92 H 95 H Respiratory 28 H 24 28 H Rate Blood Pressure 105/60 105/60 95/68 O2 Sat by Pulse 96 96 96 Oximetry 05/04/18 05/04/18 05/04/18 01:30 01:46 01:54 Temperature Pulse Rate 97 H 96 H 96 H Respiratory 34 H 31 H 28 H Rate Blood Pressure 93/72 93/72 O2 Sat by Pulse 95 98 94 Oximetry 05/04/18 05/04/18 05/04/18 02:00 02:16 02:30 Temperature Pulse Rate 96 H 96 H 99 H Respiratory 25 H 25 H 33 H Rate Blood Pressure 111/75 111/75 126/78 O2 Sat by Pulse 96 96 91 Oximetry 05/04/18 05/04/18 05/04/18 02:46 02:50 03:00 Temperature Pulse Rate 98 H 98 H Respiratory 30 H 30 H 28 H Rate Blood Pressure 126/78 126/78 O2 Sat by Pulse 97 94 94 Oximetry 05/04/18 05/04/18 05/04/18 03:16 03:30 03:46 Temperature Pulse Rate 100 H 98 H 100 H Respiratory 30 H 31 H 34 H Rate Blood Pressure 119/73 133/71 133/71 O2 Sat by Pulse 96 95 96 Oximetry 05/04/18 05/04/18 05/04/18 03:48 04:00 04:16 Temperature 100.3 F H Pulse Rate 98 H 100 H 96 H Respiratory 31 H 29 H Rate Blood Pressure 133/71 133/71 115/70 O2 Sat by Pulse 96 95 Oximetry 05/04/18 05/04/18 05/04/18 04:30 04:46 05:00 Temperature Pulse Rate 98 H 99 H 102 H Respiratory 25 H 27 H 32 H Rate Blood Pressure 122/77 115/70 110/74 O2 Sat by Pulse 97 96 94 Oximetry 05/04/18 05/04/18 05/04/18 05:13 05:16 05:30 Temperature Pulse Rate 100 H 101 H 100 H Respiratory 30 H 30 H 28 H Rate Blood Pressure 110/74 106/82 O2 Sat by Pulse 94 96 95 Oximetry 05/04/18 05/04/18 05/04/18 05:46 06:00 06:16 Temperature Pulse Rate 103 H 102 H 101 H Respiratory 32 H 32 H 30 H Rate Blood Pressure 106/82 115/70 115/70 O2 Sat by Pulse 96 94 97 Oximetry 05/04/18 05/04/18 06:30 08:00 Temperature 97.6 F Pulse Rate 103 H Respiratory 30 H Rate Blood Pressure 94/67 O2 Sat by Pulse Oximetry - Labs CBC & Chem 7: 05/03/18 04:04 05/04/18 04:37 Labs: Abnormal lab results 05/03/18 05/04/18 05/04/18 Range/Units 11:27 00:56 03:54 PT 85.4 H (12.2-14.9) Sec. INR 9.67 H* (0.87-1.13) POC ABG pH 7.269 L 7.233 L (7.35-7.45) POC ABG pCO2 34.5 L (35-45) Sodium (137-145) mmol/L Chloride (98-107) mmol/L Carbon Dioxide (22-30) mmol/L BUN (9-20) mg/dL Creatinine (0.8-1.5) mg/dL Glucose (75-100) mg/dL Calcium (8.4-10.2) mg/dL Total Bilirubin (0.1-1.2) mg/dL AST (5-40) units/L ALT (7-56) units/L Alkaline Phosphatase (35-129) units/L Total Protein (6.3-8.2) g/dL Albumin (3.9-5) g/dL 05/04/18 Range/Units 04:37 PT (12.2-14.9) Sec. INR (0.87-1.13) POC ABG pH (7.35-7.45) POC ABG pCO2 (35-45) Sodium 152 H (137-145) mmol/L Chloride 118.7 H (98-107) mmol/L Carbon Dioxide 17 L (22-30) mmol/L BUN 121 H (9-20) mg/dL Creatinine 4.0 H (0.8-1.5) mg/dL Glucose 113 H (75-100) mg/dL Calcium 8.0 L (8.4-10.2) mg/dL Total Bilirubin 2.90 H (0.1-1.2) mg/dL AST 216 H (5-40) units/L ALT 142 H (7-56) units/L Alkaline Phosphatase 609 H (35-129) units/L Total Protein 4.9 L (6.3-8.2) g/dL Albumin 2.3 L (3.9-5) g/dL
[2018-05-04] MEDS ORDERED: NACL 0.9% 500 ML 500 ML IV ONE (08:39)
[2018-05-04 09:09] LABS: INR 2.35 (0.87-1.13)
--- NOTE | 2018-05-04 09:25 | Progress Note ---
Assessment and Plan ARF/MV support. Still with acidosis component. Mild tachypnea. Oxygenation adequate. Hepatic failure. See GI comments. Agree with concern for progressive hepatic deterioration. Coagulopathy,secondary to liver failure. Some INR improvement post Vit K. 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 Completing antibiotics. Hepatic encephalopathy. On lactulose. No changes. Neurologically unchanged, no postural changes no papilledema Acidosis,metabolic/respiratory ETOH abuse. Hypoalbuminemia Recommendations Vent support, increase respiratory rate 24/m Continue lactulose Continue antibiotics Vascular access for hemodialysis, fresh frozen plasma ordered Hemodialysis per nephrology Follow-up on GI and ID recommendations Prognosis grave Patient's status discussed with his daughter at the bedside in detail. All questions answered Critical care time was 31 minutes of [id number] evaluation and coordination of care Subjective Date of service: 05/04/18 Principal diagnosis: SIRS,Hepatic encephalopathy,ARF/MV support Interval history: Intubated, nonresponsive Objective Vital Signs - 12hr 05/03/18 05/03/18 05/03/18 21:30 21:46 22:00 Temperature Pulse Rate 97 H 96 H 95 H Respiratory 31 H 30 H 20 Rate Blood Pressure 144/32 108/69 108/69 O2 Sat by Pulse 95 97 96 Oximetry 05/03/18 05/03/18 05/03/18 22:16 22:30 22:42 Temperature Pulse Rate 97 H 96 H 97 H Respiratory 27 H 24 29 H Rate Blood Pressure 123/106 123/106 137/76 O2 Sat by Pulse 96 95 97 Oximetry 05/03/18 05/03/18 05/03/18 22:46 23:00 23:16 Temperature Pulse Rate 98 H 97 H 100 H Respiratory 26 H 30 H 31 H Rate Blood Pressure 137/76 137/76 140/87 O2 Sat by Pulse 97 97 97 Oximetry 05/03/18 05/03/18 05/03/18 23:20 23:30 23:34 Temperature Pulse Rate 95 H 100 H 102 H Respiratory 28 H 31 H Rate Blood Pressure 140/87 140/87 O2 Sat by Pulse 94 96 95 Oximetry 05/03/18 05/04/18 05/04/18 23:46 00:00 00:16 Temperature Pulse Rate 99 H 98 H 97 H Respiratory 32 H 33 H 27 H Rate Blood Pressure 136/88 136/88 109/58 O2 Sat by Pulse 97 96 97 Oximetry 05/04/18 05/04/18 05/04/18 00:30 00:46 01:00 Temperature Pulse Rate 95 H 95 H 92 H Respiratory 28 H 28 H 24 Rate Blood Pressure 109/58 105/60 105/60 O2 Sat by Pulse 95 96 96 Oximetry 05/04/18 05/04/18 05/04/18 01:16 01:30 01:46 Temperature Pulse Rate 95 H 97 H 96 H Respiratory 28 H 34 H 31 H Rate Blood Pressure 95/68 93/72 93/72 O2 Sat by Pulse 96 95 98 Oximetry 05/04/18 05/04/18 05/04/18 01:54 02:00 02:16 Temperature Pulse Rate 96 H 96 H 96 H Respiratory 28 H 25 H 25 H Rate Blood Pressure 111/75 111/75 O2 Sat by Pulse 94 96 96 Oximetry 05/04/18 05/04/18 05/04/18 02:30 02:46 02:50 Temperature Pulse Rate 99 H 98 H Respiratory 33 H 30 H 30 H Rate Blood Pressure 126/78 126/78 O2 Sat by Pulse 91 97 94 Oximetry 05/04/18 05/04/18 05/04/18 03:00 03:16 03:30 Temperature Pulse Rate 98 H 100 H 98 H Respiratory 28 H 30 H 31 H Rate Blood Pressure 126/78 119/73 133/71 O2 Sat by Pulse 94 96 95 Oximetry 05/04/18 05/04/18 05/04/18 03:46 03:48 04:00 Temperature 100.3 F H Pulse Rate 100 H 98 H 100 H Respiratory 34 H 31 H Rate Blood Pressure 133/71 133/71 133/71 O2 Sat by Pulse 96 96 Oximetry 05/04/18 05/04/18 05/04/18 04:16 04:30 04:46 Temperature Pulse Rate 96 H 98 H 99 H Respiratory 29 H 25 H 27 H Rate Blood Pressure 115/70 122/77 115/70 O2 Sat by Pulse 95 97 96 Oximetry 05/04/18 05/04/18 05/04/18 05:00 05:13 05:16 Temperature Pulse Rate 102 H 100 H 101 H Respiratory 32 H 30 H 30 H Rate Blood Pressure 110/74 110/74 O2 Sat by Pulse 94 94 96 Oximetry 05/04/18 05/04/18 05/04/18 05:30 05:46 06:00 Temperature Pulse Rate 100 H 103 H 102 H Respiratory 28 H 32 H 32 H Rate Blood Pressure 106/82 106/82 115/70 O2 Sat by Pulse 95 96 94 Oximetry 05/04/18 05/04/18 05/04/18 06:16 06:30 08:00 Temperature 97.6 F Pulse Rate 101 H 103 H Respiratory 30 H 30 H Rate Blood Pressure 115/70 94/67 O2 Sat by Pulse 97 Oximetry 05/04/18 09:07 Temperature Pulse Rate 101 H Respiratory Rate Blood Pressure 99/69 O2 Sat by Pulse 96 Oximetry Constitutional: no acute distress, other (Stuporous and intubated) Eyes: other (tries to open only on stimulation) Neck: supple, no JVD Effort: normal Ascultation: Bilateral: clear, diminished breath sounds Percussion: Bilateral: not dull Cardiovascular: regular rate and rhythm Gastrointestinal: soft, other (obese, rectal tube in place) Integumentary: normal Extremities: no cyanosis, no edema Neurologic: unable to assess (~RASS scale -2-3 but not sedated at this time) CBC and BMP: 05/03/18 04:04 05/04/18 04:37 ABG, PT/INR, D-dimer: ABG POC ABG pH 7.233 (7.35-7.45) L 05/04/18 03:54 POC ABG pCO2 37.8 (35-45) 05/04/18 03:54 POC ABG pO2 99 (80-105) 05/04/18 03:54 POC ABG HCO3 15.9 05/04/18 03:54 POC ABG Total CO2 17 05/04/18 03:54 POC ABG O2 Sat 96 05/04/18 03:54 PT/INR, D-dimer PT 27.3 Sec. (12.2-14.9) H 05/04/18 08:20 INR 2.35 (0.87-1.13) H 05/04/18 08:20 Abnormal lab findings: Abnormal Labs 04/26/18 04/26/18 04/26/18 11:33 11:33 11:33 WBC 14.7 H RBC 5.07 H Hct 45.8 H MCHC RDW 16.2 H Seg Neuts % (Manual) 75.0 H Lymphocytes % (Manual) 4.0 L Monocytes % (Manual) 8.0 H Eosinophils % (Manual) 8.0 H Seg Neutrophils # Man 11.0 H Lymphocytes # (Manual) 0.6 L Monocytes # (Manual) 1.2 H Eosinophils # (Manual) 1.2 H PT 18.4 H INR 1.44 H APTT POC ABG pH POC ABG pCO2 POC ABG pO2 VBG pH Sodium 135 L Potassium 5.3 H Chloride 97.7 L Carbon Dioxide 15 L BUN 76 H Creatinine 5.2 H Glucose 101 H POC Glucose Lactic Acid Calcium Magnesium Total Bilirubin 1.60 H AST 285 H ALT 131 H Alkaline Phosphatase 856 H Ammonia Total Creatine Kinase C-Reactive Protein Total Protein Albumin 3.2 L Lipase Urine Creatinine 04/26/18 04/26/18 04/26/18 11:33 11:33 21:20 WBC RBC Hct MCHC RDW Seg Neuts % (Manual) Lymphocytes % (Manual) Monocytes % (Manual) Eosinophils % (Manual) Seg Neutrophils # Man Lymphocytes # (Manual) Monocytes # (Manual) Eosinophils # (Manual) PT INR APTT POC ABG pH POC ABG pCO2 POC ABG pO2 VBG pH 7.268 L Sodium Potassium Chloride Carbon Dioxide BUN Creatinine Glucose POC Glucose Lactic Acid 2.30 H* 3.00 H* Calcium Magnesium Total Bilirubin AST ALT Alkaline Phosphatase Ammonia Total Creatine Kinase C-Reactive Protein Total Protein Albumin Lipase Urine Creatinine 04/26/18 04/26/18 04/27/18 21:20 21:20 05:52 WBC 17.0 H RBC Hct MCHC RDW 15.7 H Seg Neuts % (Manual) 79.0 H Lymphocytes % (Manual) 8.0 L Monocytes % (Manual) Eosinophils % (Manual) Seg Neutrophils # Man 13.4 H Lymphocytes # (Manual) Monocytes # (Manual) 0.9 H Eosinophils # (Manual) PT INR APTT POC ABG pH POC ABG pCO2 POC ABG pO2 VBG pH Sodium Potassium Chloride Carbon Dioxide 16 L BUN 75 H Creatinine 4.7 H Glucose 128 H POC Glucose Lactic Acid Calcium Magnesium Total Bilirubin AST ALT Alkaline Phosphatase Ammonia 123.0 H Total Creatine Kinase C-Reactive Protein Total Protein Albumin Lipase 68 H Urine Creatinine 04/27/18 04/27/18 04/27/18 05:52 14:13 16:28 WBC 18.2 H RBC Hct MCHC RDW 16.1 H Seg Neuts % (Manual) 84.0 H Lymphocytes % (Manual) 8.0 L Monocytes % (Manual) Eosinophils % (Manual) Seg Neutrophils # Man 15.3 H Lymphocytes # (Manual) Monocytes # (Manual) Eosinophils # (Manual) 0.5 H PT INR APTT POC ABG pH POC ABG pCO2 POC ABG pO2 VBG pH Sodium Potassium Chloride Carbon Dioxide 19 L BUN 75 H Creatinine 4.2 H Glucose 110 H POC Glucose Lactic Acid Calcium Magnesium Total Bilirubin 1.90 H AST 244 H ALT 120 H Alkaline Phosphatase 777 H Ammonia Total Creatine Kinase 373 H C-Reactive Protein 16.50 H Total Protein 5.9 L Albumin 3.4 L Lipase Urine Creatinine 04/28/18 04/28/18 04/29/18 15:41 15:41 08:12 WBC RBC Hct MCHC RDW Seg Neuts % (Manual) Lymphocytes % (Manual) Monocytes % (Manual) Eosinophils % (Manual) Seg Neutrophils # Man Lymphocytes # (Manual) Monocytes # (Manual) Eosinophils # (Manual) PT INR APTT POC ABG pH POC ABG pCO2 POC ABG pO2 VBG pH Sodium Potassium Chloride 108.6 H Carbon Dioxide 14 L BUN 76 H Creatinine 3.0 H Glucose 60 L POC Glucose Lactic Acid Calcium 8.1 L Magnesium Total Bilirubin 2.20 H AST 416 H ALT 136 H Alkaline Phosphatase 674 H Ammonia 76.0 H 134.0 H Total Creatine Kinase 497 H C-Reactive Protein Total Protein 5.2 L Albumin 3.0 L Lipase Urine Creatinine 04/29/18 04/29/18 04/29/18 08:12 08:12 19:24 WBC 13.8 H RBC Hct MCHC RDW 16.2 H Seg Neuts % (Manual) Lymphocytes % (Manual) Monocytes % (Manual) Eosinophils % (Manual) Seg Neutrophils # Man Lymphocytes # (Manual) Monocytes # (Manual) Eosinophils # (Manual) PT INR APTT POC ABG pH 7.244 L POC ABG pCO2 POC ABG pO2 172 H VBG pH Sodium 149 H Potassium Chloride 113.3 H Carbon Dioxide 16 L BUN 79 H Creatinine 2.8 H Glucose 69 L POC Glucose Lactic Acid Calcium Magnesium Total Bilirubin 2.40 H AST 423 H ALT 128 H Alkaline Phosphatase 657 H Ammonia Total Creatine Kinase 435 H C-Reactive Protein Total Protein 5.4 L Albumin 2.6 L Lipase Urine Creatinine 06/22/18 06/22/18 06/22/18 04:01 04:01 04:11 WBC RBC Hct MCHC RDW Seg Neuts % (Manual) Lymphocytes % (Manual) Monocytes % (Manual) Eosinophils % (Manual) Seg Neutrophils # Man Lymphocytes # (Manual) Monocytes # (Manual) Eosinophils # (Manual) PT 25.8 H INR 2.19 H APTT POC ABG pH POC ABG pCO2 POC ABG pO2 VBG pH Sodium 146 H Potassium Chloride 111.9 H Carbon Dioxide 19 L BUN 85 H Creatinine 3.5 H Glucose 261 H POC Glucose Lactic Acid Calcium 8.1 L Magnesium 2.40 H Total Bilirubin 2.60 H AST 1008 H ALT 217 H Alkaline Phosphatase 620 H Ammonia 80.0 H Total Creatine Kinase C-Reactive Protein Total Protein 4.9 L Albumin 2.7 L Lipase Urine Creatinine 04/30/18 04/30/18 05/01/18 11:59 16:23 05:04 WBC RBC Hct MCHC RDW Seg Neuts % (Manual) Lymphocytes % (Manual) Monocytes % (Manual) Eosinophils % (Manual) Seg Neutrophils # Man Lymphocytes # (Manual) Monocytes # (Manual) Eosinophils # (Manual) PT INR APTT POC ABG pH 7.252 L 7.179 L POC ABG pCO2 49.1 H POC ABG pO2 115 H VBG pH Sodium Potassium Chloride Carbon Dioxide BUN Creatinine Glucose POC Glucose Lactic Acid Calcium Magnesium Total Bilirubin AST ALT Alkaline Phosphatase Ammonia 81.0 H Total Creatine Kinase C-Reactive Protein Total Protein Albumin Lipase Urine Creatinine 05/01/18 05/01/18 05/01/18 05:04 05:04 05:04 WBC 11.2 H RBC Hct MCHC RDW 17.1 H Seg Neuts % (Manual) Lymphocytes % (Manual) Monocytes % (Manual) Eosinophils % (Manual) Seg Neutrophils # Man Lymphocytes # (Manual) Monocytes # (Manual) Eosinophils # (Manual) PT 28.4 H INR 2.47 H APTT 37.7 H POC ABG pH POC ABG pCO2 POC ABG pO2 VBG pH Sodium 150 H Potassium Chloride 115.5 H Carbon Dioxide 18 L BUN 106 H Creatinine 4.2 H Glucose 233 H POC Glucose Lactic Acid Calcium 7.9 L Magnesium Total Bilirubin 2.00 H AST 565 H ALT 200 H Alkaline Phosphatase 546 H Ammonia Total Creatine Kinase C-Reactive Protein Total Protein 4.9 L Albumin 2.3 L Lipase Urine Creatinine 05/01/18 05/01/18 05/01/18 05:08 12:57 18:31 WBC RBC Hct MCHC RDW Seg Neuts % (Manual) Lymphocytes % (Manual) Monocytes % (Manual) Eosinophils % (Manual) Seg Neutrophils # Man Lymphocytes # (Manual) Monocytes # (Manual) Eosinophils # (Manual) PT INR APTT POC ABG pH 7.194 L POC ABG pCO2 POC ABG pO2 VBG pH Sodium Potassium Chloride Carbon Dioxide BUN Creatinine Glucose POC Glucose 224 H 250 H Lactic Acid Calcium Magnesium Total Bilirubin AST ALT Alkaline Phosphatase Ammonia Total Creatine Kinase C-Reactive Protein Total Protein Albumin Lipase Urine Creatinine 05/02/18 05/02/18 05/02/18 03:00 03:27 04:45 WBC 19.9 H RBC Hct MCHC 31 L RDW 17.1 H Seg Neuts % (Manual) Lymphocytes % (Manual) Monocytes % (Manual) Eosinophils % (Manual) Seg Neutrophils # Man Lymphocytes # (Manual) Monocytes # (Manual) Eosinophils # (Manual) PT INR APTT POC ABG pH 7.194 L POC ABG pCO2 POC ABG pO2 60 L VBG pH Sodium Potassium Chloride Carbon Dioxide BUN Creatinine Glucose POC Glucose Lactic Acid Calcium Magnesium Total Bilirubin AST ALT Alkaline Phosphatase Ammonia Total Creatine Kinase C-Reactive Protein Total Protein Albumin Lipase Urine Creatinine 141.6 H 05/02/18 05/02/18 05/02/18 04:45 05:18 11:19 WBC RBC Hct MCHC RDW Seg Neuts % (Manual) Lymphocytes % (Manual) Monocytes % (Manual) Eosinophils % (Manual) Seg Neutrophils # Man Lymphocytes # (Manual) Monocytes # (Manual) Eosinophils # (Manual) PT INR APTT POC ABG pH POC ABG pCO2 POC ABG pO2 VBG pH Sodium 150 H Potassium Chloride 117.6 H Carbon Dioxide 15 L BUN 104 H Creatinine 3.7 H Glucose 190 H POC Glucose 186 H Lactic Acid Calcium 7.7 L Magnesium Total Bilirubin 2.00 H AST 349 H ALT 185 H Alkaline Phosphatase 561 H Ammonia 83.0 H Total Creatine Kinase C-Reactive Protein Total Protein 4.8 L Albumin 2.5 L Lipase Urine Creatinine 05/02/18 05/02/18 05/03/18 12:11 16:17 04:04 WBC 22.4 H RBC Hct MCHC 31 L RDW 17.2 H Seg Neuts % (Manual) Lymphocytes % (Manual) Monocytes % (Manual) Eosinophils % (Manual) Seg Neutrophils # Man Lymphocytes # (Manual) Monocytes # (Manual) Eosinophils # (Manual) PT INR APTT POC ABG pH POC ABG pCO2 POC ABG pO2 VBG pH Sodium Potassium Chloride Carbon Dioxide BUN Creatinine Glucose POC Glucose 175 H 192 H Lactic Acid Calcium Magnesium Total Bilirubin AST ALT Alkaline Phosphatase Ammonia Total Creatine Kinase C-Reactive Protein Total Protein Albumin Lipase Urine Creatinine 05/03/18 05/03/18 05/03/18 04:04 04:35 11:27 WBC RBC Hct MCHC RDW Seg Neuts % (Manual) Lymphocytes % (Manual) Monocytes % (Manual) Eosinophils % (Manual) Seg Neutrophils # Man Lymphocytes # (Manual) Monocytes # (Manual) Eosinophils # (Manual) PT INR APTT POC ABG pH 7.254 L 7.269 L POC ABG pCO2 34.5 L POC ABG pO2 78 L VBG pH Sodium 150 H Potassium Chloride 117.2 H Carbon Dioxide 16 L BUN 112 H Creatinine 3.7 H Glucose 181 H POC Glucose Lactic Acid Calcium 7.9 L Magnesium Total Bilirubin 2.50 H AST 239 H ALT 162 H Alkaline Phosphatase 609 H Ammonia Total Creatine Kinase C-Reactive Protein Total Protein 5.0 L Albumin 2.5 L Lipase Urine Creatinine 05/04/18 05/04/18 05/04/18 00:56 03:54 04:37 WBC RBC Hct MCHC RDW Seg Neuts % (Manual) Lymphocytes % (Manual) Monocytes % (Manual) Eosinophils % (Manual) Seg Neutrophils # Man Lymphocytes # (Manual) Monocytes # (Manual) Eosinophils # (Manual) PT 85.4 H INR 9.67 H* APTT POC ABG pH 7.233 L POC ABG pCO2 POC ABG pO2 VBG pH Sodium 152 H Potassium Chloride 118.7 H Carbon Dioxide 17 L BUN 121 H Creatinine 4.0 H Glucose 113 H POC Glucose Lactic Acid Calcium 8.0 L Magnesium Total Bilirubin 2.90 H AST 216 H ALT 142 H Alkaline Phosphatase 609 H Ammonia Total Creatine Kinase C-Reactive Protein Total Protein 4.9 L Albumin 2.3 L Lipase Urine Creatinine 05/04/18 08:20 WBC RBC Hct MCHC RDW Seg Neuts % (Manual) Lymphocytes % (Manual) Monocytes % (Manual) Eosinophils % (Manual) Seg Neutrophils # Man Lymphocytes # (Manual) Monocytes # (Manual) Eosinophils # (Manual) PT 27.3 H INR 2.35 H APTT POC ABG pH POC ABG pCO2 POC ABG pO2 VBG pH Sodium Potassium Chloride Carbon Dioxide BUN Creatinine Glucose POC Glucose Lactic Acid Calcium Magnesium Total Bilirubin AST ALT Alkaline Phosphatase Ammonia Total Creatine Kinase C-Reactive Protein Total Protein Albumin Lipase Urine Creatinine
[2018-05-04] MEDS ORDERED: NACL 0.9% 100 ML IV PRN ×2 (09:37→18:09)
[2018-05-04] MEDS: SODIUM CHLORIDE FLUSH SYRINGE 10 ML IV SCH ×2 (10:25→22:15)
[2018-05-04] MEDS: PEPCID PO SCH (10:25)
[2018-05-04] MEDS: CEPHULAC PR SCH ×2 (10:25→15:32)
[2018-05-04] MEDS: PROAMATINE PO SCH ×3 (10:50→21:10)
--- NOTE | 2018-05-04 14:56 | Progress Note ---
Assessment and Plan 1. Altered mental status - most likely multifactorial, with hepatic encephalopathy and likely uremia. Elevated INR improved slightly with vit K. - meantime, continue supportive care - change Lactulose to by Dobhoff Subjective Date of service: 05/04/18 Principal diagnosis: SIRS,Hepatic encephalopathy,ARF/MV support Interval history: Pt intubated, and getting Dobhoff TF. Daughter in room. No change. Objective - Constitutional Vitals: Vital Signs - 12hr 05/04/18 05/04/18 05/04/18 03:00 03:16 03:30 Temperature Pulse Rate 98 H 100 H 98 H Respiratory 28 H 30 H 31 H Rate Blood Pressure 126/78 119/73 133/71 O2 Sat by Pulse 94 96 95 Oximetry 05/04/18 05/04/18 05/04/18 03:46 03:48 04:00 Temperature 100.3 F H Pulse Rate 100 H 98 H 100 H Respiratory 34 H 31 H Rate Blood Pressure 133/71 133/71 133/71 O2 Sat by Pulse 96 96 Oximetry 05/04/18 05/04/18 05/04/18 04:16 04:30 04:46 Temperature Pulse Rate 96 H 98 H 99 H Respiratory 29 H 25 H 27 H Rate Blood Pressure 115/70 122/77 115/70 O2 Sat by Pulse 95 97 96 Oximetry 05/04/18 05/04/18 05/04/18 05:00 05:13 05:16 Temperature Pulse Rate 102 H 100 H 101 H Respiratory 32 H 30 H 30 H Rate Blood Pressure 110/74 110/74 O2 Sat by Pulse 94 94 96 Oximetry 05/04/18 05/04/18 05/04/18 05:30 05:46 06:00 Temperature Pulse Rate 100 H 103 H 102 H Respiratory 28 H 32 H 32 H Rate Blood Pressure 106/82 106/82 115/70 O2 Sat by Pulse 95 96 94 Oximetry 05/04/18 05/04/18 05/04/18 06:16 06:30 08:00 Temperature 97.6 F Pulse Rate 101 H 103 H Respiratory 30 H 30 H Rate Blood Pressure 115/70 94/67 O2 Sat by Pulse 97 Oximetry 05/04/18 05/04/18 05/04/18 09:07 12:00 12:43 Temperature 99.7 F H Pulse Rate 101 H 103 H Respiratory Rate Blood Pressure 99/69 90/54 O2 Sat by Pulse 96 95 Oximetry General appearance: Present: no acute distress, other (Intubated, unresponsive.) - EENT Eyes: PERRL, EOM intact - Respiratory Respiratory effort: normal, other (on ventilator) - Gastrointestinal General gastrointestinal: Present: soft, non-tender - Labs CBC & Chem 7: 05/03/18 04:04 05/04/18 04:37 Labs: Abnormal lab results 05/04/18 05/04/18 05/04/18 Range/Units 00:56 03:54 04:37 PT 85.4 H (12.2-14.9) Sec. INR 9.67 H* (0.87-1.13) POC ABG pH 7.233 L (7.35-7.45) Sodium 152 H (137-145) mmol/L Chloride 118.7 H (98-107) mmol/L Carbon Dioxide 17 L (22-30) mmol/L BUN 121 H (9-20) mg/dL Creatinine 4.0 H (0.8-1.5) mg/dL Glucose 113 H (75-100) mg/dL Calcium 8.0 L (8.4-10.2) mg/dL Total Bilirubin 2.90 H (0.1-1.2) mg/dL AST 216 H (5-40) units/L ALT 142 H (7-56) units/L Alkaline Phosphatase 609 H (35-129) units/L Total Protein 4.9 L (6.3-8.2) g/dL Albumin 2.3 L (3.9-5) g/dL 05/04/18 Range/Units 08:20 PT 27.3 H (12.2-14.9) Sec. INR 2.35 H (0.87-1.13) POC ABG pH (7.35-7.45) Sodium (137-145) mmol/L Chloride (98-107) mmol/L Carbon Dioxide (22-30) mmol/L BUN (9-20) mg/dL Creatinine (0.8-1.5) mg/dL Glucose (75-100) mg/dL Calcium (8.4-10.2) mg/dL Total Bilirubin (0.1-1.2) mg/dL AST (5-40) units/L ALT (7-56) units/L Alkaline Phosphatase (35-129) units/L Total Protein (6.3-8.2) g/dL Albumin (3.9-5) g/dL
[2018-05-04] MEDS: CEPHULAC FEEDTUBE SCH ×2 (15:41→23:45)
--- NOTE | 2018-05-04 15:42 | Progress Note ---
Assessment and Plan Assessment: 1) Sepsis: increasing leukocytosis (was on solumedrol) but still up ? liver necrosis ? abscess. Etiology Strep anginosus bacteremia +/- liver abscesses Vs. SBP Vs. liver malignancy 2) Strep anginosus bacteremia: ? source ? liver lesions. [employer] in same blood cx likely a contaminant 3) Liver lesions -CT showed few lesions largest right hepatic hypodense mass 3.4 cm with hepatomegaly. -US abd showed cholelithiasis, choledocholithiasis ? CBP 8.2. mm -viral hepatitis panel neg -CRP 16 -HIV neg -HIDA neg -MRCP is nondiagnostic. Any underlying mass lesions cannot be excluded. Mild degree bilateral pleural effusions and mild degree ascites. Gallbladder is minimally distended with mild degree wall thickening. This may be secondary to chronic cholecystitis versus postprandial status. 3) Elevated LFTs: from liver lesions +/- ETOH - better 4) Acute encephalopathy: worsening. CT head neg. Etio. sepsis +/- hepatic encephalopahy +/- ETOH withdrawal 5) RUFINA - worsening 6) Acute on chronic hypoxemic resp failure: intubated 7) ? SBP Plan: -stop zosyn D9/14 - in light of worsening leukocytosis -start cefepime and flagyl -pt to have a vas cath for HD -will ask GI opinion on ? leukocytosis from liver necrosis vs liver abscesses Overall prognosis poor Thank you for your consultation, will follow up with you. Deanna Lindquist MD Infectious Diseases Specialist [facility] [phone] O [phone] Subjective Date of service: 05/04/18 Principal diagnosis: SIRS,Hepatic encephalopathy,ARF/MV support Interval history: remains intubated on the vent AC FiO2 50% p7. tmax 100.3. Noted low blood pressure. Microbiology: Blood cultures: 04/26 [employer] 1 of 4 bottles and Strep anginosus 1 of 4 bottles 04/29 ngtd Urine cultures: 04/26 neg Sputum: 04/30 ngtd Current Antimicrobials: Zosyn 04/26 Previous Antimicrobials: Vancomycin Objective - Exam Narrative Exam: General appearance: somnolent on vent Eyes: anicteric sclerae, moist conjunctivae; no lid-lag; PERRLA HENT: Atraumatic; oropharynx ETT Neck: Trachea midline; supple, no thyromegaly or lymphadenopathy Lungs: decreased BS iraida CV: tachy Abdomen: Soft, distended Extremities: iraida leg/arm edema Skin: Normal temperature, turgor and texture; no rash, ulcers or subcutaneous nodules Psych: sedated Neuro: sedated non verbal Lines: - Constitutional Vitals: Vital Signs Temp Pulse Resp BP Pulse Ox 99.7 F H 93 H 29 H 81/52 97 05/04/18 12:00 05/04/18 15:15 05/04/18 15:15 05/04/18 15:15 05/04/18 15:15 Temperature -Last 24 Hours Temperature 99.7 F Temperature 97.6 F Temperature 100.3 F Temperature 99.8 F Temperature 99.7 F - Labs CBC & Chem 7: 05/03/18 04:04 05/04/18 04:37 Labs: Abnormal lab results 05/04/18 05/04/18 05/04/18 Range/Units 00:56 03:54 04:37 PT 85.4 H (12.2-14.9) Sec. INR 9.67 H* (0.87-1.13) POC ABG pH 7.233 L (7.35-7.45) Sodium 152 H (137-145) mmol/L Chloride 118.7 H (98-107) mmol/L Carbon Dioxide 17 L (22-30) mmol/L BUN 121 H (9-20) mg/dL Creatinine 4.0 H (0.8-1.5) mg/dL Glucose 113 H (75-100) mg/dL Calcium 8.0 L (8.4-10.2) mg/dL Total Bilirubin 2.90 H (0.1-1.2) mg/dL AST 216 H (5-40) units/L ALT 142 H (7-56) units/L Alkaline Phosphatase 609 H (35-129) units/L Total Protein 4.9 L (6.3-8.2) g/dL Albumin 2.3 L (3.9-5) g/dL 05/04/18 Range/Units 08:20 PT 27.3 H (12.2-14.9) Sec. INR 2.35 H (0.87-1.13) POC ABG pH (7.35-7.45) Sodium (137-145) mmol/L Chloride (98-107) mmol/L Carbon Dioxide (22-30) mmol/L BUN (9-20) mg/dL Creatinine (0.8-1.5) mg/dL Glucose (75-100) mg/dL Calcium (8.4-10.2) mg/dL Total Bilirubin (0.1-1.2) mg/dL AST (5-40) units/L ALT (7-56) units/L Alkaline Phosphatase (35-129) units/L Total Protein (6.3-8.2) g/dL Albumin (3.9-5) g/dL
[2018-05-04] MEDS ORDERED: MAXIPIME/NS 1 GM/100 ML 1 GM/100 ML BAG IV SCH (18:00)
[2018-05-04] MEDS: FLAGYL 500 MG/100 ML 500 MG/100 ML BAG IV SCH (18:08)
[2018-05-04] MEDS ORDERED: HEPARIN 10,000 UNITS/10 ML IV STA (19:54)
[2018-05-04 21:16] LABS: Hematocrit 40.7 % (35.5-45.6); Hemoglobin 12.6 gm/dl (11.8-15.2)
--- NOTE | 2018-05-04 22:47 | Operative Report ---
Operative Report Operative Report: Date of procedure: 05/04/2018 Pre-operative diagnosis: Acute renal failure Post-operative diagnosis: Same Procedure name(s): 1. Ultrasound-guided puncture of the right common femoral vein. 2. Insertion of 30 cm Trialysis triple-lumen Vas-Cath right common femoral vein Medical Provider: Mk Coello PA-C Supervising Physician: Kehinde Sommer M.D. Anesthesia: Local EBL: Minimal Complications: None Operative indications: This patient is a 72-year-old male is currently in the intensive care unit with multiple medical problems including acute renal failure. He's been evaluated by nephrology service and is felt to require initiation of hemodialysis. Other comorbidities include hypotension, sepsis with an increasing leukocytosis, abnormal liver findings on CT which suggests possible abscess versus malignancy. He had an an INR of greater than 9 this morning. He was subsequently given fresh frozen plasma, and a repeat INR was approximately 2.3. I therefore elected to place a femoral Vas-Cath due to the increased risk of bleeding. Findings: I was able to access the right femoral vein, and the catheter was inserted. Dark venous appearing blood was able to be aspirated, but slow was sluggish. Review of the CT suggested a small vena cava. Physical exam suggest that he is an enlarged liver which may also be compressing the vessel. It is unclear at this point if the catheter will be adequate for hemodialysis. He may require a new catheter placement from an internal jugular vein approach, but this will need to be done in the senior cytogenetics laboratory director with additional imaging capabilities. Specimens: None Procedure: The patient was laid supine in his ICU bed. The area over the right groin was prepped with chlorhexidine solution. The patient was draped in the normal sterile fashion. 1% lidocaine was used to anesthetize the right groin. Real- time ultrasound guidance was used to percutaneously access the right femoral vein. A guidewire was advanced into the central circulation. Two dilators were passed and remove successfully over the wire. A 30 cm triple lumen Trialysis Vas Cath was inserted over a wire to the hub. The wire was removed. I attempted to aspirate all 3 ports. The arterial port aspirated, but I was unable to aspirate from the brown or blue port. I repositioned the catheter withdrawing it several centimeters. I was able to aspirate at that point, but the flow appeared sluggish. The ports were primed with heparin 1000 units per mL to the appropriate stated volume. The caps were applied. The catheter was sewn into place using the supplied a 2-0 nylon suture. A Biopatch was placed, sterile bandages were applied. The patient tolerated the procedure well.
[2018-05-05] MEDS: FLAGYL 500 MG/100 ML 500 MG/100 ML BAG IV SCH ×2 (02:00→10:07)
[2018-05-05] MEDS: D5/0.45NS 1,000 ML IV SCH (04:35)
[2018-05-05] MEDS ORDERED: LEVOPHED DRIP 4 MG/NS 250 ML 4 MG/250 ML BAG IV SCH (05:00)
--- NOTE | 2018-05-05 06:49 | XRay Report ---
FINAL REPORT EXAM: XR CHEST 1V AP HISTORY: o2 desaturation TECHNIQUE: AP portable view(s) of the chest obtained. PRIORS: 05/04/2018, 05/03/2018 FINDINGS: Endotracheal tube terminates approximately 5.5 cm from the zander. Enteric tube courses below the diaphragm and off of the inferior field of view. No mediastinal shift. Cardiac silhouette is not enlarged. No pneumothorax. New/worse mild elevation left hemidiaphragm and ill-defined left basilar opacity. No acute skeletal finding. IMPRESSION: Satisfactory appearance of patient's support apparatus without pneumothorax. Worsening aeration/atelectasis of the left lower lung is suggested. Consider mucous plugging as potential etiology of patient's symptoms.
--- NOTE | 2018-05-05 08:05 | Progress Note ---
Assessment and Plan Shock Worsening metabolic/respiratory acidosis ARF/MV support. Hepatic failure. Prgressive hepatic deterioration,despite medical support Coagulopathy,secondary to liver failure. Some INR improvement post Vit K. 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 Completing antibiotics. Hepatic encephalopathy. On lactulose. No changes. Neurologically unchanged, no postural changes no papilledema ETOH abuse. Hypoalbuminemia Recommendations Vent support, increase respiratory rate 24/m Continue lactulose Continue antibiotics Vascular access for hemodialysis, fresh frozen plasma ordered Hemodialysis per nephrology Follow-up on GI and ID recommendations Prognosis grave Patient's status discussed with his daughter at the bedside in detail. All questions answered Critical care time was 31 minutes of [id number] evaluation and coordination of care Subjective Date of service: 05/05/18 Principal diagnosis: SIRS,Hepatic encephalopathy,ARF/MV support Interval history: Intubated, nonresponsive Objective Vital Signs - 12hr 05/04/18 05/04/18 05/04/18 20:15 20:30 20:45 Pulse Rate 96 H 94 H 92 H Pulse Rate [ From Monitor] Respiratory 32 H 29 H 29 H Rate Blood Pressure 85/45 83/47 74/45 O2 Sat by Pulse 95 97 96 Oximetry 05/04/18 05/04/18 05/04/18 21:00 21:15 21:25 Pulse Rate 92 H 92 H 92 H Pulse Rate [ From Monitor] Respiratory 31 H 25 H 25 H Rate Blood Pressure 84/50 84/50 80/48 O2 Sat by Pulse 97 96 97 Oximetry 05/04/18 05/04/18 05/04/18 21:30 21:45 22:00 Pulse Rate 93 H 96 H 94 H Pulse Rate [ From Monitor] Respiratory 27 H 29 H 28 H Rate Blood Pressure 93/63 93/63 96/65 O2 Sat by Pulse 96 96 96 Oximetry 05/04/18 05/04/18 05/04/18 22:15 22:30 22:45 Pulse Rate 98 H 98 H 96 H Pulse Rate [ From Monitor] Respiratory 30 H 31 H 27 H Rate Blood Pressure 96/65 102/68 102/68 O2 Sat by Pulse 96 97 96 Oximetry 05/04/18 05/04/18 05/04/18 23:00 23:15 23:26 Pulse Rate 96 H 95 H 98 H Pulse Rate [ From Monitor] Respiratory 25 H 25 H Rate Blood Pressure 97/60 97/60 101/65 O2 Sat by Pulse 97 96 95 Oximetry 05/04/18 05/04/18 05/05/18 23:30 23:45 00:00 Pulse Rate 97 H 100 H 96 H Pulse Rate [ 97 H From Monitor] Respiratory 25 H 29 H 22 Rate Blood Pressure 92/62 92/62 91/58 O2 Sat by Pulse 96 97 98 Oximetry 05/05/18 05/05/18 05/05/18 00:15 00:30 00:45 Pulse Rate 97 H 98 H 96 H Pulse Rate [ From Monitor] Respiratory 28 H 28 H 28 H Rate Blood Pressure 91/58 97/63 97/63 O2 Sat by Pulse 96 97 97 Oximetry 05/05/18 05/05/18 05/05/18 01:00 01:15 01:30 Pulse Rate 97 H 99 H 99 H Pulse Rate [ From Monitor] Respiratory 28 H 28 H 30 H Rate Blood Pressure 97/63 88/63 92/60 O2 Sat by Pulse 96 97 96 Oximetry 05/05/18 05/05/18 05/05/18 01:45 02:00 02:15 Pulse Rate 98 H 99 H 100 H Pulse Rate [ From Monitor] Respiratory 31 H 31 H 31 H Rate Blood Pressure 92/60 91/63 91/63 O2 Sat by Pulse 97 96 96 Oximetry 05/05/18 05/05/18 05/05/18 02:30 02:45 03:00 Pulse Rate 100 H 98 H 99 H Pulse Rate [ From Monitor] Respiratory 32 H 30 H 33 H Rate Blood Pressure 81/56 81/56 90/67 O2 Sat by Pulse 97 96 96 Oximetry 05/05/18 05/05/18 05/05/18 03:15 03:30 03:45 Pulse Rate 99 H 98 H 99 H Pulse Rate [ From Monitor] Respiratory 28 H 30 H 31 H Rate Blood Pressure 90/67 85/46 81/56 O2 Sat by Pulse 96 96 96 Oximetry 05/05/18 05/05/18 05/05/18 04:00 04:05 04:15 Pulse Rate 98 H 99 H 95 H Pulse Rate [ 97 H From Monitor] Respiratory 33 H 34 H Rate Blood Pressure 73/43 73/43 85/46 O2 Sat by Pulse 95 95 80 L Oximetry 05/05/18 05/05/18 05/05/18 04:31 04:45 05:00 Pulse Rate 97 H 92 H 94 H Pulse Rate [ From Monitor] Respiratory 34 H 33 H 33 H Rate Blood Pressure 85/46 67/34 64/40 O2 Sat by Pulse 97 97 99 Oximetry 05/05/18 05/05/18 05/05/18 05:15 05:30 05:45 Pulse Rate 91 H 91 H 94 H Pulse Rate [ From Monitor] Respiratory 33 H 33 H 32 H Rate Blood Pressure 73/43 57/30 57/28 O2 Sat by Pulse 95 100 91 Oximetry 05/05/18 05/05/18 05/05/18 06:00 06:15 06:30 Pulse Rate 105 H 108 H 112 H Pulse Rate [ From Monitor] Respiratory 33 H 32 H 32 H Rate Blood Pressure 79/49 85/43 79/40 O2 Sat by Pulse 90 90 81 L Oximetry 05/05/18 05/05/18 05/05/18 06:45 07:00 07:15 Pulse Rate 114 H 112 H 116 H Pulse Rate [ From Monitor] Respiratory 29 H 28 H 35 H Rate Blood Pressure 77/50 133/87 65/38 O2 Sat by Pulse 83 L Oximetry 05/05/18 07:31 Pulse Rate 124 H Pulse Rate [ From Monitor] Respiratory 30 H Rate Blood Pressure 74/40 O2 Sat by Pulse 100 Oximetry Constitutional: no acute distress, other (Stuporous and intubated) Eyes: other (tries to open only on stimulation) ENT: other (full face mask bipap on) Neck: supple, no JVD Effort: normal Ascultation: Bilateral: clear, diminished breath sounds Percussion: Bilateral: not dull Cardiovascular: regular rate and rhythm Gastrointestinal: soft, other (obese, rectal tube in place) Integumentary: normal Extremities: no cyanosis, no edema Neurologic: unable to assess (~RASS scale -2-3 but not sedated at this time) CBC and BMP: 05/04/18 20:43 05/04/18 04:37 ABG, PT/INR, D-dimer: ABG POC ABG pH 7.056 (7.35-7.45) L 05/05/18 06:01 POC ABG pCO2 52.7 (35-45) H 05/05/18 06:01 POC ABG pO2 68 (80-105) L 05/05/18 06:01 POC ABG HCO3 14.8 05/05/18 06:01 POC ABG Total CO2 16 05/05/18 06:01 POC ABG O2 Sat 84 05/05/18 06:01 PT/INR, D-dimer PT 27.3 Sec. (12.2-14.9) H 05/04/18 08:20 INR 2.35 (0.87-1.13) H 05/04/18 08:20 Abnormal lab findings: Abnormal Labs 04/26/18 04/26/18 04/26/18 11:33 11:33 11:33 WBC 14.7 H RBC 5.07 H Hct 45.8 H MCHC RDW 16.2 H Seg Neuts % (Manual) 75.0 H Lymphocytes % (Manual) 4.0 L Monocytes % (Manual) 8.0 H Eosinophils % (Manual) 8.0 H Seg Neutrophils # Man 11.0 H Lymphocytes # (Manual) 0.6 L Monocytes # (Manual) 1.2 H Eosinophils # (Manual) 1.2 H PT 18.4 H INR 1.44 H APTT POC ABG pH POC ABG pCO2 POC ABG pO2 VBG pH Sodium 135 L Potassium 5.3 H Chloride 97.7 L Carbon Dioxide 15 L BUN 76 H Creatinine 5.2 H Glucose 101 H POC Glucose Lactic Acid Calcium Magnesium Total Bilirubin 1.60 H AST 285 H ALT 131 H Alkaline Phosphatase 856 H Ammonia Total Creatine Kinase C-Reactive Protein Total Protein Albumin 3.2 L Lipase Urine Creatinine 04/26/18 04/26/18 04/26/18 11:33 11:33 21:20 WBC RBC Hct MCHC RDW Seg Neuts % (Manual) Lymphocytes % (Manual) Monocytes % (Manual) Eosinophils % (Manual) Seg Neutrophils # Man Lymphocytes # (Manual) Monocytes # (Manual) Eosinophils # (Manual) PT INR APTT POC ABG pH POC ABG pCO2 POC ABG pO2 VBG pH 7.268 L Sodium Potassium Chloride Carbon Dioxide BUN Creatinine Glucose POC Glucose Lactic Acid 2.30 H* 3.00 H* Calcium Magnesium Total Bilirubin AST ALT Alkaline Phosphatase Ammonia Total Creatine Kinase C-Reactive Protein Total Protein Albumin Lipase Urine Creatinine 04/26/18 04/26/18 04/27/18 21:20 21:20 05:52 WBC 17.0 H RBC Hct MCHC RDW 15.7 H Seg Neuts % (Manual) 79.0 H Lymphocytes % (Manual) 8.0 L Monocytes % (Manual) Eosinophils % (Manual) Seg Neutrophils # Man 13.4 H Lymphocytes # (Manual) Monocytes # (Manual) 0.9 H Eosinophils # (Manual) PT INR APTT POC ABG pH POC ABG pCO2 POC ABG pO2 VBG pH Sodium Potassium Chloride Carbon Dioxide 16 L BUN 75 H Creatinine 4.7 H Glucose 128 H POC Glucose Lactic Acid Calcium Magnesium Total Bilirubin AST ALT Alkaline Phosphatase Ammonia 123.0 H Total Creatine Kinase C-Reactive Protein Total Protein Albumin Lipase 68 H Urine Creatinine 04/27/18 04/27/18 04/27/18 05:52 14:13 16:28 WBC 18.2 H RBC Hct MCHC RDW 16.1 H Seg Neuts % (Manual) 84.0 H Lymphocytes % (Manual) 8.0 L Monocytes % (Manual) Eosinophils % (Manual) Seg Neutrophils # Man 15.3 H Lymphocytes # (Manual) Monocytes # (Manual) Eosinophils # (Manual) 0.5 H PT INR APTT POC ABG pH POC ABG pCO2 POC ABG pO2 VBG pH Sodium Potassium Chloride Carbon Dioxide 19 L BUN 75 H Creatinine 4.2 H Glucose 110 H POC Glucose Lactic Acid Calcium Magnesium Total Bilirubin 1.90 H AST 244 H ALT 120 H Alkaline Phosphatase 777 H Ammonia Total Creatine Kinase 373 H C-Reactive Protein 16.50 H Total Protein 5.9 L Albumin 3.4 L Lipase Urine Creatinine 04/28/18 04/28/18 04/29/18 15:41 15:41 08:12 WBC RBC Hct MCHC RDW Seg Neuts % (Manual) Lymphocytes % (Manual) Monocytes % (Manual) Eosinophils % (Manual) Seg Neutrophils # Man Lymphocytes # (Manual) Monocytes # (Manual) Eosinophils # (Manual) PT INR APTT POC ABG pH POC ABG pCO2 POC ABG pO2 VBG pH Sodium Potassium Chloride 108.6 H Carbon Dioxide 14 L BUN 76 H Creatinine 3.0 H Glucose 60 L POC Glucose Lactic Acid Calcium 8.1 L Magnesium Total Bilirubin 2.20 H AST 416 H ALT 136 H Alkaline Phosphatase 674 H Ammonia 76.0 H 134.0 H Total Creatine Kinase 497 H C-Reactive Protein Total Protein 5.2 L Albumin 3.0 L Lipase Urine Creatinine 04/29/18 04/29/18 04/29/18 08:12 08:12 19:24 WBC 13.8 H RBC Hct MCHC RDW 16.2 H Seg Neuts % (Manual) Lymphocytes % (Manual) Monocytes % (Manual) Eosinophils % (Manual) Seg Neutrophils # Man Lymphocytes # (Manual) Monocytes # (Manual) Eosinophils # (Manual) PT INR APTT POC ABG pH 7.244 L POC ABG pCO2 POC ABG pO2 172 H VBG pH Sodium 149 H Potassium Chloride 113.3 H Carbon Dioxide 16 L BUN 79 H Creatinine 2.8 H Glucose 69 L POC Glucose Lactic Acid Calcium Magnesium Total Bilirubin 2.40 H AST 423 H ALT 128 H Alkaline Phosphatase 657 H Ammonia Total Creatine Kinase 435 H C-Reactive Protein Total Protein 5.4 L Albumin 2.6 L Lipase Urine Creatinine 04/30/18 04/30/18 04/30/18 04:01 04:01 04:11 WBC RBC Hct MCHC RDW Seg Neuts % (Manual) Lymphocytes % (Manual) Monocytes % (Manual) Eosinophils % (Manual) Seg Neutrophils # Man Lymphocytes # (Manual) Monocytes # (Manual) Eosinophils # (Manual) PT 25.8 H INR 2.19 H APTT POC ABG pH POC ABG pCO2 POC ABG pO2 VBG pH Sodium 146 H Potassium Chloride 111.9 H Carbon Dioxide 19 L BUN 85 H Creatinine 3.5 H Glucose 261 H POC Glucose Lactic Acid Calcium 8.1 L Magnesium 2.40 H Total Bilirubin 2.60 H AST 1008 H ALT 217 H Alkaline Phosphatase 620 H Ammonia 80.0 H Total Creatine Kinase C-Reactive Protein Total Protein 4.9 L Albumin 2.7 L Lipase Urine Creatinine 04/30/18 04/30/18 05/01/18 11:59 16:23 05:04 WBC RBC Hct MCHC RDW Seg Neuts % (Manual) Lymphocytes % (Manual) Monocytes % (Manual) Eosinophils % (Manual) Seg Neutrophils # Man Lymphocytes # (Manual) Monocytes # (Manual) Eosinophils # (Manual) PT INR APTT POC ABG pH 7.252 L 7.179 L POC ABG pCO2 49.1 H POC ABG pO2 115 H VBG pH Sodium Potassium Chloride Carbon Dioxide BUN Creatinine Glucose POC Glucose Lactic Acid Calcium Magnesium Total Bilirubin AST ALT Alkaline Phosphatase Ammonia 81.0 H Total Creatine Kinase C-Reactive Protein Total Protein Albumin Lipase Urine Creatinine 05/01/18 05/01/18 05/01/18 05:04 05:04 05:04 WBC 11.2 H RBC Hct MCHC RDW 17.1 H Seg Neuts % (Manual) Lymphocytes % (Manual) Monocytes % (Manual) Eosinophils % (Manual) Seg Neutrophils # Man Lymphocytes # (Manual) Monocytes # (Manual) Eosinophils # (Manual) PT 28.4 H INR 2.47 H APTT 37.7 H POC ABG pH POC ABG pCO2 POC ABG pO2 VBG pH Sodium 150 H Potassium Chloride 115.5 H Carbon Dioxide 18 L BUN 106 H Creatinine 4.2 H Glucose 233 H POC Glucose Lactic Acid Calcium 7.9 L Magnesium Total Bilirubin 2.00 H AST 565 H ALT 200 H Alkaline Phosphatase 546 H Ammonia Total Creatine Kinase C-Reactive Protein Total Protein 4.9 L Albumin 2.3 L Lipase Urine Creatinine 05/01/18 05/01/18 05/01/18 05:08 12:57 18:31 WBC RBC Hct MCHC RDW Seg Neuts % (Manual) Lymphocytes % (Manual) Monocytes % (Manual) Eosinophils % (Manual) Seg Neutrophils # Man Lymphocytes # (Manual) Monocytes # (Manual) Eosinophils # (Manual) PT INR APTT POC ABG pH 7.194 L POC ABG pCO2 POC ABG pO2 VBG pH Sodium Potassium Chloride Carbon Dioxide BUN Creatinine Glucose POC Glucose 224 H 250 H Lactic Acid Calcium Magnesium Total Bilirubin AST ALT Alkaline Phosphatase Ammonia Total Creatine Kinase C-Reactive Protein Total Protein Albumin Lipase Urine Creatinine 05/02/18 05/02/18 05/02/18 03:00 03:27 04:45 WBC 19.9 H RBC Hct MCHC 31 L RDW 17.1 H Seg Neuts % (Manual) Lymphocytes % (Manual) Monocytes % (Manual) Eosinophils % (Manual) Seg Neutrophils # Man Lymphocytes # (Manual) Monocytes # (Manual) Eosinophils # (Manual) PT INR APTT POC ABG pH 7.194 L POC ABG pCO2 POC ABG pO2 60 L VBG pH Sodium Potassium Chloride Carbon Dioxide BUN Creatinine Glucose POC Glucose Lactic Acid Calcium Magnesium Total Bilirubin AST ALT Alkaline Phosphatase Ammonia Total Creatine Kinase C-Reactive Protein Total Protein Albumin Lipase Urine Creatinine 141.6 H 05/02/18 05/02/18 05/02/18 04:45 05:18 11:19 WBC RBC Hct MCHC RDW Seg Neuts % (Manual) Lymphocytes % (Manual) Monocytes % (Manual) Eosinophils % (Manual) Seg Neutrophils # Man Lymphocytes # (Manual) Monocytes # (Manual) Eosinophils # (Manual) PT INR APTT POC ABG pH POC ABG pCO2 POC ABG pO2 VBG pH Sodium 150 H Potassium Chloride 117.6 H Carbon Dioxide 15 L BUN 104 H Creatinine 3.7 H Glucose 190 H POC Glucose 186 H Lactic Acid Calcium 7.7 L Magnesium Total Bilirubin 2.00 H AST 349 H ALT 185 H Alkaline Phosphatase 561 H Ammonia 83.0 H Total Creatine Kinase C-Reactive Protein Total Protein 4.8 L Albumin 2.5 L Lipase Urine Creatinine 05/02/18 05/02/18 05/03/18 12:11 16:17 04:04 WBC 22.4 H RBC Hct MCHC 31 L RDW 17.2 H Seg Neuts % (Manual) Lymphocytes % (Manual) Monocytes % (Manual) Eosinophils % (Manual) Seg Neutrophils # Man Lymphocytes # (Manual) Monocytes # (Manual) Eosinophils # (Manual) PT INR APTT POC ABG pH POC ABG pCO2 POC ABG pO2 VBG pH Sodium Potassium Chloride Carbon Dioxide BUN Creatinine Glucose POC Glucose 175 H 192 H Lactic Acid Calcium Magnesium Total Bilirubin AST ALT Alkaline Phosphatase Ammonia Total Creatine Kinase C-Reactive Protein Total Protein Albumin Lipase Urine Creatinine 05/03/18 05/03/18 05/03/18 04:04 04:35 11:27 WBC RBC Hct MCHC RDW Seg Neuts % (Manual) Lymphocytes % (Manual) Monocytes % (Manual) Eosinophils % (Manual) Seg Neutrophils # Man Lymphocytes # (Manual) Monocytes # (Manual) Eosinophils # (Manual) PT INR APTT POC ABG pH 7.254 L 7.269 L POC ABG pCO2 34.5 L POC ABG pO2 78 L VBG pH Sodium 150 H Potassium Chloride 117.2 H Carbon Dioxide 16 L BUN 112 H Creatinine 3.7 H Glucose 181 H POC Glucose Lactic Acid Calcium 7.9 L Magnesium Total Bilirubin 2.50 H AST 239 H ALT 162 H Alkaline Phosphatase 609 H Ammonia Total Creatine Kinase C-Reactive Protein Total Protein 5.0 L Albumin 2.5 L Lipase Urine Creatinine 05/04/18 05/04/18 05/04/18 00:56 03:54 04:37 WBC RBC Hct MCHC RDW Seg Neuts % (Manual) Lymphocytes % (Manual) Monocytes % (Manual) Eosinophils % (Manual) Seg Neutrophils # Man Lymphocytes # (Manual) Monocytes # (Manual) Eosinophils # (Manual) PT 85.4 H INR 9.67 H* APTT POC ABG pH 7.233 L POC ABG pCO2 POC ABG pO2 VBG pH Sodium 152 H Potassium Chloride 118.7 H Carbon Dioxide 17 L BUN 121 H Creatinine 4.0 H Glucose 113 H POC Glucose Lactic Acid Calcium 8.0 L Magnesium Total Bilirubin 2.90 H AST 216 H ALT 142 H Alkaline Phosphatase 609 H Ammonia Total Creatine Kinase C-Reactive Protein Total Protein 4.9 L Albumin 2.3 L Lipase Urine Creatinine 05/04/18 05/04/18 05/05/18 08:20 16:27 04:10 WBC RBC Hct MCHC RDW Seg Neuts % (Manual) Lymphocytes % (Manual) Monocytes % (Manual) Eosinophils % (Manual) Seg Neutrophils # Man Lymphocytes # (Manual) Monocytes # (Manual) Eosinophils # (Manual) PT 27.3 H INR 2.35 H APTT POC ABG pH 7.103 L POC ABG pCO2 47.5 H POC ABG pO2 153 H VBG pH Sodium Potassium Chloride Carbon Dioxide BUN Creatinine Glucose POC Glucose Lactic Acid Calcium Magnesium Total Bilirubin AST ALT Alkaline Phosphatase Ammonia 173.0 H Total Creatine Kinase C-Reactive Protein Total Protein Albumin Lipase Urine Creatinine 05/05/18 05/05/18 05:44 06:01 WBC RBC Hct MCHC RDW Seg Neuts % (Manual) Lymphocytes % (Manual) Monocytes % (Manual) Eosinophils % (Manual) Seg Neutrophils # Man Lymphocytes # (Manual) Monocytes # (Manual) Eosinophils # (Manual) PT INR APTT POC ABG pH 7.053 L 7.056 L POC ABG pCO2 51.4 H 52.7 H POC ABG pO2 73 L 68 L VBG pH Sodium Potassium Chloride Carbon Dioxide BUN Creatinine Glucose POC Glucose Lactic Acid Calcium Magnesium Total Bilirubin AST ALT Alkaline Phosphatase Ammonia Total Creatine Kinase C-Reactive Protein Total Protein Albumin Lipase Urine Creatinine
[2018-05-05] MEDS: PROAMATINE PO SCH ×2 (08:07→14:12)
[2018-05-05] MEDS: CEPHULAC FEEDTUBE SCH ×2 (08:07→15:00)
[2018-05-05] MEDS: LEVOPHED 8 MG in NACL 0.9% 250ML 242 ML IV SCH ×2 (09:45→13:55)
[2018-05-05] MEDS ORDERED: NACL 0.9% 500 ML 500 ML IV ONE ×2 (10:00)
--- NOTE | 2018-05-05 10:00 | Event Note ---
Date: 05/05/18 Discussed with family patient need for Vas-Cath. The patient's family has decided to make the patient allow natural and not pursue further interventions. We'll sign off.
[2018-05-05] MEDS: PEPCID PO SCH (10:05)
[2018-05-05] MEDS: SODIUM CHLORIDE FLUSH SYRINGE 10 ML IV SCH (10:09)
--- NOTE | 2018-05-05 10:16 | Progress Note ---
Assessment and Plan Assessment: 1) Sepsis with septic shock: increasing leukocytosis, now on max. dose levophed ? liver necrosis ? abscess. Etiology Strep anginosus bacteremia +/- liver abscesses Vs. SBP Vs. liver malignancy 2) Strep anginosus bacteremia: ? source ? liver lesions. BARIATRIC PHYSICIAN in same blood cx likely a contaminant 3) Liver lesions -CT showed few lesions largest right hepatic hypodense mass 3.4 cm with hepatomegaly. -US abd showed cholelithiasis, choledocholithiasis ? CBP 8.2. mm -viral hepatitis panel neg -CRP 16 -HIV neg -HIDA neg -MRCP is nondiagnostic. Any underlying mass lesions cannot be excluded. Mild degree bilateral pleural effusions and mild degree ascites. Gallbladder is minimally distended with mild degree wall thickening. This may be secondary to chronic cholecystitis versus postprandial status. 3) Elevated LFTs: from liver lesions +/- ETOH - better 4) Acute encephalopathy: worsening. CT head neg. Etio. sepsis +/- hepatic encephalopahy +/- ETOH withdrawal 5) RUFINA - worsening 6) Acute on chronic hypoxemic resp failure: intubated 7) ? SBP Plan: -continue cefepime and flagyl D2 -add fluconazole and zyvox - now severe septic shock Overall prognosis very poor discussed with family Thank you for your consultation, will follow up with you. Deanna Lindquist MD Infectious Diseases Specialist [facility] M [phone] O [phone] Subjective Date of service: 05/05/18 Principal diagnosis: SIRS,Hepatic encephalopathy,ARF/MV support Interval history: remains intubated on the vent AC FiO2 50% p7. tmax 100.3. Now on pressors levophed at 30 Microbiology: Blood cultures: 04/26 BARIATRIC PHYSICIAN 1 of 4 bottles and Strep anginosus 1 of 4 bottles 04/29 ngtd Urine cultures: 04/26 neg Sputum: 04/30 ngtd Current Antimicrobials: cefepime and flagyl 05/04 Previous Antimicrobials: Vancomycin Zosyn 04/26-05/04 Objective - Exam Narrative Exam: General appearance: somnolent on vent Eyes: anicteric sclerae, moist conjunctivae; no lid-lag; PERRLA HENT: Atraumatic; oropharynx ETT Neck: Trachea midline; supple, no thyromegaly or lymphadenopathy Lungs: decreased BS iraida CV: tachy Abdomen: Soft, distended Extremities: iraida leg/arm edema Skin: Normal temperature, turgor and texture; no rash, ulcers or subcutaneous nodules Psych: sedated Neuro: sedated non verbal Lines: - Constitutional Vitals: Vital Signs Temp Pulse Resp BP Pulse Ox 98.4 F 122 H 31 H 80/51 97 05/05/18 08:00 05/05/18 09:15 05/05/18 09:15 05/05/18 09:15 05/05/18 09:15 Temperature -Last 24 Hours Temperature 98.4 F Temperature 98.6 F Temperature 99.7 F - Labs CBC & Chem 7: 05/04/18 20:43 05/04/18 04:37 Labs: Abnormal lab results 05/04/18 05/05/18 05/05/18 Range/Units 16:27 04:10 05:44 POC ABG pH 7.103 L 7.053 L (7.35-7.45) POC ABG pCO2 47.5 H 51.4 H (35-45) POC ABG pO2 153 H 73 L (80-105) Ammonia 173.0 H (25-60) umol/L 05/05/18 Range/Units 06:01 POC ABG pH 7.056 L (7.35-7.45) POC ABG pCO2 52.7 H (35-45) POC ABG pO2 68 L (80-105) Ammonia (25-60) umol/L
[2018-05-05 10:45] LABS: Hemoglobin 13.4 gm/dl (11.8-15.2); Mean Corpuscular HGB Conc 29 % (32-34); Mean Corpuscular Hemoglobin 28 pg (28-32); Mean Corpuscular Volume 97 fl (84-94); Platelet Count 143 K/mm3 (140-440); Red Blood Count 4.74 M/mm3 (3.65-5.03)
[2018-05-05 10:59] LABS: BUN/Creatinine Ratio TNR; Blood Urea Nitrogen TNR mg/dL (9-20); Calcium TNR mg/dL (8.4-10.2)
[2018-05-05 11:00] LABS: Alanine Aminotransferase TNR units/L (7-56); Albumin TNR g/dL (3.9-5); Hemolysis Index TNR
[2018-05-05] MEDS ORDERED: ZYVOX 600MG/300ML 600 MG/300 ML BAG IV SCH (12:00)
[2018-05-05] MEDS ORDERED: DIFLUCAN/NS 100 MG/50 ML 100 MG/50 ML BAG IV SCH (12:00)
--- NOTE | 2018-05-05 12:43 | Progress Note ---
Assessment and Plan 1. Acute kidney injury: Multifactroial RUFINA is in the setting of hypotension / sepsis, volume depletion and Abnormal Liver function. Renal function continue to decline and associated with Hypernatremia and Metabolic acidosis. Patient had hemodialysis catheter placed late last night. Currently his BP is very low inspite of IV fluids, Midodrine and Levophed. It is more risk to do hemodialysis at this point. Patient was made DNR and family doesn't want to do dialysis at this point. They are considering to extubate and stop the vasoactive meds. D/w multiple family members and answered all the questions. 2. Electrolytes: Hyperkalemia, improved. Hypernatremia, continue water flushes. Metabolic acidosis, continue IV fluids. Monitor. 3. Sepsis with hypotension: On Midodrine and Levophed. 4. Urinary retention: Crane catheter. 5. Abnormal LFTs. 6. ?Hepatic Encephalopathy. 7. Respiratory failure: On vent. Prognosis is poor. Subjective Date of service: 05/05/18 Principal diagnosis: SIRS,Hepatic encephalopathy,ARF/MV support Interval history: Patient was seen and examined at the bedside. Remain on the vent. Objective - Vital Signs Vital signs: Vital Signs - 12hr 05/05/18 05/05/18 05/05/18 00:45 01:00 01:15 Temperature Pulse Rate 96 H 97 H 99 H Pulse Rate [ From Monitor] Respiratory 28 H 28 H 28 H Rate Blood Pressure 97/63 97/63 88/63 O2 Sat by Pulse 97 96 97 Oximetry 05/05/18 05/05/18 05/05/18 01:30 01:45 02:00 Temperature Pulse Rate 99 H 98 H 99 H Pulse Rate [ From Monitor] Respiratory 30 H 31 H 31 H Rate Blood Pressure 92/60 92/60 91/63 O2 Sat by Pulse 96 97 96 Oximetry 05/05/18 05/05/18 05/05/18 02:15 02:30 02:45 Temperature Pulse Rate 100 H 100 H 98 H Pulse Rate [ From Monitor] Respiratory 31 H 32 H 30 H Rate Blood Pressure 91/63 81/56 81/56 O2 Sat by Pulse 96 97 96 Oximetry 05/05/18 05/05/18 05/05/18 03:00 03:15 03:30 Temperature Pulse Rate 99 H 99 H 98 H Pulse Rate [ From Monitor] Respiratory 33 H 28 H 30 H Rate Blood Pressure 90/67 90/67 85/46 O2 Sat by Pulse 96 96 96 Oximetry 05/05/18 05/05/18 05/05/18 03:45 04:00 04:05 Temperature Pulse Rate 99 H 98 H 99 H Pulse Rate [ 97 H From Monitor] Respiratory 31 H 33 H Rate Blood Pressure 81/56 73/43 73/43 O2 Sat by Pulse 96 95 95 Oximetry 05/05/18 05/05/18 05/05/18 04:15 04:31 04:45 Temperature Pulse Rate 95 H 97 H 92 H Pulse Rate [ From Monitor] Respiratory 34 H 34 H 33 H Rate Blood Pressure 85/46 85/46 67/34 O2 Sat by Pulse 80 L 97 97 Oximetry 05/05/18 05/05/18 05/05/18 05:00 05:15 05:30 Temperature Pulse Rate 94 H 91 H 91 H Pulse Rate [ From Monitor] Respiratory 33 H 33 H 33 H Rate Blood Pressure 64/40 73/43 57/30 O2 Sat by Pulse 99 95 100 Oximetry 05/05/18 05/05/18 05/05/18 05:45 06:00 06:15 Temperature Pulse Rate 94 H 105 H 108 H Pulse Rate [ From Monitor] Respiratory 32 H 33 H 32 H Rate Blood Pressure 57/28 79/49 85/43 O2 Sat by Pulse 91 90 90 Oximetry 05/05/18 05/05/18 05/05/18 06:30 06:45 07:00 Temperature Pulse Rate 112 H 114 H 112 H Pulse Rate [ From Monitor] Respiratory 32 H 29 H 28 H Rate Blood Pressure 79/40 77/50 133/87 O2 Sat by Pulse 81 L 83 L Oximetry 05/05/18 05/05/18 05/05/18 07:15 07:31 07:45 Temperature Pulse Rate 116 H 124 H 121 H Pulse Rate [ From Monitor] Respiratory 35 H 30 H 26 H Rate Blood Pressure 65/38 74/40 71/47 O2 Sat by Pulse 100 100 Oximetry 05/05/18 05/05/18 05/05/18 07:58 08:00 08:01 Temperature 98.4 F Pulse Rate 128 H Pulse Rate [ 130 H From Monitor] Respiratory 22 25 H Rate Blood Pressure 71/47 77/43 O2 Sat by Pulse 97 97 97 Oximetry 05/05/18 05/05/18 05/05/18 08:15 08:31 08:45 Temperature Pulse Rate 140 H 135 H 141 H Pulse Rate [ From Monitor] Respiratory 31 H 32 H 30 H Rate Blood Pressure 73/35 82/55 82/55 O2 Sat by Pulse 96 96 97 Oximetry 05/05/18 05/05/18 05/05/18 09:00 09:15 09:30 Temperature Pulse Rate 130 H 122 H 108 H Pulse Rate [ From Monitor] Respiratory 30 H 31 H 31 H Rate Blood Pressure 80/51 80/51 49/28 O2 Sat by Pulse 97 97 98 Oximetry 05/05/18 05/05/18 05/05/18 09:46 10:00 10:15 Temperature Pulse Rate 126 H 121 H 123 H Pulse Rate [ From Monitor] Respiratory 30 H 31 H 31 H Rate Blood Pressure 52/33 49/28 81/44 O2 Sat by Pulse 93 99 98 Oximetry 05/05/18 05/05/18 05/05/18 10:30 10:45 11:00 Temperature Pulse Rate 121 H 119 H 130 H Pulse Rate [ From Monitor] Respiratory 31 H 31 H 31 H Rate Blood Pressure 79/41 71/40 68/40 O2 Sat by Pulse 98 98 97 Oximetry 05/05/18 05/05/18 05/05/18 11:15 11:30 11:45 Temperature Pulse Rate 126 H 122 H 130 H Pulse Rate [ From Monitor] Respiratory 32 H 32 H 32 H Rate Blood Pressure 67/41 59/37 65/47 O2 Sat by Pulse 99 99 98 Oximetry 05/05/18 05/05/18 11:57 12:00 Temperature Pulse Rate 131 H Pulse Rate [ From Monitor] Respiratory 31 H Rate Blood Pressure 65/47 69/35 O2 Sat by Pulse 98 98 Oximetry - General Appearance General appearance: well-developed, appears stated age, obese, intubated, other (on vent, FiO2 100%) EENT: ATNC Neck: supple Respiratory: Present: Other (coarse breath sounds bilaterally) Cardiology: regular, S1S2, no murmurs Gastrointestinal: no tenderness, obese Integumentary: no rash Neurologic: obtunded Musculoskeletal: other (trace peripheral edema noted, right groin dialysis catheter) - Lab 05/05/18 10:01 05/05/18 08:50 Most recent lab results Calcium TNR 05/05/18 08:50 Phosphorus 3.90 mg/dL (2.5-4.5) 04/30/18 04:01 Magnesium 2.40 mg/dL (1.7-2.3) H 04/30/18 04:01 Urine Creatinine 141.6 mg/dL (0.1-20.0) H 05/02/18 03:00 Urine Sodium 10 mmol/L 05/02/18 03:00
[2018-05-05 12:45] LABS: Anisocytosis 1+; Band Neutrophils # (Manual) 3.2 K/mm3; Basophils % (Manual) 0 % (0.0-1.8); Macrocytosis 1+; Total Cells Counted 100
[2018-05-05 12:46] LABS: Platelet Estimate Consistent w Auto
--- NOTE | 2018-05-05 14:10 | Gastroenterology Progress Note ---
<BRIDGET ORTIZ - Last Filed: 05/05/18 14:31> Assessment and Plan 1.hepatic encephalopathy 2.elevated LFTs 3.COPD 4.acute renal failure 5.sepsis with septic shock 5.h/o ETOH abuse -hepatic panel negative -Abd CT w/o contrast- showed peripheral right hepatic hypodense mass(es) now suspected with new small perihepatic ascites and subtle fat stranding may also be noted about the pancreas and gallbladder -Abd U/S- showed gallstones, CBD mildly dilated (8.2mm) but no acute cholecystitis and liver normal -HIDA- no CBD obstruction and EF 35% -MRCP-nondiagnostic -etiology-likely multifactorial with hepatic encephalopathy -clinically, patient remains on vent with now hypotension on pressors with continued deterioration despite medical support (inceasing leukocytosis, declining renal function, worsening metabolic/respiratory acidosis, hepatic failure) -family have now decided to make patient a DNR and are considering withdrawal of care Subjective Date of service: 05/05/18 Principal diagnosis: Hepatic encephalopathy Interval history: Patient now with hypotension, on Levophed. Family has now decided to make patient a DNR and are considering withdrawing care. Objective - Constitutional Vitals: Temp Pulse Resp BP Pulse Ox 98.4 F 120 H 30 H 68/34 99 05/05/18 08:00 05/05/18 14:00 05/05/18 14:00 05/05/18 13:46 05/05/18 13:46 General appearance: other (on vent and pressors) - Respiratory Respiratory: bilateral: other (coarse) - Cardiovascular Rhythm: other (tachycardia) - Gastrointestinal General gastrointestinal: Present: soft, non-distended, normal bowel sounds - Labs CBC & Chem 7: 05/05/18 10:01 05/05/18 08:50 Labs: Laboratory Results - last 24 hr 05/04/18 05/04/18 05/05/18 16:27 20:43 04:10 WBC RBC Hgb 12.6 Hct 40.7 MCV MCH MCHC RDW Plt Count Add Manual Diff Total Counted Seg Neuts % (Manual) Band Neutrophils % Lymphocytes % (Manual) Reactive Lymphs % (Man) Monocytes % (Manual) Eosinophils % (Manual) Basophils % (Manual) Metamyelocytes % Myelocytes % Promyelocytes % Blast Cells % Nucleated RBC % Seg Neutrophils # Man Band Neutrophils # Lymphocytes # (Manual) Abs React Lymphs (Man) Monocytes # (Manual) Eosinophils # (Manual) Basophils # (Manual) Metamyelocytes # Myelocytes # Promyelocytes # Blast Cells # WBC Morphology Hypersegmented Neuts Hyposegmented Neuts Hypogranular Neuts Smudge Cells Toxic Granulation Toxic Vacuolation Dohle Bodies Pelger-Huet Anomaly Aidan Rods Platelet Estimate Clumped Platelets Plt Clumps, EDTA Large Platelets Giant Platelets Platelet Satelliting Plt Morphology Comment RBC Morphology Dimorphic RBCs Polychromasia Hypochromasia Poikilocytosis Anisocytosis Microcytosis Macrocytosis Spherocytes Pappenheimer Bodies Sickle Cells Target Cells Tear Drop Cells Ovalocytes Helmet Cells Gabriel-Stillmore Bodies Hominy Rings [place] Cells Bite Cells Crenated Cell Elliptocytes Acanthocytes (Spur) Rouleaux Hemoglobin C Crystals Schistocytes Malaria parasites Donaldo Bodies Hem Pathologist Commnt POC ABG pH 7.103 L POC ABG pCO2 47.5 H POC ABG pO2 153 H POC ABG HCO3 14.9 POC ABG Total CO2 16 POC ABG O2 Sat 98 POC ABG Base Excess -15 FiO2 65 Sodium Potassium Chloride Carbon Dioxide Anion Gap BUN Creatinine Estimated GFR BUN/Creatinine Ratio Glucose Calcium Total Bilirubin AST ALT Alkaline Phosphatase Ammonia 173.0 H Total Protein Albumin Albumin/Globulin Ratio 05/05/18 05/05/18 05/05/18 05:44 06:01 08:50 WBC RBC Hgb Hct MCV MCH MCHC RDW Plt Count Add Manual Diff Total Counted Seg Neuts % (Manual) Band Neutrophils % Lymphocytes % (Manual) Reactive Lymphs % (Man) Monocytes % (Manual) Eosinophils % (Manual) Basophils % (Manual) Metamyelocytes % Myelocytes % Promyelocytes % Blast Cells % Nucleated RBC % Seg Neutrophils # Man Band Neutrophils # Lymphocytes # (Manual) Abs React Lymphs (Man) Monocytes # (Manual) Eosinophils # (Manual) Basophils # (Manual) Metamyelocytes # Myelocytes # Promyelocytes # Blast Cells # WBC Morphology Hypersegmented Neuts Hyposegmented Neuts Hypogranular Neuts Smudge Cells Toxic Granulation Toxic Vacuolation Dohle Bodies Pelger-Huet Anomaly Aidan Rods Platelet Estimate Clumped Platelets Plt Clumps, EDTA Large Platelets Giant Platelets Platelet Satelliting Plt Morphology Comment RBC Morphology Dimorphic RBCs Polychromasia Hypochromasia Poikilocytosis Anisocytosis Microcytosis Macrocytosis Spherocytes Pappenheimer Bodies Sickle Cells Target Cells Tear Drop Cells Ovalocytes Helmet Cells Gabriel-Stillmore Bodies Hominy Rings [place] Cells Bite Cells Crenated Cell Elliptocytes Acanthocytes (Spur) Rouleaux Hemoglobin C Crystals Schistocytes Malaria parasites Donaldo Bodies Hem Pathologist Commnt POC ABG pH 7.053 L 7.056 L POC ABG pCO2 51.4 H 52.7 H POC ABG pO2 73 L 68 L POC ABG HCO3 14.3 14.8 POC ABG Total CO2 16 16 POC ABG O2 Sat 86 84 POC ABG Base Excess -16 -16 FiO2 80 80 Sodium TNR Potassium TNR Chloride TNR Carbon Dioxide TNR Anion Gap TNR BUN TNR Creatinine TNR Estimated GFR TNR BUN/Creatinine Ratio TNR Glucose TNR Calcium TNR Total Bilirubin TNR AST TNR ALT TNR Alkaline Phosphatase TNR Ammonia Total Protein TNR Albumin TNR Albumin/Globulin Ratio TNR 05/05/18 10:01 WBC 24.6 H RBC 4.74 Hgb 13.4 Hct 46.0 H MCV 97 H MCH 28 MCHC 29 L RDW 19.0 H Plt Count 143 Add Manual Diff Complete Total Counted 100 Seg Neuts % (Manual) 59.0 Band Neutrophils % 13.0 Lymphocytes % (Manual) 8.0 L Reactive Lymphs % (Man) 0 Monocytes % (Manual) 14.0 H Eosinophils % (Manual) 2.0 Basophils % (Manual) 0 Metamyelocytes % 4.0 Myelocytes % 0 Promyelocytes % 0 Blast Cells % 0 Nucleated RBC % 14.0 H Seg Neutrophils # Man 14.5 H Band Neutrophils # 3.2 Lymphocytes # (Manual) 2.0 Abs React Lymphs (Man) 0.0 Monocytes # (Manual) 3.4 H Eosinophils # (Manual) 0.5 H Basophils # (Manual) 0.0 Metamyelocytes # 1.0 Myelocytes # 0.0 Promyelocytes # 0.0 Blast Cells # 0.0 WBC Morphology Not Reportable Hypersegmented Neuts Not Reportable Hyposegmented Neuts Not Reportable Hypogranular Neuts Not Reportable Smudge Cells Not Reportable Toxic Granulation Not Reportable Toxic Vacuolation Not Reportable Dohle Bodies Not Reportable Pelger-Huet Anomaly Not Reportable Aidan Rods Not Reportable Platelet Estimate Consistent w auto Clumped Platelets Not Reportable Plt Clumps, EDTA Not Reportable Large Platelets Not Reportable Giant Platelets Not Reportable Platelet Satelliting Not Reportable Plt Morphology Comment Not Reportable RBC Morphology Not Reportable Dimorphic RBCs Not Reportable Polychromasia Rare Hypochromasia Not Reportable Poikilocytosis Not Reportable Anisocytosis 1+ Microcytosis Not Reportable Macrocytosis 1+ Spherocytes Not Reportable Pappenheimer Bodies Not Reportable Sickle Cells Not Reportable Target Cells Not Reportable Tear Drop Cells Not Reportable Ovalocytes Not Reportable Helmet Cells Not Reportable Gabriel-Stillmore Bodies Not Reportable Hominy Rings Not Reportable [place] Cells Not Reportable Bite Cells Not Reportable Crenated Cell Not Reportable Elliptocytes Not Reportable Acanthocytes (Spur) Not Reportable Rouleaux Not Reportable Hemoglobin C Crystals Not Reportable Schistocytes Not Reportable Malaria parasites Not Reportable Donaldo Bodies Not Reportable Hem Pathologist Commnt No POC ABG pH POC ABG pCO2 POC ABG pO2 POC ABG HCO3 POC ABG Total CO2 POC ABG O2 Sat POC ABG Base Excess FiO2 Sodium Potassium Chloride Carbon Dioxide Anion Gap BUN Creatinine Estimated GFR BUN/Creatinine Ratio Glucose Calcium Total Bilirubin AST ALT Alkaline Phosphatase Ammonia Total Protein Albumin Albumin/Globulin Ratio <CONSUELO YATES R - Last Filed: 05/05/18 16:03> Assessment and Plan Care withdrawn. Pt . Objective - Constitutional Vitals: Temp Pulse Resp BP Pulse Ox 98.9 F 120 H 30 H 68/34 99 05/05/18 12:00 05/05/18 14:00 05/05/18 14:00 05/05/18 13:46 05/05/18 13:46 - Labs CBC & Chem 7: 05/05/18 10:01 05/05/18 08:50 Labs: Laboratory Results - last 24 hr 05/04/18 05/04/18 05/05/18 16:27 20:43 04:10 WBC RBC Hgb 12.6 Hct 40.7 MCV MCH MCHC RDW Plt Count Add Manual Diff Total Counted Seg Neuts % (Manual) Band Neutrophils % Lymphocytes % (Manual) Reactive Lymphs % (Man) Monocytes % (Manual) Eosinophils % (Manual) Basophils % (Manual) Metamyelocytes % Myelocytes % Promyelocytes % Blast Cells % Nucleated RBC % Seg Neutrophils # Man Band Neutrophils # Lymphocytes # (Manual) Abs React Lymphs (Man) Monocytes # (Manual) Eosinophils # (Manual) Basophils # (Manual) Metamyelocytes # Myelocytes # Promyelocytes # Blast Cells # WBC Morphology Hypersegmented Neuts Hyposegmented Neuts Hypogranular Neuts Smudge Cells Toxic Granulation Toxic Vacuolation Dohle Bodies Pelger-Huet Anomaly Aidan Rods Platelet Estimate Clumped Platelets Plt Clumps, EDTA Large Platelets Giant Platelets Platelet Satelliting Plt Morphology Comment RBC Morphology Dimorphic RBCs Polychromasia Hypochromasia Poikilocytosis Anisocytosis Microcytosis Macrocytosis Spherocytes Pappenheimer Bodies Sickle Cells Target Cells Tear Drop Cells Ovalocytes Helmet Cells Gabriel-Stillmore Bodies Hominy Rings [place] Cells Bite Cells Crenated Cell Elliptocytes Acanthocytes (Spur) Rouleaux Hemoglobin C Crystals Schistocytes Malaria parasites Donaldo Bodies Hem Pathologist Commnt POC ABG pH 7.103 L POC ABG pCO2 47.5 H POC ABG pO2 153 H POC ABG HCO3 14.9 POC ABG Total CO2 16 POC ABG O2 Sat 98 POC ABG Base Excess -15 FiO2 65 Sodium Potassium Chloride Carbon Dioxide Anion Gap BUN Creatinine Estimated GFR BUN/Creatinine Ratio Glucose Calcium Total Bilirubin AST ALT Alkaline Phosphatase Ammonia 173.0 H Total Protein Albumin Albumin/Globulin Ratio 05/05/18 05/05/18 05/05/18 05:44 06:01 08:50 WBC RBC Hgb Hct MCV MCH MCHC RDW Plt Count Add Manual Diff Total Counted Seg Neuts % (Manual) Band Neutrophils % Lymphocytes % (Manual) Reactive Lymphs % (Man) Monocytes % (Manual) Eosinophils % (Manual) Basophils % (Manual) Metamyelocytes % Myelocytes % Promyelocytes % Blast Cells % Nucleated RBC % Seg Neutrophils # Man Band Neutrophils # Lymphocytes # (Manual) Abs React Lymphs (Man) Monocytes # (Manual) Eosinophils # (Manual) Basophils # (Manual) Metamyelocytes # Myelocytes # Promyelocytes # Blast Cells # WBC Morphology Hypersegmented Neuts Hyposegmented Neuts Hypogranular Neuts Smudge Cells Toxic Granulation Toxic Vacuolation Dohle Bodies Pelger-Huet Anomaly Aidan Rods Platelet Estimate Clumped Platelets Plt Clumps, EDTA Large Platelets Giant Platelets Platelet Satelliting Plt Morphology Comment RBC Morphology Dimorphic RBCs Polychromasia Hypochromasia Poikilocytosis Anisocytosis Microcytosis Macrocytosis Spherocytes Pappenheimer Bodies Sickle Cells Target Cells Tear Drop Cells Ovalocytes Helmet Cells Gabriel-Stillmore Bodies Hominy Rings [place] Cells Bite Cells Crenated Cell Elliptocytes Acanthocytes (Spur) Rouleaux Hemoglobin C Crystals Schistocytes Malaria parasites Donaldo Bodies Hem Pathologist Commnt POC ABG pH 7.053 L 7.056 L POC ABG pCO2 51.4 H 52.7 H POC ABG pO2 73 L 68 L POC ABG HCO3 14.3 14.8 POC ABG Total CO2 16 16 POC ABG O2 Sat 86 84 POC ABG Base Excess -16 -16 FiO2 80 80 Sodium TNR Potassium TNR Chloride TNR Carbon Dioxide TNR Anion Gap TNR BUN TNR Creatinine TNR Estimated GFR TNR BUN/Creatinine Ratio TNR Glucose TNR Calcium TNR Total Bilirubin TNR AST TNR ALT TNR Alkaline Phosphatase TNR Ammonia Total Protein TNR Albumin TNR Albumin/Globulin Ratio TNR 05/05/ 10:01 WBC 24.6 H RBC 4.74 Hgb 13.4 Hct 46.0 H MCV 97 H MCH 28 MCHC 29 L RDW 19.0 H Plt Count 143 Add Manual Diff Complete Total Counted 100 Seg Neuts % (Manual) 59.0 Band Neutrophils % 13.0 Lymphocytes % (Manual) 8.0 L Reactive Lymphs % (Man) 0 Monocytes % (Manual) 14.0 H Eosinophils % (Manual) 2.0 Basophils % (Manual) 0 Metamyelocytes % 4.0 Myelocytes % 0 Promyelocytes % 0 Blast Cells % 0 Nucleated RBC % 14.0 H Seg Neutrophils # Man 14.5 H Band Neutrophils # 3.2 Lymphocytes # (Manual) 2.0 Abs React Lymphs (Man) 0.0 Monocytes # (Manual) 3.4 H Eosinophils # (Manual) 0.5 H Basophils # (Manual) 0.0 Metamyelocytes # 1.0 Myelocytes # 0.0 Promyelocytes # 0.0 Blast Cells # 0.0 WBC Morphology Not Reportable Hypersegmented Neuts Not Reportable Hyposegmented Neuts Not Reportable Hypogranular Neuts Not Reportable Smudge Cells Not Reportable Toxic Granulation Not Reportable Toxic Vacuolation Not Reportable Dohle Bodies Not Reportable Pelger-Huet Anomaly Not Reportable Aidan Rods Not Reportable Platelet Estimate Consistent w auto Clumped Platelets Not Reportable Plt Clumps, EDTA Not Reportable Large Platelets Not Reportable Giant Platelets Not Reportable Platelet Satelliting Not Reportable Plt Morphology Comment Not Reportable RBC Morphology Not Reportable Dimorphic RBCs Not Reportable Polychromasia Rare Hypochromasia Not Reportable Poikilocytosis Not Reportable Anisocytosis 1+ Microcytosis Not Reportable Macrocytosis 1+ Spherocytes Not Reportable Pappenheimer Bodies Not Reportable Sickle Cells Not Reportable Target Cells Not Reportable Tear Drop Cells Not Reportable Ovalocytes Not Reportable Helmet Cells Not Reportable Gabriel-Stillmore Bodies Not Reportable Hominy Rings Not Reportable [place] Cells Not Reportable Bite Cells Not Reportable Crenated Cell Not Reportable Elliptocytes Not Reportable Acanthocytes (Spur) Not Reportable Rouleaux Not Reportable Hemoglobin C Crystals Not Reportable Schistocytes Not Reportable Malaria parasites Not Reportable Donaldo Bodies Not Reportable Hem Pathologist Commnt No POC ABG pH POC ABG pCO2 POC ABG pO2 POC ABG HCO3 POC ABG Total CO2 POC ABG O2 Sat POC ABG Base Excess FiO2 Sodium Potassium Chloride Carbon Dioxide Anion Gap BUN Creatinine Estimated GFR BUN/Creatinine Ratio Glucose Calcium Total Bilirubin AST ALT Alkaline Phosphatase Ammonia Total Protein Albumin Albumin/Globulin Ratio
--- NOTE | 2018-05-05 14:31 | Progress Note ---
Assessment and Plan Assessment and plan: Patient is a 72 yo man with a history of chronic hypoxic Respiratory Failure on Home Oxygen due to End Stage COPD and HTN who presented to ED shortness of breath, hematuria and confusion/drowsiness, * CT ABDOMEN AND PELVIS WITHOUT CONTRAST CONCLUSION: 1. Peripheral right hepatic hypodense mass(es) now suspected with new small perihepatic ascites on this limited, unenhanced exam, as described. Subtle fat stranding may also be noted about the pancreas and the gallbladder. 2. Various other findings as distal esophageal thickening, hepatomegaly, cecum/proximal ascending colon CT appearance, enlarged prostate and small pelvic ascites, amongst others, as detailed above. * CT HEAD WITHOUT CONTRAST CONCLUSION: No acute intracranial CT abnormality with sinusitis and few other findings, as described. * pCXR CONCLUSION: No acute chest process with chronic interstitial lung disease again suspected. * * HIDA IMPRESSION: No cystic or common bile duct obstruction. Post Kinevac ejection fraction 35%. * * Abd U/S IMPRESSION: Cholelithiasis. No evidence for acute cholecystitis. The common bile duct is mildly dilated at 8.2 mm which could represent choledocholithiasis. Nonspecific renal parenchymal disease and liver normal -SIRS with suspected early Sepsis without clear source, poa, believed to be from Liver abscess vs necrosis: consult ID: IV antibiotics, serial lactic acid, monitor uop q shift, blood cultures, urinalysis, chest x ray, IVF resuscitation therapy -Acute Hepatic Encephalopathy: treat with Lactulose -Acute renal failure, suspect ATN with hypotension + vasomotor nephropathy, poa: treat with ivf, consult Nephrology -Lactic Acidosis: Treat sepsis, monitor uop q shift, iv bicarbonate prn -Streptococcus bacteremia, ID is following/managing, 2D Echo==>reviewed, no vegatation seen -Alcohol withdrawal syndrome (patient did have a fever and you can be either hypertensive or hypotensive with Etoh withdrawal): limit iv ativan due to liver dysfunction, Serax/Oxazepam was not available, Restarted IV Ativan -Hypoglycemia: started D5W but IVF changed by java manager, Dr. Masters -Hepatitis with ascities, suspeceed peritionitis: CT Abdomen and pelvis noted, LFT, Hepatitis panel, consulted GI -Hematuria: resolved, outpatient urology F/U recommended -DVT prophylaxis: SCD to BLE while in bed -Evidence of Livedo Reticularis, poa guarded prognosis full code MRCP==>IMPRESSION: Grossly limited study due to motion artifacts and the MRCP is nondiagnostic. Inhomogeneous signal is noted in the liver. Any underlying mass lesions cannot be excluded. Mild degree bilateral pleural effusions and mild degree ascites. Gallbladder is minimally distended with mild degree wall thickening. This may be secondary to chronic cholecystitis versus postprandial status. Other etiologies of gallbladder wall thickening include hepatitis, ascites etc. Small hiatal hernia Small cystic lesions of right kidney are most likely of simple nature. MRI unable to be done due to confusion and movement He was admitted on 04/26/18, transferred to the ICU on 04/29/18 for worsening mental status, and Intubated 04/30/18 for airway protection 05/05/18: Resumed care, patient is hemodynamically unstable on 30 mcg Levaphed with Multi System organ failure. D/W his 3 children in the ICU and ex Jenifer who is holding his hand. In summary, they want him DNR and want to withdraw care In summary he presented with confusion, Upon admission in ED, he was slightly hypotensive, lactic level 2.3, wbc 14.7, 98.7F, total bilirubin 1.6/ast 285/alt 131/alk p 856 and ammonia level of 123, INR was 1.44, albumin 3.2, bun 76/ cr 5.3. Later, it was discovered that patient is a heavy alcohol drinker, which may explain the liver dysfunction with high ammonia levels but the right hypodense liver mass was never explained (which could be a malignancy) because no iv dye could be used due to the renal failure. Liver Biopsy was not initially done because he was so confused and unable to follow commands. He would need to be sedated which was too risky. Then when he was intubated, i did consult IR for liver biopsy. CCT 45 minutes History Interval history: Patient was seen and examined. Follow-up on current diagnosis of AMS, now intubated. Imaging, nursing note, chart, labs and old chart reviewed. Moved ICU to . D/w daughters, Jenifer Pink, at bedside and Kita at the nursing station. This morning, pt severely hypotensive. Now on levophed 30 mcg Hospitalist Physical - Physical exam Narrative exam: GEN: ill appearing, critically ill with unstable vital, intubated HEENT: pupils small and sluggish on the right, no response on the left, OP mm dry, ETT and Ngt in place, sclera icterus NECK: supple CVS/HEART: Regular tachycardia, normal S1S2, pulses present bilaterally CHEST/LUNGS: bilateral rhonchi and diminished bs bilateral, Symmetrical chest expansion, good air entry bilaterally GI/Abdomen: soft, protuberant, ruq tender with good bowel sounds, no guarding or rebound /Bladder: no suprapubic tenderness, no CVA or paraspinal tenderness EXT/Skin: dependent edema x 4 MSK: not moving Neuro: not following commands, not breathing over the vent Psych: unresponsive - Constitutional Vitals: Temp Pulse Resp BP Pulse Ox 98.4 F 120 H 30 H 68/34 99 05/05/18 08:00 05/05/18 14:00 05/05/18 14:00 05/05/18 13:46 05/05/18 13:46 General appearance: Present: no acute distress, other (Intubated, unresponsive.) Results - Labs CBC & Chem 7: 05/05/18 10:01 05/05/18 08:50 Labs: Laboratory Last Values WBC 24.6 K/mm3 (4.5-11.0) H 05/05/18 10:01 RBC 4.74 M/mm3 (3.65-5.03) 05/05/18 10:01 Hgb 13.4 gm/dl (11.8-15.2) 05/05/18 10:01 Hct 46.0 % (35.5-45.6) H 05/05/18 10:01 MCV 97 fl (84-94) H 05/05/18 10:01 MCH 28 pg (28-32) 05/05/18 10:01 MCHC 29 % (32-34) L 05/05/18 10:01 RDW 19.0 % (13.2-15.2) H 05/05/18 10:01 Plt Count 143 K/mm3 (140-440) 05/05/18 10:01 Add Manual Diff Complete 05/05/18 10:01 Total Counted 100 05/05/18 10:01 Seg Neuts % (Manual) 59.0 % (40.0-70.0) 05/05/18 10:01 Band Neutrophils % 13.0 % 05/05/18 10:01 Lymphocytes % (Manual) 8.0 % (13.4-35.0) L 05/05/18 10:01 Reactive Lymphs % (Man) 0 % 05/05/18 10:01 Monocytes % (Manual) 14.0 % (0.0-7.3) H 05/05/18 10:01 Eosinophils % (Manual) 2.0 % (0.0-4.3) 05/05/18 10:01 Basophils % (Manual) 0 % (0.0-1.8) 05/05/18 10:01 Metamyelocytes % 4.0 % 05/05/18 10:01 Myelocytes % 0 % 05/05/18 10:01 Promyelocytes % 0 % 05/05/18 10:01 Blast Cells % 0 % 05/05/18 10:01 Nucleated RBC % 14.0 % (0.0-0.9) H 05/05/18 10:01 Seg Neutrophils # Man 14.5 K/mm3 (1.8-7.7) H 05/05/18 10:01 Band Neutrophils # 3.2 K/mm3 05/05/18 10:01 Lymphocytes # (Manual) 2.0 K/mm3 (1.2-5.4) 05/05/18 10:01 Abs React Lymphs (Man) 0.0 K/mm3 05/05/18 10:01 Monocytes # (Manual) 3.4 K/mm3 (0.0-0.8) H 05/05/18 10:01 Eosinophils # (Manual) 0.5 K/mm3 (0.0-0.4) H 05/05/18 10:01 Basophils # (Manual) 0.0 K/mm3 (0.0-0.1) 05/05/18 10:01 Metamyelocytes # 1.0 K/mm3 05/05/18 10:01 Myelocytes # 0.0 K/mm3 05/05/18 10:01 Promyelocytes # 0.0 K/mm3 05/05/18 10:01 Blast Cells # 0.0 K/mm3 05/05/18 10:01 WBC Morphology Not Reportable 05/05/18 10:01 Hypersegmented Neuts Not Reportable 05/05/18 10:01 Hyposegmented Neuts Not Reportable 05/05/18 10:01 Hypogranular Neuts Not Reportable 05/05/18 10:01 Smudge Cells Not Reportable 05/05/18 10:01 Toxic Granulation Not Reportable 05/05/18 10:01 Toxic Vacuolation Not Reportable 05/05/18 10:01 Dohle Bodies Not Reportable 05/05/18 10:01 Pelger-Huet Anomaly Not Reportable 05/05/18 10:01 Aidan Rods Not Reportable 05/05/18 10:01 Platelet Estimate Consistent w auto 05/05/18 10:01 Clumped Platelets Not Reportable 05/05/18 10:01 Plt Clumps, EDTA Not Reportable 05/05/18 10:01 Large Platelets Not Reportable 05/05/18 10:01 Giant Platelets Not Reportable 05/05/18 10:01 Platelet Satelliting Not Reportable 05/05/18 10:01 Plt Morphology Comment Not Reportable 05/05/18 10:01 RBC Morphology Not Reportable 05/05/18 10:01 Dimorphic RBCs Not Reportable 05/05/18 10:01 Polychromasia Rare 05/05/18 10:01 Hypochromasia Not Reportable 05/05/18 10:01 Poikilocytosis Not Reportable 05/05/18 10:01 Anisocytosis 1+ 05/05/18 10:01 Microcytosis Not Reportable 05/05/18 10:01 Macrocytosis 1+ 05/05/18 10:01 Spherocytes Not Reportable 05/05/18 10:01 Pappenheimer Bodies Not Reportable 05/05/18 10:01 Sickle Cells Not Reportable 05/05/18 10:01 Target Cells Not Reportable 05/05/18 10:01 Tear Drop Cells Not Reportable 05/05/18 10:01 Ovalocytes Not Reportable 05/05/18 10:01 Helmet Cells Not Reportable 05/05/18 10:01 [place] Bodies Not Reportable 05/05/18 10:01 Foster Rings Not Reportable 05/05/18 10:01 [place] Cells Not Reportable 05/05/18 10:01 Bite Cells Not Reportable 05/05/18 10:01 Crenated Cell Not Reportable 05/05/18 10:01 Elliptocytes Not Reportable 05/05/18 10:01 Acanthocytes (Spur) Not Reportable 05/05/18 10:01 Rouleaux Not Reportable 05/05/18 10:01 Hemoglobin C Crystals Not Reportable 05/05/18 10:01 Schistocytes Not Reportable 05/05/18 10:01 Malaria parasites Not Reportable 05/05/18 10:01 Donaldo Bodies Not Reportable 05/05/18 10:01 Hem Pathologist Commnt No 05/05/18 10:01 PT 27.3 Sec. (12.2-14.9) H 05/04/18 08:20 INR 2.35 (0.87-1.13) H 05/04/18 08:20 APTT 37.7 Sec. (24.2-36.6) H 05/01/18 05:04 POC ABG pH 7.056 (7.35-7.45) L 05/05/18 06:01 POC ABG pCO2 52.7 (35-45) H 05/05/18 06:01 POC ABG pO2 68 (80-105) L 05/05/18 06:01 POC ABG HCO3 14.8 05/05/18 06:01 POC ABG Total CO2 16 05/05/18 06:01 POC ABG O2 Sat 84 05/05/18 06:01 POC ABG Base Excess -16 05/05/18 06:01 VBG pH 7.268 (7.320-7.420) L 04/26/18 11:33 FiO2 80 % 05/05/18 06:01 Sodium TNR 05/05/18 08:50 Potassium TNR 05/05/18 08:50 Chloride TNR 05/05/18 08:50 Carbon Dioxide TNR 05/05/18 08:50 Anion Gap TNR 05/05/18 08:50 BUN TNR 05/05/18 08:50 Creatinine TNR 05/05/18 08:50 Estimated GFR TNR 05/05/18 08:50 BUN/Creatinine Ratio TNR 05/05/18 08:50 Glucose TNR 05/05/18 08:50 POC Glucose 192 (70-105) H 05/02/18 16:17 Lactic Acid 1.90 mmol/L (0.7-2.0) 04/27/18 05:52 Calcium TNR 05/05/18 08:50 Phosphorus 3.90 mg/dL (2.5-4.5) 04/30/18 04:01 Magnesium 2.40 mg/dL (1.7-2.3) H 04/30/18 04:01 Total Bilirubin TNR 05/05/18 08:50 AST TNR 05/05/18 08:50 ALT TNR 05/05/18 08:50 Alkaline Phosphatase TNR 05/05/18 08:50 Ammonia 173.0 umol/L (25-60) H 05/04/18 16:27 Total Creatine Kinase 435 units/L (55-170) H 04/29/18 08:12 C-Reactive Protein 16.50 mg/dL (0.00-1.30) H 04/27/18 16:28 Total Protein TNR 05/05/18 08:50 Albumin TNR 05/05/18 08:50 Albumin/Globulin Ratio TNR 05/05/18 08:50 Lipase 68 units/L (13-60) H 04/26/18 21:20 Urine Color Rosalia (Yellow) 04/26/18 12:58 Urine Turbidity Clear (Clear) 04/26/18 12:58 Urine pH 5.0 (5.0-7.0) 04/26/18 12:58 Ur Specific [place] 1.017 (1.003-1.030) 04/26/18 12:58 Urine Protein 30 mg/dl mg/dL (Negative) 04/26/18 12:58 Urine Glucose (UA) Neg mg/dL (Negative) 04/26/18 12:58 Urine Ketones Neg mg/dL (Negative) 04/26/18 12:58 Urine Blood Neg (Negative) 04/26/18 12:58 Urine Nitrite Neg (Negative) 04/26/18 12:58 Urine Bilirubin Neg (Negative) 04/26/18 12:58 Urine Urobilinogen < 2.0 mg/dL (<2.0) 04/26/18 12:58 Ur Leukocyte Esterase Neg (Negative) 04/26/18 12:58 Urine WBC (Auto) 2.0 /HPF (0.0-6.0) 04/26/18 12:58 Urine RBC (Auto) 1.0 /HPF (0.0-6.0) 04/26/18 12:58 U Epithel Cells (Auto) < 1.0 /HPF (0-13.0) 04/26/18 12:58 Urine Creatinine 141.6 mg/dL (0.1-20.0) H 05/02/18 03:00 Urine Sodium 10 mmol/L 05/02/18 03:00 Random Vancomycin 9.6 ug/mL (0-40.0) 04/28/18 15:41 Hepatitis A IgM Ab Non-reactive (NonReactive) 04/26/18 21:20 Hep Bs Antigen Non-reactive (Negative) 04/26/18 21:20 Hep B Core IgM Ab Non-reactive (NonReactive) 04/26/18 21:20 Hepatitis C Antibody Non-reactive (NonReactive) 04/26/18 21:20 HIV 1&2 Antibody Rapid Non react (Non React) 04/27/18 16:28 HIV P24 Antigen Non react (Non React) 04/27/18 16:28 Blood Type A POSITIVE 05/04/18 10:20
--- NOTE | 2018-05-05 15:46 | XRay Report ---
FINAL REPORT PROCEDURE: XR CHEST 1V AP TECHNIQUE: Chest radiograph anteroposterior view. CPT 75957 HISTORY: follow up respiratory failure COMPARISON: Prior chest x-ray 05/04/2018 FINDINGS: Patient is rotated to the right. NG tube is directed into the stomach. Distal end of the tube is not included on this film. Endotracheal tube is in place. The tip lies 3 centimeters above the zander. Interstitial markings are mildly diffusely coarsened suggesting mild interstitial lung disease/fibrosis.. No focal infiltrates masses effusions or pneumothorax are visualized. No acute bony abnormalities are identified. Heart is magnified due to projection although appears to be normal size. Pulmonary vasculature is not distended. IMPRESSION: Endotracheal tube and NG tube appear to be in good position. Mild interstitial lung disease suspected. No focal infiltrates are seen.
[2018-05-05] MEDS ORDERED: TRANSDERM-SCOP TD SCH (16:00)
--- NOTE | 2018-05-05 16:21 | Death Summary ---
Summary - Providers Date of service: 05/05/18 Consults: 04/26/18 12:47 Consult to Physician [CONS] Urgent Comment: called office spoke to luciana/tonja Consulting Provider: TAM PADILLA Physician Instructions: Reason For Exam: RF 04/26/18 18:44 Consult to Physician [CONS] Urgent Comment: SKINNY Consulting Provider: MARLENA CHOU Physician Instructions: CONSULT WAS CALLED TO /VIJAY Reason For Exam: abn CT, renal failure, spesis?, consider cholecyst 04/27/18 10:54 Consult to Physician [CONS] Routine Comment: Consulting Provider: IVETH GRAJEDA Physician Instructions: Reason For Exam: SIRS 04/28/18 10:42 Consult to Physician [CONS] Routine Comment: Consulting Provider: SHIRIN MEAD Physician Instructions: Reason For Exam: hepatic encephalopathy 04/29/18 16:04 Consult to Dietitian/Nutrition [CONS] Routine Physician Instructions: Reason For Exam: Reason for Consult: Write/Manage Tube Feeding 04/30/18 07:32 Consult to Physician [CONS] Routine Comment: Consulting Provider: ROLANDA POWELL Physician Instructions: Reason For Exam: Critical care eval, respiratory failure, MSOF 05/03/18 15:07 Consult to Interventional Radiology [CONS] Routine Consulting Provider: VALDEMAR MICHELLE Reason For Exam: Evaluate to biopsy liver lesion Place consult to:: Dr. Michelle Notified:: yes Was contact made?: Yes If yes, spoke with:: Dr. Michelle Time called:: 18:04 05/05/18 14:23 Consult to Dietitian/Nutrition [CONS] Routine Physician Instructions: Assess nutrtn needs, initiate, modify, manage TF Reason For Exam: Reason for Consult: Write/Manage Tube Feeding Reason for Consult: Write/Manage Tube Feeding Attending: COLE ROBLES - summary Date of admission: 04/26/18 14:00 Date of : 05/05/18 Reason for admission: AMS Significant findings: Patient is a 72 yo man with a history of chronic hypoxic Respiratory Failure on Home Oxygen due to End Stage COPD and HTN who presented to ED shortness of breath, hematuria and confusion/drowsiness, * CT ABDOMEN AND PELVIS WITHOUT CONTRAST CONCLUSION: 1. Peripheral right hepatic hypodense mass(es) now suspected with new small perihepatic ascites on this limited, unenhanced exam, as described. Subtle fat stranding may also be noted about the pancreas and the gallbladder. 2. Various other findings as distal esophageal thickening, hepatomegaly, cecum/proximal ascending colon CT appearance, enlarged prostate and small pelvic ascites, amongst others, as detailed above. * CT HEAD WITHOUT CONTRAST CONCLUSION: No acute intracranial CT abnormality with sinusitis and few other findings, as described. * pCXR CONCLUSION: No acute chest process with chronic interstitial lung disease again suspected. * * HIDA IMPRESSION: No cystic or common bile duct obstruction. Post Kinevac ejection fraction 35%. * * Abd U/S IMPRESSION: Cholelithiasis. No evidence for acute cholecystitis. The common bile duct is mildly dilated at 8.2 mm which could represent choledocholithiasis. Nonspecific renal parenchymal disease and liver normal -SIRS with suspected early Sepsis without clear source, poa, believed to be from Liver abscess vs necrosis: consult ID: IV antibiotics, serial lactic acid, monitor uop q shift, blood cultures, urinalysis, chest x ray, IVF resuscitation therapy -Acute Hepatic Encephalopathy: treat with Lactulose -Acute renal failure, suspect ATN with hypotension + vasomotor nephropathy, poa: treat with ivf, consult Nephrology -Lactic Acidosis: Treat sepsis, monitor uop q shift, iv bicarbonate prn -Streptococcus bacteremia, ID is following/managing, 2D Echo==>reviewed, no vegatation seen -Alcohol withdrawal syndrome (patient did have a fever and you can be either hypertensive or hypotensive with Etoh withdrawal): limit iv ativan due to liver dysfunction, Serax/Oxazepam was not available, Restarted IV Ativan -Hypoglycemia: started D5W but IVF changed by ceramic capacitor processor, Dr. Padilla -Hepatitis with ascities, suspeceed peritionitis: CT Abdomen and pelvis noted, LFT, Hepatitis panel, consulted GI -Hematuria: resolved, outpatient urology F/U recommended -DVT prophylaxis: SCD to BLE while in bed -Evidence of Livedo Reticularis, poa guarded prognosis full code==>made DNR per Dr. Myers who I discuss with him, he will sign DNR and withdrawal forms MRCP==>IMPRESSION: Grossly limited study due to motion artifacts and the MRCP is nondiagnostic. Inhomogeneous signal is noted in the liver. Any underlying mass lesions cannot be excluded. Mild degree bilateral pleural effusions and mild degree ascites. Gallbladder is minimally distended with mild degree wall thickening. This may be secondary to chronic cholecystitis versus postprandial status. Other etiologies of gallbladder wall thickening include hepatitis, ascites etc. Small hiatal hernia Small cystic lesions of right kidney are most likely of simple nature. MRI unable to be done due to confusion and movement He was admitted on 04/26/18, transferred to the ICU on 04/29/18 for worsening mental status, and Intubated 04/30/18 for airway protection 05/05/18: Resumed care, patient is hemodynamically unstable on 30 mcg Levaphed with Multi System organ failure. D/W his 3 children in the ICU and ex Jenifer who is holding his hand. In summary, they want him DNR and want to withdraw care In summary he presented with confusion, Upon admission in ED, he was slightly hypotensive, lactic level 2.3, wbc 14.7, 98.7F, total bilirubin 1.6/ast 285/alt 131/alk p 856 and ammonia level of 123, INR was 1.44, albumin 3.2, bun 76/ cr 5.3. Later, it was discovered that patient is a heavy alcohol drinker, which may explain the liver dysfunction with high ammonia levels but the right hypodense liver mass was never explained (which could be a malignancy) because no iv dye could be used due to the renal failure. Liver Biopsy was not initially done because he was so confused and unable to follow commands. He would need to be sedated which was too risky. Then when he was intubated, i did consult IR for liver biopsy. Family wants to withdrawal. D/W Dr. Myers, he has no objection to withdrawal. Mechanical ventilator and Levophed were stopped. Asytole on monitoring Pupils fixed and dilated, no heart tones, no respiratory sounds Time of 3:55pm Suspected Cause of : Liver failure
[2018-05-05 16:33] VITALS: BP 53/22
== END 2018-05-05 17:50 | DRG 870 ==
LOC: ED 11:02 → 2B-ACE 14:00 → CC1 04-29 22:54
PROVIDERS: ADMIT Internal Medicine; ATTEND Internal Medicine
PROC: 4A033R1 Measurement of Arterial Saturation, Peripheral, Percutaneous Approach (ICD-10-PCS; principal; 2018-04-29)
PROC: 5A09457 Assistance with Respiratory Ventilation, 24-96 Consecutive Hours, Continuous Positive Airway Pressure (ICD-10-PCS; 2018-04-29)
PROC: 5A1955Z Respiratory Ventilation, Greater than 96 Consecutive Hours (ICD-10-PCS; 2018-04-30)
PROC: 0BH17EZ Insertion of Endotracheal Airway into Trachea, Via Natural or Artificial Opening (ICD-10-PCS; 2018-04-30)
PROC: 06HY33Z Insertion of Infusion Device into Lower Vein, Percutaneous Approach (ICD-10-PCS; 2018-05-04)
PROC: B54BZZA Ultrasonography of Right Lower Extremity Veins, Guidance (ICD-10-PCS; 2018-05-04)
DX: A41.9 Sepsis, unspecified organism (principal); N17.0 Acute kidney failure with tubular necrosis; K75.0 Abscess of liver; K65.9 Peritonitis, unspecified; R65.21 Severe sepsis with septic shock; J96.21 Acute and chronic respiratory failure with hypoxia; E87.2 Acidosis; F10.239 Alcohol dependence with withdrawal, unspecified; E87.0 Hyperosmolality and hypernatremia; D68.9 Coagulation defect, unspecified; I10 Essential (primary) hypertension; K72.90 Hepatic failure, unspecified without coma; K75.9 Inflammatory liver disease, unspecified; R31.9 Hematuria, unspecified; R23.1 Pallor; J44.9 Chronic obstructive pulmonary disease, unspecified; E87.5 Hyperkalemia; R33.9 Retention of urine, unspecified; E88.09 Other disorders of plasma-protein metabolism, not elsewhere classified; F41.9 Anxiety disorder, unspecified; G89.29 Other chronic pain; M54.9 Dorsalgia, unspecified; E86.0 Dehydration; M19.90 Unspecified osteoarthritis, unspecified site; I45.10 Unspecified right bundle-branch block; K76.89 Other specified diseases of liver; Z82.49 Family history of ischemic heart disease and other diseases of the circulatory system; Z98.49 Cataract extraction status, unspecified eye; Z79.899 Other long term (current) drug therapy
CPT/HCPCS: 36415; 36600; 70450; 71045; 74018; 74176; 74181; 76700; 78227; 80048; 80053; 80074; 80202; 81001; 82106; 82140; 82550; 82570; 82803; 82805; 82962; 83520; 83690; 83735; 84100; 84300; 85007; 85014; 85018; 85025; 85027; 85610; 85730; 86021; 86038; 86140; 86900; 86901; 87040; 87070; 87086; 87205; 87806; 93005; 93010; 93306; 94003; 94640; 94660; 94760; 96361; 96365; 99292; A9537; C9113; J0692; J1450; J1630; J1644; J1720; J1940; J2020; J2060; J2250; J2405; J2543; J2805; J3010; J3370; J3411; J3430; J7030; J7040; J7050; J7070